=== PATIENT | female | born 1955 | race Caucasian/White ===

== ENCOUNTER → 2017-12-10 07:45 | Outpatient (CLI) | payer OTHER, SELFPAY ==
--- NOTE | 2017-12-10 07:49 | BI_ITS ---
MAMMOGRAPHY - BILATERAL SCREENING REASON FOR EXAM: Female, 62 years old. Routine annual screening examination. PERTINENT HISTORY: Non-contributory. TECHNIQUE: Digital bilateral breast walter (3D mammographic acquisition) in the CC and MLO projections. 2-D mediolateral oblique (MLO) and craniocaudad (CC) views of both breasts were obtained. CAD: Full Field Digital Mammography with Computer Added Detection was performed. COMPARISON: Comparison is made with prior abdomen examination dated December 09, 2016. FINDINGS: Breast Composition: There are scattered areas of fibroglandular density. There are no dominant masses or suspicious calcifications. No other significant abnormalities are identified. There has been no significant change since the prior study. BI/SCREENING MAMM (CAD), BILAT IMPRESSION: Stable bilateral screening mammogram. Yearly follow-up mammogram recommended. (A) ASSESSMENT CATEGORY: BIRADS Category 1: Negative. A letter regarding these results will be sent to the patient by the facility within 30 days. Approximately 10% of breast cancers are not detected by mammography. A normal mammogram should not delay biopsy of a clinically suspicious abnormality. [id number] Electronically Signed: Juan Eisenberg MD at 8:55 EDT Tel [phone], Service support ,
== END ==
PROVIDERS: Family Provider Student in an Organized Health Care Education/Training Program; PCP Student in an Organized Health Care Education/Training Program; Visit Provider Nurse Practitioner Women's Health
DX: Z12.31 Encounter for screening mammogram for malignant neoplasm of breast (principal)
CPT/HCPCS: 77063; 77067

== ENCOUNTER → 2018-12-14 | Outpatient (CLI) | payer OTHER, SELFPAY ==
[2018-11-10 12:07] VITALS: BMI 29.0
--- NOTE | 2018-12-14 07:51 | BI_ITS ---
MAMMOGRAPHY - BILATERAL SCREENING REASON FOR EXAM: Female, 63 years old. Routine annual screening examination. PERTINENT HISTORY: Non-contributory. TECHNIQUE: Digital bilateral breast ty (3D mammographic acquisition) in the CC and MLO projections. 2-D mediolateral oblique (MLO) and craniocaudad (CC) views of both breasts were obtained. CAD: Full Field Digital Mammography with Computer Added Detection was performed. COMPARISON: Comparison is made with prior examination dated December 10, 2017. FINDINGS: Breast Composition: There are scattered areas of fibroglandular density. There are no dominant masses or suspicious calcifications. No other significant abnormalities are identified. There has been no significant change since the prior study. BI/SCREEN MAMM (CAD) W/TY BILAT IMPRESSION: Stable bilateral screening mammogram. Yearly follow-up mammogram recommended. (A) ASSESSMENT CATEGORY: BIRADS Category 1: Negative. A letter regarding these results will be sent to the patient by the facility within 30 days. Approximately 10% of breast cancers are not detected by mammography. A normal mammogram should not delay biopsy of a clinically suspicious abnormality. [id number] Electronically Signed: Juan Eisenberg, at 9:36 EDT , Service support ,
== END | disposition home or self-care (01) ==
LOC: OPBI 07:49
PROVIDERS: Family Provider Student in an Organized Health Care Education/Training Program; PCP Student in an Organized Health Care Education/Training Program; Referring Provider Student in an Organized Health Care Education/Training Program; Visit Provider Student in an Organized Health Care Education/Training Program
DX: Z12.31 Encounter for screening mammogram for malignant neoplasm of breast (principal)
CPT/HCPCS: 77063; 77067

== ENCOUNTER → 2019-09-13 10:42 | Outpatient (CLI) | payer MEDICARE, BC, SELFPAY ==
[2019-09-13 10:33] VITALS: BMI 29.0
--- NOTE | 2019-09-13 10:50 | BI_ITS ---
MAMMOGRAPHY - UNILATERAL DIAGNOSTIC: LEFT BREAST REASON FOR EXAM: Female, 63 years old. Left breast pain. PERTINENT HISTORY: Non-contributory. TECHNIQUE: Digital unilateral breast walter (3D mammographic acquisition) in the CC and MLO projections. 2-D mediolateral oblique (MLO) and craniocaudad (CC) views of both breasts were obtained. CAD: Full Field Digital Mammography with Computer Added Detection was performed. COMPARISON: Comparison is made with prior examination dated December 14, 2018 and December 11, 2007. FINDINGS: Breast Composition: The breasts are heterogeneously dense, which may obscure small masses. There are no dominant masses or suspicious calcifications. No other significant abnormalities are identified. There has been no significant change since the prior study. BI/DIAG MAMM W/CAD, UNILAT IMPRESSION: Stable unilateral diagnostic mammogram. With the patient''s history of left breast pain, correlation with ultrasound is recommended. ASSESSMENT CATEGORY: BIRADS Category 0: Incomplete. Need additional imaging evaluation. A letter regarding these results will be sent to the patient by the facility within 30 days. Approximately 10% of breast cancers are not detected by mammography. A normal mammogram should not delay biopsy of a clinically suspicious abnormality. Electronically Signed: Juan Eisenberg, at 11:53 EDT , Service support ,
--- NOTE | 2019-09-13 10:50 | US_ITS ---
STUDY: ULTRASOUND BREAST - LEFT REASON FOR EXAM: Female, 63 years old. Pain in the left breast. TECHNIQUE: Axial and longitudinal images of the LEFT breast were performed with a high resolution ultrasound transducer. # OF IMAGES: 53 COMPARISON: Comparison is made with prior mammogram done earlier today. FINDINGS: LEFT Breast: The lateral half of the left breast was examined by ultrasound. No sonographic abnormality is seen. US/Breast Limited Unilateral IMPRESSION: No sonographic abnormality is seen. ASSESSMENT CATEGORY: BIRADS Category 1: Negative. A letter regarding these results will be sent to the patient by the facility within 30 days. Electronically Signed: Juan Eisenberg, at 11:55 EDT , Service support ,
== END ==
PROVIDERS: PCP Student in an Organized Health Care Education/Training Program; Referring Provider Obstetrics & Gynecology; Visit Provider Obstetrics & Gynecology
DX: N64.4 Mastodynia (principal)
CPT/HCPCS: 76642; 77061; 77065; G0279

== ENCOUNTER → 2019-12-16 07:18 | Outpatient (CLI) | payer MEDICARE, BC, SELFPAY ==
[2019-09-13 10:33] VITALS: BMI 29.0
--- NOTE | 2019-12-16 07:19 | BI_ITS ---
MAMMOGRAPHY - BILATERAL SCREENING REASON FOR EXAM: Female, 64 years old. Routine annual screening examination. PERTINENT HISTORY: Non-contributory. TECHNIQUE: Digital bilateral breast ty (3D mammographic acquisition) in the CC and MLO projections. 2-D mediolateral oblique (MLO) and craniocaudad (CC) views of both breasts were obtained. CAD: Full Field Digital Mammography with Computer Added Detection was performed. COMPARISON: Comparison is made with prior study dated December 14, 2018 and September 13, 2019. FINDINGS: Breast Composition: There are scattered areas of fibroglandular density. There are no dominant masses or suspicious calcifications. No other significant abnormalities are identified. There has been no significant change since the prior study. BI/SCREEN MAMM (CAD) W/TY BILAT IMPRESSION: Stable bilateral screening mammogram. Yearly follow-up mammogram recommended. (A) ASSESSMENT CATEGORY: BIRADS Category 1: Negative. A letter regarding these results will be sent to the patient by the facility within 30 days. Approximately 10% of breast cancers are not detected by mammography. A normal mammogram should not delay biopsy of a clinically suspicious abnormality. [id number] Electronically Signed: Juan Eisenberg, at 8:32 EDT , Service support ,
== END ==
PROVIDERS: PCP Student in an Organized Health Care Education/Training Program; Referring Provider Student in an Organized Health Care Education/Training Program; Visit Provider Student in an Organized Health Care Education/Training Program
DX: Z12.31 Encounter for screening mammogram for malignant neoplasm of breast (principal)
CPT/HCPCS: 77063; 77067

== ENCOUNTER 2020-02-23 08:31 | Outpatient (RCR) | payer MEDICARE, BC, SELFPAY ==
[2019-09-13 10:33] VITALS: BMI 29.0
== END 2020-02-29 23:59 ==
LOC: DC 08:31
PROVIDERS: PCP Student in an Organized Health Care Education/Training Program; Visit Provider Nurse Practitioner Family
DX: Z71.3 Dietary counseling and surveillance (principal); E11.9 Type 2 diabetes mellitus without complications
CPT/HCPCS: G0108

== ENCOUNTER 2020-03-13 14:25 | Outpatient (RCR) | payer MEDICARE, BC, SELFPAY ==
[2019-09-13 10:33] VITALS: BMI 29.0
== END 2020-03-31 23:59 ==
LOC: DC 14:25
PROVIDERS: PCP Student in an Organized Health Care Education/Training Program; Visit Provider Nurse Practitioner Family
DX: Z71.3 Dietary counseling and surveillance (principal); E11.9 Type 2 diabetes mellitus without complications
CPT/HCPCS: 97802

== ENCOUNTER 2020-04-03 09:57 | Outpatient (RCR) | payer MEDICARE, BC, SELFPAY ==
[2019-09-13 10:33] VITALS: BMI 29.0
== END 2020-04-30 23:59 ==
LOC: DC 09:57
PROVIDERS: PCP Student in an Organized Health Care Education/Training Program; Visit Provider Nurse Practitioner Family
DX: Z71.3 Dietary counseling and surveillance (principal); E11.9 Type 2 diabetes mellitus without complications
CPT/HCPCS: 97803

== ENCOUNTER 2020-05-02 09:57 | Outpatient (RCR) | payer MEDICARE, BC, SELFPAY ==
[2019-09-13 10:33] VITALS: BMI 29.0
== END 2020-05-02 15:37 | disposition home or self-care (01) ==
LOC: DC 09:57
PROVIDERS: PCP Student in an Organized Health Care Education/Training Program; Visit Provider Nurse Practitioner Family
DX: Z71.3 Dietary counseling and surveillance (principal); E11.9 Type 2 diabetes mellitus without complications
CPT/HCPCS: 97803

== ENCOUNTER → 2020-12-19 06:56 | Outpatient (CLI) | payer MEDICARE, SELFPAY ==
[2019-09-13 10:33] VITALS: BMI 29.0
--- NOTE | 2020-12-19 07:02 | BI_ITS ---
MAMMOGRAPHY - BILATERAL SCREENING REASON FOR EXAM: Female, 65 years old. Routine annual screening examination. PERTINENT HISTORY: Non-contributory. TECHNIQUE: Digital bilateral breast ty (3D mammographic acquisition) in the CC and MLO projections. 2-D mediolateral oblique (MLO) and craniocaudad (CC) views of both breasts were obtained. CAD: Full Field Digital Mammography with Computer Added Detection was performed. COMPARISON: Comparison is made with prior study dated 12/16/2019 and 12/14/2018. FINDINGS: Breast Composition: There are scattered areas of fibroglandular density. There are no dominant masses or suspicious calcifications. No other significant abnormalities are identified. There has been no significant change since the prior study. BI/SCRN MAMM (CAD)W/TY BILAT IMPRESSION: Stable bilateral screening mammogram. Yearly follow-up mammogram recommended. (A) ASSESSMENT CATEGORY: BIRADS Category 1: Negative. A letter regarding these results will be sent to the patient by the facility within 30 days. Approximately 10% of breast cancers are not detected by mammography. A normal mammogram should not delay biopsy of a clinically suspicious abnormality. [id number] Electronically Signed: Juan Eisenberg MD at 8:48 EDT , Service support ,
== END ==
PROVIDERS: PCP Student in an Organized Health Care Education/Training Program; Referring Provider Student in an Organized Health Care Education/Training Program; Visit Provider Student in an Organized Health Care Education/Training Program
DX: Z12.31 Encounter for screening mammogram for malignant neoplasm of breast (principal)
CPT/HCPCS: 77063; 77067

== ENCOUNTER → 2022-01-15 | Outpatient (CLI) | payer MEDICARE, SELFPAY ==
--- NOTE | 2022-01-15 07:16 | BI_ITS ---
MAMMOGRAPHY - BILATERAL SCREENING 3-D TOMOSYNTHESIS REASON FOR EXAM: Female, 66 years old. SCREENING PERTINENT HISTORY: No significant family history. TECHNIQUE: 2-D mammograms and 3-D Tomosynthesis of the breast (s) were performed. CAD was performed. COMPARISON: 12/19/2020 FINDINGS: The breast composition is heterogeneously dense that can obscure small breast masses. Scattered benign calcifications are seen. No dense spiculated masses or suspicious microcalcifications are identified. No architectural distortion is identified. There is no skin thickening or retraction. There has been no significant change since the prior study. BI/SCRN MAMM (CAD)W/TY BILAT IMPRESSION: No mammographic signs of malignancy. Routine yearly mammograms recommended. ASSESSMENT CATEGORY: BIRADS Category 1: Negative. A letter regarding these results will be sent to the patient by the facility within 30 days. FOLLOW UP RECOMMENDATION: Yearly follow up mammogram recommended. (A) Approximately 10% of breast cancers are not detected by mammography. A normal mammogram should not delay biopsy of a clinically suspicious abnormality. Electronically Signed: Pee Sutherland MD at 9:26 EDT ,
== END | disposition home or self-care (01) ==
LOC: OPBI 07:13
PROVIDERS: PCP Student in an Organized Health Care Education/Training Program; Visit Provider Nurse Practitioner Family
DX: Z12.31 Encounter for screening mammogram for malignant neoplasm of breast (principal)
CPT/HCPCS: 77063; 77067

== ENCOUNTER → 2023-01-16 | Outpatient (CLI) | payer MEDICARE, SELFPAY ==
--- NOTE | 2023-01-16 09:09 | BI_ITS ---
MAMMOGRAPHY - BILATERAL SCREENING REASON FOR EXAM: Female, 67 years old. Routine annual screening examination. PERTINENT HISTORY: Non-contributory. TECHNIQUE: Digital bilateral breast ty (3D mammographic acquisition) in the CC and MLO projections. 2-D mediolateral oblique (MLO) and craniocaudad (CC) views of both breasts were obtained. CAD: Full Field Digital Mammography with Computer Added Detection was performed. COMPARISON: Comparison is made with prior study January 15, 2022 and December 19, 2020. FINDINGS: Breast Composition: The breasts are heterogeneously dense, which may obscure small masses. There are no dominant masses or suspicious calcifications. No other significant abnormalities are identified. There has been no significant change since the prior study. BI/SCRN MAMM (CAD)W/TY BILAT IMPRESSION: Stable bilateral screening mammogram. Yearly follow-up mammogram recommended. (A) ASSESSMENT CATEGORY: BIRADS Category 1: Negative. A letter regarding these results will be sent to the patient by the facility within 30 days. Approximately 10% of breast cancers are not detected by mammography. A normal mammogram should not delay biopsy of a clinically suspicious abnormality. [id number] Electronically Signed: Juan Eisenberg MD at 10:42 EDT ,
== END | disposition home or self-care (01) ==
LOC: OPBI 09:07
PROVIDERS: PCP Student in an Organized Health Care Education/Training Program; Referring Provider Student in an Organized Health Care Education/Training Program; Visit Provider Student in an Organized Health Care Education/Training Program
DX: Z12.31 Encounter for screening mammogram for malignant neoplasm of breast (principal)
CPT/HCPCS: 77063; 77067

== ENCOUNTER → 2024-01-18 | Outpatient (CLI) | payer MEDICARE, SELFPAY ==
--- NOTE | 2024-01-18 07:22 | BI_ITS ---
MAMMOGRAPHY - BILATERAL SCREENING REASON FOR EXAM: Female, 68 years old. Routine annual screening examination. PERTINENT HISTORY: Non-contributory. TECHNIQUE: Digital bilateral breast ty (3D mammographic acquisition) in the CC and MLO projections. 2-D mediolateral oblique (MLO) and craniocaudad (CC) views of both breasts were obtained. CAD: Full Field Digital Mammography with Computer Added Detection was performed. COMPARISON: Comparison is made with prior study January 16, 2023 and January 15, 2022. FINDINGS: Breast Composition: The breasts are heterogeneously dense, which may obscure small masses. There are no dominant masses or suspicious calcifications. No other significant abnormalities are identified. There has been no significant change since the prior study. BI/SCRN MAMM (CAD)W/TY BILAT IMPRESSION: Stable bilateral screening mammogram. Yearly follow-up mammogram recommended. (A) ASSESSMENT CATEGORY: BIRADS Category 1: Negative. A letter regarding these results will be sent to the patient by the facility within 30 days. Approximately 10% of breast cancers are not detected by mammography. A normal mammogram should not delay biopsy of a clinically suspicious abnormality. [id number] Electronically Signed: Juan Eisenberg MD at 8:30 EDT ,
== END | disposition home or self-care (01) ==
LOC: OPBI 07:21
PROVIDERS: PCP Student in an Organized Health Care Education/Training Program; Referring Provider Student in an Organized Health Care Education/Training Program; Visit Provider Student in an Organized Health Care Education/Training Program
DX: Z12.31 Encounter for screening mammogram for malignant neoplasm of breast (principal)
CPT/HCPCS: 77063; 77067

== ENCOUNTER → 2025-01-18 | Outpatient (CLI) | payer MEDICARE, SELFPAY ==
--- NOTE | 2025-01-18 07:22 | BI_ITS ---
EXAM: SCRN MAMM (CAD)W/TY BILAT DATE: 01/18/2025 CLINICAL HISTORY: F, Age 69 y/o , SCREENING No family history. TECHNIQUE: SCRN MAMM (CAD)W/TY BILAT COMPARISON: Prior exam(s) dated January 18, 2024.. FINDINGS: TISSUE DENSITY: The breasts are heterogeneously dense, which may obscure small masses. Bilateral Breast Mammographic Findings: No significant masses, calcifications or other abnormalities are identified. Stable asymmetry of breast tissue were more breast tissue is seen in the retroareolar region of the right breast as compared to the left side. No suspicious masses, areas of developing architectural distortion, or suspicious calcifications. There has been no significant interval change. BI/SCRN MAMM (CAD)W/TY BILAT IMPRESSION: Stable examination. OVERALL FINAL ASSESSMENT BI-RADS 2: BENIGN RECOMMENDATION: Routine annual follow-up in 1 Year A letter with findings and recommendations will be mailed to the patient. Reading Location: [facility]
--- OUTSIDE RECORDS SUMMARY | 2025-01-18 07:25 | XMS RPT_ITS | CCD ---
Author Organization [facility] Care Team Providers Care Tierce Filler Name Role Phone Pray TRANSFER MACHINE OPERATOR, Estrella Reese Unavailable Ludin PHILIP, Alice Burroughs Unavailable Wojciech Alvarado DO Primary Care Provider Wojciech Alvarado DO L Primary Care Provider Christiano JOHNSON Wojciech L Primary Care Provider Sissen PSS, Tha Unavailable Unavailable Christiano JOHNSON Wojciech L Primary Care Provider WOJCIECH ALVARADO L Primary Care Unavailable MAGDALENO NORTON Referring Unavailable Alvarado DO Wojciech L Primary Care Provider Sissen PSS, Tha Unavailable Unavailable Aponte ARMOR RECONNAISSANCE VEHICLE DRIVER.Casi PETTY Unavailable Siddharth ARMOR RECONNAISSANCE VEHICLE DRIVER.Halle PETTY Unavailable Aponte ARMOR RECONNAISSANCE VEHICLE DRIVER.Casi PETTY Unavailable SIDDHARTHHALLE DO Referring Unavailable ALVARADO, WOJCIECH L Primary Care Unavailable HALLE MESSINA Referring Unavailable ALVARADO, WOJCIECH L Primary Care Unavailable Wellington ARMOR RECONNAISSANCE VEHICLE DRIVER.Kate PETTY Unavailable CASI APONTE Attending Unavailabl e ALVARADO, WOJCIECH Primary Care Unavailable ALVARADO, WOJCIECH Referring Unavailable ALVARADO, WOJCIECH Primary Care Unavailable ALVARADO, WOJCIECH Primary Care Unavailable SIDDHARTHHALLE Attending Unavailable ALVARADO, WOJCIECH Attending Unavailable ALVARADO, WOJCIECH Primary Care Unavailable ALVARADO, WOJCIECH Primary Care Unavailable SIDDHARTH, HALLE Attending Unavailable ALVARADO, WOJCIECH Primary Care Unavailable CASI APONTE Referring Unavailabl e ALVARADO, WOJCIECH Primary Care Unavailable [facility] Attending Unavailable [facility] Primary Care Unavailable CECELIA NAQVI Referring Unavailable [facility] Primary Care Unavailable CASI APONTE [facility] ALVARADO, WOJCIECH Primary Care Unavailable ALVARADO WOJCIECH Referring Unavailable ALVARADO WOJCIECH Primary Care Unavailable ALVARADO WOJCIECH Attending Unavailable [facility] Primary Care Unavailable [facility] Referring Unavailable [facility] Attending Unavailable [facility] Primary Care Unavailable Medications Current Medications Medication Drug Class(es) Dates Sig (Normalized) Sig (Original) amLODIPine 5 mg oral tablet (13 sources) Dihydropyridine Calcium Channel Kiarra Start: 09-08-2024 End: 01-29-2025 take 1 tablet by mouth once daily amLODIPine (NORVASC) 5 mg tablet Indications: Essential hypertension Take 1 tablet by mouth once daily. 30 tablet 2 10/31/2024 01/29/2025 Active Start: 08-18-2024 End: 09-08-2024 take 1 tablet by mouth once daily amLODIPine (NORVASC) 2.5 mg tablet Take 1 tablet by mouth once daily. 90 tablet 08/18/2024 09/08/2024 Discontinued biotin 1 mg oral capsule (20 sources) Start: 09-13-2019 take 1 mg by mouth once daily Biotin Active 1 MG PO DAILY September 13, 2019 12:00am Start: 05-17-2018 End: 12-24-2022 take 1 tablet by mouth once daily biotin 300 mcg tab Take 1 tablet by mouth once daily. 05/17/2018 12/24/2022 Discontinued Comment on above: Take 1 tablet by [facility] once daily. calcium carbonate 1500 mg / cholecalciferol 500 unt oral capsule (2 sources) Vitamin D Start: 020 Calcium Carbonate-Vitamin D3 (Calcium 600 With Vitamin D3) 600 mg(1,500mg) -500 unit capsule Active CAP PO September 13, 2019 12:00am CALTRATE-600 PLUS VITAMIN D3 600 MG-400 UNIT TAB (20 sources) Start: 007 CALTRATE-600 PLUS VITAMIN D3 600 MG-400 UNIT TAB Take one(1) tablet daily. 0 06/19/2006 Active Comment on above: Take one(1) tablet d aily. docusate sodium 100 mg oral capsule (4 sources) Start: End: take 1 capsule by mouth every twelve hours as needed docusate sodium (COLACE) 100 mg capsule Take 1 capsule by mouth twice daily as needed for constipation. 60 capsule 0 05/06/2022 06/05/2022 Active Comment on above: Take 1 capsule by [facility] twice daily as needed for constipation. doxycycline monohydrate 100 mg oral tablet (1 source) Tetracycline-class Drug Start: End: take 1 tablet by mouth twice daily doxycycline monohydrate 100 mg tablet Indications: Sinobronchitis Take 1 tablet by mouth two times a day for 7 days. 14 tablet 04/13/2024 04/20/2024 Active enteric contrast (will be provided with radiology test) (3 sources) Start: End: enteric contrast (will be provided with radiology test) Indications: Pain of upper abdomen , Decreased appetite , Early satiety , Bloating For CT ABD/PEL W IVCON Routine order Administer, As Directed One Time Only, via Oral, Rectal, both Oral and Rectal, Enteric Tube, Stoma or Indwelling Catheter, Enteric Contrast as designated per enteric contrast guidelines 1 each 10/06/2024 10/07/2024 Active hydrALAZINE hydrochloride 25 mg oral tablet (10 sources) Arteriolar Vasodilator Start: hydrALAZINE (APRESOLINE) 25 mg tablet Take 1 tablet by mouth once daily as needed. For BP greater than 150/100 30 tablet 2 10/06/2024 Active iv contrast (will be provided with radiology test) (3 sources) Start: End: iv contrast (will be provided with radiology test) Indications: Pain of upper abdomen , Decreased appetite , Early satiety , Bloating CT ABD/PEL -Inject, intravenously, once for 1 dose.No IV access, insert saline lock prior to the beginning of sedation, infusion, injection of imaging exam. Discontinue saline lock post exam. If Pt. has a central line or IVAD, may access for administration according to line specific nursing protocol. Once exam is complete flush line and de-access according to line specific nursing protocol in the CT contrast administration guidelines link. 1 each 10/06/2024 10/07/2024 Active lisinopril 40 mg oral tablet (20 sources) Angiotensin Converting Enzyme Inhibitor Start: 025 take 1 tablet by mouth once daily lisinopril (ZESTRIL) 40 mg tablet Indications: Lightheadedness , Essential hypertension Take 1 tablet by mouth once daily. 90 tablet 3 08/17/2024 Active Start: 08-11-2024 End: 08-12-2024 take 1 tablet by mouth once daily lisinopril (ZESTRIL) 40 mg tablet Indications: Lightheadedness , Essential hypertension Take 1 tablet by mouth once daily. 90 tablet 3 08/11/2024 08/12/2024 Discontinued Start: 07-21-2024 End: 08-11-2024 take 1 tablet by mouth once daily lisinopril (ZESTRIL) 20 mg tablet Take 1 tablet by mouth once daily. 90 tablet 07/21/2024 08/11/2024 Discontinued Start: 11-10-2018 End: 08-11-2024 take 1 tablet by mouth once daily lisinopril (ZESTRIL) 10 mg tablet Indications: Essential hypertension Take 1 tablet by mouth once daily. 90 tablet 3 10/06/2023 08/11/2024 Discontinued Start: 12-31-2016 take 1 tablet by [facility] once daily PRINIVIL 10 MG TABS One tablet by mouth daily LISINOPRIL [id number] Estrella Mares TRANSFER MACHINE OPERATOR Comment on above: TAKE 1 TABLET ONCE D AILY Take 1 tablet by [facility] th once daily. meloxicam 15 mg oral tablet (6 sources) Nonsteroidal Anti-inflammatory Drug Start: 07-02-2023 End: 08-01-2023 take 1 tablet by mouth once daily meloxicam (MOBIC) 15 mg tablet Take 1 tablet by mouth once daily. 30 tablet 0 07/02/2023 08/01/2023 Active Start: 05-07-2022 End: 05-21-2022 take 1 tablet by mouth once daily meloxicam (MOBIC) 7.5 mg tablet Take 1 tablet by mouth once daily for 14 days. 14 tablet 0 05/07/2022 05/21/2022 Active Comment on above: Take 1 tablet by [facility] th once daily for 14 days. Take 1 tablet by [facility] th once daily. metFORMIN hydrochloride 500 mg oral tablet (20 sources) Biguanide Start: 01-27-20 End: 12-06-19 take 1 tablet by mouth three times daily at mealtime for diabetes mellitus metFORMIN (GLUCOPHAGE) 500 mg tablet Indications: Uncontrolled type 2 diabetes mellitus with hyperglycemia (HCC) TAKE ONE TABLET BY MOUTH THREE TIMES A DAY WITH MEALS FOR DIABETES 270 tablet 1 12/05/2024 Active Start: 10-16-2023 End: 04-13-2024 take 1 tablet by mouth twice daily at mealtime for diabetes mellitus, then take 2 tablets by mouth twice daily for diabetes mellitus metFORMIN (GLUCOPHAGE) 500 mg tablet Indications: Uncontrolled type 2 diabetes mellitus with hyperglycemia (HCC) Take 1 tablet by mouth two times a day with meals. For diabetes If tolerating well in 2 weeks then increase to 2 tablets BID 120 tablet 2 10/16/2023 01/27/2024 Discontinued Start: 06-18-2023 End: 01-27-2024 take 1 tablet by mouth once daily at dinner for diabetes mellitus metFORMIN (GLUCOPHAGE) 500 mg tablet Indications: Uncontrolled type 2 diabetes mellitus with hyperglycemia (HCC) Take 1 tablet by mouth daily with dinner. For diabetes 90 tablet 1 06/18/2023 10/16/2023 Discontinued Start: 12-23-2022 take 1 tablet by [facility] th once daily at dinner for diabetes mellitus metFORMIN (GLUCOPHAGE) 500 mg tablet Indications: Uncontrolled type 2 diabetes mellitus with hyperglycemia (HCC) Take 1 tablet by mouth daily with dinner. For diabetes 90 tablet 1 12/23/2022 Active Comment on above: Take 1 tablet by [facility] th daily with dinner. For diabetes Take 1 tablet by [facility] th daily with dinner. Multivitamin preparation (2 sources) Start: 09-13-19 take 1 tablet by mouth once daily Multivitamin Active 1 TABLET PO DAILY September 13, 2019 12:00am multivitamins(DAILY MULTIVITAMIN TAB) (20 sources) Start: 10-27-19 multivitamins(DAILY MULTIVITAMIN TAB) Take one(1) tablet daily. 0 10/26/2009 Active Comment on above: Take one(1) tablet d aily. mupirocin 0.02 mg/mg topical ointment (2 sources) RNA Synthetase Inhibitor Antibacterial Start: 04-16-20 End: 05-05-20 mupirocin (BACTROBAN) 2 % ointment Apply 0.5 inch with cotton swab (Q-tip) to each nostril in the morning and evening for 5 days prior to and including day of surgery. 22 g 0 04/16/2022 05/05/2022 Active Comment on above: Apply 0.5 inch with cotton swab (Q-tip) to each nostril in the morning and evening for 5 days prior to and including day of surgery. perflutren lipid microspheres 1.3 mL in NaCl (PF) 0.9% 10 mL injection (DEFINITY) (20 sources) Start: 12-10-19 End: 03-10-20 perflutren lipid microspheres 1.3 mL in NaCl (PF) 0.9% 10 mL injection (DEFINITY) polyethylene glycol 3350 01180 mg powder for oral solution (3 sources) Osmotic Laxative Start: 05-06-20 End: 05-16-20 polyethylene glycol 3350 (MIRALAX, GLYCOLAX) 17 gram packet Take 1 Packet by mouth once daily as needed for constipation for up to 10 days. Dissolve dose in 4 - 8 ounces of liquid and take as directed. 10 Packet 0 05/06/2022 05/16/2022 Active Comment on above: Take 1 Packet by [facility] once daily as needed for constipation for up to 10 days. Dissolve dose in 4 - 8 ounces of liquid and take as directed. predniSONE 10 mg oral tablet (1 source) Start: 11-22-19 End: 12-07-19 predniSONE (DELTASONE) 10 mg tablet Indications: Irritant contact dermatitis due to plants, except food Take 4 tabs daily x5 days, then 2 tabs daily for 5 days, then 1 tab daily for 5 days. 35 tablet 0 11/21/2022 12/06/2022 Active Comment on above: Take 4 tabs daily x5 days, then 2 tabs daily for 5 days, then 1 tab daily for 5 days. 125 ml sodium chloride 9 mg/ml prefilled syringe (20 sources) Start: 12-10-19 End: 03-10-20 sodium chloride 0.9 % (flush) 10 mL (BD POSIFLUSH) ubidecarenone 75 mg oral capsule (2 sources) Start: 09-13-19 Coenzyme Q10 (Ultra Coq10) 75 mg capsule Active 75 MG PO DAILY September 13, 2019 12:00am 24 hr venlafaxine 75 mg extended release oral capsule (20 sources) Serotonin and Norepinephrine Reuptake Inhibitor Start: 01-27-20 End: 04-04-20 take 1 capsule by mouth once daily venlafaxine ER (EFFEXOR XR) 75 mg 24 hr capsule Take 1 capsule by mouth once daily. 90 capsule 04/05/2024 Active Start: 01-21-2018 End: 09-13-2019 Venlafaxine Discontinued PO 90 90 January 21, 2018 12:00am September 13, 2019 10:19am Start: 12-31-2016 take 1 tablet by [facility] once daily EFFEXOR XR 75 MG [id number] One tablet by mouth daily VENLAFAXINE HCL [id number] Estrella Mares NP Start: 12-31-2016 take 1 tablet by [facility] th once daily EFFEXOR XR 75 MG [id number] One tablet by mouth daily VENLAFAXINE HCL [id number] Estrella Mares TRANSFER MACHINE OPERATOR Completed/Discontinued Medications Medication Drug Class(es) Dates Sig (Normalized) Sig (Original) acetaminophen 500 mg oral tablet (13 sources) Start: 05-06-2022 take 2 tablets by mouth every eight hours as needed acetaminophen (TYLENOL) 500 mg tablet Take 2 tablets by mouth every 8 hours as needed for pain. 90 tablet 0 05/06/2022 Active Comment on above: Take 2 tablets by mo uth every 8 hours as needed for pain. amoxicillin 875 mg / clavulanate 125 mg oral tablet (4 sources) Penicillin-class Antibacterial Start: 11-10-2018 End: 09-13-2019 take 1 tablet by mouth twice daily Amoxicillin-Pot Clavulanate Discontinued 1 TABLET PO TWICE A DAY November 10, 2018 12:00am September 13, 2019 10:19am Start: 01-21-2018 End: 11-10-2018 take 1 tablet by mouth twice daily Amoxicillin-Pot Clavulanate (Augmentin) 875-125 mg tablet Discontinued 1 TABLET PO TWICE A DAY January 21, 2018 12:00am November 10, 2018 12:11pm ascorbic acid 500 mg oral tablet (12 sources) Vitamin C Start: 05-06-2022 End: 05-20-2022 take 1 tablet by mouth twice daily at mealtime ascorbic acid, vitamin C, (VITAMIN C) 500 mg tablet Take 1 tablet by mouth twice daily with meals for 27 doses. 27 tablet 0 05/06/2022 Active Comment on above: Take 1 tablet by mouth twice daily with meals for 27 doses. aspirin 81 mg delayed release oral tablet (20 sources) Nonsteroidal Anti-inflammatory Drug Start: 05-06-2022 End: 07-05-2024 take 1 tablet by mouth twice daily aspirin, enteric coated (ASPIRIN, ENTERIC COATED) 81 mg EC tablet Take 1 tablet by mouth twice daily for 28 days. 56 tablet 05/06/2022 07/05/2024 Discontinued Start: 12-31-2016 take 1 tablet by [facility] once daily ASPIR-81 81 MG TBEC One tablet by mouth daily ASPIRIN [id number] Estrella Mares TRANSFER MACHINE OPERATOR Start: 10-03-2016 End: 05-06-2022 take 1 tablet by mouth once daily aspirin, enteric coated (ASPIRIN, ENTERIC COATED) 81 mg EC tablet Take 1 tablet by mouth once daily. 0 10/03/2016 05/06/2022 Discontinued Comment on above: Take 1 tablet by [facility] th once daily. Take 1 tablet by [facility] th twice daily for 28 days. atorvastatin 20 mg oral tablet (4 sources) HMG-CoA Reductase Inhibitor Start: 01-01-20 17 take 1 tablet by mouth once daily LIPITOR 20 MG TABS One tablet by mouth daily ATORVASTATIN CALCIUM [id number] Estrella Mares TRANSFER MACHINE OPERATOR benzonatate 100 mg oral capsule (6 sources) Non-narcotic Antitussive Start: 04-13-20 End: 07-05-19 25 take 2 capsules by mouth three times daily as needed benzonatate (TESSALON PERLE) 100 mg capsule Indications: Acute cough Take 2 capsules by mouth three times a day as needed. 30 capsule 04/13/2024 07/05/2024 Discontinued Blood-Glucose Meter monitoring kit (2 sources) Start: 01-27-20 24 End: 01-28-20 Blood-Glucose Meter monitoring kit Glucose Meter of Choice - Kit - Dx: Type 2 DM - Uncontrolled E11.65 1 Each 01/27/2024 01/28/2024 Start: 01-27-2024 End: 01-28-2024 Blood-Glucose Meter monitori ng kit Glucose Meter of Choice - Kit - Dx: Type 2 DM - Uncontrolled E11.65 1 Each 01/27/2024 01/28/2024 Active CALCIUM CARB-CHOLECALCIFEROL (3 sources) Start: 12-31-2016 take 1 tablet by mouth once daily CALCIUM-VITAMIN D3 600-500 MG-UNIT CAPS One tablet by mouth daily CALCIUM CARB-CHOLECALCIFEROL [id number] Estrella Mares TRANSFER MACHINE OPERATOR CALCIUM CARB-CHOLECALCIFEROL (1 source) Start: 12-31-2016 take 1 tablet by mouth once daily CALCIUM-VITAMIN D3 600-500 MG-UNIT CAPS One tablet by mouth daily CALCIUM CARB-CHOLECALCIFEROL [id number] Estrella Mares TRANSFER MACHINE OPERATOR empagliflozin 10 mg oral tablet (3 sources) Sodium-Glucose Cotransporter 2 Inhibitor Start: 10-14-2023 End: 10-16-2023 take 1 tablet by mouth once daily at breakfast, then take 1 tablet by mouth once daily in the morning empagliflozin (JARDIANCE) 10 mg tablet Take 1 tablet by mouth daily with breakfast. Take 1 tablet once daily in the morning 90 tablet 1 10/15/2023 10/16/2023 Discontinued FLUoxetine 20 mg oral capsule (20 sources) Serotonin Reuptake Inhibitor Start: 02-13-2022 End: 07-08-2022 FLUoxetine (PROZAC) 20 mg capsule TAKE 1 CAPSULE ONCE DAILY 90 capsule 0 07/08/2022 Active Start: 03-29-2021 take 1 tablet by [facility] once daily FLUoxetine 10 mg tablet Indications: Anxiety and depression Take 1 tablet by mouth once daily. 90 tablet 3 03/29/2021 Active Start: 12-07-2020 End: 03-11-2021 take 1 tablet by mouth once daily FLUoxetine 10 mg tablet Indications: Anxiety and depression Take 1 tablet by mouth once daily. 30 tablet 3 12/07/2020 03/11/2021 Discontinued Comment on above: Take 1 tablet by [facility] once daily. Take 1 capsule by [facility] once daily. TAKE 1 CAPSULE ONCE DAILY folic acid 0.4 mg oral tablet (4 sources) Start: take 1 tablet by mouth once daily FOLIC ACID 400 MCG TABS One tablet by mouth daily FOLIC ACID [id number] Estrella Mares TRANSFER MACHINE OPERATOR glycopyrrolate 1 mg oral tablet (14 sources) Start: End: take 1 tablet by mouth three times daily glycopyrrolate (ROBINUL) 1 mg tablet Indications: Sweating disease Take 1 tablet by mouth three times daily. For sweating disorder 180 tablet 1 12/23/2022 10/16/2023 Discontinued Comment on above: Take 1 tablet by [facility] three times daily. For sweating disorder hydroCHLOROthiazide 12.5 mg oral tablet (20 sources) Thiazide Diuretic Start: End: take 1 tablet by mouth once daily hydroCHLOROthiazide 12.5 mg tablet Indications: Essential hypertension Take 1 tablet by mouth once daily. 90 tablet 3 01/27/2024 07/05/2024 Discontinued Start: 09-13-2019 End: 09-05-2022 take 1 tablet by mouth once daily hydroCHLOROthiazide (HYDRODIURIL, ESIDRIX) 12.5 mg tablet Indications: Essential hypertension Take 1 tablet by mouth once daily. 90 tablet 3 07/20/2020 09/23/2021 Discontinued Start: 01-21-2018 End: 11-10-2018 Hydrochlorothiazide Disconti nued PO 30 January 21, 2018 12:00am November 10, 2018 12:11pm Comment on above: TAKE 1 TABLET ONCE D AILY Take 1 tablet by [facility] th once daily. LORazepam 0.5 mg oral tablet (1 source) Benzodiazepine Start: End: take 1 tablet by mouth twice daily as needed for anxiety LORazepam (ATIVAN) 0.5 mg Indications: Anxiety and depression Take 1 tablet by mouth twice daily as needed (anxiety) for up to 30 days. 20 tablet 1 12/07/2020 01/06/2021 MULTIPLE VITAMINS-MINERALS (3 sources) Start: take 1 tablet by mouth once daily MULTIVITAMIN WOMEN TABS One tablet by mouth daily MULTIPLE VITAMINS-MINERALS [id number] Estrella Mares TRANSFER MACHINE OPERATOR MULTIPLE VITAMINS-MINERALS (1 source) Start: take 1 tablet by mouth once daily MULTIVITAMIN WOMEN TABS One tablet by mouth daily MULTIPLE VITAMINS-MINERALS [id number] Estrella Mares NP niacin 500 mg oral tablet (20 sources) Nicotinic Acid Start: 007 End: 024 NIACIN 500 MG TAB Take one(1) tablet daily at bedtime. 0 06/19/2006 10/16/2023 Discontinued Comment on above: Take one(1) tablet d aily at bedtime. oxyCODONE hydrochloride 5 mg oral tablet (13 sources) Opioid Agonist Start: take 1 tablet by mouth every six hours as needed oxyCODONE IR (ROXICODONE) 5 mg immediate release tablet Indications: S/P total right hip arthroplasty Take 1-2 tablets by mouth every 6 hours as needed for pain. 30 tablet 0 05/06/2022 Active Comment on above: Take 1-2 tablets by mouth every 6 hours as needed for pain. pantoprazole 20 mg delayed release oral tablet (12 sources) Proton Pump Inhibitor Start: End: 023 take 1 tablet by mouth once daily in the morning pantoprazole DR (PROTONIX) 20 mg tablet Take 1 tablet by mouth every morning. 30 tablet 0 05/06/2022 Active Comment on above: Take 1 tablet by [facility] every morning. rosuvastatin calcium 10 mg oral tablet (20 sources) HMG-CoA Reductase Inhibitor Start: 023 End: 025 take 1 tablet by mouth once daily at bedtime rosuvastatin (CRESTOR) 10 mg tablet Indications: RAMIREZ (dyspnea on exertion) , Lightheadedness , Dyslipidemia Take 1 tablet by mouth daily at bedtime. 90 tablet 3 12/28/2023 12/19/2024 Discontinued Start: 12-09-2021 take 1 tablet by [facility] once daily at bedtime rosuvastatin (CRESTOR) 10 mg tablet Indications: RAMIREZ (dyspnea on exertion) , Lightheadedness , Dyslipidemia Take 1 tablet by mouth daily at bedtime. 90 tablet 3 12/09/2021 Active Comment on above: Take 1 tablet by [facility] daily at bedtime. Problems Active Problems Problem Classification Problem Date Documented Da te Episodic/Chronic Anxiety disorders (20 sources) Anxiety state; Translations: [Generalized anxiety disorder] Onset: 09-17-2005 09-17-2005 Chronic Chronic obstructive pulmonary disease and bronchiectasis (2 sources) Bronchitis; Translations: [Bronchitis, not specified as acute or chronic] 11-10-2018 Episodic Diabetes mellitus with complications (20 sources) Type II diabetes mellitus uncontrolled; Translations: [Type 2 diabetes mellitus with hyperglycemia] Onset: 09-24-2022 Chronic Diabetes mellitus without complication (20 sources) Type 2 diabetes mellitus without complication; Translations: [Type 2 diabetes mellitus without complications] Onset: 02-13-2020 02-13-2020 Chronic Disorders of lipid metabolism (20 sources) Mixed hyperlipidemia; Translations: [Mixed hyperlipidemia] Onset: 04-22-2016 04-22-2016 Chronic Essential hypertension (20 sources) Essential hypertension; Translations: [Essential (primary) hypertension] Onset: 10-26-2008 Resolved: 11-03-2014 Chronic Hepatitis (2 sources) Hepatic granuloma; 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, 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 Immunizations and screening for infectious disease (1 source) Encounter for immunization; Translations: [Other specified vaccinations against streptococcus pneumoniae [pneumococcus]] Episodic Menopausal disorders (20 sources) Atrophic vaginitis; Translations: [Postmenopausal atrophic vaginitis] Onset: 09-23-2006 09-23-2006 Chronic Nausea and vomiting (1 source) Nausea; Translations: [Nausea] Episodic Osteoarthritis (20 sources) Osteoarthritis of right hip joint; Translations: [Unilateral primary osteoarthritis, right hip] Onset: 12-10-2021 12-10-2021 Chronic Other connective tissue disease (2 sources) Hip joint prosthesis present; Translations: [Presence of right artificial hip joint] Chronic Other connective tissue disease (3 sources) History of repair of hip joint; Translations: [Presence of right artificial hip joint] Chronic Other connective tissue disease (1 source) Trochanteric bursitis of right hip; Translations: [Trochanteric bursitis, right hip] 07-02-2023 Episodic Other gastrointestinal disorders (4 sources) Abdominal bloating; Translations: [Abdominal distension (gaseous)] 10-06-2024 Episodic Other hereditary and degenerative nervous system conditions (20 sources) Essential tremor; Translations: [Essential tremor] Onset: 12-10-2020 12-10-2020 Chronic Other lower respiratory disease (20 sources) Dyspnea on exertion; Translations: [Other forms of dyspnea] Onset: 12-10-2021 12-10-2021 Episodic Other lower respiratory disease (1 source) Cough; Translations: [Acute cough] 04-13-2024 Episodic Other nervous system disorders (20 sources) Bilateral carpal tunnel syndrome; Translations: [Carpal tunnel syndrome, bilateral upper limbs] Onset: 11-08-2013 11-08-2013 Chronic Other non-traumatic joint disorders (20 sources) Pain in right hip joint; Translations: [Pain in right hip] Onset: 12-01-2016 12-10-2020 Episodic Other non-traumatic joint disorders (1 source) Pain in right hip; Translations: [Pain in right hip] Onset: 07-02-2023 Episodic Other nutritional; endocrine; and metabolic disorders (20 sources) Metabolic syndrome X; Translations: [Metabolic syndrome] Onset: 12-11-2009 12-11-2009 Chronic Other nutritional; endocrine; and metabolic disorders (4 sources) Decrease in appetite; Translations: [Anorexia] 10-06-2024 Episodic Other screening for suspected conditions (not mental disorders or infectious disease) (20 sources) Patient encounter status; Translations: [Encounter for screening for malignant neoplasm of colon] Onset: 11-12-2016 Resolved: 12-05-2021 11-12-2016 Episodic Other skin disorders (1 source) Loss of hair; Translations: [Nonscarring hair loss, unspecified] Episodic Other skin disorders (1 source) Generalized hyperhidrosis; Translations: [Sweating increase] Onset: 01-04-2025 Episodic Other upper respiratory disease (20 sources) Allergic rhinitis; Translations: [Allergic rhinitis, unspecified] Onset: 11-08-2013 11-08-2013 Chronic Other upper respiratory infections (3 sources) Sinusitis; Translations: [Chronic sinusitis, unspecified] 11-10-2018 Chronic Residual codes; unclassified (20 sources) Obstructive sleep apnea of adult; Translations: [Obstructive sleep apnea (adult) (pediatric)] Onset: 09-08-2011 05-27-2021 Chronic Residual codes; unclassified (1 source) Obstructive sleep apnea syndrome; Translations: [Obstructive sleep apnea (adult) (pediatric)] 05-18-2024 Chronic Residual codes; unclassified (4 sources) Early satiety; Translations: [Early satiety] 10-06-2024 Episodic Unclassified (3 sources) Gynecologic examination ; Translations: [Encounter for gynecological examination (general) (routine) without abnormal findings] Onset: 12-31-2016 12-31-2016 Past or Other Problems Problem Classification Problem Date Documented Da te Episodic/Chronic Abdominal pain (6 sources) Upper abdominal pain; Translations: [Upper abdominal pain, unspecified] Onset: 10-06-2024 10-06-2024 Episodic Allergic reactions (20 sources) Contact dermatitis; Translations: [Unspecified contact dermatitis, unspecified cause] Onset: 12-01-2016 12-01-2016 Episodic Conditions associated with dizziness or vertigo (20 sources) Lightheadedness; Translations: [Dizziness and giddiness] Onset: 12-10-2021 12-10-2021 Episodic Diabetes mellitus without complication (20 sources) Impaired fasting glycemia; Translations: [Impaired fasting glucose] Onset: 12-01-2016 12-01-2016 Episodic Fluid and electrolyte disorders (20 sources) Hypokalemia; Translations: [Hypokalemia] Onset: 12-09-2012 Resolved: 11-03-2014 11-03-2014 Episodic Fracture of lower limb (20 sources) Fracture of ankle; Translations: [Other fracture of left lower leg, initial encounter for closed fracture] Onset: 04-25-2011 Resolved: 11-03-2014 11-03-2014 Episodic Other bone disease and musculoskeletal deformities (20 sources) Osteopenia; Translations: [Other specified disorders of bone density and structure, multiple sites] Onset: 11-29-2020 12-31-2020 Episodic Other bone disease and musculoskeletal deformities (1 source) Other specified disorders of bone density and structure, multiple sites; Translations: [Osteopenia of multiple sites] Onset: 12-31-2020 Episodic Other gastrointestinal disorders (2 sources) Abdominal distension (gaseous); Translations: [Bloating] Onset: 10-06-2024 Episodic Other lower respiratory disease (20 sources) Cough; Translations: [Cough] Onset: 12-11-2009 Resolved: 11-03-2014 12-01-2016 Episodic Other non-traumatic joint disorders (20 sources) Pain of left wrist; Translations: [Pain in left wrist] Onset: 12-10-2020 12-10-2020 Episodic Other non-traumatic joint disorders (20 sources) Hip pain; Translations: [Pain in right hip] Onset: 12-01-2016 05-20-2022 Episodic Other nutritional; endocrine; and metabolic disorders (2 sources) Anorexia; Translations: [Decreased appetite] Onset: 10-06-2024 Episodic Residual codes; unclassified (2 sources) Early satiety; Translations: [Early satiety] Onset: 10-06-2024 Episodic Unclassified (1 source) Patient encounter status 08-11-2024 Viral infection (20 sources) Sweating fever; Translations: [Other specified viral diseases] Onset: 12-24-2022 12-24-2022 Episodic Results Test Name Value Interpretation Reference Range Facility OVon 01-04-2025 CNOV Office Visit (FAMPWS ) RADHA BROWN ([id number]) 1955 F NFR Date Time Provider Department 01/04/25 7:40 AM WOJCIECH ALVARADO FAMPWS During your visit today, we recorded the following information about you: Temperature Pulse Blood pressure Weight 98 degrees 60/minute 138/88 68.5 kg Height 1.57 m Wojciech Alvarado, 01/04/2025 12:06 PM Signed Radha Brown is a 69 year old female here for a Medicare wellness visit. Medicare Health Risk Assessment General Health Good Exercise: Minutes/Day 30 min Exercise: Days/Week 2 days Alcohol: Daily Use Monthly or less Alcohol: Drinks/Day 1 or 2 Alcohol: 6 or more drinks Never Feel off balance Yes Concerns: Teeth/Dentures No Concerns: Sexual function No Troubled by feelings None of the above Frequency: Eating healthy diet Several days ADLs requiring help None of the above Safety precautions in home/vehicle No Smoke, vape, chews tobacco No Difficulty hearing No Difficulty seeing No Current Providers Specialists: I have reviewed specialist-related care of the patient in the medical record. Medical/Family history review Reviewed and updated problem list, medical/surgical/family /social history, medications, and allergies. Opioid use review Opioid Medications (last 90 days) No data to display Anxiety/Depression screening PHQ-2 Score: 0 (Lower risk for depression) VINAY-7 Score: 3 (Minimal Anxiety) Recommendation: no further intervention at this time Cognitive screening Mini Cog Score: 5 Cognitive screening reviewed and No further action needed (score 3-5). Functional Observation Was the patient's Timed Up AND Go test unsteady or >= 12 seconds? No Advance Care Planning Surrogate decision maker and/or advance care plan documented Measurements BP 160/90 Pulse 60 Temp 36.7 ?C (98 ?F) (Right Tympanic) Ht 157 cm (5' 1.81) Wt 68.5 kg (151 lb) BMI 27.79 kg/m? Vision Screening: Follows with optometry/ophthalmology Assessment/Plan Medicare annual wellness visit, subsequent (Z00.00) - Counseled on healthy diet and regular exercise - Fall avoidance information provided - Personalized prevention plan provided - Discussed need for and benefit of weight loss. BMI 27.79 kg/(m2) DO Christiano Salinas Jordan L, DO 01/04/2025 12:06 PM Signed Patient presents with: Medicare Wellness Exam HPI: Radha Brown is a 69 year old female who presents to the office today for review of health conditions. Concerns today: Overall she is doing well. Struggling with sweating a lot on her head and neck- not improved with glycopyrrolate medication. Ms. Brown has past history of diabetes. Since our last visit she denies excessive thirst or increased frequency of urination, chest pain or dyspnea , new or unusual visual symptoms, and low sugar/hypoglycemic reactions. Depression- no. Follows a diabetic diet some of the time. She is compliant with medication(s) and is tolerating med(s) without any side effects. She reports checking her glucose on a once a day schedule with sugars in the <150 range. Patient's last HgA1C was Hemoglobin A1C (%) Date Value 09/02/2024 6.3 06/24/2024 7.1 11/30/2020 6.2 03/19/2020 6.5 Hemoglobin A1C (POCT) (%) Date Value 03/27/2023 8.2 ) Last Ophthalmology exam was within the past 12 months Ms. Brown reports history of hyperlipidemia. Current therapy includes rosuvastatin (Crestor) 10 mg. Denies side effects of muscle weakness or achiness. Her most recent lipid panels are reviewed. Cholesterol, Total (mg/dL) Date Value 09/02/2024 128 11/30/2020 204 HDL Cholesterol (mg/dL) Date Value 09/02/2024 46 11/30/2020 43 LDL Cholesterol, Calculated (mg/dL) Date Value 09/02/2024 51 11/30/2020 133 Triglyceride (mg/dL) Date Value 09/02/2024 156 11/30/2020 140 Ms. Brown indicates a history of hypertension and states that she is feeling well and denies any symptoms referable to elevated blood pressure. Specifically denies headache, chest pain, palpitations, dyspnea, and peripheral edema. Patient denies any side effects of her medication(s) and is compliant with their regimen. Last 3 Encounter BP Readings: Date: BP: 01/04/2025 138/88 10/06/2024 132/86 09/08/2024 136/88 She watches her diet for sodium, low fat and low cholesterol some of the time. She does not check BP's generally. Radha gets minimal exercise. PAST MEDICAL HISTORY Diagnosis Date Allergic rhinitis Broken ankle 03/2011 Carpal tunnel syndrome on both sides Diverticulosis of colon (without mention of hemorrhage) Essential hypertension, benign Hair loss disorder familial/genetic per Body Stylist Impaired fasting blood sugar Mild pulmonary valve insufficiency 01/2016 Osteopenia of multiple sites 11/2020 repeat BMD 11/2022 Post menopausal syndrome Screening for colon cancer 11/12/2016 S (more content not included)... Normal [facility] 11-14-2024 [facility] Telephone (FAMWS) RADHA BROWN ([id number]) 1955 F NFR Date Time Provider Department 11/14/24 [facility] AL[facility] During your visit today, we recorded the following information about you: Sneha Sutton 11/14/2024 2:53 PM Signed Patient calling in asking if her mammogram order can be faxed over to [facility]. Please review and advise. Sneha Sutton November 14, 2024 2:53 PM Radha Zamora LPN 11/14/2024 4:15 PM Signed Order faxed to [facility]. Pt. informed. Allergies As of Date: 11/14/2024 (No Known Allergies) Date Reviewed: 10/07/2024 Reviewed by: Halle Messina APRN.CREATIVE COORDINATOR - Fully Assessed Reason for Visit: Orders [681] Prescriptions as of 11/14/2024 - amLODIPine (NORVASC) 5 mg tablet Take 1 tablet by mouth once daily. - hydrALAZINE (APRESOLINE) 25 mg tablet Take 1 tablet by mouth once daily as needed. For BP greater than 150/100 - lisinopril (ZESTRIL) 40 mg tablet Take 1 tablet by mouth once daily. - metFORMIN (GLUCOPHAGE) 500 mg tablet Take 1 tablet by mouth three times a day. With meals, For diabetes - venlafaxine ER (EFFEXOR XR) 75 mg 24 hr capsule Take 1 capsule by mouth once daily. - rosuvastatin (CRESTOR) 10 mg tablet Take 1 tablet by mouth daily at bedtime. - multivitamins(DAILY MULTIVITAMIN TAB) Take one(1) tablet daily. - CALTRATE-600 PLUS VITAMIN D3 600 MG-400 UNIT TAB Take one(1) tablet daily. Problem List As Of Date 11/14/2024 Noted Resolved ANXIETY STATE NOS [F41.1] 09/17/2005 ATROPHIC VAGINITIS [N95.2] 09/23/2006 Essential Hypertension, Benign [I10] 10/26/2008 12/11/2009 Post Menopausal Syndrome [N95.1] 12/11/2009 Cough [R05.9] 12/11/2009 11/03/2014 HBP (high blood pressure) [I10] 12/11/2009 11/03/2014 Metabolic Syndrome [E88.810] 12/11/2009 Ankle fracture, left [S82.892A] 04/25/2011 11/03/2014 Obstructive sleep apnea of adult [G47.33] 09/08/2011 Essential hypertension [I10] 09/02/2012 Hypokalemia [E87.6] 12/09/2012 11/03/2014 Allergic rhinitis [J30.9] 11/08/2013 Carpal tunnel syndrome on both sides [G56.03] 11/08/2013 Mixed hyperlipidemia [E78.2] 04/22/2016 Screening for colon cancer [Z12.11] 11/12/2016 12/05/2021 Impaired fasting glucose [R73.01] 12/01/2016 Contact dermatitis [L25.9] 12/01/2016 Right hip pain [M25.551] 12/01/2016 Cough [R05.9] 12/01/2016 Well adult exam [Z00.00] 12/01/2016 12/05/2021 Type 2 diabetes mellitus with hyperglycemia (HC*09/24/2022 Anxiety and depression [F41.9, F32.A] 12/10/2020 Left wrist pain [M25.532] 12/10/2020 Essential tremor [G25.0] 12/10/2020 Osteopenia of multiple sites [M85.89] 11/2020 Primary osteoarthritis of right hip [M16.11] 12/10/2021 Lightheadedness [R42] 12/10/2021 RAMIREZ (dyspnea on exertion) [R06.09] 12/10/2021 Dyslipidemia [E78.5] 12/10/2021 Sweating disease [B33.8] 12/24/2022 Uncontrolled type 2 diabetes mellitus with hype*12/24/2022 Elevated serum creatinine [R79.89] 07/08/2024 Encounter Status:Closed by RADHA ZAMORA LPN on 11/14/24 [facility] RADHA BROWN ([id number]) 1955 F NFR Date Time Provider Department 10/31/24 WOJCIECH ALVARADO FAMPWS During your visit today, we recorded the following information about you: Cici Fung 10/31/2024 10:52 AM Signed Radha is calling Wojciech Alvarado DO today regarding Patient Question (Appointment cancellation) Patient is scheduled for 11-17-24 with a 6 week BP check, but states she has been checking at home and does not have any concerns and would like to cancel the appointment in October and keep the physical in December. Please call patient to confirm or deny. Patient has been identified by name and birthdate. Duration of symptoms: N/A Person calling: self Call patient at: at home [phone] (home) [phone] (cell) Was an appointment scheduled: No Closing statement: Cici Fox Sim Laurence Wojciech Alvarado DO 10/31/2024 12:16 PM Signed That is okay DO Rebekah Salinas [place], MA 10/31/2024 2:51 PM Signed Can you please send script as pended per pt request Sheri Welch MA Allergies As of Date: 10/31/2024 (No Known Allergies) Date Reviewed: 10/07/2024 Reviewed by: Halle Messina APRN.CREATIVE COORDINATOR - Fully Assessed Reason for Visit: Patient Question [1477] Cmt: Appointment cancellation Visit Diagnosis:Essential hypertension [I10] Order(s):amLODIPine (NORVASC) 5 mg tabletTake 1 tablet by mouth once daily.Disp: 30 tabletRfl: 2 Prescriptions as of 10/31/2024 - amLODIPine (NORVASC) 5 mg tablet Take 1 tablet by mouth once daily. - hydrALAZINE (APRESOLINE) 25 mg tablet Take 1 tablet by mouth once daily as needed. For BP greater than 150/100 - lisinopril (ZESTRIL) 40 mg tablet Take 1 tablet by mouth once daily. - metFORMIN (GLUCOPHAGE) 500 mg tablet Take 1 tablet by mouth three times a day. With meals, For diabetes - venlafaxine ER (EFFEXOR XR) 75 mg 24 hr capsule Take 1 capsule by mouth once daily. - rosuvastatin (CRESTOR) 10 mg tablet Take 1 tablet by mouth daily at bedtime. - multivitamins(DAILY MULTIVITAMIN TAB) Take one(1) tablet daily. - CALTRATE-600 PLUS VITAMIN D3 600 MG-400 UNIT TAB Take one(1) tablet daily. Problem List As Of Date 10/31/2024 Noted Resolved ANXIETY STATE NOS [F41.1] 09/17/2005 ATROPHIC VAGINITIS [N95.2] 09/23/2006 Essential Hypertension, Benign [I10] 10/26/2008 12/11/2009 Post Menopausal Syndrome [N95.1] 12/11/2009 Cough [R05.9] 12/11/2009 11/03/2014 HBP (high blood pressure) [I10] 12/11/2009 11/03/2014 Metabolic Syndrome [E88.810] 12/11/2009 Ankle fracture, left [S82.892A] 04/25/2011 11/03/2014 Obstructive sleep apnea of adult [G47.33] 09/08/2011 Essential hypertension [I10] 09/02/2012 Hypokalemia [E87.6] 12/09/2012 11/03/2014 Allergic rhinitis [J30.9] 11/08/2013 Carpal tunnel syndrome on both sides [G56.03] 11/08/2013 Mixed hyperlipidemia [E78.2] 04/22/2016 Screening for colon cancer [Z12.11] 11/12/2016 12/05/2021 Impaired fasting glucose [R73.01] 12/01/2016 Contact dermatitis [L25.9] 12/01/2016 Right hip pain [M25.551] 12/01/2016 Cough [R05.9] 12/01/2016 Well adult exam [Z00.00] 12/01/2016 12/05/2021 Type 2 diabetes mellitus with hyperglycemia (HC*09/24/2022 Anxiety and depression [F41.9, F32.A] 12/10/2020 Left wrist pain [M25.532] 12/10/2020 Essential tremor [G25.0] 12/10/2020 Osteopenia of multiple sites [M85.89] 11/2020 Primary osteoarthritis of right hip [M16.11] 12/10/2021 Lightheadedness [R42] 12/10/2021 RAMIREZ (dyspnea on exertion) [R06.09] 12/10/2021 Dyslipidemia [E78.5] 12/10/2021 Sweating disease [B33.8] 12/24/2022 Uncontrolled type 2 diabetes mellitus with hype*12/24/2022 Elevated serum creatinine [R79.89] 07/08/2024 Prescriptions ordered this encounter Disp Refills Start End AMLODIPINE 5 MG TABLET 30 t* 2 10/31/2024 01/29/2025 Route: PO Sig: Take 1 tablet by mouth once daily. Medications Discontinued During This Encounter Prescriptions - amLODIPine (NORVASC) 5 mg tablet (Discontinued) Take 1 tablet by mouth once daily. Encounter Status:Closed by CASI APONTE on 10/31/24 [facility] CNOVon 10-06-2024 CNOV Office Visit (FAMPWS ) STEPHANIEZEUS KIMBALLMIKE Watkins ([id number]) 1955 F NFR Date Time Provider Department 10/06/24 7:40 AM [facility] During your visit today, we recorded the following information about you: Pulse Blood pressure Weight 75/minute 132/86 69.6 kg Halle Messina APRN.CREATIVE COORDINATOR 10/07/2024 2:53 PM Signed 10/07/2024 Recording using Dot [employer] software for draft documentation of the visit was discussed with the patient/authorized packaging sales representative; all questions welcomed and answered. Patient/authorized packaging sales representative agreed to proceed HPI: Radha is a 69-year-old female with a history of HTN, presenting for follow-up and evaluation of upper abdominal pain. Hypertension: - Home BP readings vary widely, ranging from 139-159 mmHg systolic and into the 90s diastolic. - Previously maintained consistent readings of 120-125/80 mmHg on two medications. - BP became uncontrolled while in [place], leading to multiple medication adjustments. - Experiences dizziness and a sensation of potential syncope during outdoor work when BP is elevated. - Denies significant differences in BP readings between arms; cuff was calibrated in [place]. - Brief history of smoking in college. Upper Abdominal Pain: - Persistent midsection pain since July, described as spasmodic and tender to palpation. - Pain is exacerbated by lying on back or stomach, causing sleep disturbances. - Spasms are intermittent, but tenderness is constant. - Decreased appetite and early satiety; feels bloated after consuming a full meal. - Denies SOB, pain between shoulder blades, bowel changes, or vaginal bleeding. - Cholecystectomy performed in July of the previous year. PAST MEDICAL HISTORY Diagnosis Date Allergic rhinitis Broken ankle 03/2011 Carpal tunnel syndrome on both sides Diverticulosis of colon (without mention of hemorrhage) Essential hypertension, benign Hair loss disorder familial/genetic per Body Stylist Impaired fasting blood sugar Mild pulmonary valve insufficiency 01/2016 Osteopenia of multiple sites 11/2020 repeat BMD 11/2022 Post menopausal syndrome Screening for colon cancer 11/12/2016 Screening for colon cancer 11/12/2016 Sleep apnea 05/2011 uses CPAP machine at night Variants of migraine, not elsewhere classified, without mention of intractable migraine without mention of status migrainosus in the past, believes were hormonal, haven't had for about 2 yrs. now. Current Outpatient Medications on File Prior to Visit Medication Sig amLODIPine (NORVASC) 5 mg tablet Take 1 tablet by mouth once daily. lisinopril (ZESTRIL) 40 mg tablet Take 1 tablet by mouth once daily. metFORMIN (GLUCOPHAGE) 500 mg tablet Take 1 tablet by mouth three times a day. With meals, For diabetes venlafaxine ER (EFFEXOR XR) 75 mg 24 hr capsule Take 1 capsule by mouth once daily. rosuvastatin (CRESTOR) 10 mg tablet Take 1 tablet by mouth daily at bedtime. multivitamins(DAILY MULTIVITAMIN TAB) Take one(1) tablet daily. CALTRATE-600 PLUS VITAMIN D3 600 MG-400 UNIT TAB Take one(1) tablet daily. No current facility-administered medications on file prior to visit. Review of Systems: Constitutional: (+) generalized discomfort, (+) sleep disturbance Head: (no current symptoms reported) Eyes: (no current symptoms reported) Ears/Nose/Mouth/Throat: (no current symptoms reported) Neck: (no current symptoms reported) Cardiovascular: (no current symptoms reported) Respiratory: (-) shortness of breath Gastrointestinal: (+) mid abdominal pain, (+) abdominal tenderness, (+) bloating, (+) decreased appetite, (-) bowel changes Genitourinary: (no current symptoms reported) Musculoskeletal: (no current symptoms reported) Skin: (no current symptoms reported) Neurological: (+) dizziness, (-) syncope Psychiatric: (no current symptoms reported) Endocrine: (no current symptoms reported) Hematologic/Lymphatic: (no current symptoms reported) Physical Exam: BP 132/86 (BP Site: Left Arm, BP Position: Sitting, BP Cuff Size: Regular Adult) Pulse 75 Wt 69.6 kg (153 lb 6.4 oz) SpO2 98% BMI 28.41 kg/m? GENERAL: NAD, alert and oriented. LUNGS: Clear to auscultation bilaterally, no wheezes/rhonchi/rales. HEART: Regular rate and rhythm, no murmurs. No ectopy. EXTREMITIES: Normal, no deformities, no skin discoloration, no edema. ABDOMEN: Tenderness noted in the upper abdomen, particularly above the umbilicus. No tenderness around or below the umbilicus. No hepatosplenomegaly noted. Bowel sounds present. NEURO: Awake, alert and oriented x3, cranial nerves II-XII grossly intact, normal gait, no involuntary motions. PSYCHIATRIC: pleasant, cooperative Diagnostics Reviewed: Assessment/Plan: 1. Essential (primary) hypertension (I10) - Continue current medication regimen - Prescribed an as-needed antihypertensive medicat (more content not included)... Normal [facility] CT ABD/PEL W IVCONon 025 CT ABD/PEL W IVCON * * *Final Report* * * DATE OF EXAM: Oct 06 2024 1:56PM [facility] 0530 - CT ABD/PEL W IVCON / PROCEDURE REASON: multiple diagnoses * * * * Physician Interpretation * * * * EXAMINATION: CT ABD/PEL W IVCON CLINICAL HISTORY: Upper abdominal pain. TECHNIQUE: CT scan of the abdomen and pelvis with IV contrast. Dose reduction technique was utilized. Contrast: IV: 100 ml of Omnipaque 300 Oral: 25 ml of Omni 350 10-25ml diluted with water CT Radiation dose: Integrated Dose-length product (DLP) for this visit = 583.36 mGy*cm. CT Dose Reduction Employed: Automated exposure control(AEC) and iterative recon COMPARISONS: None available. FINDINGS: Lower chest: No focal consolidation, pneumothorax, or pleural effusion. No cardiomegaly or pericardial effusion. Liver: Unremarkable size and diffusely hypoattenuating without mass. Biliary system: Operative changes cholecystectomy. No intrahepatic or extrahepatic biliary dilatation. Spleen: Unremarkable. Pancreas: Unremarkable. Adrenal glands: Unremarkable. Urinary system: Kidneys are unremarkable. There is no hydronephrosis, hydroureter, or nephrolithiasis. Urinary bladder is unremarkable. Bowel: Stomach is unremarkable. Small bowel and colon are without dilatation or wall thickening. Numerous diverticula of descending and sigmoid colon. Appendix is unremarkable. Reproductive system: Unremarkable. Abdominal aorta: No abnormal dilatation or evidence of dissection. Mild aortobiiliac atherosclerosis. Miscellaneous: No free air, free fluid, or abnormal collection. Right total hip arthroplasty. Right-sided loss of disc height L3-L4 with adjacent endplate remodeling. IMPRESSION: 1. Diverticulosis without findings to support acute diverticulitis. 2. Hepatic steatosis. Pomologist: NIKOLAY Transcribe Date/Time: Oct 06 2024 3:06P Dictated by : HERNAN RESENDEZ MD This examination was interpreted and the report reviewed and electronically signed by: HERNAN RESENDEZ MD on Oct 06 2024 3:30PM EST [id number] Normal [facility] CT Abdomen and Pelvis W cont rast Binta 10-06-2024 IMPRESSION: 1. Diverticulosis without findings to support acute diverticulitis. 2. Hepatic steatosis. Pomologist: ROBERTS CHAPEL Transcribe Date/Time: Oct 06 2024 3:06P Dictated by : HERNAN RESENDEZ MD This examination was interpreted and the report reviewed and electronically signed by: HERNAN RESENDEZ MD on Oct 06 2024 3:30PM EST [facility] * * *Final Report* * * DATE OF EXAM: Oct 06 2024 1:56PM [facility] 0530 - CT ABD/PEL W IVCON / PROCEDURE REASON: multiple diagnoses * * * * Physician Interpretation * * * * EXAMINATION: CT ABD/PEL W IVCON CLINICAL HISTORY: Upper abdominal pain. TECHNIQUE: CT scan of the abdomen and pelvis with IV contrast. Dose reduction technique was utilized. Contrast: IV: 100 ml of Omnipaque 300 Oral: 25 ml of Omni 350 10-25ml diluted with water CT Radiation dose: Integrated Dose-length product (DLP) for this visit = 583.36 mGy*cm. CT Dose Reduction Employed: Automated exposure control(AEC) and iterative recon COMPARISONS: None available. FINDINGS: Lower chest: No focal consolidation, pneumothorax, or pleural effusion. No cardiomegaly or pericardial effusion. Liver: Unremarkable size and diffusely hypoattenuating without mass. Biliary system: Operative changes cholecystectomy. No intrahepatic or extrahepatic biliary dilatation. Spleen: Unremarkable. Pancreas: Unremarkable. Adrenal glands: Unremarkable. Urinary system: Kidneys are unremarkable. There is no hydronephrosis, hydroureter, or nephrolithiasis. Urinary bladder is unremarkable. Bowel: Stomach is unremarkable. Small bowel and colon are without dilatation or wall thickening. Numerous diverticula of descending and sigmoid colon. Appendix is unremarkable. Reproductive system: Unremarkable. Abdominal aorta: No abnormal dilatation or evidence of dissection. Mild aortobiiliac atherosclerosis. Miscellaneous: No free air, free fluid, or abnormal collection. Right total hip arthroplasty. Right-sided loss of disc height L3-L4 with adjacent endplate remodeling. [facility] Provider, [facility] - 10/06/2024 * * *Final Report* * * DATE OF EXAM: Oct 06 2024 1:56PM [facility] 0530 - CT ABD/PEL W IVCON / PROCEDURE REASON: multiple diagnoses * * * * Physician Interpretation * * * * EXAMINATION: CT ABD/PEL W IVCON CLINICAL HISTORY: Upper abdominal pain. TECHNIQUE: CT scan of the abdomen and pelvis with IV contrast. Dose reduction technique was utilized. Contrast: IV: 100 ml of Omnipaque 300 Oral: 25 ml of Omni 350 10-25ml diluted with water CT Radiation dose: Integrated Dose-length product (DLP) for this visit = 583.36 mGy*cm. CT Dose Reduction Employed: Automated exposure control(AEC) and iterative recon COMPARISONS: None available. FINDINGS: Lower chest: No focal consolidation, pneumothorax, or pleural effusion. No cardiomegaly or pericardial effusion. Liver: Unremarkable size and diffusely hypoattenuating without mass. Biliary system: Operative changes cholecystectomy. No intrahepatic or extrahepatic biliary dilatation. Spleen: Unremarkable. Pancreas: Unremarkable. Adrenal glands: Unremarkable. Urinary system: Kidneys are unremarkable. There is no hydronephrosis, hydroureter, or nephrolithiasis. Urinary bladder is unremarkable. Bowel: Stomach is unremarkable. Small bowel and colon are without dilatation or wall thickening. Numerous diverticula of descending and sigmoid colon. Appendix is unremarkable. Reproductive system: Unremarkable. Abdominal aorta: No abnormal dilatation or evidence of dissection. Mild aortobiiliac atherosclerosis. Miscellaneous: No free air, free fluid, or abnormal collection. Right total hip arthroplasty. Right-sided loss of disc height L3-L4 with adjacent endplate remodeling. IMPRESSION IMPRESSION: 1. Diverticulosis without findings to support acute diverticulitis. 2. Hepatic steatosis. Pomologist: NIKOLAY Transcribe Date/Time: Oct 06 2024 3:06P Dictated by : HERNAN RESENDEZ MD This examination was interpreted and the report reviewed and electronically signed by: HERNAN RESENDEZ MD on Oct 06 2024 3:30PM EST [facility] Radiology Study observation (narrative) [facility] CT Abdomen and Pelvis W cont rast IVOrdered By: [facility] Provider on 10-06-2024 [facility] CNOVon 09-08-2024 CNOV [facility] STEPHANIERADHA ([id number]) 1955 F NFR Date Time Provider Department 09/08/24 7:20 AM [facility] During your visit today, we recorded the following information about you: Pulse Blood pressure Weight 61/minute 136/88 70.5 kg Halle Messina APRN.CREATIVE COORDINATOR 09/08/2024 8:11 AM Signed Chief Complaint Patient presents with: Hypertension HPI Radha Brown is a 68 year old female who presents here today for Above Complaints.. HTN- Amlodipine 2.5mg once daily - started a couple weeks ago Lisinopril 40mg once daily(recently increased from 20mg on 08/11) Monitors BP at home, average readings: 150-180 / 80-90 taken at various times of the day Denies chest pain, headaches, swelling, vision changes. Past medical history, appointments, medications, allergies reviewed. 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 now. Previous Surgical History PAST SURGICAL HISTORY Procedure Laterality Date COLONOSCOPY FLX DX W/COLLJ SPEC WHEN PFRMD 09/15/2006 Colonoscopy NEUROPLASTY AND/TRANSPOS MEDIAN NRV CARPAL TUNNE Bilateral 11/10/2014 Bilateral CTR PAST SURGICAL HISTORY OF 09/29/2010 Right wrist dequervaine release PAST SURGICAL HISTORY OF 11/29/2008 Left foot calcium buildup metatarsal removal REMOVAL GALLBLADDER N/A 08/24/2022 REMV CATARACT EXTRACAP,INSERT LENS Bilateral TONSILLECTOMY AND ADENOIDECTOMY AGE 11/> TOTAL HIP REPLACEMENT Right 05/05/2022 UNSPECIFIED ORAL SURGERY PROCEDURE, BY REPORT 2 wisdom teeth removed. Family History FAMILY HISTORY Adopted: Yes Problem Relation Age of Onset other (ADOPTED, NO KNOWN HISTORY) Other Patient Allergies ALLERGIES No Known Allergies Current Medications Current Outpatient Medications on File Prior to Visit Medication Sig amLODIPine (NORVASC) 2.5 mg tablet Take 1 tablet by mouth once daily. lisinopril (ZESTRIL) 40 mg tablet Take 1 tablet by mouth once daily. metFORMIN (GLUCOPHAGE) 500 mg tablet Take 1 tablet by mouth three times a day. With meals, For diabetes metFORMIN (GLUCOPHAGE) 500 mg tablet Take 1 tablet by mouth three times a day. With meals, For diabetes venlafaxine ER (EFFEXOR XR) 75 mg 24 hr capsule Take 1 capsule by mouth once daily. rosuvastatin (CRESTOR) 10 mg tablet Take 1 tablet by mouth daily at bedtime. multivitamins(DAILY MULTIVITAMIN TAB) Take one(1) tablet daily. CALTRATE-600 PLUS VITAMIN D3 600 MG-400 UNIT TAB Take one(1) tablet daily. No current facility-administered medications on file prior to visit. Social History Social History Tobacco Use Smoking status: Never Smokeless tobacco: Never Vaping Use Vaping status: Never Used Substance Use Topics Alcohol use: Yes Alcohol/week: 3.3 standard drinks of alcohol Types: 1 Glasses of Wine (5oz), 1 Cans of Beer (12oz), 1 Mixed Drinks per week Comment: seldom to occasionally Drug use: No Review of Symptoms REVIEW OF SYSTEMS See HPI, otherwise negative EXAM: There were no vitals taken for this visit. General Appearance: Well appearing, alert, in no acute distress, well-hydrated, well nourished.. Lungs: Lungs clear to auscultation. No wheezing, rhonchi, rales.. Heart: RRR without murmur, gallop, or rubs. No ectopy. Psychiatric: pleasant, cooperative Health Maintenance List Mammogram Screening due on 01/15/2023 Diabetic Foot Exam due on 12/24/2023 BP Controlled (<130/80) due on 03/27/2024 Dilated Retinal Exam due on 05/13/2024 DTaP,Tdap,Td Vaccine(2 - Td or Tdap) due on 10/15/2024 Covid-19 Vaccine() due on 05/18/2025 HbA1C due on 03/04/2025 Annual PCP Team Chronic Disease Visit due on 08/11/2025 Urine Albumin:Creatinine Ratio due on 09/02/2025 LDL Cholesterol due on 09/02/2025 Colorectal Cancer Screening due on 11/28/2026 Bone Density Screening Completed Influenza Vaccine Completed RSV Vaccine Completed Hepatitis C Screening Completed Shingrix Vaccine Completed Pneumococcal Vaccine: 50+ Completed Advance Directive Discussion Discontinued Data reviewed ASSESSMENT/PLAN: 1. Essential hypertension - ICD9: 401.9, ICD10: I10 (primary diagnosis) - Improving control (more content not included)... Normal [facility] 25(OH)D3 [facility] 2024 25-hydroxyvitamin D3 [Mass/Vol] 55.4 ng/mL Normal 31.0-80.0 [facility] Comment on above: Order Comment: Speci men Type: BLOOD SPECIMEN Ordering Facility: [facility] Address: [address] [place] [address] Result Comment: Clas sification of 25 [place] Vitamin D status: Deficiency/Insufficiency: < or = 30 ng/ml. Sufficiency/Optimal Levels: 31-80 ng/mL Toxicity: > 100 ng/mL. Test performed by chemiluminescent immunoassay. Performed By: #### 5 5454-3 #### [facility] CLIA [id number] [address] [place] [address] [place] ALBUMIN/CREATININE RATIO, UR INEon 09-02-2024 Albumin DL <= 20 mg/L (U) [Mass/Vol] mg/dL Normal [facility] Comment on above: Order Comment: Speci men Type: BLOOD SPECIMEN Ordering Facility: [facility] Address: [address] [place] [address] Performed By: #### 5 5454-3 #### [facility] CLIA [id number] [address] [place] [address] [place] Albumin/Creatinine (U) [Mass ratio] <28 Normal <30 [facility] Comment on above: Order Comment: Speci men Type: BLOOD SPECIMEN Ordering Facility: [facility] Address: [address] [place] [address] Result Comment: Adul t Male and Female Nephrotic Criteria: <30 mg/g is considered normal to mildly increased 30-300 mg/g is considered moderately increased >300 mg/g is considered severely increased KDIGO. (2013). KDIGO 2012 Clinical Practice Guideline for the Evaluation and Management of Chronic Kidney Disease. Official Journal of the International Society of Nephrology, 3(1), 1-150. Performed By: #### 5 5454-3 #### [facility] CLIA [id number] [address] [place] [address] [place] Creatinine (U) [Mass/Vol] 42.3 mg/dL Normal 20.0-300.0 [facility] Comment on above: Order Comment: Speci men Type: BLOOD SPECIMEN Ordering Facility: [facility] Address: [address] [place] [address] Performed By: #### 5 5454-3 #### [facility] CLIA [id number] [address] [place], [place] [address] [place] Comprehensive metabolic 2000 panelon 09-02-2024 Albumin [Mass/Vol] 4.1 g/dL Normal 3.9-4.9 [facility] Comment on above: Order Comment: Speci men Type: BLOOD SPECIMEN Ordering Facility: [facility] Address: [address] [place] [address] Performed By: #### 5 5454-3 #### [facility] CLIA [id number] [address] [place] [address] [place] ALP [Catalytic activity/Vol] 51 U/L Normal 34-123 [facility] Comment on above: Order Comment: Speci men Type: BLOOD SPECIMEN Ordering Facility: [facility] Address: [address] [place] [address] Performed By: #### 5 5454-3 #### [facility] CLIA [id number] [address] [place] [address] [place] ALT [Catalytic activity/Vol] 11 U/L Normal 7-38 [facility] Comment on above: Order Comment: Speci men Type: BLOOD SPECIMEN Ordering Facility: [facility] Address: [address] [place] [address] Performed By: #### 5 5454-3 #### [facility] CLIA [id number] [address] [place] [address] [place] Anion gap [Moles/Vol] 11 mmol/L Normal 8-15 [facility] Comment on above: Order Comment: Speci men Type: BLOOD SPECIMEN Ordering Facility: [facility] Address: [address] [place] [address] Performed By: #### 5 5454-3 #### [facility] CLIA [id number] [address] [place] [address] [place] AST [Catalytic activity/Vol] 15 U/L Normal 13-35 [facility] Comment on above: Order Comment: Speci men Type: BLOOD SPECIMEN Ordering Facility: [facility] Address: [address] [place] [address] Performed By: #### 5 5454-3 #### [facility] CLIA [id number] [address] [place], [place] [address] [place] Bilirubin [Mass/Vol] 0.2 mg/dL Normal 0.2-1.3 [facility] Comment on above: Order Comment: Speci men Type: BLOOD SPECIMEN Ordering Facility: [facility] Address: [address] [place] [address] Performed By: #### 5 5454-3 #### [facility] CLIA [id number] [address] [place], [place] [address] [place] Calcium [Mass/Vol] 10.0 mg/dL Normal 8.5-10.2 [facility] Comment on above: Order Comment: Speci men Type: BLOOD SPECIMEN Ordering Facility: [facility] Address: [address] [place] [address] Performed By: #### 5 5454-3 #### [facility] CLIA [id number] [address] [place], [place] [address] [place] Chloride [Moles/Vol] 106 mmol/L Normal 98-107 [facility] Comment on above: Order Comment: Speci men Type: BLOOD SPECIMEN Ordering Facility: [facility] Address: [address] [place] [address] Performed By: #### 5 5454-3 #### [facility] CLIA [id number] [address] [place], [place] [address] [place] CO2 [Moles/Vol] 25 mmol/L Normal 22-30 [facility] Comment on above: Order Comment: Speci men Type: BLOOD SPECIMEN Ordering Facility: [facility] Address: [address] [place], [place] [id number] Performed By: #### 5 5454-3 #### [facility] CLIA [id number] [address] [place], [place] [address] [place] Creatinine [Mass/Vol] 0.94 mg/dL Normal 0.58-0.96 [facility] Comment on above: Order Comment: Madan quinn Type: BLOOD SPECIMEN Ordering Facility: [facility] Address: [address] [place] [address] Performed By: #### 5 5454-3 #### [facility] CLIA [id number] [address] [place] [address] [place] Creatinine and Glomerular filtration rate.predicted panel (S/P/Bld) 66 mL/min/1.73m??? Normal >=60 [facility] Comment on above: Order Comment: Madan quinn Type: BLOOD SPECIMEN Ordering Facility: [facility] Address: [address] [place] [address] Result Comment: Tori mated Glomerular Filtration Rate (eGFR) is calculated using the 2020 CKD-EPI creatinine equation. This equation utilizes serum creatinine, sex, and age as parameters. The creatinine assay has traceable calibration to isotope dilution-mass spectrometry. Refer to KDIGO guidelines for clinical interpretation. In patients with unstable renal function, e.g. those with acute kidney injury, the eGFR may not accurately reflect actual GFR. Performed By: #### 5 5454-3 #### [facility] CLIA [id number] [address] [place] [address] [place] Glucose [Mass/Vol] 153 mg/dL High 74-99 [facility] Comment on above: Order Comment: Madan quinn Type: BLOOD SPECIMEN Ordering Facility: [facility] Address: [address] [place] [address] Result Comment: The [place] Diabetes Association (ADA) provides guidance for cutoff values for fasting glucose and random glucose. The ADA defines fasting as no caloric intake for at least 8 hours. Fasting plasma glucose results between 100 to 125 mg/dL indicate increased risk for diabetes (prediabetes). Fasting plasma glucose results greater than or equal to 126 mg/dL meet the criteria for diagnosis of diabetes. In the absence of unequivocal hyperglycemia, results should be confirmed by repeat testing. In a patient with classic symptoms of hyperglycemia or hyperglycemic crisis, random plasma glucose results greater than or equal to 200 mg/dL meet the criteria for diagnosis of diabetes. Reference: Standards of Medical Care in Diabetes 2016, [place] Diabetes Association. Diabetes Care. 2016.39(Suppl 1). Performed By: #### 5 5454-3 #### [facility] CLIA [id number] [address] [place] [address] [place] Potassium [Moles/Vol] 3.5 mmol/L Low 3.7-5.1 [facility] Comment on above: Order Comment: Speci men Type: BLOOD SPECIMEN Ordering Facility: [facility] Address: [address] [place] [address] Performed By: #### 5 5454-3 #### [facility] CLIA [id number] [address] [place] [address] [place] Protein [Mass/Vol] 6.6 g/dL Normal 6.3-8.0 [facility] Comment on above: Order Comment: Speci men Type: BLOOD SPECIMEN Ordering Facility: [facility] Address: [address] [place] [address] Performed By: #### 5 5454-3 #### [facility] CLIA [id number] [address] [place] [address] [place] Sodium [Moles/Vol] 142 mmol/L Normal 136-144 [facility] Comment on above: Order Comment: Speci men Type: BLOOD SPECIMEN Ordering Facility: [facility] Address: [address] [place] [address] Performed By: #### 5 5454-3 #### [facility] CLIA [id number] [address] [place], [place] [address] [place] Urea nitrogen [Mass/Vol] 13 mg/dL Normal 7-21 [facility] Comment on above: Order Comment: Speci men Type: BLOOD SPECIMEN Ordering Facility: [facility] Address: [address] [place] [address] Performed By: #### 5 5454-3 #### [facility] CLIA [id number] [address] [place], [place] [address] [place] HbA1c (Bld)on 09-02-2024 Average glucose Estimated from glycated hemoglobin (Bld) [Mass/Vol] 134 mg/dL Normal [facility] Comment on above: Order Comment: Madan quinn Type: BLOOD SPECIMEN Ordering Facility: [facility] Address: [address] [place] [address] Result Comment: eAG: (Estimated average glucose) is a calculated value from HgbA1c and is packaging sales representative of the average blood glucose level in the last 2-3 month period. Performed By: #### 5 5454-3 #### [facility] CLIA [id number] [address] [place] [address] [place] HbA1c (Bld) [Mass fraction] 6.3 % High 4.3-5.6 [facility] Comment on above: Order Comment: Madan quinn Type: BLOOD SPECIMEN Ordering Facility: [facility] Address: [address] [place] [address] Result Comment: Amer [place] Diabetes Association guidelines indicate that patients with HgbA1c in the range 5.7-6.4% are at increased risk for development of diabetes, and intervention by lifestyle modification may be beneficial. HgbA1c greater or equal to 6.5% is considered diagnostic of diabetes. Performed By: #### 5 5454-3 #### [facility] CLIA [id number] [address] [place] [address] [place] Lipid 1996 panelon Cholesterol [Mass/Vol] 128 mg/dL Normal <200 [facility] Comment on above: Order Comment: Madan quinn Type: BLOOD SPECIMEN Ordering Facility: [facility] Address: [address] [place] [address] Result Comment: <200 mg/dL, Desirable 200-239 mg/dL, Borderline high >239 mg/dL, High Performed By: #### 5 5454-3 #### [facility] CLIA [id number] [address] [place] [address] [place] Cholesterol in HDL [Mass/Vol] 46 mg/dL Normal >39 [facility] Comment on above: Order Comment: Speci men Type: BLOOD SPECIMEN Ordering Facility: [facility] Address: [address] [place] [address] Result Comment: 40-5 9 mg/dL, Acceptable >59 mg/dL, High: Negative risk factor for coronary heart disease <40 mg/dL, Low: Positive risk factor for coronary heart disease Performed By: #### 5 5454-3 #### [facility] CLIA [id number] [address] [place] [address] [place] Cholesterol in LDL [Mass/Vol] 51 mg/dL Normal <100 [facility] Comment on above: Order Comment: Andrei cheyenne Type: BLOOD SPECIMEN Ordering Facility: [facility] Address: [address] [place] [address] Result Comment: <100 mg/dL, Optimal 100-129 mg/dL, Near optimal/above optimal 130-159 mg/dL, Borderline high 160-189 mg/dL, High >189 mg/dL, Very high Secondary prevention optimal LDL Cholesterol levels are recommended to be < 70 mg/dL Performed By: #### 5 5454-3 #### [facility] CLIA [id number] [address] [place] [address] [place] Cholesterol in LDL/Cholesterol in HDL [Mass ratio] 1.11 {ratio} Normal <2.54 [facility] Comment on above: Order Comment: Madan quinn Type: BLOOD SPECIMEN Ordering Facility: [facility] Address: [address] [place] [address] Result Comment: Refe rence: 1. National Cholesterol Education Program ATP III Guideline At-A-Glance Quick Desk Reference: National Heart, Lung, and Blood [place]. National Institutes of Health. 2001: NIH Publication No. 01-3305. 2. An International Atherosclerosis Society position paper: global recommendations for the management of dyslipidemia: executive summary, Atherosclerosis. 2014: 232(2):410-413. Performed By: #### 5 5454-3 #### [facility] CLIA [id number] [address] [place] [address] [place] Cholesterol in VLDL [Mass/Vol] 31 mg/dL High <30 [facility] Comment on above: Order Comment: Speci men Type: BLOOD SPECIMEN Ordering Facility: [facility] Address: [address] [place] [address] Performed By: #### 5 5454-3 #### [facility] CLIA [id number] [address] [place] [address] [place] Cholesterol non HDL [Mass/Vol] 82 mg/dL Normal <130 [facility] Comment on above: Order Comment: Speci men Type: BLOOD SPECIMEN Ordering Facility: [facility] Address: [address] [place] [address] Result Comment: <130 mg/dL, Optimal 130-159 mg/dL, Near optimal/above optimal 160-189 mg/dL, Borderline high 190-219 mg/dL, High >219 mg/dL, Very high Secondary prevention optimal non HDL Cholesterol levels are recommended to be <100 mg/dL Performed By: #### 5 5454-3 #### [facility] CLIA [id number] [address] [place] [address] [place] Cholesterol.total/ Cholesterol in HDL [Mass ratio] 2.78 {ratio} Normal <5.10 [facility] Comment on above: Order Comment: Speci men Type: BLOOD SPECIMEN Ordering Facility: [facility] Address: [address] [place] [address] Performed By: #### 5 5454-3 #### [facility] CLIA [id number] [address] [place], [place] [address] [place] FASTING TIME 12 hrs Normal [facility] Comment on above: Order Comment: Speci men Type: BLOOD SPECIMEN Ordering Facility: [facility] Address: [address] [place] [address] Performed By: #### 5 5454-3 #### [facility] CLIA [id number] [address] [place], [place] [address] [place] Triglyceride [Mass/Vol] 156 mg/dL High <150 [facility] Comment on above: Order Comment: Speci men Type: BLOOD SPECIMEN Ordering Facility: [facility] Address: [address] [place] [address] Result Comment: <150 mg/dL, Normal 150-199 mg/dL, Borderline high 200-499 mg/dL, High >499 mg/dL, Very high Performed By: #### 5 5454-3 #### [facility] CLIA [id number] [address] [place] [address] [place] TSH SerPl-aCncon 09-02-2024 TSH Qn 1.700 m[IU]/L Normal 0.270-4.200 [facility] Comment on above: Order Comment: Speci men Type: BLOOD SPECIMEN Ordering Facility: [facility] Address: [address] [place] [address] Performed By: #### 5 5454-3 #### [facility] CLIA [id number] [address] [place] [address] [place] Urinalysis complete panel (U )on 09-02-2024 Bacteria LM.HPF (Urine sed) [#/Area] Negative Normal Negative [facility] Comment on above: Order Comment: Speci men Type: URINE SPECIMEN Ordering Facility: [facility] Address: [address] [place] [address] Performed By: #### 2 4356-8 #### [facility] CLIA [id number] [address] [place] [address] [place] Bilirubin Ql (U) Negative Normal Negative [facility] Comment on above: Order Comment: Speci men Type: URINE SPECIMEN Ordering Facility: [facility] Address: [address] [place] [address] Performed By: #### 2 4356-8 #### [facility] CLIA [id number] [address] [place] [address] [place] Clarity (Unsp spec) Clear Normal Clear [facility] Comment on above: Order Comment: Speci men Type: URINE SPECIMEN Ordering Facility: [facility] Address: [address] [place] [address] Performed By: #### 2 4356-8 #### [facility] CLIA [id number] [address] [place] [address] [place] Color (U) Yellow Normal Yellow [facility] Comment on above: Order Comment: Speci men Type: URINE SPECIMEN Ordering Facility: [facility] Address: [address] [place] [address] Performed By: #### 2 4356-8 #### [facility] CLIA [id number] [address] [place] [address] [place] Epithelial cells LM.HPF (Urine sed) [#/Area] None Seen Normal [facility] Comment on above: Order Comment: Speci men Type: URINE SPECIMEN Ordering Facility: [facility] Address: [address] [place] [address] Performed By: #### 2 4356-8 #### [facility] CLIA [id number] [address] [place] [address] [place] Glucose Test strip (U) [Mass/Vol] Negative Normal Negative [facility] Comment on above: Order Comment: Speci men Type: URINE SPECIMEN Ordering Facility: [facility] Address: [address] [place] [address] Performed By: #### 2 4356-8 #### [facility] CLIA [id number] [address] [place] [address] [place] Hemoglobin Ql (U) Negative Normal Negative [facility] Comment on above: Order Comment: Speci men Type: URINE SPECIMEN Ordering Facility: [facility] Address: [address] [place] [address] Performed By: #### 2 4356-8 #### [facility] CLIA [id number] [address] [place], [place] [address] [place] Hyaline casts (Urine sed) [#/Area] 0 /[LPF] Normal 0 /LPF [facility] Comment on above: Order Comment: Speci men Type: URINE SPECIMEN Ordering Facility: [facility] Address: [address] [place] [address] Performed By: #### 2 4356-8 #### [facility] CLIA [id number] [address] [place], [place] [address] [place] Ketones Ql (U) Negative Normal Negative [facility] Comment on above: Order Comment: Speci men Type: URINE SPECIMEN Ordering Facility: [facility] Address: [address] [place] [address] Performed By: #### 2 4356-8 #### [facility] CLIA [id number] [address] [place] [address] [place] Leukocyte esterase Test strip Ql (U) Trace Abnormal Negative [facility] Comment on above: Order Comment: Speci men Type: URINE SPECIMEN Ordering Facility: [facility] Address: [address] [place] [address] Performed By: #### 2 4356-8 #### [facility] CLIA [id number] [address] [place] [address] [place] Nitrite Ql (U) Negative Normal Negative [facility] Comment on above: Order Comment: Speci men Type: URINE SPECIMEN Ordering Facility: [facility] Address: [address] [place] [address] Performed By: #### 2 4356-8 #### [facility] CLIA [id number] [address] [place] [address] [place] pH (U) 6.0 [pH] Normal <8.5 [facility] Comment on above: Order Comment: Speci men Type: URINE SPECIMEN Ordering Facility: [facility] Address: [address] [place] [address] Performed By: #### 2 4356-8 #### [facility] CLIA [id number] [address] [place] [address] [place] Protein (U) [Mass/Vol] Negative Normal Negative [facility] Comment on above: Order Comment: Speci men Type: URINE SPECIMEN Ordering Facility: [facility] Address: [address] [place] [address] Performed By: #### 2 4356-8 #### [facility] CLIA [id number] [address] [place] [address] [place] RBC LM.HPF (Urine sed) [#/Area] 0-2 /HPF Normal 0-2 /HPF [facility] Comment on above: Order Comment: Speci men Type: URINE SPECIMEN Ordering Facility: [facility] Address: [address] [place] [address] Performed By: #### 2 4356-8 #### [facility] CLIA [id number] [address] [place] [address] [place] Specific gravity (U) [Rel density] 1.008 Normal 1.005-1.030 [facility] Comment on above: Order Comment: Speci men Type: URINE SPECIMEN Ordering Facility: [facility] Address: [address] [place] [address] Performed By: #### 2 4356-8 #### [facility] CLIA [id number] [address] [place] [address] [place] Urobilinogen Ql (U) 0.2 EU/dL Normal 0.2-1.0 EU/dL [facility] Comment on above: Order Comment: Speci men Type: URINE SPECIMEN Ordering Facility: [facility] Address: [address] [place] [address] Performed By: #### 2 4356-8 #### [facility] CLIA [id number] [address] [place] [address] [place] WBC LM.HPF (Urine sed) [#/Area] 0-5 /HPF Normal 0-5 /HPF [facility] Comment on above: Order Comment: Speci men Type: URINE SPECIMEN Ordering Facility: [facility] Address: [address] [place] [address] Performed By: #### 2 4356-8 #### [facility] CLIA [id number] [address] [place] [address] [place] Vit B12 SerPl-mCncon 025 Cobalamin (Vitamin B12) [Mass/Vol] 343 pg/mL Normal 232-1245 [facility] Comment on above: Order Comment: Speci men Type: BLOOD SPECIMEN Ordering Facility: [facility] Address: [address] [place] [address] Performed By: #### 5 5454-3 #### [facility] CLIA [id number] [address] [place] [address] [place] [facility] 08-12-2024 C[facility] RADHA BROWN ([id number]) 1955 F NFR Date Time Provider Department 08/12/24 WOJCIECH ALVARADO [facility] During your visit today, we recorded the following information about you: Nehemiah Rene RN 08/12/2024 11:11 AM Signed Patient calls to request lisinopril be [facility] from visit yesterday with Casi. Pended. Patient also asking about upcoming appointment for first week in August that she was told at visit with Casi yesterday that staff would be reaching out to her to fit her in schedule to see Dr. Alvarado the first week of August. Provider is not available first week in August and has no availability the second week that this nurse can schedule. Please review and advise, SALAS Carlos Alyson Taylor, APRN.CREATIVE COORDINATOR 08/17/2024 4:48 PM Signed Anay was looking into this to see if there was any opening in Dr. Alvarado's schedule but I did tell her this was very unlikely. Please scheduled with TRANSFER MACHINE OPERATOR if nothing available. Rx sent to correct place as pended. Thank you, Casi Aponte APRN.CREATIVE COORDINATOR Anay Pluido Dominique, ROMULO 08/17/2024 6:50 PM Signed There is no openings in either or second week of August in Dr. Posadas schedule. Called pt to let know of this . Asked to return call to schedule with one of director foundation. Sheri Welch MA 08/31/2024 11:33 AM Signed Pt active on [facility]. Sent pt [employer] message. NICK Fatima Barbara, RN 09/01/2024 9:56 AM Signed Pt read Jajah with no response. Attempted to call pt and left msg to return the call. Mecca Nelson LPN 09/01/2024 2:43 PM Signed Patient returned call and scheduled appt with Bebe Messina NP for 09/07/2024 since blood pressure is elevated lately. Allergies As of Date: 08/12/2024 (No Known Allergies) Date Reviewed: 05/18/2024 Reviewed by: Casi Aponte APRN.CREATIVE COORDINATOR - Fully Assessed Reason for Visit: Medication Problem [65] Appointment [186] Visit Diagnoses:Lightheadedne ss [R42] Essential hypertension [I10] Order(s):lisinopril (ZESTRIL) 40 mg tabletTake 1 tablet by mouth once daily.Disp: 90 tabletRfl: 3 Prescriptions as of 09/01/2024 - amLODIPine (NORVASC) 2.5 mg tablet Take 1 tablet by mouth once daily. - lisinopril (ZESTRIL) 40 mg tablet Take 1 tablet by mouth once daily. - metFORMIN (GLUCOPHAGE) 500 mg tablet Take 1 tablet by mouth three times a day. With meals, For diabetes - metFORMIN (GLUCOPHAGE) 500 mg tablet Take 1 tablet by mouth three times a day. With meals, For diabetes - venlafaxine ER (EFFEXOR XR) 75 mg 24 hr capsule Take 1 capsule by mouth once daily. - rosuvastatin (CRESTOR) 10 mg tablet Take 1 tablet by mouth daily at bedtime. - multivitamins(DAILY MULTIVITAMIN TAB) Take one(1) tablet daily. - CALTRATE-600 PLUS VITAMIN D3 600 MG-400 UNIT TAB Take one(1) tablet daily. Problem List As Of Date 08/12/2024 Noted Resolved ANXIETY STATE NOS [F41.1] 09/17/2005 ATROPHIC VAGINITIS [N95.2] 09/23/2006 Essential Hypertension, Benign [I10] 10/26/2008 12/11/2009 Post Menopausal Syndrome [N95.1] 12/11/2009 Cough [R05.9] 12/11/2009 11/03/2014 HBP (high blood pressure) [I10] 12/11/2009 11/03/2014 Metabolic Syndrome [E88.810] 12/11/2009 Ankle fracture, left [S82.892A] 04/25/2011 11/03/2014 Obstructive sleep apnea of adult [G47.33] 09/08/2011 Essential hypertension [I10] 09/02/2012 Hypokalemia [E87.6] 12/09/2012 11/03/2014 Allergic rhinitis [J30.9] 11/08/2013 Carpal tunnel syndrome on both sides [G56.03] 11/08/2013 Mixed hyperlipidemia [E78.2] 04/22/2016 Screening for colon cancer [Z12.11] 11/12/2016 12/05/2021 Impaired fasting glucose [R73.01] 12/01/2016 Contact dermatitis [L25.9] 12/01/2016 Right hip pain [M25.551] 12/01/2016 Cough [R05.9] 12/01/2016 Well adult exam [Z00.00] 12/01/2016 12/05/2021 Type 2 diabetes mellitus with hyperglycemia (HC*09/24/2022 Anxiety and depression [F41.9, F32.A] 12/10/2020 Left wrist pain [M25.532] 12/10/2020 Essential tremor [G25.0] 12/10/2020 Osteopenia of multiple sites [M85.89] 11/2020 Primary osteoarthritis of right hip [M16.11] 12/10/2021 Lightheadedness [R42] 12/10/2021 RAMIREZ (dyspnea on exertion) [R06.09] 12/10/2021 Dyslipidemia [E78.5] 12/10/2021 Sweating disease [B33.8] 12/24/2022 Uncontrolled type 2 diabetes mellitus with hype*12/24/2022 Elevated serum creatinine [R79.89] 07/08/2024 Prescriptions ordered this encounter Disp Refills Start End LISINOPRIL 40 MG TABLET 90 t* 3 08/17/2024 Route: ORAL Sig: Take 1 tablet by mouth once daily. Medications Discontinued During This Encounter Prescriptions - lisinopril (ZESTRIL) 40 mg tablet (Discontinued) Take 1 tablet by mouth once daily. Encounter Status:Closed by NEHEMIAH RENE on 09/01/24 [facility] RADHA BROWN ([id number]) 1955 F NFR Date Time Provider Department 08/11/24 WOJCIECH ALVARADO [facility] During your visit today, we recorded the following information about you: Sheri Welch MA 08/11/2024 9:51 AM Signed Please see pt message below. I contacted pt to schedule appt but she [place] until [place]. Pt reports bp this morning 159/87. Reports since stopping the hydrochlorothiazide she's had headaches in the AM which isn't normal for her. Hoping her medication can be adjusted. Please advise. Good morning Dr. Alvarado and staff. I have been monitoring my blood pressure after dropping the hydrochlorothiazide and increasing by lisinopril to 20 mg. My highest BP was 176/98, my lowest was 159/87...averaging 154/90. I have been experiencing mild headaches, lack of appetite and an overall blah feeling. I am hoping there can be an adjustment to my medication to correct my numbers and overall health. Thank you. Casi Aponte APRN.CREATIVE COORDINATOR 08/11/2024 11:28 AM Signed Pt placed on my scheduled with VV. Will discuss then. Thank you, Casi Aponte APRN.CREATIVE COORDINATOR Allergies As of Date: 08/11/2024 (No Known Allergies) Date Reviewed: 05/18/2024 Reviewed by: Casi Aponte APRN.CREATIVE COORDINATOR - Fully Assessed Reason for Visit: Blood Pressure [15] Prescriptions as of 08/11/2024 - lisinopril (ZESTRIL) 20 mg tablet Take 1 tablet by mouth once daily. - metFORMIN (GLUCOPHAGE) 500 mg tablet Take 1 tablet by mouth three times a day. With meals, For diabetes - metFORMIN (GLUCOPHAGE) 500 mg tablet Take 1 tablet by mouth three times a day. With meals, For diabetes - venlafaxine ER (EFFEXOR XR) 75 mg 24 hr capsule Take 1 capsule by mouth once daily. - blood sugar diagnostic (BLOOD GLUCOSE TEST) test strip Test blood sugar(s) 2 times daily. Dx: Type 2 DM - Uncontrolled E11.65 Insulin: Yes - Lancets Test blood sugar(s) 2 times daily. Dx: Type 2 DM - Uncontrolled E11.65 Insulin: No - rosuvastatin (CRESTOR) 10 mg tablet Take 1 tablet by mouth daily at bedtime. - lisinopril (ZESTRIL) 10 mg tablet Take 1 tablet by mouth once daily. - multivitamins(DAILY MULTIVITAMIN TAB) Take one(1) tablet daily. - CALTRATE-600 PLUS VITAMIN D3 600 MG-400 UNIT TAB Take one(1) tablet daily. Problem List As Of Date 08/11/2024 Noted Resolved ANXIETY STATE NOS [F41.1] 09/17/2005 ATROPHIC VAGINITIS [N95.2] 09/23/2006 Essential Hypertension, Benign [I10] 10/26/2008 12/11/2009 Post Menopausal Syndrome [N95.1] 12/11/2009 Cough [R05.9] 12/11/2009 11/03/2014 HBP (high blood pressure) [I10] 12/11/2009 11/03/2014 Metabolic Syndrome [E88.810] 12/11/2009 Ankle fracture, left [S82.892A] 04/25/2011 11/03/2014 Obstructive sleep apnea of adult [G47.33] 09/08/2011 Essential hypertension [I10] 09/02/2012 Hypokalemia [E87.6] 12/09/2012 11/03/2014 Allergic rhinitis [J30.9] 11/08/2013 Carpal tunnel syndrome on both sides [G56.03] 11/08/2013 Mixed hyperlipidemia [E78.2] 04/22/2016 Screening for colon cancer [Z12.11] 11/12/2016 12/05/2021 Impaired fasting glucose [R73.01] 12/01/2016 Contact dermatitis [L25.9] 12/01/2016 Right hip pain [M25.551] 12/01/2016 Cough [R05.9] 12/01/2016 Well adult exam [Z00.00] 12/01/2016 12/05/2021 Type 2 diabetes mellitus with hyperglycemia (HC*09/24/2022 Anxiety and depression [F41.9, F32.A] 12/10/2020 Left wrist pain [M25.532] 12/10/2020 Essential tremor [G25.0] 12/10/2020 Osteopenia of multiple sites [M85.89] 11/2020 Primary osteoarthritis of right hip [M16.11] 12/10/2021 Lightheadedness [R42] 12/10/2021 RAMIREZ (dyspnea on exertion) [R06.09] 12/10/2021 Dyslipidemia [E78.5] 12/10/2021 Sweating disease [B33.8] 12/24/2022 Uncontrolled type 2 diabetes mellitus with hype*12/24/2022 Elevated serum creatinine [R79.89] 07/08/2024 Encounter Status:Closed by CASI APONTE on 08/11/24 Normal [facility] Comprehensive metabolic 2000 panelon 06-24-2024 Albumin [Mass/Vol] 4.4 g/dL Normal 3.9-4.9 [facility] Comment on above: Order Comment: Speci men Type: BLOOD SPECIMEN Ordering Facility: [facility] Address: [address] [place] [address] Performed By: #### 5 5454-3 #### [facility] CLIA [id number] [address] [place] [id number] [place] ALP [Catalytic activity/Vol] 53 U/L Normal 34-123 [facility] Comment on above: Order Comment: Speci men Type: BLOOD SPECIMEN Ordering Facility: [facility] Address: [address] [place] [address] Performed By: #### 5 5454-3 #### [facility] CLIA [id number] [address] [place] [address] [place] ALT [Catalytic activity/Vol] 21 U/L Normal 7-38 [facility] Comment on above: Order Comment: Speci men Type: BLOOD SPECIMEN Ordering Facility: [facility] Address: [address] [place] [address] Performed By: #### 5 5454-3 #### [facility] CLIA [id number] [address] [place] [address] [place] Anion gap [Moles/Vol] 10 mmol/L Normal 8-15 [facility] Comment on above: Order Comment: Speci men Type: BLOOD SPECIMEN Ordering Facility: [facility] Address: [address] [place] [address] Performed By: #### 5 5454-3 #### [facility] CLIA [id number] [address] [place] [address] [place] AST [Catalytic activity/Vol] 18 U/L Normal 13-35 [facility] Comment on above: Order Comment: Speci men Type: BLOOD SPECIMEN Ordering Facility: [facility] Address: [address] [place], [place] [id number] Performed By: #### 5 5454-3 #### [facility] CLIA [id number] [address] [place], [place] [address] [place] Bilirubin [Mass/Vol] 0.3 mg/dL Normal 0.2-1.3 [facility] Comment on above: Order Comment: Speci men Type: BLOOD SPECIMEN Ordering Facility: [facility] Address: [address] [place] [address] Performed By: #### 5 5454-3 #### [facility] CLIA [id number] [address] [place] [address] [place] Calcium [Mass/Vol] 9.7 mg/dL Normal 8.5-10.2 [facility] Comment on above: Order Comment: Speci men Type: BLOOD SPECIMEN Ordering Facility: [facility] Address: [address] [place] [address] Performed By: #### 5 5454-3 #### [facility] CLIA [id number] [address] [place] [address] [place] Chloride [Moles/Vol] 102 mmol/L Normal 98-107 [facility] Comment on above: Order Comment: Speci men Type: BLOOD SPECIMEN Ordering Facility: [facility] Address: [address] [place] [address] Performed By: #### 5 5454-3 #### [facility] CLIA [id number] [address] [place] [address] [place] CO2 [Moles/Vol] 26 mmol/L Normal 22-30 [facility] Comment on above: Order Comment: Speci men Type: BLOOD SPECIMEN Ordering Facility: [facility] Address: [address] [place] [address] Performed By: #### 5 5454-3 #### [facility] CLIA [id number] [address] [place], [place] [address] [place] Creatinine [Mass/Vol] 1.09 mg/dL High 0.58-0.96 [facility] Comment on above: Order Comment: Speci men Type: BLOOD SPECIMEN Ordering Facility: [facility] Address: [address] [place] [address] Performed By: #### 5 5454-3 #### [facility] CLIA [id number] [address] [place] [address] [place] Creatinine and Glomerular filtration rate.predicted panel (S/P/Bld) 55 mL/min/1.73m??? Low >=60 [facility] Comment on above: Order Comment: Madan quinn Type: BLOOD SPECIMEN Ordering Facility: [facility] Address: [address] [place] [address] Result Comment: Tori mated Glomerular Filtration Rate (eGFR) is calculated using the 2020 CKD-EPI creatinine equation. This equation utilizes serum creatinine, sex, and age as parameters. The creatinine assay has traceable calibration to isotope dilution-mass spectrometry. Refer to KDIGO guidelines for clinical interpretation. In patients with unstable renal function, e.g. those with acute kidney injury, the eGFR may not accurately reflect actual GFR. Performed By: #### 5 5454-3 #### [facility] CLIA [id number] [address] [place] [address] [place] Glucose [Mass/Vol] 163 mg/dL High 74-99 [facility] Comment on above: Order Comment: Madan quinn Type: BLOOD SPECIMEN Ordering Facility: [facility] Address: [address] [place] [address] Result Comment: The [place] Diabetes Association (ADA) provides guidance for cutoff values for fasting glucose and random glucose. The ADA defines fasting as no caloric intake for at least 8 hours. Fasting plasma glucose results between 100 to 125 mg/dL indicate increased risk for diabetes (prediabetes). Fasting plasma glucose results greater than or equal to 126 mg/dL meet the criteria for diagnosis of diabetes. In the absence of unequivocal hyperglycemia, results should be confirmed by repeat testing. In a patient with classic symptoms of hyperglycemia or hyperglycemic crisis, random plasma glucose results greater than or equal to 200 mg/dL meet the criteria for diagnosis of diabetes. Reference: Standards of Medical Care in Diabetes 2016, [place] Diabetes Association. Diabetes Care. 2016.39(Suppl 1). Performed By: #### 5 5454-3 #### [facility] CLIA [id number] [address] [place], [place] [address] [place] Potassium [Moles/Vol] 4.3 mmol/L Normal 3.7-5.1 [facility] Comment on above: Order Comment: Speci men Type: BLOOD SPECIMEN Ordering Facility: [facility] Address: [address] [place] [address] Performed By: #### 5 5454-3 #### [facility] CLIA [id number] [address] [place] [address] [place] Protein [Mass/Vol] 7.0 g/dL Normal 6.3-8.0 [facility] Comment on above: Order Comment: Speci men Type: BLOOD SPECIMEN Ordering Facility: [facility] Address: [address] [place] [address] Performed By: #### 5 5454-3 #### [facility] CLIA [id number] [address] [place] [address] [place] Sodium [Moles/Vol] 138 mmol/L Normal 136-144 [facility] Comment on above: Order Comment: Speci men Type: BLOOD SPECIMEN Ordering Facility: [facility] Address: [address] [place] [address] Performed By: #### 5 5454-3 #### [facility] CLIA [id number] [address] [place] [address] [place] Urea nitrogen [Mass/Vol] 15 mg/dL Normal 7-21 [facility] Comment on above: Order Comment: Speci men Type: BLOOD SPECIMEN Ordering Facility: [facility] Address: [address] [place] [address] Performed By: #### 5 5454-3 #### [facility] CLIA [id number] [address] [place] [address] [place] HbA1c (Bld)on 06-24-2024 Average glucose Estimated from glycated hemoglobin (Bld) [Mass/Vol] 157 mg/dL Normal [facility] Comment on above: Order Comment: Speci men Type: BLOOD SPECIMEN Ordering Facility: [facility] Address: [address] [place] [address] Result Comment: eAG: (Estimated average glucose) is a calculated value from HgbA1c and is packaging sales representative of the average blood glucose level in the last 2-3 month period. Performed By: #### 5 5454-3 #### [facility] CLIA [id number] [address] [place] [address] [place] HbA1c (Bld) [Mass fraction] 7.1 % High 4.3-5.6 [facility] Comment on above: Order Comment: Speci men Type: BLOOD SPECIMEN Ordering Facility: [facility] Address: [address] [place] [address] Result Comment: [place] Diabetes Association guidelines indicate that patients with HgbA1c in the range 5.7-6.4% are at increased risk for development of diabetes, and intervention by lifestyle modification may be beneficial. HgbA1c greater or equal to 6.5% is considered diagnostic of diabetes. Performed By: #### 5 5454-3 #### [facility] CLIA [id number] [address] [place] [address] [facility] CNPNon 05-23-2024 CNPN Telephone (FAMPWS) RADHA BROWN ([id number]) 1955 F NFR Date Time Provider Department 05/23/24 WOJCIECH ALVARADO [facility] During your visit today, we recorded the following information about you: Karla Oconnor LPN 05/23/2024 4:20 PM Signed Cresencio with [employer] calls to report they received order for Cpap supplies. Cresencio is requesting OV notes, sleep study report, and updated insurance. Faxed information to: [phone] as requested. Karla Oconnor LPN Allergies As of Date: 05/23/2024 (No Known Allergies) Date Reviewed: 05/18/2024 Reviewed by: Casi Aponte APRN.CREATIVE COORDINATOR - Fully Assessed Reason for Visit: patient information [Other] Prescriptions as of 05/23/2024 - benzonatate (TESSALON PERLE) 100 mg capsule Take 2 capsules by mouth three times a day as needed. - venlafaxine ER (EFFEXOR XR) 75 mg 24 hr capsule Take 1 capsule by mouth once daily. - hydroCHLOROthiazide 12.5 mg tablet Take 1 tablet by mouth once daily. - blood sugar diagnostic (BLOOD GLUCOSE TEST) test strip Test blood sugar(s) 2 times daily. Dx: Type 2 DM - Uncontrolled E11.65 Insulin: Yes - Lancets Test blood sugar(s) 2 times daily. Dx: Type 2 DM - Uncontrolled E11.65 Insulin: No - metFORMIN (GLUCOPHAGE) 500 mg tablet Take 1 tablet by mouth three times a day. With meals, For diabetes - rosuvastatin (CRESTOR) 10 mg tablet Take 1 tablet by mouth daily at bedtime. - lisinopril (ZESTRIL) 10 mg tablet Take 1 tablet by mouth once daily. - aspirin, enteric coated (ASPIRIN, ENTERIC COATED) 81 mg EC tablet Take 1 tablet by mouth twice daily for 28 days. - multivitamins(DAILY MULTIVITAMIN TAB) Take one(1) tablet daily. - CALTRATE-600 PLUS VITAMIN D3 600 MG-400 UNIT TAB Take one(1) tablet daily. Problem List As Of Date 05/23/2024 Noted Resolved ANXIETY STATE NOS [F41.1] 09/17/2005 ATROPHIC VAGINITIS [N95.2] 09/23/2006 Essential Hypertension, Benign [I10] 10/26/2008 12/11/2009 Post Menopausal Syndrome [N95.1] 12/11/2009 Cough [R05.9] 12/11/2009 11/03/2014 HBP (high blood pressure) [I10] 12/11/2009 11/03/2014 Metabolic Syndrome [E88.810] 12/11/2009 Ankle fracture, left [S82.892A] 04/25/2011 11/03/2014 Obstructive sleep apnea of adult [G47.33] 09/08/2011 Essential hypertension [I10] 09/02/2012 Hypokalemia [E87.6] 12/09/2012 11/03/2014 Allergic rhinitis [J30.9] 11/08/2013 Carpal tunnel syndrome on both sides [G56.03] 11/08/2013 Mixed hyperlipidemia [E78.2] 04/22/2016 Screening for colon cancer [Z12.11] 11/12/2016 12/05/2021 Impaired fasting glucose [R73.01] 12/01/2016 Contact dermatitis [L25.9] 12/01/2016 Right hip pain [M25.551] 12/01/2016 Cough [R05.9] 12/01/2016 Well adult exam [Z00.00] 12/01/2016 12/05/2021 Type 2 diabetes mellitus with hyperglycemia (HC*09/24/2022 Anxiety and depression [F41.9, F32.A] 12/10/2020 Left wrist pain [M25.532] 12/10/2020 Essential tremor [G25.0] 12/10/2020 Osteopenia of multiple sites [M85.89] 11/2020 Primary osteoarthritis of right hip [M16.11] 12/10/2021 Lightheadedness [R42] 12/10/2021 RAMIREZ (dyspnea on exertion) [R06.09] 12/10/2021 Dyslipidemia [E78.5] 12/10/2021 Sweating disease [B33.8] 12/24/2022 Uncontrolled type 2 diabetes mellitus with hype*12/24/2022 Encounter Status:Closed by KARLA OCONNOR on 05/23/24 [facility] 05-18-2024 CNOV Office Visit (FAMPWS ) RADHA BROWN ([id number]) 1955 F NFR Date Time Provider Department 05/18/24 10:00 AM CASI APONTE FAMPWS During your visit today, we recorded the following information about you: Pulse Respiration Blood pressure Weight 60/minute 12/minute 140/68 70.8 kg Casi Aponte APRN.MALINDA 05/18/2024 10:31 AM Signed Chief Complaint Patient presents with: cpap replacement HPI Radha Brown is a 68 year old female who presents here today for Above Complaints. Radha is an established patient of Dr. Christiano DO. Concerns today... Needing new CPAP machine. Has had the same machine since 2011. Had sleep study and titration study done at [facility] by Dr. Pierre in 2010 and 2011. Records are in the computer of this. Wearing CPAP every night without difficulties. No changes in settings are needed -- current setting works well. No other concerns or complaints. Past medical history, appointments, medications, allergies reviewed. 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 now. Previous Surgical History PAST SURGICAL HISTORY Procedure Laterality Date COLONOSCOPY FLX DX W/COLLJ SPEC WHEN PFRMD 09/15/2006 Colonoscopy NEUROPLASTY AND/TRANSPOS MEDIAN NRV CARPAL TUNNE Bilateral 11/10/2014 Bilateral CTR PAST SURGICAL HISTORY OF 09/29/2010 Right wrist dequervaine release PAST SURGICAL HISTORY OF 11/29/2008 Left foot calcium buildup metatarsal removal REMOVAL GALLBLADDER N/A 08/24/2022 REMV CATARACT EXTRACAP,INSERT LENS Bilateral TONSILLECTOMY AND ADENOIDECTOMY AGE 11/> TOTAL HIP REPLACEMENT Right 05/05/2022 UNSPECIFIED ORAL SURGERY PROCEDURE, BY REPORT 2 wisdom teeth removed. Family History FAMILY HISTORY Adopted: Yes Problem Relation Age of Onset other (ADOPTED, NO KNOWN HISTORY) Other Patient Allergies ALLERGIES No Known Allergies Current Medications Current Outpatient Medications on File Prior to Visit Medication Sig benzonatate (TESSALON PERLE) 100 mg capsule Take 2 capsules by mouth three times a day as needed. venlafaxine ER (EFFEXOR XR) 75 mg 24 hr capsule Take 1 capsule by mouth once daily. hydroCHLOROthiazide 12.5 mg tablet Take 1 tablet by mouth once daily. blood sugar diagnostic (BLOOD GLUCOSE TEST) test strip Test blood sugar(s) 2 times daily. Dx: Type 2 DM - Uncontrolled E11.65 Insulin: Yes Lancets Test blood sugar(s) 2 times daily. Dx: Type 2 DM - Uncontrolled E11.65 Insulin: No metFORMIN (GLUCOPHAGE) 500 mg tablet Take 1 tablet by mouth three times a day. With meals, For diabetes rosuvastatin (CRESTOR) 10 mg tablet Take 1 tablet by mouth daily at bedtime. lisinopril (ZESTRIL) 10 mg tablet Take 1 tablet by mouth once daily. aspirin, enteric coated (ASPIRIN, ENTERIC COATED) 81 mg EC tablet Take 1 tablet by mouth twice daily for 28 days. (Patient taking differently: Take 81 mg by mouth once daily.) multivitamins(DAILY MULTIVITAMIN TAB) Take one(1) tablet daily. CALTRATE-600 PLUS VITAMIN D3 600 MG-400 UNIT TAB Take one(1) tablet daily. No current facility-administered medications on file prior to visit. Social History Social History Tobacco Use Smoking status: Never Smokeless tobacco: Never Vaping Use Vaping status: Never Used Substance Use Topics Alcohol use: Yes Alcohol/week: 3.3 standard drinks of alcohol Types: 1 Glasses of Wine (5oz), 1 Cans of Beer (12oz), 1 Mixed Drinks per week Comment: seldom to occasionally Drug use: No REVIEW OF SYSTEMS: as above Reviewed relevant PMHx, PSHx, Social Hx, current medications and allergies. Review of Symptoms REVIEW OF SYSTEMS See HPI. EXAM: BP 140/68 (BP Site: Left Arm, BP Position: Sitting, BP Cuff Size: Regular Adult) Pulse 60 Resp 12 Wt 70.8 kg (156 lb) BMI 28.89 kg/m? General Appearance: Well appearing, alert, in no acute distress, well-hydrated, well nourished.. Lungs: Lungs clear to auscultation. No wheezing, rhonchi, rales.. Heart: RRR without murmur, gallop, or rubs. No ectopy. Health Maintenance List Mammogram Screening due on 01/15/2023 Urine Albumin:Creatinine Ratio due on 09/23/2023 Diabetic Foot Exam due on 12/24/2023 (more content not included)... Normal [facility] CNOVon 04-13-2024 CNOV Office Visit (UCWSTR ) RADHA BROWN ([id number]) 1955 F NFR Date Time Provider Department 04/13/24 7:15 AM CECELIA NAQVI [facility] During your visit today, we recorded the following information about you: Temperature Pulse Respiration Blood pressure 98.4 degrees 78/minute 16/minute 138/72 Weight 71.5 kg Cecelia Naqvi APRN.CREATIVE COORDINATOR 04/13/2024 8:50 AM Signed Subjective HPI HPI Radha Brown is a 68 year old female who presents today for CC of cough, sputum production. This started 5 days ago. Has tried otc medication for relief. Symptoms are worsened by nothing. nonsmoker. .Patient presents with: Chest Congestion: cough x 5 days, increased last 2 days PAST MEDICAL HISTORY Diagnosis Date Allergic rhinitis Broken ankle 03/2011 Carpal tunnel syndrome on both sides Diverticulosis of colon (without mention of hemorrhage) Essential hypertension, benign Hair loss disorder familial/genetic per Body Stylist Impaired fasting blood sugar Mild pulmonary valve insufficiency 01/2016 Osteopenia of multiple sites 11/2020 repeat BMD 11/2022 Post menopausal syndrome Screening for colon cancer 11/12/2016 Screening for colon cancer 11/12/2016 Sleep apnea 05/2011 uses CPAP machine at night Variants of migraine, not elsewhere classified, without mention of intractable migraine without mention of status migrainosus in the past, believes were hormonal, haven't had for about 2 yrs. now. PAST SURGICAL HISTORY Procedure Laterality Date COLONOSCOPY FLX DX W/COLLJ SPEC WHEN PFRMD 09/15/2006 Colonoscopy NEUROPLASTY AND/TRANSPOS MEDIAN NRV CARPAL TUNNE Bilateral 11/10/2014 Bilateral CTR PAST SURGICAL HISTORY OF 09/29/2010 Right wrist dequervaine release PAST SURGICAL HISTORY OF 11/29/2008 Left foot calcium buildup metatarsal removal REMOVAL GALLBLADDER N/A 08/24/2022 REMV CATARACT EXTRACAP,INSERT LENS Bilateral TONSILLECTOMY AND ADENOIDECTOMY AGE 11/> TOTAL HIP REPLACEMENT Right 05/05/2022 UNSPECIFIED ORAL SURGERY PROCEDURE, BY REPORT 2 wisdom teeth removed. ALLERGIES Patient has no known allergies. MEDICATIONS venlafaxine ER (EFFEXOR XR) 75 mg 24 hr capsule Take 1 capsule by mouth once daily. hydroCHLOROthiazide 12.5 mg tablet Take 1 tablet by mouth once daily. blood sugar diagnostic (BLOOD GLUCOSE TEST) test strip Test blood sugar(s) 2 times daily. Dx: Type 2 DM - Uncontrolled E11.65 Insulin: Yes Lancets Test blood sugar(s) 2 times daily. Dx: Type 2 DM - Uncontrolled E11.65 Insulin: No metFORMIN (GLUCOPHAGE) 500 mg tablet Take 1 tablet by mouth three times a day. With meals, For diabetes rosuvastatin (CRESTOR) 10 mg tablet Take 1 tablet by mouth daily at bedtime. lisinopril (ZESTRIL) 10 mg tablet Take 1 tablet by mouth once daily. aspirin, enteric coated (ASPIRIN, ENTERIC COATED) 81 mg EC tablet Take 1 tablet by mouth twice daily for 28 days. (Patient taking differently: Take 81 mg by mouth once daily.) multivitamins(DAILY MULTIVITAMIN TAB) Take one(1) tablet daily. CALTRATE-600 PLUS VITAMIN D3 600 MG-400 UNIT TAB Take one(1) tablet daily. FAMILY HISTORY Adopted: Yes Problem Relation Age of Onset other (ADOPTED, NO KNOWN HISTORY) Other Social History Tobacco Use Smoking status: Never Smokeless tobacco: Never Vaping Use Vaping status: Never Used Substance Use Topics Alcohol use: Yes Alcohol/week: 3.3 standard drinks of alcohol Types: 1 Glasses of Wine (5oz), 1 Cans of Beer (12oz), 1 Mixed Drinks per week Comment: seldom to occasionally Drug use: No Review of Systems Constitutional: Negative for fever. HENT: Negative for congestion, ear pain, nosebleeds and sore throat. Respiratory: Positive for cough and sputum production. Negative for shortness of breath and wheezing. Cardiovascular: Negative for chest pain. Musculoskeletal: Negative for neck pain. Skin: Negative for itching and rash. Objective Blood pressure 162/98, pulse 78, temperature 36.9 ?C (98.4 ?F), resp. rate 16, weight 71.5 kg (157 lb 10.1 oz), SpO2 96%. Physical Exam Constitutional: General: She is not in acute distress. Appearance: She is not toxic-appearing or diaphoretic. HENT: Head: Normocephalic and atraumatic. Cardiovascular: Rate and Rhythm: Normal rate and regular rhythm. Heart sounds: Normal heart sounds, S1 normal and S2 normal. Pulmonary: Effort: Pulmonary effort is normal. Breath sounds: Normal breath sounds. Lymphadenopathy: Cervical: No cervical adenopathy. Right cervical: No superficial cervical adenopathy. Left cervical: No superficial cervical adenopathy. Neurological: Mental Status: She is alert and oriented to person, place, and time. Gait: Gait is intact. ASSESSMENT/PLAN: 1. Sinobronchitis - ICD9: 473.9, 490, ICD10: J32.9, J40 (primary diagnosis) Hold atb for 3 days, if worsening s/s fill and take - Supportive care with plenty of fluids, (more content not included)... Normal [facility] XR CHEST 2V FRONTAL/LATon XR CHEST 2V FRONTAL/LAT * * *Final Report* * * DATE OF EXAM: Apr 13 2024 8:12AM [id number] - XR CHEST 2V FRONTAL/LAT / PROCEDURE REASON: Acute cough * * * * Physician Interpretation * * * * EXAMINATION: CHEST RADIOGRAPH (2 VIEW FRONTAL and LATERAL) CLINICAL HISTORY: Acute cough MQ: XC2_6 EXAM DATE/TIME: 04/13/2024 8:12 AM COMPARISON: Chest x-ray dated 12/11/2009 RESULT: Lines, tubes, and devices: None. Lungs and pleura: No consolidation. No lung mass. No pleural effusion. No pneumothorax. Cardiomediastinal silhouette: Stable cardiomediastinal silhouette. Bones and soft tissues: Surgical clips are present in the upper abdomen. Degenerative changes in the spine. IMPRESSION: No acute radiographic abnormality. Pomologist: NIKOLAY Transcribe Date/Time: Apr 13 2024 8:22A Dictated by : KAMERON DOCKERY MD This examination was interpreted and the report reviewed and electronically signed by: KAMERON DOCKERY MD on Apr 13 2024 8:23AM EST [id number] Normal [facility] XR Chest PA and Lateralon IMPRESSION: No acute radiographic abnormality. Pomologist: NIKOLAY Transcribe Date/Time: Apr 13 2024 8:22A Dictated by : KAMERON DOCKERY MD This examination was interpreted and the report reviewed and electronically signed by: KAMERON DOCKERY MD on Apr 13 2024 8:23AM EST DIVISION OF RADIOLOGY * * *Final Report* * * DATE OF EXAM: Apr 13 2024 8:12AM [id number] - XR CHEST 2V FRONTAL/LAT / PROCEDURE REASON: Acute cough * * * * Physician Interpretation * * * * EXAMINATION: CHEST RADIOGRAPH (2 VIEW FRONTAL & LATERAL) CLINICAL HISTORY: Acute cough MQ: XC2_6 EXAM DATE/TIME: 04/13/2024 8:12 AM COMPARISON: Chest x-ray dated 12/11/2009 RESULT: Lines, tubes, and devices: None. Lungs and pleura: No consolidation. No lung mass. No pleural effusion. No pneumothorax. Cardiomediastinal silhouette: Stable cardiomediastinal silhouette. Bones and soft tissues: Surgical clips are present in the upper abdomen. Degenerative changes in the spine. DIVISION OF RADIOLOGY [facility] * * *Final Report* * * DATE OF EXAM: Apr 13 2024 8:12AM WOX [id number] - XR CHEST 2V FRONTAL/LAT / PROCEDURE REASON: Acute cough * * * * Physician Interpretation * * * * EXAMINATION: CHEST RADIOGRAPH (2 VIEW FRONTAL & LATERAL) CLINICAL HISTORY: Acute cough MQ: XC2_6 EXAM DATE/TIME: 04/13/2024 8:12 AM COMPARISON: Chest x-ray dated 12/11/2009 RESULT: Lines, tubes, and devices: None. Lungs and pleura: No consolidation. No lung mass. No pleural effusion. No pneumothorax. Cardiomediastinal silhouette: Stable cardiomediastinal silhouette. Bones and soft tissues: Surgical clips are present in the upper abdomen. Degenerative changes in the spine. IMPRESSION IMPRESSION: No acute radiographic abnormality. Pomologist: NIKOLAY Transcribe Date/Time: Apr 13 2024 8:22A Dictated by : KAMERON DOCKERY MD This examination was interpreted and the report reviewed and electronically signed by: KAMERON DOCKERY MD on Apr 13 2024 8:23AM EST [facility] Radiology Study observation (narrative) [facility] XR Chest PA and LateralOrder ed By: [facility] Provider on 04-13-2024 [facility] CNOVon 01-27-2024 CNOV Office Visit (FAMPWS ) RADHA BROWN ([id number]) 1955 F NFR Date Time Provider Department 01/27/24 9:00 AM [facility] During your visit today, we recorded the following information about you: Temperature Pulse Respiration Blood pressure 98.2 degrees 80/minute 16/minute 110/70 Weight Height 68.5 kg 1.565 m Wojciech Alvarado, DO 01/27/2024 9:07 PM Signed Patient presents with: Medicare Wellness Exam HPI: Radha Brown is a 68 year old female who presents to the office today for review of health conditions. Concerns today: Jittery feeling in the morning comes and goes, not daily. Unsure if this is related to glucose. Is willing now to start monitoring her blood glucose to determine where her levels are. Is taking metformin 500 mg in AM and 1000 mg with supper. Not wanting to start injectable medication if able to avoid this Sweating increase, is post menopausal age, has been present x years. No benefit from OTC medication in the past. Not wanting to start hormone therapy if able to avoid this Mood, was doing well on Effexor in the past, thinks she wants to restart this. Ms. Borwn has past history of diabetes. Since our last visit she denies excessive thirst or increased frequency of urination, chest pain or dyspnea , new or unusual visual symptoms, and low sugar/hypoglycemic reactions. Depression- yes, see above, stable. Follows a diabetic diet some of the time. She is compliant with medication(s) and is tolerating med(s) without any side effects. Patient's last HgA1C was Hemoglobin A1C (%) Date Value 01/25/2024 7.0 10/14/2023 9.2 11/30/2020 6.2 03/19/2020 6.5 Hemoglobin A1C (POCT) (%) Date Value 03/27/2023 8.2 ) Last Ophthalmology exam was within the past 12 months Ms. Brown reports history of hyperlipidemia. Current therapy includes rosuvastatin (Crestor) 10 mg. Denies side effects of muscle weakness or achiness. Her most recent lipid panels are reviewed. Cholesterol, Total (mg/dL) Date Value 01/25/2024 112 11/30/2020 204 HDL Cholesterol (mg/dL) Date Value 01/25/2024 37 11/30/2020 43 LDL Cholesterol (mg/dL) Date Value 01/25/2024 29 11/30/2020 133 Triglyceride (mg/dL) Date Value 01/25/2024 230 11/30/2020 140 Ms. Brown indicates a history of hypertension and states that she is feeling well and denies any symptoms referable to elevated blood pressure. Specifically denies headache, chest pain, palpitations, dyspnea, and peripheral edema. Patient denies any side effects of her medication(s) and is compliant with their regimen. Last 3 Encounter BP Readings: Date: BP: 01/27/2024 110/70 10/16/2023 130/82 03/27/2023 134/84 She watches her diet for sodium, low fat and low cholesterol some of the time. She does not check BP's generally. Radha gets minimal exercise. PAST MEDICAL HISTORY No date: Allergic rhinitis 03/2011: Broken ankle No date: Carpal tunnel syndrome on both sides No date: Diverticulosis of colon (without mention of hemorrhage) No date: Essential hypertension, benign No date: Hair loss disorder Comment: familial/genetic per Body Stylist No date: Impaired fasting blood sugar 01/2016: Mild pulmonary valve insufficiency 11/2020: Osteopenia of multiple sites Comment: repeat BMD 11/2022 No date: Post menopausal syndrome 11/12/2016: Screening for colon cancer 11/12/2016: Screening for colon cancer 05/2011: Sleep apnea Comment: uses CPAP machine at night No date: Variants of migraine, not elsewhere classified, without mention of intractable migraine without mention of status migrainosus Comment: in the past, believes were hormonal, haven't had for about 2 yrs. now. PAST SURGICAL HISTORY 09/15/2006: COLONOSCOPY FLX DX W/COLLJ SPEC WHEN PFRMD Comment: Colonoscopy 11/10/2014: NEUROPLASTY AND/TRANSPOS MEDIAN NRV CARPAL TUNNE; Bilateral Comment: Bilateral CTR 09/29/2010: PAST SURGICAL HISTORY OF Comment: Right wrist dequervaine release 11/29/2008: PAST SURGICAL HISTORY OF Comment: Left foot calcium buildup metatarsal removal 08/24/2022: REMOVAL GALLBLADDER; N/A No date: REMV CATARACT EXTRACAP,INSERT LENS; Bilateral No date: TONSILLECTOMY AND ADENOIDECTOMY AGE 11/> 05/05/2022: TOTAL HIP REPLACEMENT; Right No date: UNSPECIFIED ORAL SURGERY PROCEDURE, BY REPORT Comment: 2 wisdom teeth removed. Social History Tobacco Use Smoking status: Never Smokeless tobacco: Never Vaping Use Vaping status: Never Used Substance Use Topics Alcohol use: Yes Alcohol/week: 3.3 standard drinks of alcohol Types: 1 Glasses of Wine (5oz), 1 Cans of Beer (12oz), 1 Mixed Drinks per week Comment: seldom to occasionally Drug use: No FAMILY HISTORY Adopted: Yes Problem Relation Age of Onset other (ADOPTED, NO KNOWN HISTORY) Other Allergies: ALLERGIES No Known Allergies Current Meds: hydroCHLOROt (more content not included)... [facility][id number]) 1955 F NFR Date Time Provider Department 01/27/24 HALLE MESSINA During your visit today, we recorded the following information about you: Halle Messina APRN.CREATIVE COORDINATOR 01/27/2024 5:52 PM Signed Please let her know we received her lab results. Her A1C has improved significantly to 7.0, no need for any changes at this time. Kidney function is stable. Triglycerides have increased a bit. Please confirm she is taking her Crestor as ordered. Halle Messina APRN.MALINDA YanezVazquez olivasNICK zhu 01/27/2024 5:58 PM Signed Left message to return call NICK Fatima Jazzmin, MA 02/04/2024 12:48 PM Signed Left message to return call x 2 NICK Fatima Donna M, RN 02/04/2024 1:00 PM Signed Spoke with patient. Given message from provider's office. Patient verbalizes understanding. She states she is taking Crestor as ordered. Had discussed cholesterol results @ OV with PCP on 01/27/24. Christel Morley RN Allergies As of Date: 01/27/2024 (No Known Allergies) Date Reviewed: 10/16/2023 Reviewed by: Casi Aponte APRN.MALINDA - Fully Assessed Reason for Visit: Results [95] Prescriptions as of 02/04/2024 - hydroCHLOROthiazide 12.5 mg tablet Take 1 tablet by mouth once daily. - blood sugar diagnostic (BLOOD GLUCOSE TEST) test strip Test blood sugar(s) 2 times daily. Dx: Type 2 DM - Uncontrolled E11.65 Insulin: Yes - Lancets Test blood sugar(s) 2 times daily. Dx: Type 2 DM - Uncontrolled E11.65 Insulin: No - metFORMIN (GLUCOPHAGE) 500 mg tablet Take 1 tablet by mouth three times a day. With meals, For diabetes - venlafaxine ER (EFFEXOR XR) 75 mg 24 hr capsule Take 1 capsule by mouth once daily. - rosuvastatin (CRESTOR) 10 mg tablet Take 1 tablet by mouth daily at bedtime. - lisinopril (ZESTRIL) 10 mg tablet Take 1 tablet by mouth once daily. - aspirin, enteric coated (ASPIRIN, ENTERIC COATED) 81 mg EC tablet Take 1 tablet by mouth twice daily for 28 days. - multivitamins(DAILY MULTIVITAMIN TAB) Take one(1) tablet daily. - CALTRATE-600 PLUS VITAMIN D3 600 MG-400 UNIT TAB Take one(1) tablet daily. Problem List As Of Date 01/27/2024 Noted Resolved ANXIETY STATE NOS [F41.1] 09/17/2005 ATROPHIC VAGINITIS [N95.2] 09/23/2006 Essential Hypertension, Benign [I10] 10/26/2008 12/11/2009 Post Menopausal Syndrome [N95.1] 12/11/2009 Cough [R05.9] 12/11/2009 11/03/2014 HBP (high blood pressure) [I10] 12/11/2009 11/03/2014 Metabolic Syndrome [E88.810] 12/11/2009 Ankle fracture, left [S82.892A] 04/25/2011 11/03/2014 Obstructive sleep apnea of adult [G47.33] 09/08/2011 Essential hypertension [I10] 09/02/2012 Hypokalemia [E87.6] 12/09/2012 11/03/2014 Allergic rhinitis [J30.9] 11/08/2013 Carpal tunnel syndrome on both sides [G56.03] 11/08/2013 Mixed hyperlipidemia [E78.2] 04/22/2016 Screening for colon cancer [Z12.11] 11/12/2016 12/05/2021 Impaired fasting glucose [R73.01] 12/01/2016 Contact dermatitis [L25.9] 12/01/2016 Right hip pain [M25.551] 12/01/2016 Cough [R05.9] 12/01/2016 Well adult exam [Z00.00] 12/01/2016 12/05/2021 Type 2 diabetes mellitus with hyperglycemia (HC*09/24/2022 Anxiety and depression [F41.9, F32.A] 12/10/2020 Left wrist pain [M25.532] 12/10/2020 Essential tremor [G25.0] 12/10/2020 Osteopenia of multiple sites [M85.89] 11/2020 Primary osteoarthritis of right hip [M16.11] 12/10/2021 Lightheadedness [R42] 12/10/2021 RAMIREZ (dyspnea on exertion) [R06.09] 12/10/2021 Dyslipidemia [E78.5] 12/10/2021 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 Encounter Status:Closed by CHRISTEL MORLEY on 02/04/24 Normal [facility] CBC W Auto Differential pane l (Bld)on 01-25-2024 Basophils (Bld) [#/Vol] 0.04 10*3/uL Normal <0.11 [facility] Comment on above: Order Comment: Speci men Type: BLOOD SPECIMENOrdering Facility: [facility] Address: [address] [place] [address] Performed By: #### 5 7021-8 ####[facility] LABCLIA [id number] [place] [address] [place] Basophils/100 WBC (Bld) 0.6 % Normal [facility] Comment on above: Order Comment: Speci men Type: BLOOD SPECIMENOrdering Facility: [facility] Address: [address] [place] [address] Performed By: #### 5 7021-8 ####[facility] LABCLIA [id number] [place] [address] [place] Differential cell count method Nom (Bld) Auto Normal [facility] Comment on above: Order Comment: Speci men Type: BLOOD SPECIMENOrdering Facility: [facility] Address: [address] [place] [address] Performed By: #### 5 7021-8 ####[facility] LABCLIA [id number] [place] [address] [place] Eosinophils (Bld) [#/Vol] 0.27 10*3/uL Normal <0.46 [facility] Comment on above: Order Comment: Speci men Type: BLOOD SPECIMENOrdering Facility: [facility] Address: [address] [place] [address] Performed By: #### 5 7021-8 ####[facility] LABCLIA [id number] [place] [address] [place] Eosinophils/100 WBC (Bld) 4.2 % Normal [facility] Comment on above: Order Comment: Speci men Type: BLOOD SPECIMENOrdering Facility: [facility] Address: [address] [place] [address] Performed By: #### 5 7021-8 ####[facility] LABCLIA [id number] [place] [address] [place] Erythrocyte distribution width (RBC) [Ratio] 13.1 % Normal 11.5-15.0 [facility] Comment on above: Order Comment: Speci men Type: BLOOD SPECIMENOrdering Facility: [facility] Address: [address] [place] [address] Performed By: #### 5 7021-8 ####[facility] LABCLIA [id number] [place] [address] [place] Hematocrit (Bld) [Volume fraction] 38.9 % Normal 36.0-46.0 [facility] Comment on above: Order Comment: Speci men Type: BLOOD SPECIMENOrdering Facility: [facility] Address: [address] [place] [address] Performed By: #### 5 7021-8 ####[facility] LABCLIA [id number] [place] [address] [place] Hemoglobin (Bld) [Mass/Vol] 13.1 g/dL Normal 11.5-15.5 [facility] Comment on above: Order Comment: Speci men Type: BLOOD SPECIMENOrdering Facility: [facility] Address: [address] [place] [address] Performed By: #### 5 7021-8 ####[facility] LABCLIA [id number] [place] [address] [place] Immature granulocytes (Bld) [#/Vol] 10*3/uL Normal <0.10 [facility] Comment on above: Order Comment: Speci men Type: BLOOD SPECIMENOrdering Facility: [facility] Address: [address] [place] [address] Performed By: #### 5 7021-8 ####[facility] LABCLIA [id number] [place] [address] [place] Immature granulocytes/100 WBC (Bld) 0.3 % Normal [facility] Comment on above: Order Comment: Speci men Type: BLOOD SPECIMENOrdering Facility: [facility] Address: [address] [place] [address] Performed By: #### 5 7021-8 ####[facility] LABCLIA [id number] [place] [address] [place] Lymphocytes (Bld) [#/Vol] 2.12 10*3/uL Normal 1.00-4.00 [facility] Comment on above: Order Comment: Speci men Type: BLOOD SPECIMENOrdering Facility: [facility] Address: [address] [place] [address] Performed By: #### 5 7021-8 ####[facility] LABCLIA [id number] [place] [address] [place] Lymphocytes/100 WBC (Bld) 32.8 % Normal [facility] Comment on above: Order Comment: Speci men Type: BLOOD SPECIMENOrdering Facility: [facility] Address: [address] [place] [address] Performed By: #### 5 7021-8 ####[facility] LABCLIA [id number] [place] [address] [place] MCH (RBC) [Entitic mass] 29.8 pg Normal 26.0-34.0 [facility] Comment on above: Order Comment: Speci men Type: BLOOD SPECIMENOrdering Facility: [facility] Address: [address] [place] [address] Performed By: #### 5 7021-8 ####[facility] LABCLIA [id number] [place] [address] [place] MCHC (RBC) [Mass/Vol] 33.7 g/dL Normal 30.5-36.0 [facility] Comment on above: Order Comment: Speci men Type: BLOOD SPECIMENOrdering Facility: [facility] Address: [address] [place] [address] Performed By: #### 5 7021-8 ####[facility] LABCLIA [id number] [place] [address] [place] MCV (RBC) [Entitic vol] 88.4 fL Normal 80.0-100.0 [facility] Comment on above: Order Comment: Speci men Type: BLOOD SPECIMENOrdering Facility: [facility] Address: [address] [place] [address] Performed By: #### 5 7021-8 ####[facility] LABIA [id number] [place] [address] [place] Monocytes (Bld) [#/Vol] 0.60 10*3/uL Normal <0.87 [facility] Comment on above: Order Comment: Speci men Type: BLOOD SPECIMENOrdering Facility: [facility] Address: [address] [place] [address] Performed By: #### 5 7021-8 ####[facility] LABCLIA [id number] [place] [address] [place] Monocytes/100 WBC (Bld) 9.3 % Normal [facility] Comment on above: Order Comment: Speci men Type: BLOOD SPECIMENOrdering Facility: [facility] Address: [address] [place] [address] Performed By: #### 5 7021-8 ####[facility] LABCLIA [id number] [place] [address] [place] Neutrophils (Bld) [#/Vol] 3.41 10*3/uL Normal 1.45-7.50 [facility] Comment on above: Order Comment: Speci men Type: BLOOD SPECIMENOrdering Facility: [facility] Address: [address] [place] [address] Performed By: #### 5 7021-8 ####[facility] LABCLIA [id number] [place] [address] [place] Neutrophils/100 WBC (Bld) 52.8 % Normal [facility] Comment on above: Order Comment: Speci men Type: BLOOD SPECIMENOrdering Facility: [facility] Address: [address] [place] [address] Performed By: #### 5 7021-8 ####[facility] LABCLIA [id number] [place] [address] [place] Nucleated RBC (Bld) [#/Vol] 10*3/uL Normal <0.01 [facility] Comment on above: Order Comment: Speci men Type: BLOOD SPECIMENOrdering Facility: [facility] Address: [address] [place] [address] Performed By: #### 5 7021-8 ####[facility] LABCLIA [id number] [place] [address] [place] Nucleated RBC/100 WBC (Bld) [Ratio] 0.0 /100 WBC Normal [facility] Comment on above: Order Comment: Speci men Type: BLOOD SPECIMENOrdering Facility: [facility] Address: [address] [place] [address] Performed By: #### 5 7021-8 ####[facility] LABCLIA [id number] [place] [address] [place] Platelet mean volume (Bld) [Entitic vol] 10.3 fL Normal 9.0-12.7 [facility] Comment on above: Order Comment: Speci men Type: BLOOD SPECIMENOrdering Facility: [facility] Address: [address] [place] [address] Performed By: #### 5 7021-8 ####[facility] LABCLIA [id number] [address] [address] [place] Platelets (Bld) [#/Vol] 203 10*3/uL Normal 150-400 [facility] Comment on above: Order Comment: Speci men Type: BLOOD SPECIMENOrdering Facility: [facility] Address: [address] [place] [address] Performed By: #### 5 7021-8 ####[facility] LABIA [id number] [place] [address] [place] RBC (Bld) [#/Vol] 4.40 10*6/uL Normal 3.90-5.20 [facility] Comment on above: Order Comment: Speci men Type: BLOOD SPECIMENOrdering Facility: [facility] Address: [address] [place] [address] Performed By: #### 5 7021-8 ####[facility] LABIA [id number] [place] [address] [place] WBC (Bld) [#/Vol] 6.46 10*3/uL Normal 3.70-11.00 [facility] Comment on above: Order Comment: Speci men Type: BLOOD SPECIMENOrdering Facility: [facility] Address: [address] [place] [address] Performed By: #### 5 7021-8 ####[facility] LABIA [id number] [place] [address] [place] Comprehensive metabolic 2000 panelon 01-25-2024 Albumin [Mass/Vol] 4.3 g/dL Normal 3.9-4.9 [facility] Comment on above: Order Comment: Speci men Type: BLOOD SPECIMENOrdering Facility: [facility] Address: [address] [place] [address] Performed By: #### 2 4323-8, 61105-8 ####[facility] LABIA [id number] [place] [address] [place] ALP [Catalytic activity/Vol] 49 U/L Normal 34-123 [facility] Comment on above: Order Comment: Speci men Type: BLOOD SPECIMENOrdering Facility: [facility] Address: [address] [place] [address] Performed By: #### 2 4323-8, 93380-1 ####[facility] LABCLIA [id number] [place] [address] [place] ALT [Catalytic activity/Vol] 22 U/L Normal 7-38 [facility] Comment on above: Order Comment: Speci men Type: BLOOD SPECIMENOrdering Facility: [facility] Address: [address] [place] [address] Performed By: #### 2 4323-8, 25050-4 ####[facility] LABCLIA [id number] [place] [address] [place] Anion gap [Moles/Vol] 10 mmol/L Normal 8-15 [facility] Comment on above: Order Comment: Speci men Type: BLOOD SPECIMENOrdering Facility: [facility] Address: [address] [place] [address] Performed By: #### 2 4323-8, 03871-8 ####[facility] LABCLIA [id number] [place] [address] [place] AST [Catalytic activity/Vol] 19 U/L Normal 13-35 [facility] Comment on above: Order Comment: Speci men Type: BLOOD SPECIMENOrdering Facility: [facility] Address: [address] [place] [address] Performed By: #### 2 4323-8, 79688-0 ####[facility] LABCLIA [id number] [place] [address] [place] Bilirubin [Mass/Vol] 0.5 mg/dL Normal 0.2-1.3 [facility] Comment on above: Order Comment: Speci men Type: BLOOD SPECIMENOrdering Facility: [facility] Address: [address] [id number] Performed By: #### 2 4323-8, 18533-9 ####[facility] LABCLIA [id number] [address] [address] [place] Calcium [Mass/Vol] 10.3 mg/dL High 8.5-10.2 [facility] Comment on above: Order Comment: Speci men Type: BLOOD SPECIMENOrdering Facility: [facility] Address: [address] [place], [place] [address] Performed By: #### 2 4323-8, 61567-5 ####[facility] LABCLIA [id number] [place] [address] [place] Chloride [Moles/Vol] 101 mmol/L Normal 98-107 [facility] Comment on above: Order Comment: Speci men Type: BLOOD SPECIMENOrdering Facility: [facility] Address: [address] [id number] Performed By: #### 2 4323-8, 83266-8 ####[facility] LABCLIA [id number] [place] [address] [place] CO2 [Moles/Vol] 25 mmol/L Normal 22-30 [facility] Comment on above: Order Comment: Speci men Type: BLOOD SPECIMENOrdering Facility: [facility] Address: [address] [id number] Performed By: #### 2 4323-8, 51898-4 ####[facility] LABCLIA [id number] [place] [id number] [place] Creatinine [Mass/Vol] 1.06 mg/dL High 0.58-0.96 [facility] Comment on above: Order Comment: Speci men Type: BLOOD SPECIMENOrdering Facility: [facility] Address: [address] [id number] Performed By: #### 2 4323-8, 81547-6 ####[facility] LABCLIA [id number] [place] [address] [place] Creatinine and Glomerular filtration rate.predicted panel (S/P/Bld) 57 mL/min/1.73m??? Low >=60 [facility] Comment on above: Order Comment: Madan quinn Type: BLOOD SPECIMENOrdering Facility: [facility] Address: [address] [place] [address] Result Comment: Tori mated Glomerular Filtration Rate (eGFR) is calculated using the 2020 CKD-EPI creatinine equation. This equation utilizes serum creatinine, sex, and age as parameters. The creatinine assay has traceable calibration to isotope dilution-mass spectrometry. Refer to KDIGO guidelines for clinical interpretation. In patients with unstable renal function, e.g. those with acute kidney injury, the eGFR may not accurately reflect actual GFR. Performed By: #### 2 4323-8, 33380-2 ####[facility] [id number] [place] [address] [place] Glucose [Mass/Vol] 149 mg/dL High 74-99 [facility] Comment on above: Order Comment: Madan quinn Type: BLOOD SPECIMENOrdering Facility: [facility] Address: [address] [place] [address] Result Comment: The [place] Diabetes Association (ADA) provides guidance for cutoff values for fasting glucose and random glucose. The ADA defines fasting as no caloric intake for at least 8 hours. Fasting plasma glucose results between 100 to 125 mg/dL indicate increased risk for diabetes (prediabetes). Fasting plasma glucose results greater than or equal to 126 mg/dL meet the criteria for diagnosis of diabetes. In the absence of unequivocal hyperglycemia, results should be confirmed by repeat testing. In a patient with classic symptoms of hyperglycemia or hyperglycemic crisis, random plasma glucose results greater than or equal to 200 mg/dL meet the criteria for diagnosis of diabetes. Reference: Standards of Medical Care in Diabetes 2016, [place] Diabetes Association. Diabetes Care. 2016.39(Suppl 1). Performed By: #### 2 4323-8, 77407-3 ####[facility] LABCLIA [id number] [place] [address] [place] Potassium [Moles/Vol] 4.1 mmol/L Normal 3.7-5.1 [facility] Comment on above: Order Comment: Speci men Type: BLOOD SPECIMENOrdering Facility: [facility] Address: [address] [place] [address] Performed By: #### 2 4323-8, 36293-1 ####[facility] LABCLIA [id number] [place] [address] [place] Protein [Mass/Vol] 7.0 g/dL Normal 6.3-8.0 [facility] Comment on above: Order Comment: Speci men Type: BLOOD SPECIMENOrdering Facility: [facility] Address: [address] [place] [address] Performed By: #### 2 4323-8, 96956-1 ####[facility] LABCLIA [id number] [place] [address] [place] Sodium [Moles/Vol] 136 mmol/L Normal 136-144 [facility] Comment on above: Order Comment: Speci men Type: BLOOD SPECIMENOrdering Facility: [facility] Address: [address] [place] [address] Performed By: #### 2 4323-8, 88311-7 ####[facility] LABCLIA [id number] [place] [address] [place] Urea nitrogen [Mass/Vol] 28 mg/dL High 7-21 [facility] Comment on above: Order Comment: Speci men Type: BLOOD SPECIMENOrdering Facility: [facility] Address: [address] [place] [address] Performed By: #### 2 4323-8, 33840-1 ####[facility] LABCLIA [id number] [place] [address] [place] HbA1c (Bld)on 01-25-2024 Average glucose Estimated from glycated hemoglobin (Bld) [Mass/Vol] 154 mg/dL Normal [facility] Comment on above: Order Comment: Madan men Type: BLOOD SPECIMENOrdering Facility: [facility] Address: [address] [place] [address] Result Comment: eAG: (Estimated average glucose) is a calculated value from HgbA1c and is packaging sales representative of the average blood glucose level in the last 2-3 month period. Performed By: #### 5 5454-3 ####[facility] LABCLIA [id number] [place] [address] [place] HbA1c (Bld) [Mass fraction] 7.0 % High 4.3-5.6 [facility] Comment on above: Order Comment: Madan quinn Type: BLOOD SPECIMENOrdering Facility: [facility] Address: [address] [place] [address] Result Comment: Amer [place] Diabetes Association guidelines indicate that patients with HgbA1c in the range 5.7-6.4% are at increased risk for development of diabetes, and intervention by lifestyle modification may be beneficial. HgbA1c greater or equal to 6.5% is considered diagnostic of diabetes. Performed By: #### 5 5454-3 ####[facility] LABCLIA [id number] [place] [address] [place] Lipid 1996 panelon 4 Cholesterol [Mass/Vol] 112 mg/dL Normal <200 [facility] Comment on above: Order Comment: Madan men Type: BLOOD SPECIMENOrdering Facility: [facility] Address: [address] [place] [address] Result Comment: <200 mg/dL, Desirable 200-239 mg/dL, Borderline high >239 mg/dL, High Performed By: #### 2 4323-8, 77151-0 ####[facility] LABCLIA [id number] [place] [address] [place] Cholesterol in HDL [Mass/Vol] 37 mg/dL Low >39 [facility] Comment on above: Order Comment: Madan men Type: BLOOD SPECIMENOrdering Facility: [facility] Address: [address] [place] [address] Result Comment: 40-5 9 mg/dL, Acceptable >59 mg/dL, High: Negative risk factor for coronary heart disease <40 mg/dL, Low: Positive risk factor for coronary heart disease Performed By: #### 2 4323-8, 39568-7 ####[facility] LABCLIA [id number] [facility] [place] [address] [place] Cholesterol in LDL [Mass/Vol] 29 mg/dL Normal <100 [facility] Comment on above: Order Comment: Speci men Type: BLOOD SPECIMENOrdering Facility: [facility] Address: [address] [place] [address] Result Comment: <100 mg/dL, Optimal 100-129 mg/dL, Near optimal/above optimal 130-159 mg/dL, Borderline high 160-189 mg/dL, High >189 mg/dL, Very high Secondary prevention optimal LDL Cholesterol levels are recommended to be < 70 mg/dL Performed By: #### 2 4323-8, ####[facility] LABCLIA [id number] [place] [address] [place] Cholesterol in LDL/Cholesterol in HDL [Mass ratio] 0.78 {ratio} Normal <2.54 [facility] Comment on above: Order Comment: Speci men Type: BLOOD SPECIMENOrdering Facility: [facility] Address: [address] [place] [address] Result Comment: Reffaina hinesce: 1. National Cholesterol Education Program ATP III Guideline At-A-Glance Quick Desk Reference: National Heart, Lung, and Blood [place]. National Institutes of Health. 2001: NIH Publication No. 01-3305. 2. An International Atherosclerosis Society position paper: global recommendations for the management of dyslipidemia: executive summary, Atherosclerosis. 2014: 232(2):410-413. Performed By: #### 2 4323-8, 69493-8 ####[facility] LABCLIA [id number] [place] [id number] [place] Cholesterol in VLDL [Mass/Vol] 46 mg/dL High <30 [facility] Comment on above: Order Comment: Speci men Type: BLOOD SPECIMENOrdering Facility: [facility] Address: [address] [place] [address] Performed By: #### 2 4323-8, 20033-2 ####[facility] LABCLIA [id number] [place] [address] [place] Cholesterol non HDL [Mass/Vol] 75 mg/dL Normal <130 [facility] Comment on above: Order Comment: Speci men Type: BLOOD SPECIMENOrdering Facility: [facility] Address: [address] [place] [address] Result Comment: <130 mg/dL, Optimal 130-159 mg/dL, Near optimal/above optimal 160-189 mg/dL, Borderline high 190-219 mg/dL, High >219 mg/dL, Very high Secondary prevention optimal non HDL Cholesterol levels are recommended to be <100 mg/dL Performed By: #### 2 432-8, 87112-6 ####[facility] LABCLIA [id number] [place] [address] [place] Cholesterol.total/ Cholesterol in HDL [Mass ratio] 3.03 {ratio} Normal <5.10 [facility] Comment on above: Order Comment: Speci men Type: BLOOD SPECIMENOrdering Facility: [facility] Address: [address] [place] [address] Performed By: #### 2 4323-8, ####[facility] LABCLIA [id number] [place] [address] [place] FASTING TIME 12 hrs Normal [facility] Comment on above: Order Comment: Speci men Type: BLOOD SPECIMENOrdering Facility: [facility] Address: [address] [place] [address] Performed By: #### 2 4323-8, 89360-9 ####[facility] LABCLIA [id number] [place] [address] [place] Triglyceride [Mass/Vol] 230 mg/dL High <150 [facility] Comment on above: Order Comment: Speci men Type: BLOOD SPECIMENOrdering Facility: [facility] Address: [address] [id number] Result Comment: <150 mg/dL, Normal 150-199 mg/dL, Borderline high 200-499 mg/dL, High >499 mg/dL, Very high Performed By: #### 2 4323-8, 60216-4 ####[facility] LABCLIA [id number] [facility] [place] [address] [facility] XR HIP 2V AP/LAT RTon 2023 XR HIP 2V AP/LAT RT * * *Final Report* * * DATE OF EXAM: Jul 02 2023 1:03PM [facility] 5280 - XR HIP 2V AP/LAT RT / PROCEDURE REASON: M25.551-Pain in right hip * * * * Physician Interpretation * * * * EXAMINATION: XR HIP 2V AP/LAT RT CLINICAL HISTORY: right hip pain Pain in right hip Technique: XR HIP 2V AP/LAT RT -- RIGHT with 2 views on 2 images Comparison: 05/20/2022 RESULT: The right total hip arthroplasty is unchanged in position and alignment. No evidence of hardware failure or loosening. No fracture or dislocation. SI joints and pubic symphysis are intact. Degenerative changes in the lumbar spine. IMPRESSION: Right total hip arthroplasty without apparent complication or acute osseous findings. Pomologist: [facility]ITALJuanis Transcribe Date/Time: Jul 02 2023 2:03P Dictated by : HERLINDA LUNA MD This examination was interpreted and the report reviewed and electronically signed by: HERLINDA LUNA MD on Jul 02 2023 2:03PM EST [id number] [facility] XR Hip - right AP and Latera kasia 07-02-2023 IMPRESSION: Right total hip arthroplasty without apparent complication or acute osseous findings. Pomologist: NIKOLAY Transcribe Date/Time: Jul 02 2023 2:03P Dictated by : HERLINDA LUNA MD This examination was interpreted and the report reviewed and electronically signed by: HERLINDA LUNA MD on Jul 02 2023 2:03PM EST [facility] * * *Final Report* * * DATE OF EXAM: Jul 02 2023 1:03PM [facility] 5280 - XR HIP 2V AP/LAT RT / PROCEDURE REASON: M25.551-Pain in right hip * * * * Physician Interpretation * * * * EXAMINATION: XR HIP 2V AP/LAT RT CLINICAL HISTORY: right hip pain Pain in right hip Technique: XR HIP 2V AP/LAT RT -- RIGHT with 2 views on 2 images Comparison: 05/20/2022 RESULT: The right total hip arthroplasty is unchanged in position and alignment. No evidence of hardware failure or loosening. No fracture or dislocation. SI joints and pubic symphysis are intact. Degenerative changes in the lumbar spine. [facility] Provider, Kesha Lang [facility] - 07/02/2023 * * *Final Report* * * DATE OF EXAM: Jul 02 2023 1:03PM [facility] 5280 - XR HIP 2V AP/LAT RT / PROCEDURE REASON: M25.551-Pain in right hip * * * * Physician Interpretation * * * * EXAMINATION: XR HIP 2V AP/LAT RT CLINICAL HISTORY: right hip pain Pain in right hip Technique: XR HIP 2V AP/LAT RT -- RIGHT with 2 views on 2 images Comparison: 05/20/2022 RESULT: The right total hip arthroplasty is unchanged in position and alignment. No evidence of hardware failure or loosening. No fracture or dislocation. SI joints and pubic symphysis are intact. Degenerative changes in the lumbar spine. IMPRESSION IMPRESSION: Right total hip arthroplasty without apparent complication or acute osseous findings. Pomologist: [facility] Transcribe Date/Time: Jul 02 2023 2:03P Dictated by : HERILNDA LUNA MD This examination was interpreted and the report reviewed and electronically signed by: HERLINDA LUNA MD on Jul 02 2023 2:03PM [facility] Radiology Study observation (narrative) [facility] XR Hip - right AP and Latera lOrdered By: [facility] Provider on 07-02-2023 [facility] HEMOGLOBIN A1C (POC)on 03-27 HbA1c (Bld) [Mass fraction] 8.2 % Abnormal 4.2 - 5.6 % [facility] XR Hip - right AP and Latera kasia 05-23-2022 IMPRESSION: Stable right KELBY Pomologist: [facility] Transcribe Date/Time: May 23 2022 8:41A Dictated by : YOLIE ROCHE MD This examination was interpreted and the report reviewed and electronically signed by: YOLIE ROCHE MD on May 23 2022 8:42AM EST [facility] * * *Final Report* * * DATE OF EXAM: May 20 2022 2:40PM MDO 5280 - XR HIP 2V AP/LAT RT / PROCEDURE REASON: M25.551-Pain in right hip * * * * Physician Interpretation * * * * PROCEDURE: Right hip INDICATION: Pain in right hip .post op eval TECHNIQUE: AP pelvis, crosstable lateral right hip COMPARISON: 05/05/2022 FINDINGS: The right total hip arthroplasty remains in satisfactory position without evidence for loosening. Postoperative soft tissue changes have improved. No fracture. [facility] Provider, [facility] - 05/23/2022 * * *Final Report* * * DATE OF EXAM: May 20 2022 2:40PM MDO [id number] - XR HIP 2V AP/LAT RT / PROCEDURE REASON: M25.551-Pain in right hip * * * * Physician Interpretation * * * * PROCEDURE: Right hip INDICATION: Pain in right hip .post op eval TECHNIQUE: AP pelvis, crosstable lateral right hip COMPARISON: 05/05/2022 FINDINGS: The right total hip arthroplasty remains in satisfactory position without evidence for loosening. Postoperative soft tissue changes have improved. No fracture. IMPRESSION IMPRESSION: Stable right KELBY Pomologist: PSCB Transcribe Date/Time: May 23 2022 8:41A Dictated by : YOLIE ROCHE MD This examination was interpreted and the report reviewed and electronically signed by: YOLIE ROCHE MD on May 23 2022 8:42AM EST [facility] XR Hip - right AP and Latera lOrdered By: Ccf Provider on 05-23-2022 [facility] XR Hip - right AP and Latera kasia 05-20-2022 Radiology Study observation (narrative) [facility] CT HIP WO IVCON RTon 022 [facility] NM CARDIAC PERF STRESS/PHARM on 12-13-2021 [facility] No Panel Informationon 12-20 Radiology Study observation (narrative) [facility] XR Pelvis and Hip - right AP and Lateral frogon 12-20-2020 * * *Final Report* * * DATE OF EXAM: Dec 20 2020 8:15AM WOX [id number] - XR HIP 3V PELV+ AP/LAT RT / PROCEDURE REASON: Right hip pain * * * * Physician Interpretation * * * * HISTORY: 65-YEAR-OLD FEMALE WITH Right hip pain . pt states pain in right hip for years getting worse, pain is in the groin area no inj TECHNIQUE: XR HIP 3V PELV+ AP/LAT RT Laterality: RIGHT Number of different views (projections): 3 COMPARISON: 12/31/2016 RESULT: Moderate narrowing the superior right hip joint space with collar marginal osteophytes. No fracture. Enthesophytes at the greater trochanter. Left hip joint space is maintained. There are degenerative changes in the visualized lumbar spine. [facility]OLOGY Provider, [facility] - 12/20/2020 * * *Final Report* * * DATE OF EXAM: Dec 20 2020 8:15AM WOX [id number] - XR HIP 3V PELV+ AP/LAT RT / PROCEDURE REASON: Right hip pain * * * * Physician Interpretation * * * * HISTORY: 65-YEAR-OLD FEMALE WITH Right hip pain . pt states pain in right hip for years getting worse, pain is in the groin area no inj TECHNIQUE: XR HIP 3V PELV+ AP/LAT RT Laterality: RIGHT Number of different views (projections): 3 COMPARISON: 12/31/2016 RESULT: Moderate narrowing the superior right hip joint space with collar marginal osteophytes. No fracture. Enthesophytes at the greater trochanter. Left hip joint space is maintained. There are degenerative changes in the visualized lumbar spine. IMPRESSION IMPRESSION: MODERATE DEGENERATIVE CHANGES OF THE RIGHT HIP PROGRESSED SINCE THE PREVIOUS EXAM. Pomologist: NIKOLAY Transcribe Date/Time: Dec 20 2020 2:35P Dictated by : DOT WHELAN MD This examination was interpreted and the report reviewed and electronically signed by: DOT WHELAN MD on Dec 20 2020 2:36PM EST [facility] XR Pelvis and Hip - right AP and Lateral frogOrdered By: Ccf Provider on 12-20-2020 [facility] XR Wrist - left PA and Later al and Obliqueon 12-20-2020 IMPRESSION: MILD DEGENERATIVE CHANGES OF FIRST CMC JOINT. NO ACUTE BONY ABNORMALITY. Pomologist: NIKOLAY Transcribe Date/Time: Dec 20 2020 2:36P Dictated by : DOT WHELAN MD This examination was interpreted and the report reviewed and electronically signed by: DOT WHELAN MD on Dec 20 2020 2:39PM [facility] DIVISION OF RADIOLOGY * * *Final Report* * * DATE OF EXAM: Dec 20 2020 8:15AM WOX [id number] - XR WRIST 3V PA/LAT/OBL LT / PROCEDURE REASON: Left wrist pain * * * * Physician Interpretation * * * * HISTORY: 65-YEAR-OLD FEMALE WITH Left wrist pain . pt states pain on ulnar side of left wrist for 6-9 months no inj TECHNIQUE: XR WRIST 3V PA/LAT/OBL LT Laterality: LEFT Number of different views (projections): 3 COMPARISON: None RESULT: Small amount of cortical thickening of the base of the radial styloid is present and can be seen with tenosynovitis. Osteophytes at the first CMC joint. Carpal bones, metacarpal joint spaces and carpal alignment otherwise normal. No fracture. No erosions. There is a cyst in the capitate. DIVISION OF RADIOLOGY Provider, [facility] - 12/20/2020 * * *Final Report* * * DATE OF EXAM: Dec 20 2020 8:15AM WOX [id number] - XR WRIST 3V PA/LAT/OBL LT / PROCEDURE REASON: Left wrist pain * * * * Physician Interpretation * * * * HISTORY: 65-YEAR-OLD FEMALE WITH Left wrist pain . pt states pain on ulnar side of left wrist for 6-9 months no inj TECHNIQUE: XR WRIST 3V PA/LAT/OBL LT Laterality: LEFT Number of different views (projections): 3 COMPARISON: None RESULT: Small amount of cortical thickening of the base of the radial styloid is present and can be seen with tenosynovitis. Osteophytes at the first CMC joint. Carpal bones, metacarpal joint spaces and carpal alignment otherwise normal. No fracture. No erosions. There is a cyst in the capitate. IMPRESSION IMPRESSION: MILD DEGENERATIVE CHANGES OF FIRST CMC JOINT. NO ACUTE BONY ABNORMALITY. Pomologist: PSCB Transcribe Date/Time: Dec 20 2020 2:36P Dictated by : DOT WHELAN MD This examination was interpreted and the report reviewed and electronically signed by: DOT WHELAN MD on Dec 20 2020 2:39PM [facility] Lab Report: PAP I-G HPV Hi R iskon 01-06-2017 GE use only - for Link[employer] import when terms are not otherwise specified Negative Invalid Interpretation Code Negative [facility] HPV HC,HGH RISK Negative Negative [facility] Office Visit: est annualon 0 12-31-2016 Documentation of current medications (procedure) Done Invalid Interpretation Code [facility] Fall risk assessment No [facility] Protein mass conc Done [facility] Tobacco smoking status NHIS Never [facility] Tobacco smoking status NHIS Never smoker [facility] Tobacco use CPHS Never smoker Invalid Interpretation Code [facility] Office Visit: est annualon 0 06-01-2011 General categories [Interpretation] of Cervical or vaginal smear or scraping by Cyto stain Normal [facility] Vital Signs Date Time Vital Sign Value Performing Clinician Facility 10-06-2024 07:34-0400 Body mass index (BMI) [Ratio] 28.41 kg/m2 Halle Messina APRN.CNP Work Phone: [facility] 10-06-2024 07:34-0400 Body weight 69.58 kg Halle Messina APRN.CNP Work Phone: [facility] 10-06-2024 07:34-0400 Diastolic blood pressure 86 mm[Hg] Halle Messina APRN.CNP Work Phone: [facility] 10-06-2024 07:34-0400 Heart rate 75 /min Halle Messina APRN.CNP Work Phone: [facility] 10-06-2024 07:34-0400 SaO2% (BldA) [Mass fraction] 98 % Halle Messina APRN.CNP Work Phone: [facility] 10-06-2024 07:34-0400 Systolic blood pressure 132 mm[Hg] Halle Siddharth [employer]ICLE DRIVER.CREATIVE COORDINATOR Work Phone: [facility] 09-08-2024 07:21-0400 Body mass index (BMI) [Ratio] 28.78 kg/m2 Halle Siddharth [employer] DRIVER.CREATIVE COORDINATOR Work Phone: [facility] 09-08-2024 07:21-0400 Body weight 70.49 kg Halle Siddharth [employer]HICLE DRIVER.CREATIVE COORDINATOR Work Phone: [facility] 09-08-2024 07:21-0400 Diastolic blood pressure 88 mm[Hg] Halle Siddharth [employer]ICLE DRIVER.CREATIVE COORDINATOR Work Phone: [facility] 09-08-2024 07:21-0400 Heart rate 61 /min Halle Siddharth [employer] DRIVER.CREATIVE COORDINATOR Work Phone: [facility] 09-08-2024 07:21-0400 SaO2% (BldA) [Mass fraction] 98 % Halle Siddharth [employer]LE DRIVER.CREATIVE COORDINATOR Work Phone: [facility] 09-08-2024 07:21-0400 Systolic blood pressure 136 mm[Hg] Halle Siddharth [employer]ICLE DRIVER.CREATIVE COORDINATOR Work Phone: [facility] 05-18-2024 09:58-0500 Body mass index (BMI) [Ratio] 28.89 kg/m2 Casi Apotne [employer]IVER.CREATIVE COORDINATOR Work Phone: [facility] 05-18-2024 09:58-0500 Body weight 70.76 kg Casi Aponte [employer] DRIVER.CREATIVE COORDINATOR Work Phone: [facility] 05-18-2024 09:58-0500 Diastolic blood pressure 68 mm[Hg] Casi Aponte [employer]ICLE DRIVER.CREATIVE COORDINATOR Work Phone: [facility] 05-18-2024 09:58-0500 Heart rate 60 /min Casi Aponte [employer] DRIVER.CREATIVE COORDINATOR Work Phone: [facility] 05-18-2024 09:58-0500 Respiratory rate 12 /min Casi Aponte [employer] DRIVER.CREATIVE COORDINATOR Work Phone: [facility] 05-18-2024 09:58-0500 Systolic blood pressure 140 mm[Hg] Casi Aponte [employer]LE DRIVER.CREATIVE COORDINATOR Work Phone: [facility] 04-13-2024 12:12-0500 Diastolic blood pressure 72 mm[Hg] Cecelia Naqvi [employer] DRIVER.CREATIVE COORDINATOR Work Phone: [facility] Comment on above: recheck manual by provider. 04-13-2024 12:12-0500 Systolic blood pressure 138 mm[Hg] Cecelia Naqvi [employer] DRIVER.CREATIVE COORDINATOR Work Phone: [facility] Comment on above: recheck manual by provider. 04-13-2024 07:17-0500 Body mass index (BMI) [Ratio] 29.19 kg/m2 Cecelia Naqvi APRN.CREATIVE COORDINATOR Work Phone: [facility] 04-13-2024 07:17-0500 Body temperature 98.4 [degF] Cecelia Naqvi APRN.CREATIVE COORDINATOR Work Phone: [facility] 04-13-2024 07:17-0500 Body weight 71.5 kg Cecelia Naqvi APRN.CREATIVE COORDINATOR Work Phone: [facility] 04-13-2024 07:17-0500 Heart rate 78 /min Cecelia Naqvi APRN.CREATIVE COORDINATOR Work Phone: [facility] 04-13-2024 07:17-0500 Respiratory rate 16 /min Cecelia Naqvi APRN.CREATIVE COORDINATOR Work Phone: [facility] 04-13-2024 07:17-0500 SaO2% (BldA) [Mass fraction] 96 % Cecelia Naqvi APRN.CREATIVE COORDINATOR Work Phone: [facility] 01-27-2024 09:07-0400 Body height 156.5 cm Wojciech Alvarado DO Work Phone: [facility] 01-27-2024 09:07-0400 Body mass index (BMI) [Ratio] 27.97 kg/m2 Wojciech Alvarado DO Work Phone: [facility] 01-27-2024 09:07-0400 Body temperature 98.2 [degF] Wojciech Alvarado DO Work Phone: [facility] 01-27-2024 09:07-0400 Body weight 68.49 kg Wojciech Alvarado DO Work Phone: [facility] 01-27-2024 09:07-0400 Diastolic blood pressure 70 mm[Hg] Wojciech Alvarado DO Work Phone: [facility] 01-27-2024 09:07-0400 Heart rate 80 /min Wojciech Alvarado DO Work Phone: [facility] 01-27-2024 09:07-0400 Respiratory rate 16 /min Wojciech Alvarado DO Work Phone: [facility] 01-27-2024 09:07-0400 Systolic blood pressure 110 mm[Hg] Wojciech Alvarado DO Work Phone: [facility] 10-16-2023 13:24-0400 Body mass index (BMI) [Ratio] 29.23 kg/m2 Casi Aponte [employer] DRIVER.CREATIVE COORDINATOR Work Phone: [facility] 10-16-2023 13:24-0400 Body weight 72.48 kg Casi Aponte [employer] DRIVER.CREATIVE COORDINATOR Work Phone: [facility] 10-16-2023 13:24-0400 Diastolic blood pressure 82 mm[Hg] Casi Aponte [employer] DRIVER.CREATIVE COORDINATOR Work Phone: [facility] 10-16-2023 13:24-0400 Heart rate 60 /min Casi Aponte [employer]IC[employer] DRIVER.CREATIVE COORDINATOR Work Phone: [facility] 10-16-2023 13:24-0400 Respiratory rate 16 /min Casi Aponte [employer]HIC[employer] DRIVER.CREATIVE COORDINATOR Work Phone: [facility] 10-16-2023 13:24-0400 Systolic blood pressure 130 mm[Hg] Casi Aponte [employer]IC[employer] DRIVER.CREATIVE COORDINATOR Work Phone: [facility] 03-27-2023 13:54-0400 Diastolic blood pressure 84 mm[Hg] Wojciech Alvarado DO Work Phone: [facility] 03-27-2023 13:54-0400 Systolic blood pressure 134 mm[Hg] Wojciech Alvarado DO Work Phone: [facility] 03-27-2023 13:31-0400 Body temperature 98.2 [degF] Wojciech Alvarado DO Work Phone: [facility] 03-27-2023 13:31-0400 Body weight 71.67 kg Wojciech Alvarado DO Work Phone: [facility] 03-27-2023 13:31-0400 Heart rate 68 /min Wojciech Alvarado DO Work Phone: [facility] 03-27-2023 13:31-0400 Respiratory rate 16 /min Wojciech Alvarado DO Work Phone: [facility] 11-21-2022 09:30-0400 Body weight 73.03 kg Mar Celeste [employer] DRIVER.CREATIVE COORDINATOR Work Phone: [facility] 11-21-2022 09:30-0400 Diastolic blood pressure 78 mm[Hg] Mar Celeste [employer]ICLE DRIVER.CREATIVE COORDINATOR Work Phone: [facility] 11-21-2022 09:30-0400 Heart rate 74 /min Mar Celeste [employer]HICLE DRIVER.CREATIVE COORDINATOR Work Phone: [facility] 11-21-2022 09:30-0400 Respiratory rate 12 /min Mar Celeste [employer]LE DRIVER.CREATIVE COORDINATOR Work Phone: [facility] 11-21-2022 09:30-0400 Systolic blood pressure 126 mm[Hg] Mar Celeste [employer]LE DRIVER.CREATIVE COORDINATOR Work Phone: [facility] 09-24-2022 07:38-0400 Body temperature 97 [degF] Wojciech Alvarado DO Work Phone: [facility] 09-24-2022 07:38-0400 Body weight 72.12 kg Wojciech Alvarado DO Work Phone: [facility] 09-24-2022 07:38-0400 Diastolic blood pressure 80 mm[Hg] Wojciech Alvarado DO Work Phone: [facility] 09-24-2022 07:38-0400 Heart rate 76 /min Wojciech Alvarado DO Work Phone: [facility] 09-24-2022 07:38-0400 Respiratory rate 16 /min Wojciech Alvarado DO Work Phone: [facility] 09-24-2022 07:38-0400 Systolic blood pressure 120 mm[Hg] Wojciech Alvarado DO Work Phone: [facility] 04-16-2022 08:06-0500 Body height 157.5 cm Pacc 1 Work Phone: [facility] 04-16-2022 08:06-0500 Body temperature 96.6 [degF] Pacc 1 Work Phone: [facility] 04-16-2022 08:06-0500 Body weight 71.22 kg Pacc 1 Work Phone: [facility] 04-16-2022 08:06-0500 Diastolic blood pressure 68 mm[Hg] Pacc 1 Work Phone: [facility] 04-16-2022 08:06-0500 Heart rate 69 /min Pacc 1 Work Phone: [facility] 04-16-2022 08:06-0500 Respiratory rate 16 /min Pacc 1 Work Phone: [facility] 04-16-2022 08:06-0500 SaO2% (BldA) [Mass fraction] 95 % Pacc 1 Work Phone: [facility] 04-16-2022 08:06-0500 Systolic blood pressure 122 mm[Hg] Pacc 1 Work Phone: [facility] 04-01-2022 09:42-0400 Body temperature 98.01 [degF] Wojciech Alvarado DO Work Phone: [facility] 04-01-2022 09:42-0400 Body weight 72.12 kg Wojciech Alvarado DO Work Phone: [facility] 04-01-2022 09:42-0400 Diastolic blood pressure 80 mm[Hg] Wojciech Alvarado DO Work Phone: [facility] 04-01-2022 09:42-0400 Heart rate 68 /min Wojciech Alvarado DO Work Phone: [facility] 04-01-2022 09:42-0400 Respiratory rate 16 /min Wojciech Alvarado DO Work Phone: [facility] 04-01-2022 09:42-0400 Systolic blood pressure 136 mm[Hg] Wojciech Alvarado DO Work Phone: [facility] 03-04-2022 08:37-0400 Body weight 72.58 kg Ayo Roberts MD Work Phone: [facility] 12-31-2016 14:31-0400 BMI (Body Mass Index) 30.43 kg/m2 Estrella Mares NP [facility] 12-31-2016 14:31-0400 Body Temperature 98.6 [degF] Estrella Mares NP [facility] 12-31-2016 14:31-0400 BP Diastolic 98 mm[Hg] Estrella Mares NP [facility] 12-31-2016 14:31-0400 BP Systolic 153 mm[Hg] Estrella Mares NP [facility] 12-31-2016 14:31-0400 Height 157.48 cm Estrella Mares NP [facility] 12-31-2016 14:31-0400 Pulse (Heart Rate) 72 /min Estrella Mares NP [place] [facility] 12-31-2016 14:31-0400 Respiratory Rate 16 /min Estrella Mares NP [facility] 12-31-2016 14:31-0400 Weight 75.48 kg Estrella Mares NP [facility] Encounters Encounter Date Encounter Type Care Provider Facility Start: 01-18-2025 ambulatory Wojciech Alvarado Facilit y:[facility] Start: 01-04-2025 End: 01-04-2025 ambulatory WOJCIECH ALVARADO Facility:[facility] Start: 12-19-2024 End: 12-19-2024 Refill Wojciech Malin Alvarado DO Work Phone: [facility] Comment on above: Refill Request Start: 12-17-2024 End: 12-19-2024 [facility] Get Medical Advice Wojciech Seguraon DO Work Phone: [facility] Comment on above: Refill for Rosuvasta tin Start: 12-03-2024 End: 12-05-2024 Refill Casi Aponte APRN.CREATIVE COORDINATOR Work Phone: [facility] Comment on above: Refill Request Start: 11-14-2024 End: 11-14-2024 Telephone encounter Wojciech Alvarado DO Work Phone: [facility] Comment on above: Orders Start: 10-31-2024 End: 10-31-2024 Refill Wojciech Kimo Alvarado DO Work Phone: [facility] Comment on above: Refill Request Patient Question (Ap pointment cancellation) Start: 10-12-2024 End: 12-12-2024 Follow-up encounter Halle Messina APRN.CNP Work Phone: [facility] Start: 10-06-2024 [facility] Start: 10-06-2024 End: 10-06-2024 Subsequent hospital visit by physician [facility] Comment on above: Pain of upper abdome n [R10.10] Start: 10-06-2024 End: 10-06-2024 Office outpatient visit 25 minutes Halle Messina APRN.CNP Work Phone: [facility] Comment on above: Essential (primary) hypertension (Primary Dx); Pain of upper abdomen; Decreased appetite; Early satiety; Bloating Start: 10-06-2024 End: 10-06-2024 ambulatory WOJCIECH ALVARADO Facility:[facility] Start: 09-08-2024 End: 09-08-2024 ambulatory WOJCIECH ALVARADO Facility:[facility] Start: 09-08-2024 End: 09-08-2024 Office outpatient visit 25 minutes Halle Siddharth NAVAS.CREATIVE COORDINATOR Work Phone: [facility] Comment on above: Essential hypertensi on (Primary Dx); Uncontrolled type 2 diabetes mellitus with hyperglycemia (HCC); Dyslipidemia Start: 09-02-2024 End: 09-02-2024 ambulatory WOJCIECH ALVARADO Facility:[facility] Start: 08-12-2024 End: 09-01-2024 Telephone encounter Wojciech L Alvarado DO Work Phone: [facility] Comment on above: Medication Problem; Appointment Start: 08-11-2024 End: 08-11-2024 Telemedicine consultation with patient Casi Aponte YOSEF.CREATIVE COORDINATOR Work Phone: [facility] Start: 08-11-2024 End: 08-11-2024 ambulatory Wojciech L Alvarado DO Work Phone: [facility] Comment on above: Blood pressure medic ation Essential hypertensi on (Primary Dx); Lightheadedness Start: 08-11-2024 End: 08-11-2024 Telephone encounter Wojciech L Alvarado DO Work Phone: [facility] Comment on above: Blood Pressure Start: 08-09-2024 End: 09-09-2024 ambulatory Wojciech L Alvarado DO Work Phone: [facility] Start: 07-20-2024 End: 07-20-2024 ambulatory Wojciech L Alvarado DO Work Phone: [facility] Comment on above: Blood pressure Start: 07-11-2024 End: 07-11-2024 Refill Wojciech L Alvarado DO Work Phone: [facility] Comment on above: Refill Request Medications Start: 07-05-2024 End: 07-05-2024 ambulatory Wojciech L Alvarado DO Work Phone: [facility] Comment on above: Lightheadedness (Lisa nikole Dx); Elevated serum creatinine; Essential hypertension; Dyslipidemia; Type 2 diabetes mellitus with hyperglycemia, without long-term current use of insulin (HCC) Start: 07-05-2024 End: 07-05-2024 Telemedicine consultation with patient Wojciech Alvarado DO Work Phone: [facility] Start: 06-30-2024 End: 06-30-2024 Refill Wojciech Alvarado DO Work Phone: [facility] [place] Comment on above: Refill Request Start: 06-30-2024 End: 06-30-2024 Refill Casi Aponte APRN.CREATIVE COORDINATOR Work Phone: [facility] Comment on above: Refill Request Start: 06-24-2024 End: 06-24-2024 ambulatory WOJCIECH ALVARADO Facility:[facility] Start: 05-23-2024 End: 05-23-2024 Telephone encounter Wojciech Alvarado DO Work Phone: [facility] Comment on above: patient information Start: 05-18-2024 End: 05-18-2024 ambulatory CASI APONTE Facility:[facility] Start: 05-18-2024 End: 05-18-2024 Office outpatient visit 15 minutes Casi Aponte APRN.CREATIVE COORDINATOR Work Phone: [facility] Comment on above: ANURADHA (obstructive sle ep apnea) (Primary Dx) Start: 04-13-2024 End: 04-13-2024 Subsequent hospital visit by physician [facility] Work Phone: Radiology Comment on above: Acute cough [R05.1] Start: 04-13-2024 End: 04-13-2024 ambulatory WOJCIECH ALVARADO Facility:[facility] Start: 04-13-2024 End: 04-13-2024 Patient encounter procedure Cecelia Naqvi APRN.CREATIVE COORDINATOR Work Phone: [facility] Comment on above: Sinobronchitis (Prim carine Dx); Acute cough Start: 04-04-2024 End: 04-05-2024 Refill Wojciech Alvarado DO Work Phone: [facility] Comment on above: Refill Request Start: 01-27-2024 End: 02-04-2024 Telephone encounter Halle [place] APRN.CREATIVE COORDINATOR Work Phone: [facility] [place] Comment on above: Results Start: 01-27-2024 End: 01-27-2024 ambulatory WOJCIECH ALVARADO Facility:[facility] Start: 01-27-2024 End: 01-27-2024 Patient encounter procedure Wojciech Alvarado DO Work Phone: [facility] [place] Comment on above: Uncontrolled type 2 diabetes mellitus with hyperglycemia (HCC) (Primary Dx); Essential hypertension; Dyslipidemia; Sweating disease; Osteopenia of multiple sites; Medicare annual wellness visit, subsequent Start: 01-25-2024 End: 01-25-2024 ambulatory WOJCIECH ALVARADO Facility:[facility] Start: 01-19-2024 End: 01-19-2024 ambulatory Wojciech Alvarado DO Work Phone: [email or web address] Comment on above: Allied Health Visit (Medication Adherence Outreach ) Start: 12-28-2023 Refill Wojciech duarte DO Work Phone: [facility] [place] Comment on above: Refill Request Start: 10-16-2023 End: 10-16-2023 Patient encounter procedure Casidelmar Espinozagerald NAVAS.CREATIVE COORDINATOR Work Phone: [facility] [place] Comment on above: Uncontrolled type 2 diabetes mellitus with hyperglycemia (HCC) (Primary Dx); Dyslipidemia; Essential hypertension Start: 10-14-2023 Refill Wojciech duarte DO Work Phone: Family Medicine [place] Start: 10-07-2023 Telephone encounter Ayo durbin MD Work Phone: Orthopaedics Comment on above: Patient Question Start: 10-05-2023 Refill Wojciech duarte DO Work Phone: [email or web address] Comment on above: Refill Request Start: 09-09-2023 ambulatory Wojciech duarte DO Work Phone: Internal Medicine [facility] [place] Start: 09-03-2023 ambulatory Jaclyn mckeon [facility] [place] Comment on above: Population Health Na vigation Outreach ([employer] Medication Adherence ) Start: 08-30-2023 Refill Halle kelsey CREATIVE COORDINATOR Work Phone: [facility] Comment on above: Refill Request Start: 08-11-2023 [facility] Start: 08-11-2023 Patient encounter procedure Carolynn Nieto [facility] [place] Comment on above: Population Health Na vigation Outreach ([employer] Annual Wellness Visit ) Start: 07-15-2023 Telephone encounter Wojciech mcrae DO Work Phone: [facility] Start: 07-02-2023 ambulatory WOJCIECH ALVARADO [facility] Start: 07-02-2023 End: 07-02-2023 Patient encounter procedure Ayo Roberts MD Work Phone: Orthopaedics Comment on above: Status post right hi p replacement (Primary Dx); Trochanteric bursitis of right hip Start: 07-02-2023 End: 07-02-2023 Subsequent hospital visit by physician [facility] Work Phone: Radiology Comment on above: Pain in right hip [M 25.551] Start: 04-14-2023 Orders Only Ayo Winkler Work Phone: Orthopaedics Comment on above: Pain in right hip (P rimary Dx) Start: 03-27-2023 End: 03-27-2023 Patient encounter procedure Wojciech Alvarado DO Work Phone: [facility] Comment on above: Uncontrolled type 2 diabetes mellitus with hyperglycemia (HCC) (Primary Dx); Essential hypertension; Dyslipidemia; Sweating disease; Osteopenia of multiple sites; Anxiety and depression Start: 03-20-2023 ambulatory Wojciech duarte DO Work Phone: [facility] Comment on above: Lab tests? Start: 01-16-2023 End: 01-16-2023 ambulatory [facility] Work Phone: Start: 01-16-2023 End: 01-16-2023 Patient encounter procedure [facility] Work Phone: Start: 11-21-2022 End: 11-21-2022 Patient encounter procedure Mar Celeste APRN.CREATIVE COORDINATOR Work Phone: [facility] [place] Comment on above: Irritant contact mae matitis due to plants, except food (Primary Dx) Start: 10-09-2022 End: 10-09-2022 ambulatory Christel Mauro YOSEF.CREATIVE COORDINATOR Work Phone: Gastroenterolgy Comment on above: 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 Start: 10-09-2022 End: 10-09-2022 Telemedicine consultation with patient Christel Mauro [employer] VEHICLE DRIVER.CREATIVE COORDINATOR Work Phone: [facility] [place] [id number] Start: 09-24-2022 ambulatory Wojciech duarte DO Work Phone: [facility] [place] Start: 09-24-2022 End: 09-24-2022 Patient encounter procedure Wojciech Malin Alvarado DO Work Phone: [facility] [place] Comment on above: Uncontrolled type 2 diabetes mellitus with hyperglycemia (HCC) (Primary Dx); 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; Essential hypertension; Dyslipidemia; Hair loss; Type 2 diabetes mellitus without complication, without long-term current use of insulin (HCC) [facility] Start: 09-10-2022 Telephone encounter Wojciech coboskelin DO Work Phone: [facility] [place] Comment on above: Cholecystectomy Repo rt Start: 09-09-2022 ambulatory Wojciech duarte DO Work Phone: Internal Medicine [facility] [place] Start: 09-05-2022 Refill Halle kelsey [employer] VEHICLE DRIVER.CREATIVE COORDINATOR Work Phone: [facility] [place] Comment on above: Refill Request Start: 07-08-2022 Refill Casi Aponte APRN.CREATIVE COORDINATOR Work Phone: [facility] [place] Comment on above: Refill Request Start: 07-01-2022 End: 07-01-2022 Patient encounter procedure Ayo Roberts MD Work Phone: Orthopaedics Comment on above: Status post right hi p replacement (Primary Dx) Start: 05-20-2022 End: 05-20-2022 Patient encounter procedure Magdaleno Norton [employer] VEHICLE DRIVER.CREATIVE COORDINATOR Work Phone: Orthopaedics Comment on above: Status post right hi p replacement (Primary Dx) Start: 05-20-2022 End: 05-20-2022 Subsequent hospital visit by physician [facility] Azalea Gonzalez Work Phone: Radiology Comment on above: Pain in right hip [M 25.551] Start: 05-14-2022 Orders Only Magdaleno Norton [employer] VEHICLE DRIVER.CREATIVE COORDINATOR Work Phone: Orthopaedics Comment on above: Pain in right hip (P rimary Dx) Start: 05-12-2022 Telephone encounter Ayo durbin MD Work Phone: [address] Comment on above: Vaccine Key Customer Leader - H ospital Follow Up Start: 05-06-2022 Telephone encounter Ayo durbin MD Work Phone: Orthopaedics Comment on above: Medication Problem Start: 04-22-2022 Telephone encounter Ayo durbin MD Work Phone: [address] Comment on above: Pre-Op Teaching Start: 04-16-2022 End: 04-16-2022 [facility] Work Phone: [facility] [place] Start: 04-16-2022 End: 04-16-2022 [facility]ulatory [facility] Work Phone: Pre Anesthesia Comment on above: Pre-operative examin ation (Primary Dx); Type 2 diabetes mellitus without complication, without long-term current use of insulin (HCC); Osteopenia of multiple sites; Obstructive sleep apnea of adult; Mixed hyperlipidemia; Essential tremor; Essential hypertension; Dyslipidemia; Anxiety and depression Start: 04-16-2022 End: 04-16-2022 [facility]proced[facility] examination done [facility] Work Phone: Pre Anesthesia Start: 04-14-2022 Telephone encounter Wojciech mcrae DO Work Phone: Family Medicine [place] Comment on above: Results Start: 04-14-2022 End: 04-14-2022 Subsequent hospital visit by physician [facility] Radiology Comment on above: Presence of right ar tificial hip joint [Z96.641] Start: 04-01-2022 End: 04-01-2022 Patient encounter procedure Wojciech Alvarado DO Work Phone: [facility] Comment on above: Type 2 diabetes kendal itus without complication, without long- term current use of insulin (HCC) (Primary Dx); Primary osteoarthritis of right hip; Need for pneumococcal vaccination; Dyslipidemia; Essential hypertension; Right hip pain Start: 03-17-2022 Orders Only Ayo Winkler Work Phone: Orthopaedics Comment on above: Primary osteoarthrit is of right hip (Primary Dx); Encounter for preoperative screening laboratory testing for COVID-19 virus Start: 03-17-2022 Patient encounter status Ayo Roberts MD Work Phone: Orthopaedics Start: 03-04-2022 End: 03-04-2022 Patient encounter procedure Ayo Roberts MD Work Phone: Orthopaedics Comment on above: Presence of right ar tificial hip joint (Primary Dx); Primary osteoarthritis of right hip Start: 01-16-2022 ambulatory Cecilia Cardoso MA [facility] [place] Comment on above: Population Health Na vigation Outreach ([employer] Attribution /) Start: 01-16-2022 Telephone encounter Casidelmar Guillory wellington KINGCREATIVE COORDINATOR Work Phone: [facility] Comment on above: Results Start: 01-15-2022 End: 01-15-2022 ambulatory [facility] Work Phone: Start: 01-15-2022 End: 01-15-2022 Patient encounter procedure [facility] Start: 01-10-2022 ambulatory Wojciech duarte DO Work Phone: [facility] Start: 01-10-2022 Follow-up encounter Wojciech mcrae DO Work Phone: [facility] Comment on above: Follow up from December 09 physical Start: 12-13-2021 End: 12-13-2021 Subsequent hospital visit by physician [facility] Work Phone: Molecular Imaging Comment on above: Encounter for screen ing for cardiovascular disorders [Z13.6] Start: 12-12-2021 Telephone encounter Adeline Celestni RN Cardiology Lab Comment on above: Reminder Call Start: 11-21-2021 Telephone encounter Wojciech mcrae DO Work Phone: [facility] [place] Comment on above: Lab Order Request Start: 11-16-2021 Get Medical Advice Wojciech Alvarado DO Work Phone: Family [facility] [place] Comment on above: Lab Work Order Start: 10-23-2021 ambulatory Wojciech duarte DO Work Phone: [facility] [place] Start: 10-23-2021 Emergency department patient visit Wojciech Alvarado DO Work Phone: [facility] [place] Comment on above: Non Emergency [facility] Start: 09-23-2021 Refill Halle kelsey [employer] VEHICLE DRIVER.CREATIVE COORDINATOR Work Phone: [facility] [place] Comment on above: Refill Request Start: 12-20-2020 End: 12-20-2020 Subsequent hospital visit by physician [facility] [place] Work Phone: Radiology Comment on above: Right hip pain [M25. 551] Start: 12-01-2016 End: 12-05-2021 Patient encounter status Halle Messina APRN.CREATIVE COORDINATOR Work Phone: [facility] Work Phone: Procedures Date Procedure Procedure Detail Performing Clinician Start: 10-06-2024 Ct abdomen & pelvis w/contrast material Halle Messina [employer] VEHICLE DRIVER.CREATIVE COORDINATOR Work Phone: Start: 04-13-2024 Radiologic exam chest 2 views Cecelia Naqvi [employer] VEHICLE DRIVER.CREATIVE COORDINATOR Work Phone: Start: 07-02-2023 Radex hip unilateral with pelvis 2-3 views Magdaleno Norton [employer] VEHICLE DRIVER.CREATIVE COORDINATOR Work Phone: Start: 03-27-2023 Hemoglobin A1c/Hemoglobin.total in Blood Wojciech Alvarado DO Work Phone: Start: 01-16-2023 Screening mammography Start: 05-20-2022 Radex hip unilateral with pelvis 2-3 views Magdaleno Norton [employer] VEHICLE DRIVER.CREATIVE COORDINATOR Work Phone: Start: 04-14-2022 Ct lower extremity w/o contrast material Ayo Roberts MD Work Phone: Start: 01-15-2022 End: 01-15-2022 Screening mammography Start: 12-13-2021 Myocardial spect multiple studies Wojciech Alvarado DO Work Phone: Start: 12-20-2020 Radex hip unilateral with pelvis 2-3 views Wojciech Kimo CalderaAlvarado DO Work Phone: Start: 12-19-2020 Mammography Halle Messina [employer] VEHICLE DRIVER.CREATIVE COORDINATOR Work Phone: Start: 12-31-2016 Gynecologic examination Routine gynecological exam Alice Noland MD Start: 11-28-2016 Colonoscopy Halle Messina [employer] VEHICLE DRIVER.CREATIVE COORDINATOR Work Phone: Plan of Treatment Date Care Activity Detail Author Start: 11-28-2026 Colonoscopy COLONOSCOPY [facility] Start: 11-28-2026 COLORECTAL CANCER SCREENING COLORECTAL CANCER SCREENING [facility] Start: 11-28-2026 Screening for malign ant neoplasm of colon [facility] Start: 10-06-2025 Annual PCP Team Shoe Associate tal Disease Visit Annual PCP Team Chronic Disease Visit [facility] Start: 09-08-2025 Annual PCP Team Shoe Associate tal Disease Visit Annual PCP Team Chronic Disease Visit [facility] Start: 09-02-2025 Hepatitis B screening Urine Al bumin:Creatinine Ratio [facility] Start: 09-02-2025 Hepatitis B surface antibody level LDL Cholesterol [facility] Start: 08-11-2025 Annual PCP Team Shoe Associate tal Disease Visit Annual PCP Team Chronic Disease Visit [facility] Start: 07-05-2025 Annual PCP Team Shoe Associate tal Disease Visit Annual PCP Team Chronic Disease Visit [facility] Start: 05-18-2025 Annual PCP Team Shoe Associate tal Disease Visit Annual PCP Team Chronic Disease Visit [facility] Start: 05-18-2025 Covid-19 Vaccine ( season) Covid-19 Vaccine () [facility] Comment on above: Postponed from 01/30 (Declined at this time) Start: 03-04-2025 Hemoglobin A1c measurement HbA1C [facility] Start: 01-30-2025 Influenza vaccination Influenza Vacc ine (#1) [facility] Start: 01-26-2025 Annual PCP Team Shoe Associate tal Disease Visit Annual PCP Team Chronic Disease Visit [facility] Start: 01-26-2025 BP Controlled (<130/80) BP Controlle d (<130/80) [facility] Start: 01-24-2025 Hepatitis B surface antibody level LDL Cholesterol [facility] Start: 01-04-2025 End: 01-04-2025 Patient encounter procedure 01/04/2025 7:40 AM EDT Office Visit [facility] [place] [address] [place], [place] [id number] Wojciech Alvarado DO [address] [place], [place] [id number] Physical Family Medicine [place] Comment on above: Physical Start: 12-22-2024 Hemoglobin A1c measurement HbA1C [facility] Start: 11-17-2024 End: 11-17-2024 Patient encounter procedure 11/17/2024 7:20 AM EDT Office Visit [facility] [place] [address] [place] [address] Kate Paris APRN.CREATIVE COORDINATOR [address] [place], [place] [id number] 6 week bp check [facility] [place] Comment on above: 6 week bp check Start: 10-15-2024 Annual PCP Team Shoe Associate tal Disease Visit Annual PCP Team Chronic Disease Visit [facility] Start: 10-15-2024 Urine microalbumin profile DTaP,Tdap,Td Vaccine (2 - Td or Tdap) [facility] Comment on above: Postponed from 06/19 (Declined at this time) Start: 10-06-2024 End: 10-06-2024 Patient encounter procedure 10/06/2024 7:40 AM EDT Office Visit [facility] [place] [address] [facility], [place] [id number] Halle Messina APRN.CREATIVE COORDINATOR [address] [place] [address] 1 mo bp follow up Family [facility] [place] Comment on above: 1 mo bp follow up Start: 09-07-2024 End: 09-07-2024 Patient encounter procedure 09/07/2024 7:20 AM EDT Office Visit [facility] [address] [place] [address] Halle Messina APRN.CREATIVE COORDINATOR [address] [place] [address] blood pressure elevated lately Family [facility] [place] Comment on above: blood pressure eleva selena lately Start: 09-02-2024 End: 09-02-2024 ambulatory 09/02/2024 7:00 AM EDT Results Only [place] [facility] Draw Station [address] [place] [address] [place] [facility] Start: 07-29-2024 End: 10-28-2024 25-hydroxyvitamin D3 [Mass/volume] in Serum or Plasma VITAMIN D 25 HYDROXY Lab Routine Osteopenia of multiple sites Expected: 07/29/2024, Expires: 10/28/2024 [facility] Comment on above: Expected: 07/29/2024 , Expires: 10/28/2024 Start: 07-29-2024 End: 10-28-2024 Cobalamin (Vitamin B12) [Mass/volume] in Serum or Plasma VITAMIN B12 Lab Routine Uncontrolled type 2 diabetes mellitus with hyperglycemia (HCC) Expected: 07/29/2024, Expires: 10/28/2024 [facility] Comment on above: Expected: 07/29/2024 , Expires: 10/28/2024 Start: 07-29-2024 End: 10-28-2024 Comprehensive metabolic 2000 panel - Serum or Plasma COMPREHENSIVE METABOLIC PANEL Lab Routine Uncontrolled type 2 diabetes mellitus with hyperglycemia (HCC) Expected: 07/29/2024, Expires: 10/28/2024 [facility] Comment on above: Expected: 07/29/2024 , Expires: 10/28/2024 Start: 07-29-2024 End: 10-28-2024 Hemoglobin A1c in Blood HEMOGLOBIN A1C Lab Routine Uncontrolled type 2 diabetes mellitus with hyperglycemia (HCC) Expected: 07/29/2024, Expires: 10/28/2024 [facility] Comment on above: Expected: 07/29/2024 , Expires: 10/28/2024 Start: 07-29-2024 End: 10-28-2024 Lipid 1996 panel - Serum or Plasma LIPID PANEL BASIC Lab Routine Dyslipidemia Expected: 07/29/2024, Expires: 10/28/2024 [facility] Comment on above: Expected: 07/29/2024 , Expires: 10/28/2024 Start: 07-29-2024 End: 10-28-2024 Microalbumin/Creatinine [Mass Ratio] in Urine ALBUMIN/CREATININE RATIO, URINE Lab Routine Uncontrolled type 2 diabetes mellitus with hyperglycemia (HCC) Expected: 07/29/2024, Expires: 10/28/2024 [facility] Comment on above: Expected: 07/29/2024 , Expires: 10/28/2024 Start: 07-29-2024 End: 10-28-2024 Thyrotropin [Units/volume] in Serum or Plasma THYROID STIMULATING HORMONE Lab Routine Dyslipidemia Expected: 07/29/2024, Expires: 10/28/2024 [facility] Comment on above: Expected: 07/29/2024 , Expires: 10/28/2024 Start: 07-27-2024 Hemoglobin A1c measurement HbA1C [facility] Start: 07-05-2024 End: 10-04-2024 Basic metabolic 2000 panel - Serum or Plasma BASIC METABOLIC PANEL Lab Routine Lightheadedness Elevated serum creatinine Expected: 07/05/2024, Expires: 10/04/2024 [facility] Work Phone: Comment on above: Expected: 07/05/2024 , Expires: 10/04/2024 Start: 07-05-2024 End: 10-04-2024 Urinalysis complete panel - Urine URINALYSIS, WITH MICROSCOPIC Lab Routine Lightheadedness Elevated serum creatinine Expected: 07/05/2024, Expires: 10/04/2024 [facility] Comment on above: Expected: 07/05/2024 , Expires: 10/04/2024 Start: 07-05-2024 End: 07-05-2024 Follow-up encounter 07/05/2024 8:20 AM EST [facility] [place] [address] [place] [address] Wojciech Alvarado DO [address] [place] [address] 6 month follow up [facility] [place] Comment on above: 6 month follow up Start: 07-05-2024 End: 07-05-2024 Patient encounter procedure 07/05/2024 8:20 AM EST Office Visit [facility] [place] [address] [place] [address] Wojciech Alvarado DO [address] [place], [place] [address] 6 month follow up [facility] [place] Comment on above: 6 month follow up Start: 07-02-2024 Hepatitis B surface antibody level LDL Cholesterol [facility] Start: 06-01-2024 Medicare Advantage Annual Wellness Visit Medicare Advantage Annual Wellness Visit [facility] Start: 05-13-2024 Glaucoma screening Dilated Retinal E xam [facility] Start: 04-28-2024 End: 07-28-2024 Comprehensive metabolic 2000 panel - Serum or Plasma COMPREHENSIVE METABOLIC PANEL Lab Routine Uncontrolled type 2 diabetes mellitus with hyperglycemia (HCC) Expected: 04/28/2024, Expires: 07/28/2024 [facility] Comment on above: Expected: 04/28/2024 , Expires: 07/28/2024 Start: 04-28-2024 End: 07-28-2024 Hemoglobin A1c in Blood HEMOGLOBIN A1C Lab Routine Uncontrolled type 2 diabetes mellitus with hyperglycemia (HCC) Expected: 04/28/2024, Expires: 07/28/2024 [facility] Work Phone: Comment on above: Expected: 04/28/2024 , Expires: 07/28/2024 Start: 03-27-2024 Annual PCP Team Shoe Associate tal Disease Visit Annual PCP Team Chronic Disease Visit [facility] Start: 03-27-2024 BP Controlled (<130/80) BP Controlle d (<130/80) [facility] Start: 03-27-2024 Covid-19 Vaccine () Covid-19 Vaccine () [facility] Comment on above: Postponed from 01/30 (Declined at this time) Start: 01-31-2024 Covid-19 Vaccine () Covid-19 Vaccine () [facility] Start: 01-31-2024 Covid-19 Vaccine () Covid-19 Vaccine () [facility] Start: 01-31-2024 Influenza vaccination Influenza Vacc ine (#1) [facility] Start: 01-27-2024 End: 01-27-2024 Patient encounter procedure 01/27/2024 9:00 AM EDT Office Visit Family Medicine [place] [address] [facility] [place] [address] Wojciech Alvarado DO [address] [place] [address] medicare wellness [facility] [place] Comment on above: medicare wellness Start: 01-25-2024 End: 01-25-2024 ambulatory 01/25/2024 7:30 AM EDT [facility] [address] [facility] [place] [address] [facility] Start: 01-16-2024 End: 04-16-2024 CBC W Auto Differential panel - Blood COMPLETE BLOOD COUNT AND DIFFERENTIAL Lab Routine Uncontrolled type 2 diabetes mellitus with hyperglycemia (HCC) Expected: 01/16/2024, Expires: 04/16/2024 [facility] Comment on above: Expected: 01/16/2024 , Expires: 04/16/2024 Start: 01-16-2024 End: 04-16-2024 Comprehensive metabolic 2000 panel - Serum or Plasma COMPREHENSIVE METABOLIC PANEL Lab Routine Uncontrolled type 2 diabetes mellitus with hyperglycemia (HCC) Expected: 01/16/2024, Expires: 04/16/2024 [facility] Work Phone: Comment on above: Expected: 01/16/2024 , Expires: 04/16/2024 Start: 01-16-2024 End: 04-16-2024 Hemoglobin A1c in Blood HEMOGLOBIN A1C Lab Routine Uncontrolled type 2 diabetes mellitus with hyperglycemia (HCC) Expected: 01/16/2024, Expires: 04/16/2024 [facility] Comment on above: Expected: 01/16/2024 , Expires: 04/16/2024 Start: 01-16-2024 End: 04-16-2024 Lipid 1996 panel - Serum or Plasma LIPID PANEL BASIC Lab Routine Uncontrolled type 2 diabetes mellitus with hyperglycemia (HCC) Expected: 01/16/2024, Expires: 04/16/2024 [facility] Comment on above: Expected: 01/16/2024 , Expires: 04/16/2024 Start: 01-14-2024 Hemoglobin A1c measurement HbA1C [facility] Start: 12-31-2023 Hemoglobin A1c measurement HbA1C [facility] Start: 12-24-2023 3 comp foot exam completed Diabetic Foot Exam [facility] Start: 12-24-2023 Annual PCP Team Shoe Associate tal Disease Visit Annual PCP Team Chronic Disease Visit [facility] Start: 12-24-2023 Diabetic foot examination Diabetic Foot Exam [facility] Start: 12-17-2023 Hepatitis B surface antibody level LDL Cholesterol [facility] Start: 11-22-2023 ANNUAL PCP TEAM FAST FOOD CREW MEMBER TAL DISEASE VISIT ANNUAL PCP TEAM CHRONIC DISEASE VISIT [facility] Start: 11-22-2023 BP CONTROLLED (<130/80) BP CONTROLLE D (<130/80) [facility] Start: 10-16-2023 End: 10-16-2023 Patient encounter procedure 10/16/2023 1:00 PM EDT Office Visit Family [facility] [address] [place] [address] Casi Aponte APRN.CREATIVE COORDINATOR [address] [place] [address] Medication Follow up; Wants to Discuss Diabetic Medications [facility] [place] Comment on above: Medication Follow up ; Wants to Discuss Diabetic Medications Start: 10-14-2023 End: 01-13-2024 Hemoglobin A1c in Blood HGB A1C Lab Routine Type 2 diabetes mellitus with hyperglycemia, without long-term current use of insulin (HCC) Expected: 10/14/2023, Expires: 01/13/2024 [facility] Work Phone: Comment on above: Expected: 10/14/2023 , Expires: 01/13/2024 Start: 10-14-2023 End: 10-14-2023 ambulatory 10/14/2023 7:00 AM EDT Results Only [facility] Draw Station [address] [id number] [facility] Draw Station Start: 09-25-2023 ANNUAL PCP TEAM FAST FOOD CREW MEMBER TAL DISEASE VISIT ANNUAL PCP TEAM CHRONIC DISEASE VISIT [facility] Start: 09-23-2023 Hepatitis B screening URINE AL BUMIN:CREATININE RATIO [facility] Start: 06-27-2023 End: 09-26-2023 CBC panel - Blood by Automated count CBC Lab Routine Uncontrolled type 2 diabetes mellitus with hyperglycemia (HCC) Expected: 06/27/2023, Expires: 09/26/2023 [facility] Work Phone: Comment on above: Expected: 06/27/2023 , Expires: 09/26/2023 Start: 06-27-2023 End: 09-26-2023 Comprehensive metabolic 2000 panel - Serum or Plasma COMP METABOLIC PANEL Lab Routine Uncontrolled type 2 diabetes mellitus with hyperglycemia (HCC) Expected: 06/27/2023, Expires: 09/26/2023 [facility] Work Phone: Comment on above: Expected: 06/27/2023 , Expires: 09/26/2023 Start: 06-27-2023 End: 09-26-2023 Hemoglobin A1c in Blood HGB A1C Lab Routine Uncontrolled type 2 diabetes mellitus with hyperglycemia (HCC) Expected: 06/27/2023, Expires: 09/26/2023 [facility] Work Phone: Comment on above: Expected: 06/27/2023 , Expires: 09/26/2023 Start: 06-27-2023 Hemoglobin A1c/Hemoglobin.total in Blood HbA1C [facility] Start: 06-27-2023 End: 09-26-2023 Lipid 1996 panel - Serum or Plasma LIPID PANEL BASIC Lab Routine Dyslipidemia Expected: 06/27/2023, Expires: 09/26/2023 [facility] Work Phone: Comment on above: Expected: 06/27/2023 , Expires: 09/26/2023 Start: 06-27-2023 End: 09-26-2023 Thyrotropin [Units/volume] in Serum or Plasma TSH BLD Lab Routine Uncontrolled type 2 diabetes mellitus with hyperglycemia (HCC) Expected: 06/27/2023, Expires: 09/26/2023 [facility] Work Phone: Comment on above: Expected: 06/27/2023 , Expires: 09/26/2023 Start: 05-13-2023 Hepatitis C antibody , confirmatory test DILATED RETINAL EXAM [facility] Start: 05-11-2023 Shingrix Vaccine (2 of 2) Shingrix Vaccine (2 of 2) [facility] Start: 04-16-2023 BP CONTROLLED (<130/80) BP CONTROLLE D (<130/80) [facility] Start: 04-01-2023 ANNUAL PCP TEAM FAST FOOD CREW MEMBER TAL DISEASE VISIT ANNUAL PCP TEAM CHRONIC DISEASE VISIT [facility] Start: 03-18-2023 Hemoglobin A1c/Hemoglobin.total in Blood HbA1C [facility] Start: 01-30-2023 Covid-19 Vaccine ( season) Covid-19 Vaccine ( season) [facility] Start: 01-30-2023 Influenza vaccination Influenza Vacc ine (#1) [facility] Start: 01-15-2023 Mammography [facility] Start: 01-15-2023 Screening for malign ant neoplasm of breast Mammogram Screening [facility] Start: 12-24-2022 End: 02-23-2023 25-hydroxyvitamin D3 [Mass/volume] in Serum or Plasma VITAMIN D 25 HYDROXY Lab Routine Dyslipidemia Uncontrolled type 2 diabetes mellitus with hyperglycemia (HCC) Hair loss Expected: 12/24/2022, Expires: 02/23/2023 [facility] Work Phone: Comment on above: Expected: 12/24/2022 , Expires: 02/23/2023 Start: 12-24-2022 End: 02-23-2023 Cobalamin (Vitamin B12) [Mass/volume] in Serum or Plasma VITAMIN B12 BLOOD Lab Routine Dyslipidemia Uncontrolled type 2 diabetes mellitus with hyperglycemia (HCC) Hair loss Expected: 12/24/2022, Expires: 02/23/2023 [facility] Work Phone: Comment on above: Expected: 12/24/2022 , Expires: 02/23/2023 Start: 12-24-2022 End: 02-23-2023 Comprehensive metabolic 2000 panel - Serum or Plasma COMP METABOLIC PANEL Lab Routine Uncontrolled type 2 diabetes mellitus with hyperglycemia (HCC) Expected: 12/24/2022, Expires: 02/23/2023 [facility] Work Phone: Comment on above: Expected: 12/24/2022 , Expires: 02/23/2023 Start: 12-24-2022 End: 02-23-2023 Hemoglobin A1c in Blood HGB A1C Lab Routine Uncontrolled type 2 diabetes mellitus with hyperglycemia (HCC) Expected: 12/24/2022, Expires: 02/23/2023 [facility] Work Phone: Comment on above: Expected: 12/24/2022 , Expires: 02/23/2023 Start: 12-24-2022 End: 02-23-2023 Lipid 1996 panel - Serum or Plasma LIPID PANEL BASIC Lab Routine Dyslipidemia Expected: 12/24/2022, Expires: 02/23/2023 [facility] Work Phone: Comment on above: Expected: 12/24/2022 , Expires: 02/23/2023 Start: 12-24-2022 End: 02-23-2023 Thyrotropin [Units/volume] in Serum or Plasma TSH BLD Lab Routine Dyslipidemia Uncontrolled type 2 diabetes mellitus with hyperglycemia (HCC) Hair loss Expected: 12/24/2022, Expires: 02/23/2023 [facility] Work Phone: Comment on above: Expected: 12/24/2022 , Expires: 02/23/2023 Start: 12-22-2022 Hemoglobin A1c/Hemoglobin.total in Blood HBA1C [facility] Start: 12-09-2022 3 comp foot exam completed DIABETIC FOOT EXAM [facility] Start: 12-09-2022 ANNUAL PCP TEAM FAST FOOD CREW MEMBER TAL DISEASE VISIT ANNUAL PCP TEAM CHRONIC DISEASE VISIT [facility] Start: 12-09-2022 BP CONTROLLED (<130/80) BP CONTROLLE D (<130/80) [facility] Start: 07-05-2023 Hepatitis B surface antibody level LDL CHOLESTEROL [facility] Start: 10-09-2022 Hemoglobin A1c/Hemoglobin.total in Blood HBA1C [facility] Start: 09-09-2022 End: 11-09-2022 ALBUMIN/CREAT RATIO RND UR ALBUMIN/CREAT RATIO RND UR Lab Routine Type 2 diabetes mellitus without complication, without long-term current use of insulin (HCC) Expected: 09/09/2022, Expires: 11/09/2022 [facility] Work Phone: Comment on above: Expected: 09/09/2022 , Expires: 11/09/2022 Start: 09-09-2022 End: 11-09-2022 Hemoglobin A1c in Blood HGB A1C Lab Routine Type 2 diabetes mellitus without complication, without long-term current use of insulin (HCC) Expected: 09/09/2022, Expires: 11/09/2022 [facility] Work Phone: Comment on above: Expected: 09/09/2022 , Expires: 11/09/2022 Start: 06-05-2022 Hemoglobin A1c/Hemoglobin.total in Blood HBA1C [facility] Start: 04-16-2022 End: 06-16-2022 CONFIRM BLOOD TYPE [facility] Work Phone: Comment on above: Expected: 04/16/2022 , Expires: 06/16/2022 Start: 04-16-2022 End: 06-16-2022 TYPE AND SCREEN,30 DAY [facility] Work Phone: Comment on above: Expected: 04/16/2022 , Expires: 06/16/2022 Start: 04-08-2022 Hepatitis C antibody , confirmatory test DILATED RETINAL EXAM [facility] Start: 04-01-2022 End: 06-01-2022 CBC W Auto Differential panel - Blood CBC + DIFF Lab Routine Primary osteoarthritis of right hip Expected: 04/01/2022, Expires: 06/01/2022 [facility] Work Phone: Comment on above: Expected: 04/01/2022 , Expires: 06/01/2022 Start: 04-01-2022 End: 06-01-2022 Comprehensive metabolic 2000 panel - Serum or Plasma COMP METABOLIC PANEL Lab Routine Primary osteoarthritis of right hip Expected: 04/01/2022, Expires: 06/01/2022 [facility] Work Phone: Comment on above: Expected: 04/01/2022 , Expires: 06/01/2022 Start: 04-01-2022 End: 06-01-2022 Hemoglobin A1c in Blood HGB A1C Lab Routine Type 2 diabetes mellitus without complication, without long-term current use of insulin (HCC) Expected: 04/01/2022 (Approximate), Expires: 06/01/2022 [facility] Work Phone: Comment on above: Expected: 04/01/2022 (Approximate), Expires: 06/01/2022 Start: 03-17-2022 End: 03-17-2023 SARS-CoV-2 (COVID-19) RNA [Presence] in Respiratory specimen by JOSEF with probe detection PRE-PROCEDURE & PRE-OPERATIVE COVID Microbiology Routine Encounter for preoperative screening laboratory testing for COVID-19 virus Expected: 03/17/2022, Expires: 03/17/2023 [facility] Work Phone: Comment on above: Expected: 03/17/2022 , Expires: 03/17/2023 Start: 01-30-2022 Influenza vaccination INFLUENZA (#1) [facility] Start: 12-19-2021 Mammography MAMMOGRAM [facility] Start: 12-07-2021 ANNUAL PCP TEAM FAST FOOD CREW MEMBER TAL DISEASE VISIT ANNUAL PCP TEAM CHRONIC DISEASE VISIT [facility] Start: 12-07-2021 BP CONTROLLED (<130/80) BP CONTROLLE D (<130/80) [facility] Start: 11-30-2021 Hepatitis B screening URINE AL BUMIN:CREATININE RATIO [facility] Start: 11-30-2021 Hepatitis B surface antibody level LDL CHOLESTEROL [facility] Start: 11-22-2021 End: 01-22-2022 CBC panel - Blood by Automated count CBC Lab Routine Essential hypertension Type 2 diabetes mellitus without complication, without long-term current use of insulin (HCC) Mixed hyperlipidemia Expected: 11/22/2021, Expires: 01/22/2022 [facility] Work Phone: Comment on above: Expected: 11/22/2021 , Expires: 01/22/2022 Start: 11-22-2021 End: 01-22-2022 Comprehensive metabolic 2000 panel - Serum or Plasma COMP METABOLIC PANEL Lab Routine Essential hypertension Type 2 diabetes mellitus without complication, without long-term current use of insulin (HCC) Mixed hyperlipidemia Expected: 11/22/2021, Expires: 01/22/2022 [facility] Work Phone: Comment on above: Expected: 11/22/2021 , Expires: 01/22/2022 Start: 11-22-2021 End: 01-22-2022 Hemoglobin A1c in Blood HGB A1C Lab Routine Type 2 diabetes mellitus without complication, without long-term current use of insulin (HCC) Expected: 11/22/2021, Expires: 01/22/2022 [facility] Work Phone: Comment on above: Expected: 11/22/2021 , Expires: 01/22/2022 Start: 11-22-2021 End: 01-22-2022 Lipid 1996 panel - Serum or Plasma LIPID PANEL BASIC Lab Routine Mixed hyperlipidemia Expected: 11/22/2021, Expires: 01/22/2022 [facility] Work Phone: Comment on above: Expected: 11/22/2021 , Expires: 01/22/2022 Start: 11-22-2021 End: 01-22-2022 Thyrotropin [Units/volume] in Serum or Plasma TSH BLD Lab Routine Screening for thyroid disorder Expected: 11/22/2021, Expires: 01/22/2022 [facility] Work Phone: Comment on above: Expected: 11/22/2021 , Expires: 01/22/2022 Start: 11-14-2021 Hepatitis C antibody , confirmatory test DILATED RETINAL EXAM [facility] Start: 07-29-2021 COVID-19 VACCINE (4 - Booster for Moderna series) COVID-19 VACCINE (4 - Booster for Moderna series) [facility] Start: 06-02-2021 Hemoglobin A1c/Hemoglobin.total in Blood HBA1C [facility] Start: 06-01-2021 ADVANCE DIRECTIVE DISCUSSION ADVANCE DIRECTIVE DISCUSSION [facility] Start: 05-24-2021 COVID-19 VACCINE (4 - Booster for Moderna series) COVID-19 VACCINE (4 - Booster for Moderna series) [facility] Start: 02-21-2021 3 comp foot exam completed DIABETIC FOOT EXAM [facility] Start: 09-28-2019 PNEUMOVAX AGE 65 AND OVER WITH 5YR LOOKBACK (#1) PNEUMOVAX AGE 65 AND OVER WITH 5YR LOOKBACK (#1) [facility] Start: 12-31-2016 End: 12-31-2016 Appointment Appointment [facility] Start: 06-19-2016 Urine microalbumin profile [facility] Start: 2014 Hepatitis B Vaccine (1 of 3 - Risk 3-dose series) Hepatitis B Vaccine (1 of 3 - Risk 3-dose series) [facility] Start: 2014 RSV Vaccine (1 - 1-d ose 60+ series) RSV Vaccine (1 - 1-dose 60+ series) [facility] Start: 2004 SHINGRIX VACCINE (1 of 2) SHINGRIX VACCINE (1 of 2) [facility] Start: 09-28-1999 COLOGUARD (FIT-DNA) COLOGUARD (FIT-D NA) [facility] Start: 09-28-[address] COLONOGRAPHY [facility] Start: 09-28-1999 FECAL OCCULT BLOOD FECAL OCCULT BLOO D [facility] Start: 09-28-1999 Screening for malign ant neoplasm of colon [facility] Start: 09-28-1999 SIGMOIDOSCOPY SIGMOIDOSCOPY [facility] Start: 1960 PNEUMOCOCCAL: 65+ (1 - PCV) PNEUMOCOCCAL: 65+ (1 - PCV) [facility] End: 04-03-2023 Ct lower extremity w/o contrast material CT HIP WO IVCON RT Radiology Routine Presence of right artificial hip joint 1 Occurrences starting 03/04/2022 until 04/03/2023 [facility] Work Phone: Comment on above: 1 Occurrences starti ng 03/04/2022 until 04/03/2023 End: 09-08-2025 DBT Breast - bilateral screening NIVIA SCREENING W TY Radiology Routine Encounter for screening mammogram for breast cancer 1 Occurrences starting 08/09/2024 until 09/08/2025 [facility] Work Phone: Comment on above: 1 Occurrences starti ng 08/09/2024 until 09/08/2025 End: 11-22-2022 NIVIA SCREENING W TY NIVIA SCREENING W TY Radiology Routine Encounter for screening mammogram for malignant neoplasm of breast 1 Occurrences starting 10/23/2021 until 11/22/2022 [facility] Work Phone: Comment on above: 1 Occurrences starti ng 10/23/2021 until 11/22/2022 End: 10-24-2023 NIVIA SCREENING W TY NIVIA SCREENING W TY Radiology Routine Encounter for screening mammogram for malignant neoplasm of breast 1 Occurrences starting 10/01/2022 until 10/24/2023 [facility] Work Phone: Comment on above: 1 Occurrences starti ng 10/01/2022 until 10/24/2023 End: 10-08-2024 MG Breast Screening NIVIA SCREENING Radiology Routine Encounter for screening mammogram for breast cancer 1 Occurrences starting 09/09/2023 until 10/08/2024 [facility] Work Phone: Comment on above: 1 Occurrences starti ng 09/09/2023 until 10/08/2024 End: 06-14-2023 XR HIP 2V AP/LAT RIGHT (AK,FL,ME) XR HIP 2V AP/LAT RIGHT (AK,FL,ME) Radiology Routine Pain in right hip 1 Occurrences starting 05/15/2022 until 06/14/2023 [facility] Work Phone: Comment on above: 1 Occurrences starti ng 05/15/2022 until 06/14/2023 End: 05-14-2024 XR HIP 2V AP/LAT RIGHT (AK,FL,ME,UN) XR HIP 2V AP/LAT RIGHT (AK,FL,ME,UN) Radiology Routine Pain in right hip 1 Occurrences starting 04/16/2023 until 05/14/2024 [facility] Work Phone: Comment on above: 1 Occurrences starti ng 04/16/2023 until 05/14/2024 [facility] Immunizations Immunization Date Immunization Notes Care Provider Caro abel 03-28-2024 influenza, high dose seasonal, preservative-free Wojciech Calderarison DO Work Phone: [facility] 03-28-2024 influenza virus vaccine, unspecified formulation Casi Aponte APRN.CREATIVE COORDINATOR Work Phone: [facility] 05-29-2023 zoster vaccine recombinant Ayo Roberts MD Work Phone: [facility] 03-16-2023 influenza (aIIV4) vaccine, age 65+ yr, quadrivalent, PF (FLUAD QUAD) Wojciech Calderarison DO Work Phone: [facility] Work Phone: 03-16-2023 respiratory syncytia l virus (RSV) vaccine, bivalent (ABRYSVO) Wojciech Alvarado DO Work Phone: [facility] Work Phone: 03-16-2023 zoster vaccine recombinant Wojciech Calderarison DO Work Phone: [facility] Work Phone: 03-16-2023 influenza virus vaccine, unspecified formulation Wojciech Calderarison DO Work Phone: [facility] 04-01-2022 pneumococcal (PCV20) vaccine, 20 valent (PREVNAR 20) Wojciech Alvarado DO Work Phone: [facility] Work Phone: 04-01-2022 pneumococcal Conjuga te, unspecified formulation Wojciech Alvarado DO Work Phone: [facility] Work Phone: 03-28-2022 COVID-19 booster vaccine, age 12+ yr, bivalent (PFIZER-BIONTCoderwall) Wojciech Alvarado DO Work Phone: [facility] Work Phone: 03-28-2022 influenza (aIIV4) vaccine, age 65+ yr, quadrivalent, PF (FLUAD QUAD) Wojciech Calderarison DO Work Phone: [facility] Work Phone: 03-28-2022 influenza, high dose seasonal, preservative-free Wojciech Alvarado DO Work Phone: [facility] Work Phone: 03-28-2022 influenza virus vaccine, unspecified formulation Wojciech Alvarado DO Work Phone: [facility] 03-29-2021 COVID-19 vaccine, fu ll dose (MODERNA) Halle Siddharth ARMOR [employer] VEHICLE DRIVER.CREATIVE COORDINATOR Work Phone: [facility] 03-29-2021 influenza, high dose seasonal, preservative-free Halle Siddharth ARMOR [employer] VEHICLE DRIVER.CREATIVE COORDINATOR Work Phone: [facility] 08-06-2020 COVID-19 vaccine, fu ll dose (MODERNA) Halle Siddharth ARMOR [employer] VEHICLE DRIVER.CREATIVE COORDINATOR Work Phone: [facility] 07-04-2020 COVID-19 vaccine, fu ll dose (MODERNA) Halle Siddharth ARMOR [employer] VEHICLE DRIVER.CREATIVE COORDINATOR Work Phone: [facility] 02-23-2020 influenza, high dose seasonal, preservative-free Halle Siddharth ARMOR [employer] VEHICLE DRIVER.CREATIVE COORDINATOR Work Phone: [facility] 04-26-2019 influenza, injectabl e, quadrivalent, preservative free Halle Siddharth ARMOR [employer] VEHICLE DRIVER.CREATIVE COORDINATOR Work Phone: [facility] 04-21-2018 influenza, injectabl e, quadrivalent, contains preservative Halle Siddharth ARM[employer] VEHICLE DRIVER.CREATIVE COORDINATOR Work Phone: [facility] Work Phone: 02-19-2016 influenza, injectabl e, quadrivalent, contains preservative Halle Siddharth ARM[employer] VEHICLE DRIVER.CREATIVE COORDINATOR Work Phone: [facility] Work Phone: 03-25-2011 influenza virus vaccine, unspecified formulation Halle Siddharth ARM[employer] VEHICLE DRIVER.CREATIVE COORDINATOR Work Phone: [facility] 06-19-2006 tetanus toxoid, redu shoshana diphtheria toxoid, and acellular pertussis vaccine, adsorbed Hallecullen Messina ARM[employer] VEHICLE DRIVER.CREATIVE COORDINATOR Work Phone: [facility] Work Phone: Payers Date Payer Category Payer Self-pay [id number] 2020 Medicare (Managed Care) [facility] Subscriber Plan / Payer (Effective 2020-Present) Name: Radha Brown Relation to Subscriber: Self Name: Radha Brown Payer ID: [id number] (NAIC) Group ID: [id number] Type: HMO Address: [address] [place] [id number] 2020 Unknown [facility] [id number] 2020-Present [phone] [address] [place] [address] [facility] [id number] 2020 Unknown [id number] 2020 Medicare [id number] Medicare ANTHEM MEDICARE PPO [id number] Medicare MEDICARE PART A B [id number] Unknown ANTHEM [id number] Unknown [facility] [id number] Unknown [id number] Social History Date Type Detail Facility Start: 12-03-2010 Tobacco smoking stat us NHIS Never smoked tobacco [facility] Start: 12-31-2020 End: 10-07-2024 Alcohol intake Current drinker of alcohol (finding) [facility] Start: 12-31-2020 End: 10-09-2022 Alcohol intake [facility] Start: 11-03-2014 History SDOH Alcohol Comment seldom to occasionally [facility] Start: 1955 Sex Assigned At Not on file [facility] Start: 1955 Sex Assigned At Female C [facility] Start: 11-07-2020 End: 04-25-2022 Exposure to SARS-CoV-2 (event) Not sure [facility] Start: 12-03-2010 Tobacco use and exposure Smokeless tobacco non-user [facility] Work Phone: Start: 11-10-2018 End: 09-13-2019 Tobacco smoking status NHIS Unknown if ever smoked [facility] Start: 03-27-2022 End: 09-17-2022 History SDOH Alcohol Frequency 3 [facility] Start: 03-27-2022 End: 09-17-2022 History SDOH Alcohol Std Drinks 1 [facility] Start: 03-27-2022 End: 09-17-2022 History SDOH Social Connections Phone 5 [facility] Start: 03-27-2022 End: 09-17-2022 History SDOH Physical Activity DPW 2 [facility] Start: 04-25-2022 End: 05-05-2022 Exposure to SARS-CoV-2 (event) Yes [facility] Start: 09-17-2022 End: 10-09-2022 Social connection and isolation panel [facility] Are you now , , , , never or living with a partner? [facility] How often to you hav e a drink containing alcohol? Monthly or less [facility] How many standard drinks containing alcohol do you have on a typical day? 1 or 2 [facility] How often do you hav e 6 or more drinks on 1 occasion? Never [facility] How hard is it for y ou to pay for the very basics like food, housing, medical care, and heating Not hard at all [facility] Do you feel stress - tense, restless, nervous, or anxious, or unable to sleep at night because your mind is troubled all the time - these days [OSQ] Only a little [facility] (I/We) worried radha er (my/our) food would run out before (I/we) got money to buy more. Never true [facility] In the past 12 month s, was there a time when you were not able to pay the mortgage or rent on time? No [facility] Start: 12-08-2021 Gender identity Identifies as female gender (finding) [facility] [facility] Start: 12-08-2021 Sexual orientation Heterosexual (kavya nash) [facility] Do you feel stress - tense, restless, nervous, or anxious, or unable to sleep at night because your mind is troubled all the time - these days [OSQ] To some extent [facility] How often to you hav e a drink containing alcohol? 2-4 times a month [facility] Medical Equipment Procedure Code Equipment Code Equipment Origin al Text Equipment Identifier Dates Insert Acetabula r 36mm 0d D Hip X3 Trident Sterile Latex Free - [id number] Start: 05-05-2022 Head V40 36mm -5 mm Offset Taper Biolox Delta Femoral Hip - [id number] Start: 05-05-2022 Screw Trident Ii 6.5mm 20mm Bone Low Profile Hexagonal Sterile - [id number] Start: 05-05-2022 Shell Trident Ii 50mm D Tritanium Acetabular 3 Screw Hole Cluster Sterile - [id number] Start: 05-05-2022 Stem Accolade Ii 4 127d Femoral - [id number] Start: 05-05-2022 Test blood sugar (s) 2 times daily. Dx: Type 2 DM - Uncontrolled E11.65 Insulin: Yes [id number] Start: 01-27-2024 End: 08-11-2024 Test blood sugar (s) 2 times daily. Dx: Type 2 DM - Uncontrolled E11.65 Insulin: No [id number] Start: 01-27-2024 End: 08-11-2024 Functional Status Date Assessment Result Facility 05-06-2022 Are you deaf, or do you have serious difficulty hearing No 05/06/2022 11:17 AM Javier Parr RN No [facility] 05-06-2022 Are you blind, or do you have serious difficulty seeing, even when wearing glasses No 05/06/2022 11:17 AM Javier Parr RN No [facility] 05-06-2022 Do you have serious difficulty walking or climbing stairs No 05/06/2022 11:17 AM Javier Parr RN No [facility] 05-06-2022 Do you have difficul ty dressing or bathing No 05/06/2022 11:17 AM Javier Parr RN [facility] 05-06-2022 Because of a physica l, mental, or emotional condition, do you have difficulty doing errands alone such as visiting a physician's office or shopping No 05/06/2022 11:17 AM Javier Parr RN [facility] Mental Status Date Assessment Result Facility 05-06-2022 Because of a physica l, mental, or emotional condition, do you have serious difficulty concentrating, remembering, or making decisions No 05/06/2022 11:17 AM Javier Parr RN No [facility] Clinical Notes 12-09-2012 to 01-04-2025 Telephone Encounter - Anay Pulido LPN - 12/19/2024 12:56 PM EDTTelephone Encounter - Anay Pulido LPN - 12/19/2024 12:56 PM EDTTelephone Encounter - Fara Bermeo LPN - 12/03/2024 11:45 AM EDT Note Date & Type Note Facility 01-04-2025 Note HNO ID: [id number] Author: WOJCIECH ALVARADO, DO Service: ? Author Type: Physician Type: Progress Notes Filed: 01/04/2025 12:06 Note Text: Patient presents with: Medicare Wellness Exam HPI: Radha Brown is a 69 year old female who presents to the office today for review of health conditions. Concerns today: Overall she is doing well. Struggling with sweating a lot on her head and neck- not improved with glycopyrrolate medication. Ms. Brown has past history of diabetes. Since our last visit she denies excessive thirst or increased frequency of urination, chest pain or dyspnea , new or unusual visual symptoms, and low sugar/hypoglycemic reactions. Depression- no. Follows a diabetic diet some of the time. She is compliant with medication(s) and is tolerating med(s) without any side effects. She reports checking her glucose on a once a day schedule with sugars in the <150 range. Patient's last HgA1C was Hemoglobin A1C (%) Date Value 09/02/2024 6.3 06/24/2024 7.1 11/30/2020 6.2 03/19/2020 6.5 Hemoglobin A1C (POCT) (%) Date Value 03/27/2023 8.2 ) Last Ophthalmology exam was within the past 12 months Ms. Brown reports history of hyperlipidemia. Current therapy includes rosuvastatin (Crestor) 10 mg. Denies side effects of muscle weakness or achiness. Her most recent lipid panels are reviewed. Cholesterol, Total (mg/dL) Date Value 09/02/2024 128 11/30/2020 204 HDL Cholesterol (mg/dL) Date Value 09/02/2024 46 11/30/2020 43 LDL Cholesterol, Calculated (mg/dL) Date Value 09/02/2024 51 11/30/2020 133 Triglyceride (mg/dL) Date Value 09/02/2024 156 11/30/2020 140 Ms. Brown indicates a history of hypertension and states that she is feeling well and denies any symptoms referable to elevated blood pressure. Specifically denies headache, chest pain, palpitations, dyspnea, and peripheral edema. Patient denies any side effects of her medication(s) and is compliant with their regimen. Last 3 Encounter BP Readings: Date: BP: 01/04/2025 138/88 10/06/2024 132/86 09/08/2024 136/88 She watches her diet for sodium, low fat and low cholesterol some of the time. She does not check BP's generally. Radha gets minimal exercise. PAST MEDICAL HISTORY Diagnosis Date Allergic rhinitis Broken ankle 03/2011 Carpal tunnel syndrome on both sides Diverticulosis of colon (without mention of hemorrhage) Essential hypertension, benign Hair loss disorder familial/genetic per Body Stylist Impaired fasting blood sugar Mild pulmonary valve insufficiency 01/2016 Osteopenia of multiple sites 11/2020 repeat BMD 11/2022 Post menopausal syndrome Screening for colon cancer 11/12/2016 Screening for colon cancer 11/12/2016 Sleep apnea 05/2011 uses CPAP machine at night Variants of migraine, not elsewhere classified, without mention of intractable migraine without mention of status migrainosus in the past, believes were hormonal, haven't had for about 2 yrs. now. PAST SURGICAL HISTORY Procedure Laterality Date COLONOSCOPY FLX DX W/COLLJ SPEC WHEN PFRMD 09/15/2006 Colonoscopy NEUROPLASTY AND/TRANSPOS MEDIAN NRV CARPAL TUNNE Bilateral 11/10/2014 Bilateral CTR PAST SURGICAL HISTORY OF 09/29/2010 Right wrist dequervaine release PAST SURGICAL HISTORY OF 11/29/2008 Left foot calcium buildup metatarsal removal REMOVAL GALLBLADDER N/A 08/24/2022 REMV CATARACT EXTRACAP,INSERT LENS Bilateral TONSILLECTOMY AND ADENOIDECTOMY AGE 11/ TOTAL HIP REPLACEMENT Right 05/05/2022 UNSPECIFIED ORAL SURGERY PROCEDURE, BY REPORT 2 wisdom teeth removed. Social History Tobacco Use Smoking status: Never Smokeless tobacco: Never Vaping Use Vaping status: Never Used Substance Use Topics Alcohol use: Yes Alcohol/week: 3.3 standard drinks of alcohol Types: 1 Glasses of Wine (5oz), 1 Cans of Beer (12oz), 1 Mixed Drinks per week Comment: seldom to occasionally Drug use: No FAMILY HISTORY Adopted: Yes Problem Relation Age of Onset other (ADOPTED, NO KNOWN HISTORY) Other Allergies: ALLERGIES No Known Allergies Current Meds: amitriptyline (ELAVIL) 10 mg tablet Take 1 tablet by mouth daily at bedtime. rosuvastatin (CRESTOR) 10 mg tablet Take 1 tablet by mouth daily at bedtime. metFORMIN (GLUCOPHAGE) 500 mg tablet TAKE ONE TABLET BY MOUTH THREE TIMES A DAY WITH MEALS FOR DIABETES amLODIPine (NORVASC) 5 mg tablet Take 1 tablet by mouth once daily. hydrALAZINE (APRESOLINE) 25 mg tablet Take 1 tablet by mouth once daily as needed. For BP greater than 150/100 lisinopril (ZESTRIL) 40 mg tablet Take 1 tablet by mouth once daily. venlafaxine ER (EFFEXOR XR) 75 mg 24 hr capsule Take 1 capsule by mouth once daily. multivitamins(DAILY MULTIVITAMIN TAB) Take one(1) tablet daily. CALTRATE-600 PLUS VITAMIN D3 600 MG-400 UNIT TAB Take one(1) tablet daily. Review of Systems: The remainder of the review of systems is negative. PE: 01/04/25 [id number] (more content not included)... [facility] 01-04-2025 Note HNO ID: [id number] Author: WOJCIECH ALVARADO, DO Service: ? Author Type: Physician Type: Progress Notes Filed: 01/04/2025 12:06 Note Text: Radha Brown is a 69 year old female here for a Medicare wellness visit. Medicare Health Risk Assessment General Health Good Exercise: Minutes/Day 30 min Exercise: Days/Week 2 days Alcohol: Daily Use Monthly or less Alcohol: Drinks/Day 1 or 2 Alcohol: 6 or more drinks Never Feel off balance Yes Concerns: Teeth/Dentures No Concerns: Sexual function No Troubled by feelings None of the above Frequency: Eating healthy diet Several days ADLs requiring help None of the above Safety precautions in home/vehicle No Smoke, vape, chews tobacco No Difficulty hearing No Difficulty seeing No Current Providers Specialists: I have reviewed specialist-related care of the patient in the medical record. Medical/Family history review Reviewed and updated problem list, medical/surgical/family/social history, medications, and allergies. Opioid use review Opioid Medications (last 90 days) No data to display Anxiety/Depression screening PHQ-2 Score: 0 (Lower risk for depression) VINAY-7 Score: 3 (Minimal Anxiety) Recommendation: no further intervention at this time Cognitive screening Mini Cog Score: 5 Cognitive screening reviewed and No further action needed (score 3-5). Functional Observation Was the patient's Timed Up AND Go test unsteady or >= 12 seconds? No Advance Care Planning Surrogate decision maker and/or advance care plan documented Measurements BP 160/90 Pulse 60 Temp 36.7 ?C (98 ?F) (Right Tympanic) Ht 157 cm (5' 1.81) Wt 68.5 kg (151 lb) BMI 27.79 kg/m? Vision Screening: Follows with optometry/ophthalmology Assessment/Plan Medicare annual wellness visit, subsequent (Z00.00) - Counseled on healthy diet and regular exercise - Fall avoidance information provided - Personalized prevention plan provided - Discussed need for and benefit of weight loss. BMI 27.79 kg/(m2) Wojciech Alvarado DO [facility] 12-19-2024 Telephone encounter Note Turned into refill encounter and sent to provider. [facility] 12-19-2024 Miscellaneous Notes Turned into refill encounter and sent to provider. documented in this encounter [facility] 12-19-2024 Telephone encounter Note Prescription Refill Information The patient has been identified by name and date of : Yes Caregiver verified no other encounters exist for this prescription request: Yes Caregiver confirmed with patient/requestor that no other refills are due, in the near future, with this provider at this time: Yes 10/06/24 The last office visit in the department: Does the patient have a future office visit with this provider/department: Yes Requested Prescriptions Pending Prescriptions Disp Refills rosuvastatin (CRESTOR) 10 mg tablet 90 tablet 3 Sig: Take 1 tablet by mouth daily at bedtime. Anay Pulido LPN December 19, 2024 12:54 PM [facility] 12-19-2024 Miscellaneous Notes Prescription Refill Information The patient has been identified by name and date of : Yes Caregiver verified no other encounters exist for this prescription request: Yes Caregiver confirmed with patient/requestor that no other refills are due, in the near future, with this provider at this time: Yes 10/06/24 The last office visit in the department: Does the patient have a future office visit with this provider/department: Yes Requested Prescriptions Pending Prescriptions Disp Refills rosuvastatin (CRESTOR) 10 mg tablet 90 tablet 3 Sig: Take 1 tablet by mouth daily at bedtime. Anay Pulido LPN December 19, 2024 12:54 PM documented in this encounter [facility] 12-03-2024 Telephone encounter Note Prescription Refill Information The patient has been identified by name and date of : Yes Caregiver verified no other encounters exist for this prescription request: Yes Caregiver confirmed with patient/requestor that no other refills are due, in the near future, with this provider at this time: Yes The last office visit in the department: 10/06/24 Does the patient have a future office visit with this provider/department: Yes Requested Prescriptions Pending Prescriptions Disp Refills metFORMIN (GLUCOPHAGE) 500 mg tablet [Pharmacy Med Name: METFORMIN HCL 500MG TABS] 270 tablet 1 Sig: TAKE ONE TABLET BY MOUTH THREE TIMES A DAY WITH MEALS FOR DIABETES Fara Bermeo LPN December 03, 2024 11:45 AM [facility] 12-03-2024 Miscellaneous Notes Prescription Refill Information The patient has been identified by name and date of : Yes Caregiver verified no other encounters exist for this prescription request: Yes Caregiver confirmed with patient/requestor that no other refills are due, in the near future, with this provider at this time: Yes The last office visit in the department: 10/06/24 Does the patient have a future office visit with this provider/department: Yes Requested Prescriptions Pending Prescriptions Disp Refills metFORMIN (GLUCOPHAGE) 500 mg tablet [Pharmacy Med Name: METFORMIN HCL 500MG TABS] 270 tablet 1 Sig: TAKE ONE TABLET BY MOUTH THREE TIMES A DAY WITH MEALS FOR DIABETES Fara Bermeo LPN December 03, 2024 11:45 AM documented in this encounter [facility] 11-14-2024 Telephone encounter Note Order faxed to [facility]. Pt. informed. [facility] 11-14-2024 Miscellaneous Notes Order faxed to [facility]. Pt. informed. Patient calling in asking if her mammogram order can be faxed over to [facility]. Please review and advise. Sneha Sutton November 14, 2024 2:53 PM documented in this encounter [facility] 11-14-2024 Telephone encounter Note Patient calling in asking if her mammogram order can be faxed over to [facility]. Please review and advise. Sneha Sutton November 14, 2024 2:53 PM [facility] 10-31-2024 Telephone encounter Note Can you please send script as pended per pt request Sheri Welch MA [facility] 10-31-2024 Miscellaneous Notes Can you please send script as pended per pt request Sheri Welch MA That is okay Wojciech Alvarado DO Radha is calling Wojciech Alvarado DO today regarding Patient Question (Appointment cancellation) Patient is scheduled for 11-17-24 with a 6 week BP check, but states she has been checking at home and does not have any concerns and would like to cancel the appointment in October and keep the physical in December. Please call patient to confirm or deny. Patient has been identified by name and birthdate. Duration of symptoms: N/A Person calling: self Call patient at: at home [phone] (home) [phone] (cell) Was an appointment scheduled: No Closing statement: Cici Gonzales documented in this encounter [facility] 10-31-2024 Telephone encounter Note That is maia Alvarado DO [facility] 10-31-2024 Miscellaneous Notes Prescription Refill Information The patient has been identified by name and date of : Yes Caregiver verified no other encounters exist for this prescription request: Yes Caregiver confirmed with patient/requestor that no other refills are due, in the near future, with this provider at this time: Yes The last office visit in the department: 10/06/2024 Does the patient have a future office visit with this provider/department: Yes Requested Prescriptions Pending Prescriptions Disp Refills amLODIPine (NORVASC) 5 mg tablet 30 tablet 2 Sig: Take 1 tablet by mouth once daily. Sheri Welch MA October 31, 2024 11:40 AM Prescription Refill Information The patient has been identified by name and date of : Yes Caregiver verified no other encounters exist for this prescription request: Yes Caregiver confirmed with patient/requestor that no other refills are due, in the near future, with this provider at this time: Yes The last office visit in the department: 10-06-24 Does the patient have a future office visit with this provider/department: Yes Requested Prescriptions Pending Prescriptions Disp Refills amLODIPine (NORVASC) 5 mg tablet 30 tablet 2 Sig: Take 1 tablet by mouth once daily. Cici Gonzales October 31, 2024 10:50 AM documented in this encounter [facility] 10-31-2024 Telephone encounter Note Prescription Refill Information The patient has been identified by name and date of : Yes Caregiver verified no other encounters exist for this prescription request: Yes Caregiver confirmed with patient/requestor that no other refills are due, in the near future, with this provider at this time: Yes The last office visit in the department: 10/06/2024 Does the patient have a future office visit with this provider/department: Yes Requested Prescriptions Pending Prescriptions Disp Refills amLODIPine (NORVASC) 5 mg tablet 30 tablet 2 Sig: Take 1 tablet by mouth once daily. Sheri Welch MA October 31, 2024 11:40 AM [facility] 10-31-2024 Telephone encounter Note Radha is calling Wojciech Alvarado DO today regarding Patient Question (Appointment cancellation) Patient is scheduled for 11-17-24 with a 6 week BP check, but states she has been checking at home and does not have any concerns and would like to cancel the appointment in October and keep the physical in December. Please call patient to confirm or deny. Patient has been identified by name and birthdate. Duration of symptoms: N/A Person calling: self Call patient at: at home [phone] (home) [phone] (cell) Was an appointment scheduled: No Closing statement: Cici Gonzales [facility] Work Phone: 10-31-2024 Telephone encounter Note Prescription Refill Information The patient has been identified by name and date of : Yes Caregiver verified no other encounters exist for this prescription request: Yes Caregiver confirmed with patient/requestor that no other refills are due, in the near future, with this provider at this time: Yes The last office visit in the department: 10-06-24 Does the patient have a future office visit with this provider/department: Yes Requested Prescriptions Pending Prescriptions Disp Refills amLODIPine (NORVASC) 5 mg tablet 30 tablet 2 Sig: Take 1 tablet by mouth once daily. Cici Gonzales October 31, 2024 10:50 AM [facility] 10-07-2024 Note HNO ID: [id number] Author: HALLE MESSINA APRN.CREATIVE COORDINATOR Service: ? Author Type: Nurse Practitioner Type: Progress Notes Filed: 10/07/2024 14:53 Note Text: 10/07/2024 Recording using Dot VN software for draft documentation of the visit was discussed with the patient/authorized packaging sales representative; all questions welcomed and answered. Patient/authorized packaging sales representative agreed to proceed HPI: Radha is a 69-year-old female with a history of HTN, presenting for follow-up and evaluation of upper abdominal pain. Hypertension: - Home BP readings vary widely, ranging from 139-159 mmHg systolic and into the 90s diastolic. - Previously maintained consistent readings of 120-125/80 mmHg on two medications. - BP became uncontrolled while in [place], leading to multiple medication adjustments. - Experiences dizziness and a sensation of potential syncope during outdoor work when BP is elevated. - Denies significant differences in BP readings between arms; cuff was calibrated in [place]. - Brief history of smoking in college. Upper Abdominal Pain: - Persistent midsection pain since July, described as spasmodic and tender to palpation. - Pain is exacerbated by lying on back or stomach, causing sleep disturbances. - Spasms are intermittent, but tenderness is constant. - Decreased appetite and early satiety; feels bloated after consuming a full meal. - Denies SOB, pain between shoulder blades, bowel changes, or vaginal bleeding. - Cholecystectomy performed in July of the previous year. PAST MEDICAL HISTORY Diagnosis Date Allergic rhinitis Broken ankle 03/2011 Carpal tunnel syndrome on both sides Diverticulosis of colon (without mention of hemorrhage) Essential hypertension, benign Hair loss disorder familial/genetic per Body Stylist Impaired fasting blood sugar Mild pulmonary valve insufficiency 01/2016 Osteopenia of multiple sites 11/2020 repeat BMD 11/2022 Post menopausal syndrome Screening for colon cancer 11/12/2016 Screening for colon cancer 11/12/2016 Sleep apnea 05/2011 uses CPAP machine at night Variants of migraine, not elsewhere classified, without mention of intractable migraine without mention of status migrainosus in the past, believes were hormonal, haven't had for about 2 yrs. now. Current Outpatient Medications on File Prior to Visit Medication Sig amLODIPine (NORVASC) 5 mg tablet Take 1 tablet by mouth once daily. lisinopril (ZESTRIL) 40 mg tablet Take 1 tablet by mouth once daily. metFORMIN (GLUCOPHAGE) 500 mg tablet Take 1 tablet by mouth three times a day. With meals, For diabetes venlafaxine ER (EFFEXOR XR) 75 mg 24 hr capsule Take 1 capsule by mouth once daily. rosuvastatin (CRESTOR) 10 mg tablet Take 1 tablet by mouth daily at bedtime. multivitamins(DAILY MULTIVITAMIN TAB) Take one(1) tablet daily. CALTRATE-600 PLUS VITAMIN D3 600 MG-400 UNIT TAB Take one(1) tablet daily. No current facility-administered medications on file prior to visit. Review of Systems: Constitutional: (+) generalized discomfort, (+) sleep disturbance Head: (no current symptoms reported) Eyes: (no current symptoms reported) Ears/Nose/Mouth/Throat: (no current symptoms reported) Neck: (no current symptoms reported) Cardiovascular: (no current symptoms reported) Respiratory: (-) shortness of breath Gastrointestinal: (+) mid abdominal pain, (+) abdominal tenderness, (+) bloating, (+) decreased appetite, (-) bowel changes Genitourinary: (no current symptoms reported) Musculoskeletal: (no current symptoms reported) Skin: (no current symptoms reported) Neurological: (+) dizziness, (-) syncope Psychiatric: (no current symptoms reported) Endocrine: (no current symptoms reported) Hematologic/Lymphatic: (no current symptoms reported) Physical Exam: BP 132/86 (BP Site: Left Arm, BP Position: Sitting, BP Cuff Size: Regular Adult) Pulse 75 Wt 69.6 kg (153 lb 6.4 oz) SpO2 98% BMI 28.41 kg/m? GENERAL: NAD, alert and oriented. LUNGS: Clear to auscultation bilaterally, no wheezes/rhonchi/rales. HEART: Regular rate and rhythm, no murmurs. No ectopy. EXTREMITIES: Normal, no deformities, no skin discoloration, no edema. ABDOMEN: Tenderness noted in the upper abdomen, particularly above the umbilicus. No tenderness around or below the umbilicus. No hepatosplenomegaly noted. Bowel sounds present. NEURO: Awake, alert and oriented x3, cranial nerves II-XII grossly intact, normal gait, no involuntary motions. PSYCHIATRIC: pleasant, cooperative Diagnostics Reviewed: Assessment/Plan: 1. Essential (primary) hypertension (I10) - Continue current medication regimen - Prescribed an as-needed antihypertensive medication for systolic readings >150 mmHg. - Advised patient to monitor blood pressure regularly and log instances when as-needed medication is used. To bring her home cuff to correlate at next visit. - Follow-up in 6 weeks to reassess blo (more content not included)... [facility] 10-07-2024 History of Present illness Narrative 10/07/2024 Recording using Dot VN software for draft documentation of the visit was discussed with the patient/authorized packaging sales representative; all questions welcomed and answered. Patient/authorized packaging sales representative agreed to proceed HPI: Radha is a 69-year-old female with a history of HTN, presenting for follow-up and evaluation of upper abdominal pain. Hypertension: - Home BP readings vary widely, ranging from 139-159 mmHg systolic and into the 90s diastolic. - Previously maintained consistent readings of 120-125/80 mmHg on two medications. - BP became uncontrolled while in [place], leading to multiple medication adjustments. - Experiences dizziness and a sensation of potential syncope during outdoor work when BP is elevated. - Denies significant differences in BP readings between arms; cuff was calibrated in [place]. - Brief history of smoking in college. Upper Abdominal Pain: - Persistent midsection pain since July, described as spasmodic and tender to palpation. - Pain is exacerbated by lying on back or stomach, causing sleep disturbances. - Spasms are intermittent, but tenderness is constant. - Decreased appetite and early satiety; feels bloated after consuming a full meal. - Denies SOB, pain between shoulder blades, bowel changes, or vaginal bleeding. - Cholecystectomy performed in July of the previous year. PAST MEDICAL HISTORY Diagnosis Date Allergic rhinitis Broken ankle 03/2011 Carpal tunnel syndrome on both sides Diverticulosis of colon (without mention of hemorrhage) Essential hypertension, benign Hair loss disorder familial/genetic per Body Stylist Impaired fasting blood sugar Mild pulmonary valve insufficiency 01/2016 Osteopenia of multiple sites 11/2020 repeat BMD 11/2022 Post menopausal syndrome Screening for colon cancer 11/12/2016 Screening for colon cancer 11/12/2016 Sleep apnea 05/2011 uses CPAP machine at night Variants of migraine, not elsewhere classified, without mention of intractable migraine without mention of status migrainosus in the past, believes were hormonal, haven't had for about 2 yrs. now. Current Outpatient Medications on File Prior to Visit Medication Sig amLODIPine (NORVASC) 5 mg tablet Take 1 tablet by mouth once daily. lisinopril (ZESTRIL) 40 mg tablet Take 1 tablet by mouth once daily. metFORMIN (GLUCOPHAGE) 500 mg tablet Take 1 tablet by mouth three times a day. With meals, For diabetes venlafaxine ER (EFFEXOR XR) 75 mg 24 hr capsule Take 1 capsule by mouth once daily. rosuvastatin (CRESTOR) 10 mg tablet Take 1 tablet by mouth daily at bedtime. multivitamins(DAILY MULTIVITAMIN TAB) Take one(1) tablet daily. CALTRATE-600 PLUS VITAMIN D3 600 MG-400 UNIT TAB Take one(1) tablet daily. No current facility-administered medications on file prior to visit. Review of Systems: Constitutional: (+) generalized discomfort, (+) sleep disturbance Head: (no current symptoms reported) Eyes: (no current symptoms reported) Ears/Nose/Mouth/Throat: (no current symptoms reported) Neck: (no current symptoms reported) Cardiovascular: (no current symptoms reported) Respiratory: (-) shortness of breath Gastrointestinal: (+) mid abdominal pain, (+) abdominal tenderness, (+) bloating, (+) decreased appetite, (-) bowel changes Genitourinary: (no current symptoms reported) Musculoskeletal: (no current symptoms reported) Skin: (no current symptoms reported) Neurological: (+) dizziness, (-) syncope Psychiatric: (no current symptoms reported) Endocrine: (no current symptoms reported) Hematologic/Lymphatic: (no current symptoms reported) Physical Exam: BP 132/86 (BP Site: Left Arm, BP Position: Sitting, BP Cuff Size: Regular Adult) Pulse 75 Wt 69.6 kg (153 lb 6.4 oz) SpO2 98% BMI 28.41 kg/m GENERAL: NAD, alert and oriented. LUNGS: Clear to auscultation bilaterally, no wheezes/rhonchi/rales. HEART: Regular rate and rhythm, no murmurs. No ectopy. EXTREMITIES: Normal, no deformities, no skin discoloration, no edema. ABDOMEN: Tenderness noted in the upper abdomen, particularly above the umbilicus. No tenderness around or below the umbilicus. No hepatosplenomegaly noted. Bowel sounds present. NEURO: Awake, alert and oriented x3, cranial nerves II-XII grossly intact, normal gait, no involuntary motions. PSYCHIATRIC: pleasant, cooperative Diagnostics Reviewed: Assessment/Plan: 1. Essential (primary) hypertension (I10) - Continue current medication regimen - Prescribed an as-needed antihypertensive medication for systolic readings >150 mmHg. - Advised patient to monitor blood pressure regularly and log instances when as-needed medication is used. To bring her home cuff to correlate at next visit. - Follow-up in 6 weeks to reassess blood pressure control and medication efficacy. 2. Pain of upper abdomen (R10.10) 3. Decreased appetite (R63.0) 4. Early satiety (R68.81) 5. Bloating (R14.0) - Persistent upper abdominal pain with tenderness on palpation, described as spasmodic and constant since July. - Pain exacerbated by certain positions and associated with decreased appetite and early satiety. - Ordered CT scan of the abdomen and pelvis with contrast to evaluate for potential causes such as retained gallstones or other abdominal pathology. - Scheduled CT scan for today if possible. - Patient to report any significant changes or worsening of symptoms. The patient indicates understanding of these issues and agrees with the plan. Red flag symptoms reviewed as needed. Follow up: Halle Messina APRN.CREATIVE COORDINATOR documented in this encounter [facility] 10-06-2024 History of Present illness Narrative Radiology Service Progress Note DATE OF SERVICE: October 06, 2024 TIME: 1:49 PM PATIENT IDENTITY VERIFICATION COMPLETED USING TWO (2) STANDARD IDENTIFIERS: Name and Date of confirmed by patient verbally. FALL SCREENING: Has the patient had 2 falls in the last year or 1 fall with injury or currently using an Ambulatory Assistive Device (Walker, Cane, Wheelchair, Crutches, etc.)? No PATIENT GENDER DATA: Assigned female at . status: : No status: NO. PATIENT RELEVANT IMPLANT DATA REVIEWED: Not Applicable PATIENT PRESENTS WITH AN IMPLANTABLE OR ATTACHED GRADER MEAT: No ALLERGIES: Reviewed and unchanged CONTRAST ALLERGY: NO. EXAM: CT -CONTRAST INDUCED NEPHROPATHY RISK FACTORS: Patient age > 60 years CREATININE: Creatinine Date Value Ref Range Status 09/02/2024 0.94 0.58 - 0.96 mg/dL Final 06/24/2024 1.09 (H) 0.58 - 0.96 mg/dL Final 01/25/2024 1.06 (H) 0.58 - 0.96 mg/dL Final Estimated Glomerular Filtration Rate Date Value Ref Range Status 09/02/2024 66 >=60 mL/min/1.73m Final Comment: Estimated Glomerular Filtration Rate (eGFR) is calculated using the 2020 CKD-EPI creatinine equation. This equation utilizes serum creatinine, sex, and age as parameters. The creatinine assay has traceable calibration to isotope dilution-mass spectrometry. Refer to KDIGO guidelines for clinical interpretation. In patients with unstable renal function, e.g. those with acute kidney injury, the eGFR may not accurately reflect actual GFR. eGFR- Date Value Ref Range Status 11/30/2020 >60 Final P.O.C.T. RESULTS: POC done: Yes, See Lab Tab October 06, 2024 TREATMENT: N/A PERIPHERAL IV DATA: Ambulatory: A peripheral IV was started in the Right antecubital site with a Angio cath: 22 gauge. RADIOLOGY DEPARTMENT: CT; Exam(s) Completed: Abdomen/Pelvis SIGNATURE: JAZMIN Acosta PATIENT NAME: Radha Brown DATE: October 06, 2024 TIME: 1:49 PM documented in this encounter [facility] 10-06-2024 Note HNO ID: [id number] Author: VLADIMIR MUSA CT Service: Radiology Author Type: International Guest Coordinator Type: Progress Notes Filed: 10/06/2024 13:50 Note Text: Radiology Service Progress Note DATE OF SERVICE: October 06, 2024 TIME: 1:49 PM PATIENT IDENTITY VERIFICATION COMPLETED USING TWO (2) STANDARD IDENTIFIERS: Name and Date of confirmed by patient verbally. FALL SCREENING: Has the patient had 2 falls in the last year or 1 fall with injury or currently using an Ambulatory Assistive Device (Walker, Cane, Wheelchair, Crutches, etc.)? No PATIENT GENDER DATA: Assigned female at . status: : No status: NO. PATIENT RELEVANT IMPLANT DATA REVIEWED: Not Applicable PATIENT PRESENTS WITH AN IMPLANTABLE OR ATTACHED GRADER MEAT: No ALLERGIES: Reviewed and unchanged CONTRAST ALLERGY: NO. EXAM: CT -CONTRAST INDUCED NEPHROPATHY RISK FACTORS: Patient age > 60 years CREATININE: Creatinine Date Value Ref Range Status 09/02/2024 0.94 0.58 - 0.96 mg/dL Final 06/24/2024 1.09 (H) 0.58 - 0.96 mg/dL Final 01/25/2024 1.06 (H) 0.58 - 0.96 mg/dL Final Estimated Glomerular Filtration Rate Date Value Ref Range Status 09/02/2024 66 >=60 mL/min/1.73m? Final Comment: Estimated Glomerular Filtration Rate (eGFR) is calculated using the 2020 CKD-EPI creatinine equation. This equation utilizes serum creatinine, sex, and age as parameters. The creatinine assay has traceable calibration to isotope dilution-mass spectrometry. Refer to KDIGO guidelines for clinical interpretation. In patients with unstable renal function, e.g. those with acute kidney injury, the eGFR may not accurately reflect actual GFR. eGFR- Date Value Ref Range Status 11/30/2020 >60 Final P.O.C.T. RESULTS: POC done: Yes, See Lab Tab October 06, 2024 TREATMENT: N/A PERIPHERAL IV DATA: Ambulatory: A peripheral IV was started in the Right antecubital site with a Angio cath: 22 gauge. RADIOLOGY DEPARTMENT: CT; Exam(s) Completed: Abdomen/Pelvis SIGNATURE: JAZMIN Acosta PATIENT NAME: Radha Brown DATE: October 06, 2024 TIME: 1:49 PM [facility] 09-08-2024 Note HNO ID: [id number] Author: HALLE MESSINA APRN.MALINDA Service: ? Author Type: Nurse Practitioner Type: Progress Notes Filed: 09/08/2024 08:11 Note Text: Chief Complaint Patient presents with: Hypertension HPI Radha Brown is a 68 year old female who presents here today for Above Complaints.. HTN- Amlodipine 2.5mg once daily - started a couple weeks ago Lisinopril 40mg once daily(recently increased from 20mg on 08/11) Monitors BP at home, average readings: 150-180 / 80-90 taken at various times of the day Denies chest pain, headaches, swelling, vision changes. Past medical history, appointments, medications, allergies reviewed. 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 now. Previous Surgical History PAST SURGICAL HISTORY Procedure Laterality Date COLONOSCOPY FLX DX W/COLLJ SPEC WHEN PFRMD 09/15/2006 Colonoscopy NEUROPLASTY AND/TRANSPOS MEDIAN NRV CARPAL TUNNE Bilateral 11/10/2014 Bilateral CTR PAST SURGICAL HISTORY OF 09/29/2010 Right wrist dequervaine release PAST SURGICAL HISTORY OF 11/29/2008 Left foot calcium buildup metatarsal removal REMOVAL GALLBLADDER N/A 08/24/2022 REMV CATARACT EXTRACAP,INSERT LENS Bilateral TONSILLECTOMY AND ADENOIDECTOMY AGE 11/> TOTAL HIP REPLACEMENT Right 05/05/2022 UNSPECIFIED ORAL SURGERY PROCEDURE, BY REPORT 2 wisdom teeth removed. Family History FAMILY HISTORY Adopted: Yes Problem Relation Age of Onset other (ADOPTED, NO KNOWN HISTORY) Other Patient Allergies ALLERGIES No Known Allergies Current Medications Current Outpatient Medications on File Prior to Visit Medication Sig amLODIPine (NORVASC) 2.5 mg tablet Take 1 tablet by mouth once daily. lisinopril (ZESTRIL) 40 mg tablet Take 1 tablet by mouth once daily. metFORMIN (GLUCOPHAGE) 500 mg tablet Take 1 tablet by mouth three times a day. With meals, For diabetes metFORMIN (GLUCOPHAGE) 500 mg tablet Take 1 tablet by mouth three times a day. With meals, For diabetes venlafaxine ER (EFFEXOR XR) 75 mg 24 hr capsule Take 1 capsule by mouth once daily. rosuvastatin (CRESTOR) 10 mg tablet Take 1 tablet by mouth daily at bedtime. multivitamins(DAILY MULTIVITAMIN TAB) Take one(1) tablet daily. CALTRATE-600 PLUS VITAMIN D3 600 MG-400 UNIT TAB Take one(1) tablet daily. No current facility-administered medications on file prior to visit. Social History Social History Tobacco Use Smoking status: Never Smokeless tobacco: Never Vaping Use Vaping status: Never Used Substance Use Topics Alcohol use: Yes Alcohol/week: 3.3 standard drinks of alcohol Types: 1 Glasses of Wine (5oz), 1 Cans of Beer (12oz), 1 Mixed Drinks per week Comment: seldom to occasionally Drug use: No Review of Symptoms REVIEW OF SYSTEMS See HPI, otherwise negative EXAM: There were no vitals taken for this visit. General Appearance: Well appearing, alert, in no acute distress, well-hydrated, well nourished.. Lungs: Lungs clear to auscultation. No wheezing, rhonchi, rales.. Heart: RRR without murmur, gallop, or rubs. No ectopy. Psychiatric: [facility] Maintenance [facility] Mammogram Screening due on 01/15/2023 Diabetic Foot Exam due on 12/24/2023 BP Controlled (<130/80) due on 03/27/2024 Dilated Retinal Exam due on 05/13/2024 DTaP,Tdap,Td Vaccine(2 - Td or Tdap) due on 10/15/2024 Covid-19 Vaccine() due on 05/18/2025 HbA1C due on 03/04/2025 Annual PCP Team Chronic Disease Visit due on 08/11/2025 Urine Albumin:Creatinine Ratio due on 09/02/2025 LDL Cholesterol due on 09/02/2025 Colorectal Cancer Screening due on 11/28/2026 Bone Density Screening Completed Influenza Vaccine Completed RSV Vaccine Completed Hepatitis C Screening Completed Shingrix Vaccine Completed Pneumococcal Vaccine: 50+ Completed Advance Directive Discussion Discontinued Data reviewed ASSESSMENT/PLAN: 1. Essential hypertension - ICD9: 401.9, ICD10: I10 (primary diagnosis) - Improving control - Increase Amlodipine 2.5 mg to 5mg once daily - Continue Lisinopril 40mg once daily - Recommend home blood pressure monitoring, to bring results to next visit - Encouraged sodium restriction, DASH or Mediterranean diet - Recommend regular (more content not included)... [facility] 09-08-2024 History of Present illness Narrative Chief Complaint Patient presents with: Hypertension HPI Radha Brown is a 68 year old female who presents here today for Above Complaints.. HTN- Amlodipine 2.5mg once daily - started a couple weeks ago Lisinopril 40mg once daily(recently increased from 20mg on 08/11) Monitors BP at home, average readings: 150-180 / 80-90 taken at various times of the day Denies chest pain, headaches, swelling, vision changes. Past medical history, appointments, medications, allergies reviewed. 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 now. Previous Surgical History PAST SURGICAL HISTORY Procedure Laterality Date COLONOSCOPY FLX DX W/COLLJ SPEC WHEN PFRMD 09/15/2006 Colonoscopy NEUROPLASTY &/TRANSPOS MEDIAN NRV CARPAL TUNNE Bilateral 11/10/2014 Bilateral CTR PAST SURGICAL HISTORY OF 09/29/2010 Right wrist dequervaine release PAST SURGICAL HISTORY OF 11/29/2008 Left foot calcium buildup metatarsal removal REMOVAL GALLBLADDER N/A 08/24/2022 REMV CATARACT EXTRACAP,INSERT LENS Bilateral TONSILLECTOMY & ADENOIDECTOMY AGE 11/> TOTAL HIP REPLACEMENT Right 05/05/2022 UNSPECIFIED ORAL SURGERY PROCEDURE, BY REPORT 2 wisdom teeth removed. Family History FAMILY HISTORY Adopted: Yes Problem Relation Age of Onset other (ADOPTED, NO KNOWN HISTORY) Other Patient Allergies ALLERGIES No Known Allergies Current Medications Current Outpatient Medications on File Prior to Visit Medication Sig amLODIPine (NORVASC) 2.5 mg tablet Take 1 tablet by mouth once daily. lisinopril (ZESTRIL) 40 mg tablet Take 1 tablet by mouth once daily. metFORMIN (GLUCOPHAGE) 500 mg tablet Take 1 tablet by mouth three times a day. With meals, For diabetes metFORMIN (GLUCOPHAGE) 500 mg tablet Take 1 tablet by mouth three times a day. With meals, For diabetes venlafaxine ER (EFFEXOR XR) 75 mg 24 hr capsule Take 1 capsule by mouth once daily. rosuvastatin (CRESTOR) 10 mg tablet Take 1 tablet by mouth daily at bedtime. multivitamins(DAILY MULTIVITAMIN TAB) Take one(1) tablet daily. CALTRATE-600 PLUS VITAMIN D3 600 MG-400 UNIT TAB Take one(1) tablet daily. No current facility-administered medications on file prior to visit. Social History Social History Tobacco Use Smoking status: Never Smokeless tobacco: Never Vaping Use Vaping status: Never Used Substance Use Topics Alcohol use: Yes Alcohol/week: 3.3 standard drinks of alcohol Types: 1 Glasses of Wine (5oz), 1 Cans of Beer (12oz), 1 Mixed Drinks per week Comment: seldom to occasionally Drug use: No Review of Symptoms REVIEW OF SYSTEMS See HPI, otherwise negative EXAM: There were no vitals taken for this visit. General Appearance: Well appearing, alert, in no acute distress, well-hydrated, well nourished.. Lungs: Lungs clear to auscultation. No wheezing, rhonchi, rales.. Heart: RRR without murmur, gallop, or rubs. No ectopy. Psychiatric: pleasant, cooperative Health Maintenance List Mammogram Screening due on 01/15/2023 Diabetic Foot Exam due on 12/24/2023 BP Controlled (<130/80) due on 03/27/2024 Dilated Retinal Exam due on 05/13/2024 DTaP,Tdap,Td Vaccine(2 - Td or Tdap) due on 10/15/2024 Covid-19 Vaccine() due on 05/18/2025 HbA1C due on 03/04/2025 Annual PCP Team Chronic Disease Visit due on 08/11/2025 Urine Albumin:Creatinine Ratio due on 09/02/2025 LDL Cholesterol due on 09/02/2025 Colorectal Cancer Screening due on 11/28/2026 Bone Density Screening Completed Influenza Vaccine Completed RSV Vaccine Completed Hepatitis C Screening Completed Shingrix Vaccine Completed Pneumococcal Vaccine: 50+ Completed Advance Directive Discussion Discontinued Data reviewed ASSESSMENT/PLAN: 1. Essential hypertension - ICD9: 401.9, ICD10: I10 (primary diagnosis) - Improving control - Increase Amlodipine 2.5 mg to 5mg once daily - Continue Lisinopril 40mg once daily - Recommend home blood pressure monitoring, to bring results to next visit - Encouraged sodium restriction, DASH or Mediterranean diet - Recommend regular aerobic exercise - AMLODIPINE 5 MG TABLET 2. Uncontrolled type 2 diabetes mellitus with hyperglycemia (HCC) - ICD9: 250.02, ICD10: E11.65 - Improving control - Continue current medications 3. Dyslipidemia - ICD9: 272.4, ICD10: E78.5 - Improving control - Continue current medications - Counseled on healthy diet and regular exercise Follow-up in one month for BP check Maria Dolores Dobbins Attending Note I have personally performed a face to face assessment of the patient and have reviewed the ERICKA note and I agree. Other additions or changes: As edited Signature: Halle Messina Date: 09/08/2024 Time: 8:10 AM documented in this encounter [facility] 09-01-2024 Telephone encounter Note Patient returned call and scheduled appt with Bebe Messina NP for 09/07/2024 since blood pressure is elevated lately. [facility] 09-01-2024 Miscellaneous Notes Patient returned call and scheduled appt with Bebe Messina NP for 09/07/2024 since blood pressure is elevated lately. Pt read Eayun msg with no response. Attempted to call pt and left msg to return the call. Pt active on . Sent pt mc message. Sheri Welch MA There is no openings in either 1st or second week of August in Dr. Posadas schedule. Called pt to let know of this . Asked to return call to schedule with one of director foundation. Anay was looking into this to see if there was any opening in Dr. Alvarado's schedule but I did tell her this was very unlikely. Please scheduled with TRANSFER MACHINE OPERATOR if nothing available. Rx sent to correct place as pended. Thank you, Casi Aponte APRN.CREATIVE COORDINATOR Patient calls to request lisinopril be sent to correct pharmacy [facility] from visit yesterday with Casi. Pended. Patient also asking about upcoming appointment for first week in August that she was told at visit with Casi yesterday that staff would be reaching out to her to fit her in schedule to see Dr. Alvarado the first week of August. Provider is not available first week in August and has no availability the second week that this nurse can schedule. Please review and advise, Nehemiah Rene RN documented in this encounter [facility] 09-01-2024 Telephone encounter Note Pt read MyChart msg with no response. Attempted to call pt and left msg to return the call. [facility] 08-31-2024 Telephone encounter Note Pt active on MC. Sent pt mc message. Sheri Welch MA [facility] 08-17-2024 Telephone encounter Note There is no openings in either or second week of August in Dr. Posadas schedule. Called pt to let know of this . Asked to return call to schedule with one of director foundation. [facility] 08-17-2024 Telephone encounter Note Anay was looking into this to see if there was any opening in Dr. Alvarado's schedule but I did tell her this was very unlikely. Please scheduled with TRANSFER MACHINE OPERATOR if nothing available. Rx sent to correct place as pended. Thank you, Casi Aponte APRN.CREATIVE COORDINATOR [facility] 08-12-2024 Telephone encounter Note Patient calls to request lisinopril be sent to correct pharmacy [facility] from visit yesterday with Casi. Pended. Patient also asking about upcoming appointment for first week in August that she was told at visit with Casi yesterday that staff would be reaching out to her to fit her in schedule to see Dr. Alvarado the first week of August. Provider is not available first week in August and has no availability the second week that this nurse can schedule. Please review and advise, Nehemiah Rene, SALAS [facility] 08-11-2024 History of Present illness Narrative This Team Access Model visit is a virtual encounter. It required patient-provider interaction for the medical decision making as documented below. Patient agrees to the visit: Yes Patient Location: [place] CC: Patient presents with: Hypertension HPI Radha Brown is a 68 year old female who is contacted today for a virtual visit. This is an established patient of Dr. Wojciech Alvarado DO. Per MCM: Good morning Dr. Alvarado and staff. I have been monitoring my blood pressure after dropping the hydrochlorothiazide and increasing by lisinopril to 20 mg. My highest BP was 176/98, my lowest was 159/87...averaging 154/90. I have been experiencing mild headaches, lack of appetite and an overall blah feeling. I am hoping there can be an adjustment to my medication to correct my numbers and overall health. Thank you. Pt was seen by Dr. Alvarado on 07/05 virtually d/t lightheadedness/dizziness. [place] the cause was d/t HCTZ so this was on hold. 2 weeks later BP was elevated so she was told to increase lisinopril to 20 mg. Concerns today.. HTN -- Current regimen of: lisinopril 20 mg daily. She does check BP at home. Average home readings: 155-175/90s. She does report dizziness has resolved since stopping HCTZ so she does not want to restart this. She denies chest pain, shortness of breath, palpitations, dizziness, leg edema, headaches, or vision changes currently. No other concerns. 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 now. PAST SURGICAL HISTORY Procedure Laterality Date COLONOSCOPY FLX DX W/COLLJ SPEC WHEN PFRMD 09/15/2006 Colonoscopy NEUROPLASTY &/TRANSPOS MEDIAN NRV CARPAL TUNNE Bilateral 11/10/2014 Bilateral CTR PAST SURGICAL HISTORY OF 09/29/2010 Right wrist dequervaine release PAST SURGICAL HISTORY OF 11/29/2008 Left foot calcium buildup metatarsal removal REMOVAL GALLBLADDER N/A 08/24/2022 REMV CATARACT EXTRACAP,INSERT LENS Bilateral TONSILLECTOMY & ADENOIDECTOMY AGE 11/> TOTAL HIP REPLACEMENT Right 05/05/2022 UNSPECIFIED ORAL SURGERY PROCEDURE, BY REPORT 2 wisdom teeth removed. ALLERGIES Patient has no known allergies. MEDICATIONS lisinopril (ZESTRIL) 40 mg tablet Take 1 tablet by mouth once daily. metFORMIN (GLUCOPHAGE) 500 mg tablet Take 1 tablet by mouth three times a day. With meals, For diabetes metFORMIN (GLUCOPHAGE) 500 mg tablet Take 1 tablet by mouth three times a day. With meals, For diabetes venlafaxine ER (EFFEXOR XR) 75 mg 24 hr capsule Take 1 capsule by mouth once daily. blood sugar diagnostic (BLOOD GLUCOSE TEST) test strip Test blood sugar(s) 2 times daily. Dx: Type 2 DM - Uncontrolled E11.65 Insulin: Yes Lancets Test blood sugar(s) 2 times daily. Dx: Type 2 DM - Uncontrolled E11.65 Insulin: No rosuvastatin (CRESTOR) 10 mg tablet Take 1 tablet by mouth daily at bedtime. multivitamins(DAILY MULTIVITAMIN TAB) Take one(1) tablet daily. CALTRATE-600 PLUS VITAMIN D3 600 MG-400 UNIT TAB Take one(1) tablet daily. FAMILY HISTORY Adopted: Yes Problem Relation Age of Onset other (ADOPTED, NO KNOWN HISTORY) Other Social History Tobacco Use Smoking status: Never Smokeless tobacco: Never Vaping Use Vaping status: Never Used Substance Use Topics Alcohol use: Yes Alcohol/week: 3.3 standard drinks of alcohol Types: 1 Glasses of Wine (5oz), 1 Cans of Beer (12oz), 1 Mixed Drinks per week Comment: seldom to occasionally Drug use: No EXAM: Deferred physical exam as visit was completed over the phone Patient is speaking in complete sentences without obvious respiratory distress or audible wheezing. Virtual visit completed using video, limited exam completed. GENERAL: alert and appropriate, in no distress, well-hydrated, well nourished, and happy, smiling, interactive SKIN: no rash noted HEAD: normocephalic, no abnormality or lesion noted DATA REVIEWED: Most recent labs and imaging results. Mammogram Screening due on 01/15/2023 Urine Albumin:Creatinine Ratio due on 09/23/2023 Diabetic Foot Exam due on 12/24/2023 BP Controlled (<130/80) due on 03/27/2024 Dilated Retinal Exam due on 05/13/2024 DTaP,Tdap,Td Vaccine(2 - Td or Tdap) due on 10/15/2024 Covid-19 Vaccine( season) due on 05/18/2025 HbA1C due on 12/22/2024 LDL Cholesterol due on 01/24/2025 Annual PCP Team Chronic Disease Visit due on 07/05/2025 Colorectal Cancer Screening due on 11/28/2026 Bone Density Screening Completed Influenza Vaccine Completed RSV Vaccine Completed Hepatitis C Screening Completed Shingrix Vaccine Completed Pneumococcal Vaccine: 50+ Completed Advance Directive Discussion Discontinued ASSESSMENT/PLAN: 1. Essential hypertension - ICD9: 401.9, ICD10: I10 (primary diagnosis) - Worsening control - Increase lisinopril to 40 mg daily. - Recommend home blood pressure monitoring, to bring results to next visit - Encouraged sodium restriction, DASH or Mediterranean diet - Recommend regular aerobic exercise - Follow up in 4 weeks for hypertension visit - LISINOPRIL 40 MG TABLET Pt would like to see Dr. Alvarado for follow-up to discuss all of this -- ROMULO Cueva will look into this and call patient back. 2. Lightheadedness - ICD9: 780.4, ICD10: R42 Resolved with d/c of HCTZ. - LISINOPRIL 40 MG TABLET Prescription instructions reviewed with patient as applicable. Potential red flag symptoms discussed with the patient. Reviewed appropriate action plan to take if red flag symptoms occur. Patient agreeable to treatment plan. During this patient visit I have spent approximately 15 minutes in counseling regarding treatment options and medications. Casi Aponte APRN.CREATIVE COORDINATOR documented in this encounter [facility] 08-11-2024 Note HNO ID: [id number] Author: CASI APONTE APRN.CNP Service: ? Author Type: Nurse Practitioner Type: Progress Notes Filed: 08/11/2024 15:03 Note Text: This Team Access Model visit is a virtual encounter. It required patient-provider interaction for the medical decision making as documented below. Patient agrees to the visit: Yes Patient Location: [place] CC: Patient presents with: Hypertension HPI Radha Brown is a 68 year old female who is contacted today for a virtual visit. This is an established patient of Dr. Wojciech Alvarado DO. Per MCM: Good morning Dr. Alvarado and staff. I have been monitoring my blood pressure after dropping the hydrochlorothiazide and increasing by lisinopril to 20 mg. My highest BP was 176/98, my lowest was 159/87...averaging 154/90. I have been experiencing mild headaches, lack of appetite and an overall blah feeling. I am hoping there can be an adjustment to my medication to correct my numbers and overall health. Thank you. Pt was seen by Dr. Alvarado on 07/05 virtually d/t lightheadedness/dizziness. [place] the cause was d/t HCTZ so this was on hold. 2 weeks later BP was elevated so she was told to increase lisinopril to 20 mg. Concerns today.. HTN -- Current regimen of: lisinopril 20 mg daily. She does check BP at home. Average home readings: 155-175/90s. She does report dizziness has resolved since stopping HCTZ so she does not want to restart this. She denies chest pain, shortness of breath, palpitations, dizziness, leg edema, headaches, or vision changes currently. No other concerns. 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 now. PAST SURGICAL HISTORY Procedure Laterality Date COLONOSCOPY FLX DX W/COLLJ SPEC WHEN PFRMD 09/15/2006 Colonoscopy NEUROPLASTY AND/TRANSPOS MEDIAN NRV CARPAL TUNNE Bilateral 11/10/2014 Bilateral CTR PAST SURGICAL HISTORY OF 09/29/2010 Right wrist dequervaine release PAST SURGICAL HISTORY OF 11/29/2008 Left foot calcium buildup metatarsal removal REMOVAL GALLBLADDER N/A 08/24/2022 REMV CATARACT EXTRACAP,INSERT LENS Bilateral TONSILLECTOMY AND ADENOIDECTOMY AGE 11/> TOTAL HIP REPLACEMENT Right 05/05/2022 UNSPECIFIED ORAL SURGERY PROCEDURE, BY REPORT 2 wisdom teeth removed. ALLERGIES Patient has no known allergies. MEDICATIONS lisinopril (ZESTRIL) 40 mg tablet Take 1 tablet by mouth once daily. metFORMIN (GLUCOPHAGE) 500 mg tablet Take 1 tablet by mouth three times a day. With meals, For diabetes metFORMIN (GLUCOPHAGE) 500 mg tablet Take 1 tablet by mouth three times a day. With meals, For diabetes venlafaxine ER (EFFEXOR XR) 75 mg 24 hr capsule Take 1 capsule by mouth once daily. blood sugar diagnostic (BLOOD GLUCOSE TEST) test strip Test blood sugar(s) 2 times daily. Dx: Type 2 DM - Uncontrolled E11.65 Insulin: Yes Lancets Test blood sugar(s) 2 times daily. Dx: Type 2 DM - Uncontrolled E11.65 Insulin: No rosuvastatin (CRESTOR) 10 mg tablet Take 1 tablet by mouth daily at bedtime. multivitamins(DAILY MULTIVITAMIN TAB) Take one(1) tablet daily. CALTRATE-600 PLUS VITAMIN D3 600 MG-400 UNIT TAB Take one(1) tablet daily. FAMILY HISTORY Adopted: Yes Problem Relation Age of Onset other (ADOPTED, NO KNOWN HISTORY) Other Social History Tobacco Use Smoking status: Never Smokeless tobacco: Never Vaping Use Vaping status: Never Used Substance Use Topics Alcohol use: Yes Alcohol/week: 3.3 standard drinks of alcohol Types: 1 Glasses of Wine (5oz), 1 Cans of Beer (12oz), 1 Mixed Drinks per week Comment: seldom to occasionally Drug use: No EXAM: Deferred physical exam as visit was completed over the phone Patient is speaking in complete sentences without obvious respiratory distress or audible wheezing. Virtual visit completed using video, limited exam completed. GENERAL: alert and appropriate, in no distress, well-hydrated, well nourished, and happy, smiling, interactive SKIN: no rash noted HEAD: normocephalic, no abnormality or lesion noted DATA REVIEWED: Most recent labs and imaging results. Mammogram Screening due on 01/15/2023 Urine Albumin:Creatinine Ratio due on 09/23/2023 Diabetic Foot Exam due on 12/24/2023 BP Controlled (<130/8 (more content not included)... [facility] 08-11-2024 Telephone encounter Note Pt placed on my scheduled with VV. Will discuss then. Thank you, Casi Aponte APRN.CREATIVE COORDINATOR [facility] 08-11-2024 Miscellaneous Notes Pt placed on my scheduled with VV. Will discuss then. Thank you, Casi Aponte APRN.CREATIVE COORDINATOR Please see pt message below. I contacted pt to schedule appt but she is [place] of state until [place]. Pt reports bp this morning 159/87. Reports since stopping the hydrochlorothiazide she's had headaches in the AM which isn't normal for her. Hoping her medication can be adjusted. Please advise. Good morning Dr. Alvarado and staff. I have been monitoring my blood pressure after dropping the hydrochlorothiazide and increasing by lisinopril to 20 mg. My highest BP was 176/98, my lowest was 159/87...averaging 154/90. I have been experiencing mild headaches, lack of appetite and an overall blah feeling. I am hoping there can be an adjustment to my medication to correct my numbers and overall health. Thank you. documented in this encounter [facility] 08-11-2024 Telephone encounter Note Virtual visit scheduled 08/11 with AD Sheri Welch MA [facility] 08-11-2024 Miscellaneous Notes Virtual visit scheduled 08/11 with AD Sheri Welch MA Can she do a VV to discuss all this at least? Casi Aponte APRN.CREATIVE COORDINATOR Please see pt message. Advised to schedule appt. I contacted pt to schedule appt but she is out of state until August. Pt reports bp this morning 159/87. Reports since stopping the hydrochlorothiazide she's had headaches in the AM which isn't normal for her. Turning into TE. Sheri Welch MA documented in this encounter [facility] 08-11-2024 Telephone encounter Note Can she do a VV to discuss all this at least? Casi Aponte APRN.CREATIVE COORDINATOR [facility] 08-11-2024 Telephone encounter Note Please see pt message below. I contacted pt to schedule appt but she is out of state until August. Pt reports bp this morning 159/87. Reports since stopping the hydrochlorothiazide she's had headaches in the AM which isn't normal for her. Hoping her medication can be adjusted. Please advise. Good morning Dr. Alvarado and staff. I have been monitoring my blood pressure after dropping the hydrochlorothiazide and increasing by lisinopril to 20 mg. My highest BP was 176/98, my lowest was 159/87...averaging 154/90. I have been experiencing mild headaches, lack of appetite and an overall blah feeling. I am hoping there can be an adjustment to my medication to correct my numbers and overall health. Thank you. [facility] 08-11-2024 Telephone encounter Note Please see pt message. Advised to schedule appt. I contacted pt to schedule appt but she is out of state until August. Pt reports bp this morning 159/87. Reports since stopping the hydrochlorothiazide she's had headaches in the AM which isn't normal for her. Turning into TE. Sheri Welch MA [facility] 08-09-2024 Note Patient Outreach (FA MPWS) RADHA BROWN ([id number]) 1955 F NFR Date Time Provider Department 08/09/24 WOJCIECH ALVARADO During your visit today, we recorded the following information about you: Allergies As of Date: 08/09/2024 (No Known Allergies) Date Reviewed: 05/18/2024 Reviewed by: Casi Aponte APRN.CREATIVE COORDINATOR - Fully Assessed Visit Diagnosis:Encounter for screening mammogram for breast cancer [Z12.31] Order(s):NIVIA CRAWFORD [[id number]] Order #: [id number] FUTURE Prescriptions as of 09/09/2024 - amLODIPine (NORVASC) 5 mg tablet Take 1 tablet by mouth once daily. - lisinopril (ZESTRIL) 40 mg tablet Take 1 tablet by mouth once daily. - metFORMIN (GLUCOPHAGE) 500 mg tablet Take 1 tablet by mouth three times a day. With meals, For diabetes - venlafaxine ER (EFFEXOR XR) 75 mg 24 hr capsule Take 1 capsule by mouth once daily. - rosuvastatin (CRESTOR) 10 mg tablet Take 1 tablet by mouth daily at bedtime. - multivitamins(DAILY MULTIVITAMIN TAB) Take one(1) tablet daily. - CALTRATE-600 PLUS VITAMIN D3 600 MG-400 UNIT TAB Take one(1) tablet daily. Problem List As Of Date 08/09/2024 Noted Resolved ANXIETY STATE NOS [F41.1] 09/17/2005 ATROPHIC VAGINITIS [N95.2] 09/23/2006 Essential Hypertension, Benign [I10] 10/26/2008 12/11/2009 Post Menopausal Syndrome [N95.1] 12/11/2009 Cough [R05.9] 12/11/2009 11/03/2014 HBP (high blood pressure) [I10] 12/11/2009 11/03/2014 Metabolic Syndrome [E88.810] 12/11/2009 Ankle fracture, left [S82.892A] 04/25/2011 11/03/2014 Obstructive sleep apnea of adult [G47.33] 09/08/2011 Essential hypertension [I10] 09/02/2012 Hypokalemia [E87.6] 12/09/2012 11/03/2014 Allergic rhinitis [J30.9] 11/08/2013 Carpal tunnel syndrome on both sides [G56.03] 11/08/2013 Mixed hyperlipidemia [E78.2] 04/22/2016 Screening for colon cancer [Z12.11] 11/12/2016 12/05/2021 Impaired fasting glucose [R73.01] 12/01/2016 Contact dermatitis [L25.9] 12/01/2016 Right hip pain [M25.551] 12/01/2016 Cough [R05.9] 12/01/2016 Well adult exam [Z00.00] 12/01/2016 12/05/2021 Type 2 diabetes mellitus with hyperglycemia (HC*09/24/2022 Anxiety and depression [F41.9, F32.A] 12/10/2020 Left wrist pain [M25.532] 12/10/2020 Essential tremor [G25.0] 12/10/2020 Osteopenia of multiple sites [M85.89] 11/2020 Primary osteoarthritis of right hip [M16.11] 12/10/2021 Lightheadedness [R42] 12/10/2021 RAMIREZ (dyspnea on exertion) [R06.09] 12/10/2021 Dyslipidemia [E78.5] 12/10/2021 Sweating disease [B33.8] 12/24/2022 Uncontrolled type 2 diabetes mellitus with hype*12/24/2022 Elevated serum creatinine [R79.89] 07/08/2024 Encounter Status:Closed by [employer] on 09/09/24 [facility] 07-20-2024 Telephone encounter Note Turned into TE Sheri Welch MA [facility] 07-20-2024 Miscellaneous Notes Turned into TE Sheri Welch MA documented in this encounter [facility] 07-11-2024 Telephone encounter Note Prescription Refill Information The patient has been identified by name and date of : Yes Caregiver verified no other encounters exist for this prescription request: Yes Caregiver confirmed with patient/requestor that no other refills are due, in the near future, with this provider at this time: Yes The last office visit in the department: 07/05/24 Does the patient have a future office visit with this provider/department: Yes Requested Prescriptions Pending Prescriptions Disp Refills metFORMIN (GLUCOPHAGE) 500 mg tablet 270 tablet 1 Sig: Take 1 tablet by mouth three times a day. With meals, For diabetes metFORMIN (GLUCOPHAGE) 500 mg tablet 42 tablet 0 Sig: Take 1 tablet by mouth three times a day. With meals, For diabetes Shalini Hendrickson MA July 11, 2024 3:17 PM [facility] 07-11-2024 Miscellaneous Notes Prescription Refill Information The patient has been identified by name and date of : Yes Caregiver verified no other encounters exist for this prescription request: Yes Caregiver confirmed with patient/requestor that no other refills are due, in the near future, with this provider at this time: Yes The last office visit in the department: 07/05/24 Does the patient have a future office visit with this provider/department: Yes Requested Prescriptions Pending Prescriptions Disp Refills metFORMIN (GLUCOPHAGE) 500 mg tablet 270 tablet 1 Sig: Take 1 tablet by mouth three times a day. With meals, For diabetes metFORMIN (GLUCOPHAGE) 500 mg tablet 42 tablet 0 Sig: Take 1 tablet by mouth three times a day. With meals, For diabetes Shalini Hendrickson MA July 11, 2024 3:17 PM documented in this encounter [facility] 07-11-2024 Telephone encounter Note Turned into refill request [facility] 07-11-2024 Miscellaneous Notes Turned into refill request documented in this encounter [facility] 07-05-2024 Note HNO ID: [id number] Author: WOJCIECH ALVARADO, DO Service: ? Author Type: Physician Type: Progress Notes Filed: 07/08/2024 17:36 Note Text: VIRTUAL VISIT PROGRESS NOTE This is a virtual visit using [employer] Video Visit. It required patient-provider interaction for the medical decision making as documented below. I have communicated my name and active licensure. The patient's identity and physical location were verified at the time of this visit. Either the patient or their legal packaging sales representative has been informed of the risks and benefits of -- and alternatives to -- treatment through a remote evaluation and consents to proceed with the evaluation remotely. Radha Brown is a 68 year old female seen for follow up Diabetes, overall blood glucose readings seem to be well controlled. Is taking metformin as prescribed and trying to limit starches and sugars in her diet. Also getting increased amounts of exercise Occasional LH/dizziness, comes and goes. Thinks it may be related to her diuretic medication. No CP or dyspnea or SUAREZ or vision changes. Doesn't usually coexist with abnormal heart rate or BLOOD PRESSURE or blood glucose when symptoms present. Off and on x months. HISTORY REVIEWED (electronic chart updated): PAST MEDICAL HISTORY Diagnosis Date Allergic rhinitis Broken ankle 03/2011 Carpal tunnel syndrome on both sides Diverticulosis of colon (without mention of hemorrhage) Essential hypertension, benign Hair loss disorder familial/genetic per Body Stylist Impaired fasting blood sugar Mild pulmonary valve insufficiency 01/2016 Osteopenia of multiple sites 11/2020 repeat BMD 11/2022 Post menopausal syndrome Screening for colon cancer 11/12/2016 Screening for colon cancer 11/12/2016 Sleep apnea 05/2011 uses CPAP machine at night Variants of migraine, not elsewhere classified, without mention of intractable migraine without mention of status migrainosus in the past, believes were hormonal, haven't had for about 2 yrs. now. PAST SURGICAL HISTORY Procedure Laterality Date COLONOSCOPY FLX DX W/COLLJ SPEC WHEN PFRMD 09/15/2006 Colonoscopy NEUROPLASTY AND/TRANSPOS MEDIAN NRV CARPAL TUNNE Bilateral 11/10/2014 Bilateral CTR PAST SURGICAL HISTORY OF 09/29/2010 Right wrist dequervaine release PAST SURGICAL HISTORY OF 11/29/2008 Left foot calcium buildup metatarsal removal REMOVAL GALLBLADDER N/A 08/24/2022 REMV CATARACT EXTRACAP,INSERT LENS Bilateral TONSILLECTOMY AND ADENOIDECTOMY AGE 11/ TOTAL HIP REPLACEMENT Right 05/05/2022 UNSPECIFIED ORAL SURGERY PROCEDURE, BY REPORT 2 wisdom teeth removed. FAMILY HISTORY Adopted: Yes Problem Relation Age of Onset other (ADOPTED, NO KNOWN HISTORY) Other Social History Tobacco Use Smoking status: Never Smokeless tobacco: Never Vaping Use Vaping status: Never Used Substance Use Topics Alcohol use: Yes Alcohol/week: 3.3 standard drinks of alcohol Types: 1 Glasses of Wine (5oz), 1 Cans of Beer (12oz), 1 Mixed Drinks per week Comment: seldom to occasionally Drug use: No Current Outpatient Medications Medication Sig venlafaxine ER (EFFEXOR XR) 75 mg 24 hr capsule Take 1 capsule by mouth once daily. blood sugar diagnostic (BLOOD GLUCOSE TEST) test strip Test blood sugar(s) 2 times daily. Dx: Type 2 DM - Uncontrolled E11.65 Insulin: Yes Lancets Test blood sugar(s) 2 times daily. Dx: Type 2 DM - Uncontrolled E11.65 Insulin: No metFORMIN (GLUCOPHAGE) 500 mg tablet Take 1 tablet by mouth three times a day. With meals, For diabetes rosuvastatin (CRESTOR) 10 mg tablet Take 1 tablet by mouth daily at bedtime. lisinopril (ZESTRIL) 10 mg tablet Take 1 tablet by mouth once daily. multivitamins(DAILY MULTIVITAMIN TAB) Take one(1) tablet daily. CALTRATE-600 PLUS VITAMIN D3 600 MG-400 UNIT TAB Take one(1) tablet daily. No current facility-administered medications for this visit. ALLERGIES No Known Allergies REVIEW OF SYSTEMS: As noted in HPI PHYSICAL EXAMINATION: VIDEO EXAM: (if completed, performed via video enabled technology) GENERAL: alert and appropriate, in no distress, well-hydrated, well nourished, and happy, smiling, interactive ASSESSMENT: (R42) Lightheadedness (primary encounter diagnosis) (R79.89) Elevated serum creatinine (I10) Essential hypertension (E78.5) Dyslipidemia (E11.65) Type 2 diabetes mellitus with hyperglycemia, without long-term current use of insulin (HCC) @ALLSL@ PLAN: Reviewed recent labs with her Concerns that the Lh/dizziness is secondary to her HCTZ medication- will hold this medication and check labs in 1 month to see if symptoms and creatinine are improved Blood glucose is well controlled Continue healthy diet and exercise changes/improvements. There are no Patient Instructions on file for this visit. I spent a total of 35 minutes on the date of the service which included preparing to see the patient, [id number] patient care, co (more content not included)... [facility] 07-05-2024 History of Present illness Narrative VIRTUAL VISIT PROGRESS NOTE This is a virtual visit using [employer] Video Visit. It required patient-provider interaction for the medical decision making as documented below. I have communicated my name and active licensure. The patient's identity and physical location were verified at the time of this visit. Either the patient or their legal packaging sales representative has been informed of the risks and benefits of -- and alternatives to -- treatment through a remote evaluation and consents to proceed with the evaluation remotely. Radha Brown is a 68 year old female seen for follow up Diabetes, overall blood glucose readings seem to be well controlled. Is taking metformin as prescribed and trying to limit starches and sugars in her diet. Also getting increased amounts of exercise Occasional LH/dizziness, comes and goes. Thinks it may be related to her diuretic medication. No CP or dyspnea or SUAREZ or vision changes. Doesn't usually coexist with abnormal heart rate or BLOOD PRESSURE or blood glucose when symptoms present. Off and on x months. HISTORY REVIEWED (electronic chart updated): PAST MEDICAL HISTORY Diagnosis Date Allergic rhinitis Broken ankle 03/2011 Carpal tunnel syndrome on both sides Diverticulosis of colon (without mention of hemorrhage) Essential hypertension, benign Hair loss disorder familial/genetic per Body Stylist Impaired fasting blood sugar Mild pulmonary valve insufficiency 01/2016 Osteopenia of multiple sites 11/2020 repeat BMD 11/2022 Post menopausal syndrome Screening for colon cancer 11/12/2016 Screening for colon cancer 11/12/2016 Sleep apnea 05/2011 uses CPAP machine at night Variants of migraine, not elsewhere classified, without mention of intractable migraine without mention of status migrainosus in the past, believes were hormonal, haven't had for about 2 yrs. now. PAST SURGICAL HISTORY Procedure Laterality Date COLONOSCOPY FLX DX W/COLLJ SPEC WHEN PFRMD 09/15/2006 Colonoscopy NEUROPLASTY &/TRANSPOS MEDIAN NRV CARPAL TUNNE Bilateral 11/10/2014 Bilateral CTR PAST SURGICAL HISTORY OF 09/29/2010 Right wrist dequervaine release PAST SURGICAL HISTORY OF 11/29/2008 Left foot calcium buildup metatarsal removal REMOVAL GALLBLADDER N/A 08/24/2022 REMV CATARACT EXTRACAP,INSERT LENS Bilateral TONSILLECTOMY & ADENOIDECTOMY AGE 11/> TOTAL HIP REPLACEMENT Right 05/05/2022 UNSPECIFIED ORAL SURGERY PROCEDURE, BY REPORT 2 wisdom teeth removed. FAMILY HISTORY Adopted: Yes Problem Relation Age of Onset other (ADOPTED, NO KNOWN HISTORY) Other Social History Tobacco Use Smoking status: Never Smokeless tobacco: Never Vaping Use Vaping status: Never Used Substance Use Topics Alcohol use: Yes Alcohol/week: 3.3 standard drinks of alcohol Types: 1 Glasses of Wine (5oz), 1 Cans of Beer (12oz), 1 Mixed Drinks per week Comment: seldom to occasionally Drug use: No Current Outpatient Medications Medication Sig venlafaxine ER (EFFEXOR XR) 75 mg 24 hr capsule Take 1 capsule by mouth once daily. blood sugar diagnostic (BLOOD GLUCOSE TEST) test strip Test blood sugar(s) 2 times daily. Dx: Type 2 DM - Uncontrolled E11.65 Insulin: Yes Lancets Test blood sugar(s) 2 times daily. Dx: Type 2 DM - Uncontrolled E11.65 Insulin: No metFORMIN (GLUCOPHAGE) 500 mg tablet Take 1 tablet by mouth three times a day. With meals, For diabetes rosuvastatin (CRESTOR) 10 mg tablet Take 1 tablet by mouth daily at bedtime. lisinopril (ZESTRIL) 10 mg tablet Take 1 tablet by mouth once daily. multivitamins(DAILY MULTIVITAMIN TAB) Take one(1) tablet daily. CALTRATE-600 PLUS VITAMIN D3 600 MG-400 UNIT TAB Take one(1) tablet daily. No current facility-administered medications for this visit. ALLERGIES No Known Allergies REVIEW OF SYSTEMS: As noted in HPI PHYSICAL EXAMINATION: VIDEO EXAM: (if completed, performed via video enabled technology) GENERAL: alert and appropriate, in no distress, well-hydrated, well nourished, and happy, smiling, interactive ASSESSMENT: (R42) Lightheadedness (primary encounter diagnosis) (R79.89) Elevated serum creatinine (I10) Essential hypertension (E78.5) Dyslipidemia (E11.65) Type 2 diabetes mellitus with hyperglycemia, without long-term current use of insulin (HCC) @ALLSL@ PLAN: Reviewed recent labs with her Concerns that the Lh/dizziness is secondary to her HCTZ medication- will hold this medication and check labs in 1 month to see if symptoms and creatinine are improved Blood glucose is well controlled Continue healthy diet and exercise changes/improvements. There are no Patient Instructions on file for this visit. I spent a total of 35 minutes on the date of the service which included preparing to see the patient, [id number] patient care, completing clinical documentation, obtaining and/or reviewing separately obtained history, performing a medically appropriate examination, and ordering medications, tests, or procedures Wojciech Alvarado DO documented in this encounter [facility] 06-30-2024 Telephone encounter Note Prescription Refill Information The patient has been identified by name and date of : Yes Caregiver verified no other encounters exist for this prescription request: Yes Caregiver confirmed with patient/requestor that no other refills are due, in the near future, with this provider at this time: Yes NOTE: patient asking for 14 day urgent supply of metformin to be sent to [facility] , patient has forgotten this medication in [place] The last office visit in the department: 05/18/2024 Does the patient have a future office visit with this provider/department: Yes Requested Prescriptions Pending Prescriptions Disp Refills metFORMIN (GLUCOPHAGE) 500 mg tablet 42 tablet 0 Sig: Take 1 tablet by mouth three times a day. With meals, For diabetes Bella Leander Hernandez June 30, 2024 12:20 PM [facility] 06-30-2024 Miscellaneous Notes Prescription Refill Information The patient has been identified by name and date of : Yes Caregiver verified no other encounters exist for this prescription request: Yes Caregiver confirmed with patient/requestor that no other refills are due, in the near future, with this provider at this time: Yes NOTE: patient asking for 14 day urgent supply of metformin to be sent to [facility] , patient has forgotten this medication in [place] The last office visit in the department: 05/18/2024 Does the patient have a future office visit with this provider/department: Yes Requested Prescriptions Pending Prescriptions Disp Refills metFORMIN (GLUCOPHAGE) 500 mg tablet 42 tablet 0 Sig: Take 1 tablet by mouth three times a day. With meals, For diabetes Bella Hernandez June 30, 2024 12:20 PM documented in this encounter [facility] 05-23-2024 Telephone encounter Note Cresencio with [employer] calls to report they received order for Cpap supplies. Cresencio is requesting OV notes, sleep study report, and updated insurance. Faxed information to: [phone] as requested. Karla Oconnor LPN [facility] 05-23-2024 Miscellaneous Notes Cresencio with [employer] calls to report they received order for Cpap supplies. Cresencio is requesting OV notes, sleep study report, and updated insurance. Faxed information to: [phone] as requested. Karla Oconnor LPN documented in this encounter [facility] 05-18-2024 History of Present illness Narrative Chief Complaint Patient presents with: cpap replacement HPI Radha Brown is a 68 year old female who presents here today for Above Complaints. Radha is an established patient of Dr. Christiano DO. Concerns today... Needing new CPAP machine. Has had the same machine since 2011. Had sleep study and titration study done at [facility] by Dr. Pierre in 2010 and 2011. Records are in the computer of this. Wearing CPAP every night without difficulties. No changes in settings are needed -- current setting works well. No other concerns or complaints. Past medical history, appointments, medications, allergies reviewed. 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 now. Previous Surgical History PAST SURGICAL HISTORY Procedure Laterality Date COLONOSCOPY FLX DX W/COLLJ SPEC WHEN PFRMD 09/15/2006 Colonoscopy NEUROPLASTY &/TRANSPOS MEDIAN NRV CARPAL TUNNE Bilateral 11/10/2014 Bilateral CTR PAST SURGICAL HISTORY OF 09/29/2010 Right wrist dequervaine release PAST SURGICAL HISTORY OF 11/29/2008 Left foot calcium buildup metatarsal removal REMOVAL GALLBLADDER N/A 08/24/2022 REMV CATARACT EXTRACAP,INSERT LENS Bilateral TONSILLECTOMY & ADENOIDECTOMY AGE 11/> TOTAL HIP REPLACEMENT Right 05/05/2022 UNSPECIFIED ORAL SURGERY PROCEDURE, BY REPORT 2 wisdom teeth removed. Family History FAMILY HISTORY Adopted: Yes Problem Relation Age of Onset other (ADOPTED, NO KNOWN HISTORY) Other Patient Allergies ALLERGIES No Known Allergies Current Medications Current Outpatient Medications on File Prior to Visit Medication Sig benzonatate (TESSALON PERLE) 100 mg capsule Take 2 capsules by mouth three times a day as needed. venlafaxine ER (EFFEXOR XR) 75 mg 24 hr capsule Take 1 capsule by mouth once daily. hydroCHLOROthiazide 12.5 mg tablet Take 1 tablet by mouth once daily. blood sugar diagnostic (BLOOD GLUCOSE TEST) test strip Test blood sugar(s) 2 times daily. Dx: Type 2 DM - Uncontrolled E11.65 Insulin: Yes Lancets Test blood sugar(s) 2 times daily. Dx: Type 2 DM - Uncontrolled E11.65 Insulin: No metFORMIN (GLUCOPHAGE) 500 mg tablet Take 1 tablet by mouth three times a day. With meals, For diabetes rosuvastatin (CRESTOR) 10 mg tablet Take 1 tablet by mouth daily at bedtime. lisinopril (ZESTRIL) 10 mg tablet Take 1 tablet by mouth once daily. aspirin, enteric coated (ASPIRIN, ENTERIC COATED) 81 mg EC tablet Take 1 tablet by mouth twice daily for 28 days. (Patient taking differently: Take 81 mg by mouth once daily.) multivitamins(DAILY MULTIVITAMIN TAB) Take one(1) tablet daily. CALTRATE-600 PLUS VITAMIN D3 600 MG-400 UNIT TAB Take one(1) tablet daily. No current facility-administered medications on file prior to visit. Social History Social History Tobacco Use Smoking status: Never Smokeless tobacco: Never Vaping Use Vaping status: Never Used Substance Use Topics Alcohol use: Yes Alcohol/week: 3.3 standard drinks of alcohol Types: 1 Glasses of Wine (5oz), 1 Cans of Beer (12oz), 1 Mixed Drinks per week Comment: seldom to occasionally Drug use: No REVIEW OF SYSTEMS: as above Reviewed relevant PMHx, PSHx, Social Hx, current medications and allergies. Review of Symptoms REVIEW OF SYSTEMS See HPI. EXAM: BP 140/68 (BP Site: Left Arm, BP Position: Sitting, BP Cuff Size: Regular Adult) Pulse 60 Resp 12 Wt 70.8 kg (156 lb) BMI 28.89 kg/m General Appearance: Well appearing, alert, in no acute distress, well-hydrated, well nourished.. Lungs: Lungs clear to auscultation. No wheezing, rhonchi, rales.. Heart: RRR without murmur, gallop, or rubs. No ectopy. Health Maintenance List Mammogram Screening due on 01/15/2023 Urine Albumin:Creatinine Ratio due on 09/23/2023 Diabetic Foot Exam due on 12/24/2023 BP Controlled (<130/80) due on 03/27/2024 Dilated Retinal Exam due on 05/13/2024 DTaP,Tdap,Td Vaccine(2 - Td or Tdap) due on 10/15/2024 Covid-19 Vaccine( season) due on 05/18/2025 HbA1C due on 07/27/2024 LDL Cholesterol due on 01/24/2025 Annual PCP Team Chronic Disease Visit due on 01/26/2025 Colorectal Cancer Screening due on 11/28/2026 Bone Density Screening Completed Influenza Vaccine Completed RSV Vaccine Completed Hepatitis C Screening Completed Shingrix Vaccine Completed Pneumococcal Vaccine: 50+ Completed Advance Directive Discussion Discontinued ASSESSMENT/PLAN: 1. ANURADHA (obstructive sleep apnea) - ICD9: 327.23, ICD10: G47.33 Needing new CPAP machine with supplies. Unknown which supplier to send this to at the time. Pt will contact insurance company. Sleep study and titration study reviewed from 2010 & 2011. - CPAP DEVICE - CPAP DEVICE, WITH HUMIDIFIER RTO as needed. Prescription instructions reviewed with patient as applicable. Potential red flag symptoms discussed with the patient. Reviewed appropriate action plan to take if red flag symptoms occur. Patient agreeable to treatment plan. Casi Patel APRN.MALIN[address] [place] [address] documented in this encounter [facility] 05-18-2024 Note HNO ID: [id number] Author: CASI APONTE APRN.CNP Service: ? Author Type: Nurse Practitioner Type: Progress Notes Filed: 05/18/2024 10:31 Note Text: Chief Complaint Patient presents with: cpap replacement HPI Radha Brown is a 68 year old female who presents here today for Above Complaints. Radha is an established patient of Dr. Christiano DO. Concerns today... Needing new CPAP machine. Has had the same machine since 2011. Had sleep study and titration study done at [facility] by Dr. Pierre in 2010 and 2011. Records are in the computer of this. Wearing CPAP every night without difficulties. No changes in settings are needed -- current setting works well. No other concerns or complaints. Past medical history, appointments, medications, allergies reviewed. 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 now. Previous Surgical History PAST SURGICAL HISTORY Procedure Laterality Date COLONOSCOPY FLX DX W/COLLJ SPEC WHEN PFRMD 09/15/2006 Colonoscopy NEUROPLASTY AND/TRANSPOS MEDIAN NRV CARPAL TUNNE Bilateral 11/10/2014 Bilateral CTR PAST SURGICAL HISTORY OF 09/29/2010 Right wrist dequervaine release PAST SURGICAL HISTORY OF 11/29/2008 Left foot calcium buildup metatarsal removal REMOVAL GALLBLADDER N/A 08/24/2022 REMV CATARACT EXTRACAP,INSERT LENS Bilateral TONSILLECTOMY AND ADENOIDECTOMY AGE 11/ TOTAL HIP REPLACEMENT Right 05/05/2022 UNSPECIFIED ORAL SURGERY PROCEDURE, BY REPORT 2 wisdom teeth removed. Family History FAMILY HISTORY Adopted: Yes Problem Relation Age of Onset other (ADOPTED, NO KNOWN HISTORY) Other Patient Allergies ALLERGIES No Known Allergies Current Medications Current Outpatient Medications on File Prior to Visit Medication Sig benzonatate (TESSALON PERLE) 100 mg capsule Take 2 capsules by mouth three times a day as needed. venlafaxine ER (EFFEXOR XR) 75 mg 24 hr capsule Take 1 capsule by mouth once daily. hydroCHLOROthiazide 12.5 mg tablet Take 1 tablet by mouth once daily. blood sugar diagnostic (BLOOD GLUCOSE TEST) test strip Test blood sugar(s) 2 times daily. Dx: Type 2 DM - Uncontrolled E11.65 Insulin: Yes Lancets Test blood sugar(s) 2 times daily. Dx: Type 2 DM - Uncontrolled E11.65 Insulin: No metFORMIN (GLUCOPHAGE) 500 mg tablet Take 1 tablet by mouth three times a day. With meals, For diabetes rosuvastatin (CRESTOR) 10 mg tablet Take 1 tablet by mouth daily at bedtime. lisinopril (ZESTRIL) 10 mg tablet Take 1 tablet by mouth once daily. aspirin, enteric coated (ASPIRIN, ENTERIC COATED) 81 mg EC tablet Take 1 tablet by mouth twice daily for 28 days. (Patient taking differently: Take 81 mg by mouth once daily.) multivitamins(DAILY MULTIVITAMIN TAB) Take one(1) tablet daily. CALTRATE-600 PLUS VITAMIN D3 600 MG-400 UNIT TAB Take one(1) tablet daily. No current facility-administered medications on file prior to visit. Social History Social History Tobacco Use Smoking status: Never Smokeless tobacco: Never Vaping Use Vaping status: Never Used Substance Use Topics Alcohol use: Yes Alcohol/week: 3.3 standard drinks of alcohol Types: 1 Glasses of Wine (5oz), 1 Cans of Beer (12oz), 1 Mixed Drinks per week Comment: seldom to occasionally Drug use: No REVIEW OF SYSTEMS: as above Reviewed relevant PMHx, PSHx, Social Hx, current medications and allergies. Review of Symptoms REVIEW OF SYSTEMS See HPI. EXAM: BP 140/68 (BP Site: Left Arm, BP Position: Sitting, BP Cuff Size: Regular Adult) Pulse 60 Resp 12 Wt 70.8 kg (156 lb) BMI 28.89 kg/m? General Appearance: Well appearing, alert, in no acute distress, well-hydrated, well nourished.. Lungs: Lungs clear to auscultation. No wheezing, rhonchi, rales.. Heart: RRR without murmur, gallop, or rubs. No ectopy. Health Maintenance List Mammogram Screening due on 01/15/2023 Urine Albumin:Creatinine Ratio due on 09/23/2023 Diabetic Foot Exam due on 12/24/2023 BP Controlled (<130/80) due on 03/27/2024 Dilated Retinal Exam due on 05/13/2024 DTaP,Tdap,Td Vaccine(2 - Td or Tdap) due on 10/15/2024 Covid-19 Vaccine() due on 05/18/2025 HbA1C due on 07/27/2024 LDL Cholesterol due on 01/24/2025 Annual PCP Team Chroni (more content not included)... [facility] 04-13-2024 History of Present illness Narrative Radiology Service Progress Note PATIENT NAME: Radha Brown DATE OF SERVICE: April 13, 2024 TIME: 8:05 AM PATIENT IDENTITY VERIFICATION COMPLETED USING TWO (2) IDENTIFIERS: Name and Date of confirmed by patient verbally. FALL SCREENING: Has the patient had 2 falls in the last year or 1 fall with injury or currently using an Ambulatory Assistive Device (Walker, Cane, Wheelchair, Crutches, etc.)? No PATIENT GENDER DATA: Female. status: : No status: NO. PATIENT RELEVANT IMPLANT DATA REVIEWED: Not Applicable PATIENT PRESENTS WITH AN IMPLANTABLE OR ATTACHED GRADER MEAT: No RADIOLOGY DEPARTMENT: General X-ray: Exam(s) Completed: Chest X-Ray PERIPHERAL IV DATA: Not applicable SIGNED BY: BHARAT Yates) April 13, 2024 8:05 AM documented in this encounter [facility] 04-13-2024 Note HNO ID: [id number] Author: NAGI MORTON RT(R) Service: Radiology Author Type: Technologist Type: Progress Notes Filed: 04/13/2024 08:12 Note Text: Radiology Service Progress Note PATIENT NAME: Radha Brown DATE OF SERVICE: April 13, 2024 TIME: 8:05 AM PATIENT IDENTITY VERIFICATION COMPLETED USING TWO (2) IDENTIFIERS: Name and Date of confirmed by patient verbally. FALL SCREENING: Has the patient had 2 falls in the last year or 1 fall with injury or currently using an Ambulatory Assistive Device (Walker, Cane, Wheelchair, Crutches, etc.)? No PATIENT GENDER DATA: Female. status: : No status: NO. PATIENT RELEVANT IMPLANT DATA REVIEWED: Not Applicable PATIENT PRESENTS WITH AN IMPLANTABLE OR ATTACHED GRADER MEAT: No RADIOLOGY DEPARTMENT: General X-ray: Exam(s) Completed: Chest X-Ray PERIPHERAL IV DATA: Not applicable SIGNED BY: RT Milan(R) April 13, 2024 8:05 AM [facility] 04-13-2024 Note HNO ID: [id number] Author: CECELIA NAQVI APRN.CREATIVE COORDINATOR Service: ? Author Type: Nurse Practitioner Type: Progress Notes Filed: 04/13/2024 08:50 Note Text: Subjective HPI HPI Radha Bronw is a 68 year old female who presents today for CC of cough, sputum production. This started 5 days ago. Has tried otc medication for relief. Symptoms are worsened by nothing. nonsmoker. .Patient presents with: Chest Congestion: cough x 5 days, increased last 2 days PAST MEDICAL HISTORY Diagnosis Date Allergic rhinitis Broken ankle 03/2011 Carpal tunnel syndrome on both sides Diverticulosis of colon (without mention of hemorrhage) Essential hypertension, benign Hair loss disorder familial/genetic per Body Stylist Impaired fasting blood sugar Mild pulmonary valve insufficiency 01/2016 Osteopenia of multiple sites 11/2020 repeat BMD 11/2022 Post menopausal syndrome Screening for colon cancer 11/12/2016 Screening for colon cancer 11/12/2016 Sleep apnea 05/2011 uses CPAP machine at night Variants of migraine, not elsewhere classified, without mention of intractable migraine without mention of status migrainosus in the past, believes were hormonal, haven't had for about 2 yrs. now. PAST SURGICAL HISTORY Procedure Laterality Date COLONOSCOPY FLX DX W/COLLJ SPEC WHEN PFRMD 09/15/2006 Colonoscopy NEUROPLASTY AND/TRANSPOS MEDIAN NRV CARPAL TUNNE Bilateral 11/10/2014 Bilateral CTR PAST SURGICAL HISTORY OF 09/29/2010 Right wrist dequervaine release PAST SURGICAL HISTORY OF 11/29/2008 Left foot calcium buildup metatarsal removal REMOVAL GALLBLADDER N/A 08/24/2022 REMV CATARACT EXTRACAP,INSERT LENS Bilateral TONSILLECTOMY AND ADENOIDECTOMY AGE 11/> TOTAL HIP REPLACEMENT Right 05/05/2022 UNSPECIFIED ORAL SURGERY PROCEDURE, BY REPORT 2 wisdom teeth removed. ALLERGIES Patient has no known allergies. MEDICATIONS venlafaxine ER (EFFEXOR XR) 75 mg 24 hr capsule Take 1 capsule by mouth once daily. hydroCHLOROthiazide 12.5 mg tablet Take 1 tablet by mouth once daily. blood sugar diagnostic (BLOOD GLUCOSE TEST) test strip Test blood sugar(s) 2 times daily. Dx: Type 2 DM - Uncontrolled E11.65 Insulin: Yes Lancets Test blood sugar(s) 2 times daily. Dx: Type 2 DM - Uncontrolled E11.65 Insulin: No metFORMIN (GLUCOPHAGE) 500 mg tablet Take 1 tablet by mouth three times a day. With meals, For diabetes rosuvastatin (CRESTOR) 10 mg tablet Take 1 tablet by mouth daily at bedtime. lisinopril (ZESTRIL) 10 mg tablet Take 1 tablet by mouth once daily. aspirin, enteric coated (ASPIRIN, ENTERIC COATED) 81 mg EC tablet Take 1 tablet by mouth twice daily for 28 days. (Patient taking differently: Take 81 mg by mouth once daily.) multivitamins(DAILY MULTIVITAMIN TAB) Take one(1) tablet daily. CALTRATE-600 PLUS VITAMIN D3 600 MG-400 UNIT TAB Take one(1) tablet daily. FAMILY HISTORY Adopted: Yes Problem Relation Age of Onset other (ADOPTED, NO KNOWN HISTORY) Other Social History Tobacco Use Smoking status: Never Smokeless tobacco: Never Vaping Use Vaping status: Never Used Substance Use Topics Alcohol use: Yes Alcohol/week: 3.3 standard drinks of alcohol Types: 1 Glasses of Wine (5oz), 1 Cans of Beer (12oz), 1 Mixed Drinks per week Comment: seldom to occasionally Drug use: No Review of Systems Constitutional: Negative for fever. HENT: Negative for congestion, ear pain, nosebleeds and sore throat. Respiratory: Positive for cough and sputum production. Negative for shortness of breath and wheezing. Cardiovascular: Negative for chest pain. Musculoskeletal: Negative for neck pain. Skin: Negative for itching and rash. Objective Blood pressure 162/98, pulse 78, temperature 36.9 ?C (98.4 ?F), resp. rate 16, weight 71.5 kg (157 lb 10.1 oz), SpO2 96%. Physical Exam Constitutional: General: She is not in acute distress. Appearance: She is not toxic-appearing or diaphoretic. HENT: Head: Normocephalic and atraumatic. Cardiovascular: Rate and Rhythm: Normal rate and regular rhythm. Heart sounds: Normal heart sounds, S1 normal and S2 normal. Pulmonary: Effort: Pulmonary effort is normal. Breath sounds: Normal breath sounds. Lymphadenopathy: Cervical: No cervical adenopathy. Right cervical: No superficial cervical adenopathy. Left cervical: No superficial cervical adenopathy. Neurological: Mental Status: She is alert and oriented to person, place, and time. Gait: Gait is intact. ASSESSMENT/PLAN: 1. Sinobronchitis - ICD9: 473.9, 490, ICD10: J32.9, J40 (primary diagnosis) Hold atb for 3 days, if worsening s/s fill and take - Supportive care with plenty of fluids, rest, and analgesia prn. - Follow up in 3-5 days if symptoms persist or worsen. -If you experience chest pain/shortness of breath go to ER - DOXYCYCLINE MONOHYDRATE 100 MG TABLET 2. Acute cough - ICD9: 786.2, ICD10: R05.1 - XR CHEST 2V FRONTAL/LAT IMPRESSION: No acute radiographic (more content not included)... [facility] 04-13-2024 History of Present illness Narrative Subjective HPI HPI Radha Brown is a 68 year old female who presents today for CC of cough, sputum production. This started 5 days ago. Has tried otc medication for relief. Symptoms are worsened by nothing. nonsmoker. .Patient presents with: Chest Congestion: cough x 5 days, increased last 2 days PAST MEDICAL HISTORY Diagnosis Date Allergic rhinitis Broken ankle 03/2011 Carpal tunnel syndrome on both sides Diverticulosis of colon (without mention of hemorrhage) Essential hypertension, benign Hair loss disorder familial/genetic per Body Stylist Impaired fasting blood sugar Mild pulmonary valve insufficiency 01/2016 Osteopenia of multiple sites 11/2020 repeat BMD 11/2022 Post menopausal syndrome Screening for colon cancer 11/12/2016 Screening for colon cancer 11/12/2016 Sleep apnea 05/2011 uses CPAP machine at night Variants of migraine, not elsewhere classified, without mention of intractable migraine without mention of status migrainosus in the past, believes were hormonal, haven't had for about 2 yrs. now. PAST SURGICAL HISTORY Procedure Laterality Date COLONOSCOPY FLX DX W/COLLJ SPEC WHEN PFRMD 09/15/2006 Colonoscopy NEUROPLASTY &/TRANSPOS MEDIAN NRV CARPAL TUNNE Bilateral 11/10/2014 Bilateral CTR PAST SURGICAL HISTORY OF 09/29/2010 Right wrist dequervaine release PAST SURGICAL HISTORY OF 11/29/2008 Left foot calcium buildup metatarsal removal REMOVAL GALLBLADDER N/A 08/24/2022 REMV CATARACT EXTRACAP,INSERT LENS Bilateral TONSILLECTOMY & ADENOIDECTOMY AGE 11/> TOTAL HIP REPLACEMENT Right 05/05/2022 UNSPECIFIED ORAL SURGERY PROCEDURE, BY REPORT 2 wisdom teeth removed. ALLERGIES Patient has no known allergies. MEDICATIONS venlafaxine ER (EFFEXOR XR) 75 mg 24 hr capsule Take 1 capsule by mouth once daily. hydroCHLOROthiazide 12.5 mg tablet Take 1 tablet by mouth once daily. blood sugar diagnostic (BLOOD GLUCOSE TEST) test strip Test blood sugar(s) 2 times daily. Dx: Type 2 DM - Uncontrolled E11.65 Insulin: Yes Lancets Test blood sugar(s) 2 times daily. Dx: Type 2 DM - Uncontrolled E11.65 Insulin: No metFORMIN (GLUCOPHAGE) 500 mg tablet Take 1 tablet by mouth three times a day. With meals, For diabetes rosuvastatin (CRESTOR) 10 mg tablet Take 1 tablet by mouth daily at bedtime. lisinopril (ZESTRIL) 10 mg tablet Take 1 tablet by mouth once daily. aspirin, enteric coated (ASPIRIN, ENTERIC COATED) 81 mg EC tablet Take 1 tablet by mouth twice daily for 28 days. (Patient taking differently: Take 81 mg by mouth once daily.) multivitamins(DAILY MULTIVITAMIN TAB) Take one(1) tablet daily. CALTRATE-600 PLUS VITAMIN D3 600 MG-400 UNIT TAB Take one(1) tablet daily. FAMILY HISTORY Adopted: Yes Problem Relation Age of Onset other (ADOPTED, NO KNOWN HISTORY) Other Social History Tobacco Use Smoking status: Never Smokeless tobacco: Never Vaping Use Vaping status: Never Used Substance Use Topics Alcohol use: Yes Alcohol/week: 3.3 standard drinks of alcohol Types: 1 Glasses of Wine (5oz), 1 Cans of Beer (12oz), 1 Mixed Drinks per week Comment: seldom to occasionally Drug use: No Review of Systems Constitutional: Negative for fever. HENT: Negative for congestion, ear pain, nosebleeds and sore throat. Respiratory: Positive for cough and sputum production. Negative for shortness of breath and wheezing. Cardiovascular: Negative for chest pain. Musculoskeletal: Negative for neck pain. Skin: Negative for itching and rash. Objective Blood pressure 162/98, pulse 78, temperature 36.9 C (98.4 F), resp. rate 16, weight 71.5 kg (157 lb 10.1 oz), SpO2 96%. Physical Exam Constitutional: General: She is not in acute distress. Appearance: She is not toxic-appearing or diaphoretic. HENT: Head: Normocephalic and atraumatic. Cardiovascular: Rate and Rhythm: Normal rate and regular rhythm. Heart sounds: Normal heart sounds, S1 normal and S2 normal. Pulmonary: Effort: Pulmonary effort is normal. Breath sounds: Normal breath sounds. Lymphadenopathy: Cervical: No cervical adenopathy. Right cervical: No superficial cervical adenopathy. Left cervical: No superficial cervical adenopathy. Neurological: Mental Status: She is alert and oriented to person, place, and time. Gait: Gait is intact. ASSESSMENT/PLAN: 1. Sinobronchitis - ICD9: 473.9, 490, ICD10: J32.9, J40 (primary diagnosis) Hold atb for 3 days, if worsening s/s fill and take - Supportive care with plenty of fluids, rest, and analgesia prn. - Follow up in 3-5 days if symptoms persist or worsen. -If you experience chest pain/shortness of breath go to ER - DOXYCYCLINE MONOHYDRATE 100 MG TABLET 2. Acute cough - ICD9: 786.2, ICD10: R05.1 - XR CHEST 2V FRONTAL/LAT IMPRESSION: No acute radiographic abnormality. Dictated by : KAMERON DOCKERY MD - BENZONATATE 100 MG CAPSULE Cecelia Naqvi APRN.CREATIVE COORDINATOR documented in this encounter [facility] 04-04-2024 Telephone encounter Note Prescription Refill Information The patient has been identified by name and date of : Yes Caregiver verified no other encounters exist for this prescription request: Yes Caregiver confirmed with patient/requestor that no other refills are due, in the near future, with this provider at this time: Yes The last office visit in the department: 01/27/2024 Does the patient have a future office visit with this provider/department: Yes Requested Prescriptions Pending Prescriptions Disp Refills venlafaxine ER (EFFEXOR XR) 75 mg 24 hr capsule 90 capsule 0 Sig: Take 1 capsule by mouth once daily. Refused Prescriptions Disp Refills hydroCHLOROthiazide 12.5 mg tablet 90 tablet 3 Sig: Take 1 tablet by mouth once daily. Ceci Brooke LPN April 04, 2024 12:43 PM [facility] 04-04-2024 Miscellaneous Notes Prescription Refill Information The patient has been identified by name and date of : Yes Caregiver verified no other encounters exist for this prescription request: Yes Caregiver confirmed with patient/requestor that no other refills are due, in the near future, with this provider at this time: Yes The last office visit in the department: 01/27/2024 Does the patient have a future office visit with this provider/department: Yes Requested Prescriptions Pending Prescriptions Disp Refills venlafaxine ER (EFFEXOR XR) 75 mg 24 hr capsule 90 capsule 0 Sig: Take 1 capsule by mouth once daily. Refused Prescriptions Disp Refills hydroCHLOROthiazide 12.5 mg tablet 90 tablet 3 Sig: Take 1 tablet by mouth once daily. Ceci Brooke LPN April 04, 2024 12:43 PM documented in this encounter [facility] 02-04-2024 Telephone encounter Note Spoke with patient. Given message from provider's office. Patient verbalizes understanding. She states she is taking Crestor as ordered. Had discussed cholesterol results @ OV with PCP on 01/27/24. Christel Morley RN [facility] 02-04-2024 Miscellaneous Notes Spoke with patient. Given message from provider's office. Patient verbalizes understanding. She states she is taking Crestor as ordered. Had discussed cholesterol results @ OV with PCP on 01/27/24. Christel Morley RN Left message to return call x 2 Sheri Welch MA Left message to return call Sheri Welch MA Please let her know we received her lab results. Her A1C has improved significantly to 7.0, no need for any changes at this time. Kidney function is stable. Triglycerides have increased a bit. Please confirm she is taking her Crestor as ordered. Halle Messina APRN.MALINDA documented in this encounter [facility] 02-04-2024 Telephone encounter Note Left message to return call x 2 Sheri Welch MA [facility] 01-27-2024 Note HNO ID: [id number] Author: WOJCIECH ALVARADO, DO Service: ? Author Type: Physician Type: Progress Notes Filed: 01/27/2024 21:07 Note Text: Radha Brown is a 68 year old female here for a Medicare wellness visit. Medicare Health Risk Assessment General Health Good Exercise: Minutes/Day 30 min Exercise: Days/Week 2 days Alcohol: Daily Use Monthly or less Alcohol: Drinks/Day 1 or 2 Alcohol: 6 or more drinks Never Feel off balance Yes Concerns: Teeth/Dentures No Concerns: Sexual function No Troubled by feelings None of the above Frequency: Eating healthy diet More than half the days ADLs requiring help None of the above Safety precautions in home/vehicle Yes Smoke, vape, chews tobacco No Difficulty hearing No Difficulty seeing No Current Providers Specialists: I have reviewed specialist-related care of the patient in the medical record. Medical/Family history review Reviewed and updated problem list, medical/surgical/family/social history, medications, and allergies. Opioid use review Opioid Medications (last 90 days) No data to display Anxiety/Depression screening Recommendation: no further intervention at this time Cognitive screening Mini Cog Score: 5 Cognitive screening reviewed and No further action needed (score 3-5). Functional Observation Was the patient's Timed Up AND Go test unsteady or ? 12 seconds? No Advance Care Planning Surrogate decision maker and/or advance care plan documented Measurements BP 110/70 Pulse 80 Temp 36.8 ?C (98.2 ?F) (Left Tympanic) Resp 16 Ht 156.5 cm (5' 1.61) Wt 68.5 kg (151 lb) BMI 27.97 kg/m? Vision Screening: Follows with optometry/ophthalmology Assessment/Plan Medicare annual wellness visit, subsequent (Z00.00) - Counseled on healthy diet and regular exercise - Fall avoidance information provided - Personalized prevention plan provided Wojciech Alvarado DO [facility] 01-27-2024 History of Present illness Narrative Images from the original note were not included. Radha Brown is a 68 year old female here for a Medicare wellness visit. Medicare Health Risk Assessment General Health Good Exercise: Minutes/Day 30 min Exercise: Days/Week 2 days Alcohol: Daily Use Monthly or less Alcohol: Drinks/Day 1 or 2 Alcohol: 6 or more drinks Never Feel off balance Yes Concerns: Teeth/Dentures No Concerns: Sexual function No Troubled by feelings None of the above Frequency: Eating healthy diet More than half the days ADLs requiring help None of the above Safety precautions in home/vehicle Yes Smoke, vape, chews tobacco No Difficulty hearing No Difficulty seeing No Current Providers Specialists: I have reviewed specialist-related care of the patient in the medical record. Medical/Family history review Reviewed and updated problem list, medical/surgical/family/social history, medications, and allergies. Opioid use review Opioid Medications (last 90 days) No data to display Anxiety/Depression screening Recommendation: no further intervention at this time Cognitive screening Mini Cog Score: 5 Cognitive screening reviewed and No further action needed (score 3-5). Functional Observation Was the patient's Timed Up & Go test unsteady or ? 12 seconds? No Advance Care Planning Surrogate decision maker and/or advance care plan documented Measurements BP 110/70 Pulse 80 Temp 36.8 C (98.2 F) (Left Tympanic) Resp 16 Ht 156.5 cm (5' 1.61) Wt 68.5 kg (151 lb) BMI 27.97 kg/m Vision Screening: Follows with optometry/ophthalmology Assessment/Plan Medicare annual wellness visit, subsequent (Z00.00) - Counseled on healthy diet and regular exercise - Fall avoidance information provided - Personalized prevention plan provided Wojciech Alvarado DO Patient presents with: Medicare Wellness Exam HPI: Radha Brown is a 68 year old female who presents to the office today for review of health conditions. Concerns today: Jittery feeling in the morning comes and goes, not daily. Unsure if this is related to glucose. Is willing now to start monitoring her blood glucose to determine where her levels are. Is taking metformin 500 mg in AM and 1000 mg with supper. Not wanting to start injectable medication if able to avoid this Sweating increase, is post menopausal age, has been present x years. No benefit from OTC medication in the past. Not wanting to start hormone therapy if able to avoid this Mood, was doing well on Effexor in the past, thinks she wants to restart this. Ms. Brown has past history of diabetes. Since our last visit she denies excessive thirst or increased frequency of urination, chest pain or dyspnea , new or unusual visual symptoms, and low sugar/hypoglycemic reactions. Depression- yes, see above, stable. Follows a diabetic diet some of the time. She is compliant with medication(s) and is tolerating med(s) without any side effects. Patient's last HgA1C was Hemoglobin A1C (%) Date Value 01/25/2024 7.0 10/14/2023 9.2 11/30/2020 6.2 03/19/2020 6.5 Hemoglobin A1C (POCT) (%) Date Value 03/27/2023 8.2 ) Last Ophthalmology exam was within the past 12 months Ms. Brown reports history of hyperlipidemia. Current therapy includes rosuvastatin (Crestor) 10 mg. Denies side effects of muscle weakness or achiness. Her most recent lipid panels are reviewed. Cholesterol, Total (mg/dL) Date Value 01/25/2024 112 11/30/2020 204 HDL Cholesterol (mg/dL) Date Value 01/25/2024 37 11/30/2020 43 LDL Cholesterol (mg/dL) Date Value 01/25/2024 29 11/30/2020 133 Triglyceride (mg/dL) Date Value 01/25/2024 230 11/30/2020 140 Ms. Brown indicates a history of hypertension and states that she is feeling well and denies any symptoms referable to elevated blood pressure. Specifically denies headache, chest pain, palpitations, dyspnea, and peripheral edema. Patient denies any side effects of her medication(s) and is compliant with their regimen. Last 3 Encounter BP Readings: Date: BP: 01/27/2024 110/70 10/16/2023 130/82 03/27/2023 134/84 She watches her diet for sodium, low fat and low cholesterol some of the time. She does not check BP's generally. Radha gets minimal exercise. PAST MEDICAL HISTORY No date: Allergic rhinitis 03/2011: Broken ankle No date: Carpal tunnel syndrome on both sides No date: Diverticulosis of colon (without mention of hemorrhage) No date: Essential hypertension, benign No date: Hair loss disorder Comment: familial/genetic per Body Stylist No date: Impaired fasting blood sugar 01/2016: Mild pulmonary valve insufficiency 11/2020: Osteopenia of multiple sites Comment: repeat BMD 11/2022 No date: Post menopausal syndrome 11/12/2016: Screening for colon cancer 11/12/2016: Screening for colon cancer 05/2011: Sleep apnea Comment: uses CPAP machine at night No date: Variants of migraine, not elsewhere classified, without mention of intractable migraine without mention of status migrainosus Comment: in the past, believes were hormonal, haven't had for about 2 yrs. now. PAST SURGICAL HISTORY 09/15/2006: COLONOSCOPY FLX DX W/COLLJ SPEC WHEN PFRMD Comment: Colonoscopy 11/10/2014: NEUROPLASTY &/TRANSPOS MEDIAN NRV CARPAL TUNNE; Bilateral Comment: Bilateral CTR 09/29/2010: PAST SURGICAL HISTORY OF Comment: Right wrist dequervaine release 11/29/2008: PAST SURGICAL HISTORY OF Comment: Left foot calcium buildup metatarsal removal 08/24/2022: REMOVAL GALLBLADDER; N/A No date: REMV CATARACT EXTRACAP,INSERT LENS; Bilateral No date: TONSILLECTOMY & ADENOIDECTOMY AGE 11/> 05/05/2022: TOTAL HIP REPLACEMENT; Right No date: UNSPECIFIED ORAL SURGERY PROCEDURE, BY REPORT Comment: 2 wisdom teeth removed. Social History Tobacco Use Smoking status: Never Smokeless tobacco: Never Vaping Use Vaping status: Never Used Substance Use Topics Alcohol use: Yes Alcohol/week: 3.3 standard drinks of alcohol Types: 1 Glasses of Wine (5oz), 1 Cans of Beer (12oz), 1 Mixed Drinks per week Comment: seldom to occasionally Drug use: No FAMILY HISTORY Adopted: Yes Problem Relation Age of Onset other (ADOPTED, NO KNOWN HISTORY) Other Allergies: ALLERGIES No Known Allergies Current Meds: hydroCHLOROthiazide 12.5 mg tablet Take 1 tablet by mouth once daily. Blood-Glucose Meter monitoring kit Glucose Meter of Choice - Kit - Dx: Type 2 DM - Uncontrolled E11.65 blood sugar diagnostic (BLOOD GLUCOSE TEST) test strip Test blood sugar(s) 2 times daily. Dx: Type 2 DM - Uncontrolled E11.65 Insulin: Yes Lancets Test blood sugar(s) 2 times daily. Dx: Type 2 DM - Uncontrolled E11.65 Insulin: No metFORMIN (GLUCOPHAGE) 500 mg tablet Take 1 tablet by mouth three times a day. With meals, For diabetes venlafaxine ER (EFFEXOR XR) 75 mg 24 hr capsule Take 1 capsule by mouth once daily. rosuvastatin (CRESTOR) 10 mg tablet Take 1 tablet by mouth daily at bedtime. lisinopril (ZESTRIL) 10 mg tablet Take 1 tablet by mouth once daily. aspirin, enteric coated (ASPIRIN, ENTERIC COATED) 81 mg EC tablet Take 1 tablet by mouth twice daily for 28 days. (Patient taking differently: Take 81 mg by mouth once daily.) multivitamins(DAILY MULTIVITAMIN TAB) Take one(1) tablet daily. CALTRATE-600 PLUS VITAMIN D3 600 MG-400 UNIT TAB Take one(1) tablet daily. Review of Systems: The remainder of the review of systems is negative. PE: 01/27/24 0907 BP: 110/70 Pulse: 80 Resp: 16 Temp: 36.8 C (98.2 F) TempSrc: Left Tympanic Weight: 68.5 kg (151 lb) Height: 156.5 cm (5' 1.61) Gen: A&O, NAD, non-toxic appearing, Pleasant, cooperative HEENT: NT/AC, PERRLA, EOMs intact b/l, nares clear and patent b/l, pharynx without erythema, exudate or lesions. Uvula midline. MMM, EACs without erythema or debris. TMs pearly heath with intact landmarks b/l. Neck: supple, No cervical LAD, no thyromegaly, no carotid bruits CV: RRR, normal S1 and S2, no murmurs, no gallops, no rubs, Pulses 2+ and symmetric in UE and LE b/l Lungs: normal respiratory effort, CTA b/l, no wheezing or rhonchi or rales Abd: soft, overweight, NT, ND, +BS, no hepatosplenomegaly MS: FROM all 4 extremities Neuro: CN II-XII intact b/l, strength 5/5 b/l UE and LE, DTRs 2/4 UE and LE, sensation intact. Skin: warm, dry, intact, No rashes or lesions on exposed skin. Foot exam: Monofilament wnl on right and left feet. ASSESSMENT/PLAN: 1. Uncontrolled type 2 diabetes mellitus with hyperglycemia (HCC) - ICD9: 250.02, ICD10: E11.65 (primary diagnosis) - Improving control - Continue current medications - Blood glucose monitoring on a once daily schedule - Counseled on healthy diet and regular exercise - Discussed need for and benefit of weight loss. BMI 27.97 kg/(m^2) - METFORMIN 500 MG TABLET - HEMOGLOBIN A1C - HEMOGLOBIN A1C - COMPREHENSIVE METABOLIC PANEL - COMPREHENSIVE METABOLIC PANEL - VITAMIN B12 - ALBUMIN/CREATININE RATIO, URINE 2. Essential hypertension - ICD9: 401.9, ICD10: I10 - Controlled - Continue current medications - Recommend home blood pressure monitoring, to bring results to next visit - Encouraged sodium restriction, DASH or Mediterranean diet - Recommend regular aerobic exercise - HYDROCHLOROTHIAZIDE 12.5 MG TABLET 3. Dyslipidemia - ICD9: 272.4, ICD10: E78.5 - Improving control - Continue current medications - Counseled on healthy diet and regular exercise - LIPID PANEL BASIC - THYROID STIMULATING HORMONE 4. Sweating disease - ICD9: 078.2, ICD10: B33.8 - likely related to post menopause, she isn't interested in trying HRT 5. Osteopenia of multiple sites - ICD9: 733.90, ICD10: M85.89 - Reviewed the need for Calcium and Vitamin D supplements and weight bearing exercise as tolerated - VITAMIN D 25 HYDROXY 6. Medicare annual wellness visit, subsequent - ICD9: V70.0, ICD10: Z00.00 - Counseled on healthy diet and regular exercise Wojciech Alvarado DO To ER if develops chest pain, shortness of breath, or severe worsening of symptoms. Discussed risks, benefits, alternatives, and potential side effects of medications. Patient expressed understanding and agreed with the plan. Wojciech Alvarado DO [address] [place] [address] documented in this encounter [facility] 01-27-2024 Telephone encounter Note Left message to return call Sheri Welch MA [facility] 01-27-2024 Telephone encounter Note Please let her know we received her lab results. Her A1C has improved significantly to 7.0, no need for any changes at this time. Kidney function is stable. Triglycerides have increased a bit. Please confirm she is taking her Crestor as ordered. Halle Messina APRN.MALINDA [facility] Work Phone: 01-27-2024 Note HNO ID: [id number] Author: WOJCIECH ALVARADO DO Service: ? Author Type: Physician Type: Progress Notes Filed: 01/27/2024 21:07 Note Text: Patient presents with: Medicare Wellness Exam HPI: Radha Brown is a 68 year old female who presents to the office today for review of health conditions. Concerns today: Jittery feeling in the morning comes and goes, not daily. Unsure if this is related to glucose. Is willing now to start monitoring her blood glucose to determine where her levels are. Is taking metformin 500 mg in AM and 1000 mg with supper. Not wanting to start injectable medication if able to avoid this Sweating increase, is post menopausal age, has been present x years. No benefit from OTC medication in the past. Not wanting to start hormone therapy if able to avoid this Mood, was doing well on Effexor in the past, thinks she wants to restart this. Ms. Brown has past history of diabetes. Since our last visit she denies excessive thirst or increased frequency of urination, chest pain or dyspnea , new or unusual visual symptoms, and low sugar/hypoglycemic reactions. Depression- yes, see above, stable. Follows a diabetic diet some of the time. She is compliant with medication(s) and is tolerating med(s) without any side effects. Patient's last HgA1C was Hemoglobin A1C (%) Date Value 01/25/2024 7.0 10/14/2023 9.2 11/30/2020 6.2 03/19/2020 6.5 Hemoglobin A1C (POCT) (%) Date Value 03/27/2023 8.2 ) Last Ophthalmology exam was within the past 12 months Ms. Brown reports history of hyperlipidemia. Current therapy includes rosuvastatin (Crestor) 10 mg. Denies side effects of muscle weakness or achiness. Her most recent lipid panels are reviewed. Cholesterol, Total (mg/dL) Date Value 01/25/2024 112 11/30/2020 204 HDL Cholesterol (mg/dL) Date Value 01/25/2024 37 11/30/2020 43 LDL Cholesterol (mg/dL) Date Value 01/25/2024 29 11/30/2020 133 Triglyceride (mg/dL) Date Value 01/25/2024 230 11/30/2020 140 Ms. Brown indicates a history of hypertension and states that she is feeling well and denies any symptoms referable to elevated blood pressure. Specifically denies headache, chest pain, palpitations, dyspnea, and peripheral edema. Patient denies any side effects of her medication(s) and is compliant with their regimen. Last 3 Encounter BP Readings: Date: BP: 01/27/2024 110/70 10/16/2023 130/82 03/27/2023 134/84 She watches her diet for sodium, low fat and low cholesterol some of the time. She does not check BP's generally. Radha gets minimal exercise. PAST MEDICAL HISTORY No date: Allergic rhinitis 03/2011: Broken ankle No date: Carpal tunnel syndrome on both sides No date: Diverticulosis of colon (without mention of hemorrhage) No date: Essential hypertension, benign No date: Hair loss disorder Comment: familial/genetic per Body Stylist No date: Impaired fasting blood sugar 01/2016: Mild pulmonary valve insufficiency 11/2020: Osteopenia of multiple sites Comment: repeat BMD 11/2022 No date: Post menopausal syndrome 11/12/2016: Screening for colon cancer 11/12/2016: Screening for colon cancer 05/2011: Sleep apnea Comment: uses CPAP machine at night No date: Variants of migraine, not elsewhere classified, without mention of intractable migraine without mention of status migrainosus Comment: in the past, believes were hormonal, haven't had for about 2 yrs. now. PAST SURGICAL HISTORY 09/15/2006: COLONOSCOPY FLX DX W/COLLJ SPEC WHEN PFRMD Comment: Colonoscopy 11/10/2014: NEUROPLASTY AND/TRANSPOS MEDIAN NRV CARPAL TUNNE; Bilateral Comment: Bilateral CTR 09/29/2010: PAST SURGICAL HISTORY OF Comment: Right wrist dequervaine release 11/29/2008: PAST SURGICAL HISTORY OF Comment: Left foot calcium buildup metatarsal removal 08/24/2022: REMOVAL GALLBLADDER; N/A No date: REMV CATARACT EXTRACAP,INSERT LENS; Bilateral No date: TONSILLECTOMY AND ADENOIDECTOMY AGE 11/> 05/05/2022: TOTAL HIP REPLACEMENT; Right No date: UNSPECIFIED ORAL SURGERY PROCEDURE, BY REPORT Comment: 2 wisdom teeth removed. Social History Tobacco Use Smoking status: Never Smokeless tobacco: Never Vaping Use Vaping status: Never Used Substance Use Topics Alcohol use: Yes Alcohol/week: 3.3 standard drinks of alcohol Types: 1 Glasses of Wine (5oz), 1 Cans of Beer (12oz), 1 Mixed Drinks per week Comment: seldom to occasionally Drug use: No FAMILY HISTORY Adopted: Yes Problem Relation Age of Onset other (ADOPTED, NO KNOWN HISTORY) Other Allergies: ALLERGIES No Known Allergies Current Meds: hydroCHLOROthiazide 12.5 mg tablet Take 1 tablet by mouth once daily. Blood-Glucose Meter monitoring kit Glucose Meter of Choice - Kit - Dx: Type 2 DM - Uncontrolled E11.65 blood sugar diagnostic (BLOOD GLUCOSE TEST) test strip Test blood sugar(s) 2 times daily. Dx: Type 2 DM - Uncontrolled E11.65 Insulin: Yes Lancets Test bl (more content not included)... [facility] 01-19-2024 Note HNO ID: [id number] Author: ?, ?, ? Service: ? Author Type: ? Type: Progress Notes Filed: 01/19/2024 14:28 Note Text: Radha Brown is identified through a medication adherence outreach initiative based on pharmacy claims data from [employer] (insurer) for JUANI medication(s). Patient is reviewed 01/19/24 due to medication adherence concerns with the following medications (name, strength, sig): lisinopril 10mg, take 1 tablet daily. Per data/report, last fill date and days supply: due 01/04/24 Per reconcile dispense, last fill date and days supply: filled 10/06/23 for 90 days Per call to pharmacy, last picked up date and days supply: n/a Contacted patient: No answer; left generic VM Outcome of review/outreach: (choose outcome source and status) -left message and sent [employer] message Lin Nieves [facility] 01-19-2024 History of Present illness Narrative Radha Brown is identified through a medication adherence outreach initiative based on pharmacy claims data from [employer] (insurer) for JUANI medication(s). Patient is reviewed 01/19/24 due to medication adherence concerns with the following medications (name, strength, sig): lisinopril 10mg, take 1 tablet daily. Per data/report, last fill date and days supply: due 01/04/24 Per reconcile dispense, last fill date and days supply: filled 10/06/23 for 90 days Per call to pharmacy, last picked up date and days supply: n/a Contacted patient: No answer; left generic VM Outcome of review/outreach: (choose outcome source and status) -left message and sent [employer] message Lin Nieves documented in this encounter [facility] 01-19-2024 Note Patient Outreach ([facility]) STEPHANIERADHA KIMBALL June ([id number]) 1955 F NFR Date Time Provider Department 01/19/24 [facility] During your visit today, we recorded the following information about you: Lin Nieves 01/19/2024 2:28 PM Signed Radha June Brown is identified through a medication adherence outreach initiative based on pharmacy claims data from [employer] (insurer) for JUANI medication(s). Patient is reviewed 01/19/24 due to medication adherence concerns with the following medications (name, strength, sig): lisinopril 10mg, take 1 tablet daily. Per data/report, last fill date and days supply: due 01/04/24 Per reconcile dispense, last fill date and days supply: filled 10/06/23 for 90 days Per call to pharmacy, last picked up date and days supply: n/a Contacted patient: No answer; left generic VM Outcome of review/outreach: (choose outcome source and status) -left message and sent [employer] message Lin Nieves Allergies As of Date: 01/19/2024 (No Known Allergies) Date Reviewed: 10/16/2023 Reviewed by: Casi Aponte APRN.CREATIVE COORDINATOR - Fully Assessed Reason for Visit: Allied Health Visit [5] Cmt: Medication Adherence Outreach Prescriptions as of 01/19/2024 - rosuvastatin (CRESTOR) 10 mg tablet Take 1 tablet by mouth daily at bedtime. - rosuvastatin (CRESTOR) 10 mg tablet Take 1 tablet by mouth daily at bedtime. - metFORMIN (GLUCOPHAGE) 500 mg tablet Take 1 tablet by mouth two times a day with meals. For diabetes If tolerating well in 2 weeks then increase to 2 tablets BID - lisinopril (ZESTRIL) 10 mg tablet Take 1 tablet by mouth once daily. - metFORMIN (GLUCOPHAGE) 500 mg tablet Take 1 tablet by mouth daily with dinner. - hydroCHLOROthiazide 12.5 mg tablet Take 1 tablet by mouth once daily. - aspirin, enteric coated (ASPIRIN, ENTERIC COATED) 81 mg EC tablet Take 1 tablet by mouth twice daily for 28 days. - multivitamins(DAILY MULTIVITAMIN TAB) Take one(1) tablet daily. - CALTRATE-600 PLUS VITAMIN D3 600 MG-400 UNIT TAB Take one(1) tablet daily. Problem List As Of Date 01/19/2024 Noted Resolved ANXIETY STATE NOS [F41.1] 09/17/2005 ATROPHIC VAGINITIS [N95.2] 09/23/2006 Essential Hypertension, Benign [I10] 10/26/2008 12/11/2009 Post Menopausal Syndrome [N95.1] 12/11/2009 Cough [R05.9] 12/11/2009 11/03/2014 HBP (high blood pressure) [I10] 12/11/2009 11/03/2014 Metabolic Syndrome [E88.810] 12/11/2009 Ankle fracture, left [S82.892A] 04/25/2011 11/03/2014 Obstructive sleep apnea of adult [G47.33] 09/08/2011 Essential hypertension [I10] 09/02/2012 Hypokalemia [E87.6] 12/09/2012 11/03/2014 Allergic rhinitis [J30.9] 11/08/2013 Carpal tunnel syndrome on both sides [G56.03] 11/08/2013 Mixed hyperlipidemia [E78.2] 04/22/2016 Screening for colon cancer [Z12.11] 11/12/2016 12/05/2021 Impaired fasting glucose [R73.01] 12/01/2016 Contact dermatitis [L25.9] 12/01/2016 Right hip pain [M25.551] 12/01/2016 Cough [R05.9] 12/01/2016 Well adult exam [Z00.00] 12/01/2016 12/05/2021 Type 2 diabetes mellitus with hyperglycemia (HC*09/24/2022 Anxiety and depression [F41.9, F32.A] 12/10/2020 Left wrist pain [M25.532] 12/10/2020 Essential tremor [G25.0] 12/10/2020 Osteopenia of multiple sites [M85.89] 11/2020 Primary osteoarthritis of right hip [M16.11] 12/10/2021 Lightheadedness [R42] 12/10/2021 RAMIREZ (dyspnea on exertion) [R06.09] 12/10/2021 Dyslipidemia [E78.5] 12/10/2021 Sweating disease [B33.8] 12/24/2022 Uncontrolled type 2 diabetes mellitus with hype*12/24/2022 Encounter Status:Closed by LIN NIEVES on 01/19/24 [facility] 12-28-2023 Telephone encounter Note The patient has been identified by name and date of : Yes Caregiver verified no other encounters exist for this prescription request: Yes Caregiver confirmed with patient/requestor that no other refills are due, in the near future, with this provider at this time: Yes The last office visit in the department: 10/16/2023 Does the patient have a future office visit with this provider/department: Yes 01/27/2024 Requested Prescriptions Pending Prescriptions Disp Refills rosuvastatin (CRESTOR) 10 mg tablet 90 tablet 3 Sig: Take 1 tablet by mouth daily at bedtime. rosuvastatin (CRESTOR) 10 mg tablet 14 tablet 0 Sig: Take 1 tablet by mouth daily at bedtime. Patient asking for 14 day rx locally since out of medication. Mecca Nelson LPN December 28, 2023 8:25 AM [facility] 12-28-2023 Miscellaneous Notes The patient has been identified by name and date of : Yes Caregiver verified no other encounters exist for this prescription request: Yes Caregiver confirmed with patient/requestor that no other refills are due, in the near future, with this provider at this time: Yes The last office visit in the department: 10/16/2023 Does the patient have a future office visit with this provider/department: Yes 01/27/2024 Requested Prescriptions Pending Prescriptions Disp Refills rosuvastatin (CRESTOR) 10 mg tablet 90 tablet 3 Sig: Take 1 tablet by mouth daily at bedtime. rosuvastatin (CRESTOR) 10 mg tablet 14 tablet 0 Sig: Take 1 tablet by mouth daily at bedtime. Patient asking for 14 day rx locally since out of medication. Mecca Nelson LPN December 28, 2023 8:25 AM documented in this encounter [facility] 10-16-2023 History of Present illness Narrative Chief Complaint Patient presents with: Follow Up: On medications wants to discuss dm meds HPI Radha Brown is a 68 year old female who presents here today for Above Complaints. Radha is an established patient of Dr. Christiano DO. She is a new patient to me today. Concerns today.. DM -- Patient reports she is feeling well overall in regards to diabetes A1C 9.2% from Thursday (2 days ago) Patient's last HgA1C was 7.8 in July. Current regimen: metformin 500 mg daily. Pt was instructed yesterday to add jardiance 10 mg to regimen by Dr. Alvarado's nurse d/t recent HgA1c. Pt wondering why she cannot start by increasing metformin first. Especially d/t cost burden of $100 with jardiance. Pt asking about other options for DM regimen. Tolerating well: Yes Med compliance: Yes Checking sugars: No, does not have glucometer. Signs of hypoglycemia?: denies Diet: admits to poor diet and exercise recently. Was able to manage DM in the past with diet and exercise control so she knows she can do it. Planning to start back on prior diet. Denies polyuria, polydipsia, numbness, tingling or pain in extremities, new or unusual visual symptoms, unintended weight changes, lightheadedness/dizziness, bowel changes/loose stools, chest pain or dyspnea HTN -- She states compliant with current blood pressure medication(s): lisinopril 10 mg daily and HCTZ 12.5 mg daily . She does not check BP at home. She denies chest pain, shortness of breath, palpitations, dizziness, leg edema, headaches, or vision changes. Last 14 Encounter BP Readings: Date: BP: 10/16/2023 130/82 03/27/2023 134/84 12/23/2022 132/80 11/21/2022 126/78 09/24/2022 120/80 05/05/2022 129/70 04/16/2022 122/68 04/01/2022 136/80 03/17/2022 123/65 12/09/2021 128/86 12/07/2020 120/80 12/05/2019 116/62 05/17/2018 126/80 04/21/2018 116/80 HLD -- On Crestor 10 mg daily. Last lipid panel: Latest Ref Rng 07/02/2023 Cholesterol, Total <200 mg/dL 140 Triglyceride <150 mg/dL 177 (H) HDL Cholesterol >39 mg/dL 46 Non HDL Cholesterol <130 mg/dL 94 Fasting Time hrs 12 VLDL Cholesterol <30 mg/dL 35 (H) TC:HDL Ratio <5.10 3.04 LDL Cholesterol <100 mg/dL 59 LDL:HDL Ratio <2.54 1.28 Past medical history, appointments, medications, allergies reviewed. 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 now. Previous Surgical History PAST SURGICAL HISTORY Procedure Laterality Date COLONOSCOPY FLX DX W/COLLJ SPEC WHEN PFRMD 09/15/2006 Colonoscopy NEUROPLASTY &/TRANSPOS MEDIAN NRV CARPAL TUNNE Bilateral 11/10/2014 Bilateral CTR PAST SURGICAL HISTORY OF 09/29/2010 Right wrist dequervaine release PAST SURGICAL HISTORY OF 11/29/2008 Left foot calcium buildup metatarsal removal REMOVAL GALLBLADDER N/A 08/24/2022 REMV CATARACT EXTRACAP,INSERT LENS Bilateral TONSILLECTOMY & ADENOIDECTOMY AGE 11/> TOTAL HIP REPLACEMENT Right 05/05/2022 UNSPECIFIED ORAL SURGERY PROCEDURE, BY REPORT 2 wisdom teeth removed. Family History FAMILY HISTORY Adopted: Yes Problem Relation Age of Onset other (ADOPTED, NO KNOWN HISTORY) Other Patient Allergies ALLERGIES No Known Allergies Current Medications Current Outpatient Medications on File Prior to Visit Medication Sig empagliflozin (JARDIANCE) 10 mg tablet Take 1 tablet by mouth daily with breakfast. Take 1 tablet once daily in the morning lisinopril (ZESTRIL) 10 mg tablet Take 1 tablet by mouth once daily. metFORMIN (GLUCOPHAGE) 500 mg tablet Take 1 tablet by mouth daily with dinner. For diabetes metFORMIN (GLUCOPHAGE) 500 mg tablet Take 1 tablet by mouth daily with dinner. hydroCHLOROthiazide 12.5 mg tablet Take 1 tablet by mouth once daily. rosuvastatin (CRESTOR) 10 mg tablet Take 1 tablet by mouth daily at bedtime. glycopyrrolate (ROBINUL) 1 mg tablet Take 1 tablet by mouth three times daily. For sweating disorder aspirin, enteric coated (ASPIRIN, ENTERIC COATED) 81 mg EC tablet Take 1 tablet by mouth twice daily for 28 days. (Patient taking differently: Take 81 mg by mouth once daily.) multivitamins(DAILY MULTIVITAMIN TAB) Take one(1) tablet daily. CALTRATE-600 PLUS VITAMIN D3 600 MG-400 UNIT TAB Take one(1) tablet daily. NIACIN 500 MG TAB Take one(1) tablet daily at bedtime. No current facility-administered medications on file prior to visit. Social History Social History Tobacco Use Smoking status: Never Smokeless tobacco: Never Vaping Use Vaping Use: Never used Substance Use Topics Alcohol use: Yes Alcohol/week: 3.3 standard drinks of alcohol Types: 1 Glasses of Wine (5oz), 1 Cans of Beer (12oz), 1 Mixed Drinks per week Comment: seldom to occasionally Drug use: No REVIEW OF SYSTEMS: as above Reviewed relevant PMHx, PSHx, Social Hx, current medications and allergies. Review of Symptoms REVIEW OF SYSTEMS See HPI. EXAM: BP 130/82 (BP Site: Left Arm, BP Position: Sitting, BP Cuff Size: Large Adult) Pulse 60 Resp 16 Wt 72.5 kg (159 lb 12.8 oz) BMI 29.23 kg/m General Appearance: Well appearing, alert, in no acute distress, well-hydrated, well nourished.. Skin: Skin color, texture, turgor normal, no suspicious rashes or lesions. Head: Normocephalic, no masses, lesions, tenderness or abnormalities. Lungs: Lungs clear to auscultation. No wheezing, rhonchi, rales.. Heart: RRR without murmur, gallop, or rubs. No ectopy. Health Maintenance List Mammogram Screening due on 01/15/2023 Urine Albumin:Creatinine Ratio due on 09/23/2023 Covid-19 Vaccine( season) due on 03/27/2024 DTaP,Tdap,Td Vaccine(2 - Td or Tdap) due on 10/15/2024 Diabetic Foot Exam due on 12/24/2023 HbA1C due on 01/14/2024 BP Controlled (<130/80) due on 03/27/2024 Dilated Retinal Exam due on 05/13/2024 LDL Cholesterol due on 07/02/2024 Annual PCP Team Chronic Disease Visit due on 10/15/2024 Colorectal Cancer Screening due on 11/28/2026 Bone Density Screening Completed Influenza Vaccine Completed RSV Vaccine Completed Hepatitis C Screening Completed Shingrix Vaccine Completed Pneumococcal Vaccine: 65+ Completed Advance Directive Discussion Discontinued ASSESSMENT/PLAN: 1. Uncontrolled type 2 diabetes mellitus with hyperglycemia (HCC) - ICD9: 250.02, ICD10: E11.65 (primary diagnosis) - Uncontrolled - Worsening control - discontinue jardiance regimen d/t cost burden. - Increase metformin regimen to 1 tablet BID. If tolerating well in 2 weeks, increase to 2 tablets BID. - Check BG a few x per week, if BG > 200 after metformin regimen increased, may consider adding GLP-1 agonist injection to regimen prior to follow-up appointment in 3 months. RTO in 3 months regardless for reassessment. Lab work as ordered prior to this appointment. - discussed in depth different diabetes medication regimens and how these work within in the body. - Statin prescribed - rosuvastatin - Counseled on healthy diet and regular exercise - Discussed need for and benefit of weight loss. BMI 29.23 kg/(m^2) - Follow up in 3 months, sooner should any other issues arise. - METFORMIN 500 MG TABLET - COMPREHENSIVE METABOLIC PANEL - COMPLETE BLOOD COUNT AND DIFFERENTIAL - HEMOGLOBIN A1C - LIPID PANEL BASIC 2. Dyslipidemia - ICD9: 272.4, ICD10: E78.5 - Controlled - Continue current medications - Counseled on healthy diet and regular exercise 3. Essential hypertension - ICD9: 401.9, ICD10: I10 - Controlled - Continue current medications - Recommend home blood pressure monitoring, to bring results to next visit - Encouraged sodium restriction, DASH or Mediterranean diet - Recommend regular aerobic exercise RTO in 3 months, sooner if needed. Prescription instructions reviewed with patient as applicable. Potential red flag symptoms discussed with the patient. Reviewed appropriate action plan to take if red flag symptoms occur. Patient agreeable to treatment plan. Casi Patel APRN.CREATIVE COORDINATOR [address] [place] [address] documented in this encounter [facility] 10-15-2023 Telephone encounter Note Patient calling and states that if prescription is sent to [facility] then it will not cost her as much. Please send prescription there. Rashida Nickerson RN [facility] 10-15-2023 Miscellaneous Notes Patient calling and states that if prescription is sent to [facility] then it will not cost her as much. Please send prescription there. Rashida Nickerson RN Left message informing rx sent to pharmacy. Sheri Welch MA The following approved medication requests have been transmitted electronically. Requested Prescriptions Signed Prescriptions Disp Refills empagliflozin (JARREDDIANCE) 10 mg tablet 90 tablet 1 Sig: Take 1 tablet by mouth daily with breakfast. Take 1 tablet once daily in the morning Authorizing Provider: WOJCIECH ALVARADO DO Pt informed, verbalized understanding. Pt reports she is taking metformin 500mg once with dinner. Please send Jardiance to [facility] in [place]. Sheri Welch MA Please inform patient that her A1c is out of control high at 9.2%. is she taking her metformin? Is she wiling to add on Jardiance or once a day Lantus insulin? Needs to be following strict diabetic diet as well. Wojciech Alvarado DO documented in this encounter [facility] 10-15-2023 Telephone encounter Note Left message informing rx sent to pharmacy. Sheri Welch MA [facility] 10-14-2023 Telephone encounter Note The following approved medication requests have been transmitted electronically. Requested Prescriptions Signed Prescriptions Disp Refills empagliflozin (JARREDDIANCE) 10 mg tablet 90 tablet 1 Sig: Take 1 tablet by mouth daily with breakfast. Take 1 tablet once daily in the morning Authorizing Provider: WOJCIECH ALVARADO DO [facility] 10-14-2023 Telephone encounter Note Pt informed, verbalized understanding. Pt reports she is taking metformin 500mg once with dinner. Please send Uzmaance to [facility] in [place]. Sheri Welch MA [facility] 10-14-2023 Telephone encounter Note Please inform patient that her A1c is out of control high at 9.2%. is she taking her metformin? Is she wiling to add on Jardiance or once a day Lantus insulin? Needs to be following strict diabetic diet as well. Wojciech Alvarado DO [facility] 10-09-2023 Telephone encounter Note Attempted to call [facility] multiple times over the last few days. Phone calls were always sent to [employer]. Left 2 messages to call office back. Sent pt Eayun message with update. She can print the letter and take it to the office if she'd like. If she obtains a fax number, I'll send it over. [facility] 10-09-2023 Miscellaneous Notes Attempted to call [facility] multiple times over the last few days. Phone calls were always sent to [employer]. Left 2 messages to call office back. Sent pt Eayun message with update. She can print the letter and take it to the office if she'd like. If she obtains a fax number, I'll send it over. Spoke with Radha. Told her that antibiotics are a lifetime recommendation prior to all dental appointments. Explained we can write the prescription for the antibiotic or the dentist can, but we're happy to fill it every time. She verbalized understanding. Confirmed no allergies. Manoj Norton CNP wrote letter. Dentist is [facility] in [place]. Ph. [phone] Unable to get a hold of the dentist for a fax number. Left VM to call back. Letter sent via [employer] Magdaleno Norton APRN.CNP October 07, 2023 10:08 AM Patient is S/P KELBY back in May, by Dr. Roberts. Her dentist asked her to give us a call. She needs something in writing that she needs or does not need to take an antibiotic prior to dental work. She has taken antibiotics in the past for some and she has not taken some antibiotics for some procedures. She can be reached at [phone]. Shalini Monroy documented in this encounter [facility] 10-07-2023 Telephone encounter Note Spoke with Radha. Told her that antibiotics are a lifetime recommendation prior to all dental appointments. Explained we can write the prescription for the antibiotic or the dentist can, but we're happy to fill it every time. She verbalized understanding. Confirmed no allergies. Manoj Norton CNP wrote letter. Dentist is [facility] in [place]. . [phone] Unable to get a hold of the dentist for a fax number. Left VM to call back. [facility] 10-07-2023 Telephone encounter Note Letter sent via [employer] Magdaleno Norton APRN.CNP October 07, 2023 10:08 AM [facility] Work Phone: 10-07-2023 Telephone encounter Note Patient is S/P KELBY back in May, by Dr. Roberts. Her dentist asked her to give us a call. She needs something in writing that she needs or does not need to take an antibiotic prior to dental work. She has taken antibiotics in the past for some and she has not taken some antibiotics for some procedures. She can be reached at [phone]. Shalini Monroy [facility] 10-05-2023 Telephone encounter Note Patient reviewed for Population Health Medication Adherence Pended the following prescription(s) for review. Requested Prescriptions Pending Prescriptions Disp Refills lisinopril (ZESTRIL) 10 mg tablet 90 tablet 3 Sig: Take 1 tablet by mouth once daily. Future Appointments Date Time Provider Department Center 10/14/2023 7:00 AM [facility] 01/27/2024 9:00 AM Wojciech Alvarado DO [facility] Please review and refill if appropriate. Thank you. Jerri Daigle October 05, 2023 5:42 PM [facility] 10-05-2023 Miscellaneous Notes Patient reviewed for Population Health Medication Adherence Pended the following prescription(s) for review. Requested Prescriptions Pending Prescriptions Disp Refills lisinopril (ZESTRIL) 10 mg tablet 90 tablet 3 Sig: Take 1 tablet by mouth once daily. Future Appointments Date Time Provider Department Center 10/14/2023 7:00 AM [facility] 01/27/2024 9:00 AM Wojciech Alvarado DO [facility] Please review and refill if appropriate. Thank you. Jerri Daigle October 05, 2023 5:42 PM documented in this encounter [facility] 09-03-2023 History of Present illness Narrative Images from the original note were not included. POPULATION HEALTH NAVIGATION OUTREACH Action/September 03, 2023 2:28 PM Patient is on [facility] Medication Adherence list for the following medications: lisinopril (ZESTRIL) 10 mg tablet 90 tablet 3 09/05/2022 -- Sig: TAKE 1 TABLET ONCE DAILY rosuvastatin (CRESTOR) 10 mg tablet 90 tablet 3 12/23/2022 -- Sig: Take 1 tablet by mouth daily at bedtime. Unable to access [employer] Portal at this time to review Medication dispense report JANE with Wojciech Alvarado DO was March 27, 2023 Outcome: Left message for patient on voicemail My chart message also sent Lisinopril showing on Medication Dispense History as being dispensed 06.05.2023 [facility] attempted to refill on 08.31.2023 lisinoprilUpdated 08/31/2023 Request refused: Patient should contact Prescriber first lisinopril (ZESTRIL) 10 mg tablet [Pharmacy Med Name: LISINOPRIL 10MG TABS] ROSUVASTATIN 10MG TAB Dispensed: 08/28/2023 12:00 AM Unit strength: 10 Unit form: tablet Days supply: 90 Quantity: 90 tablet [facility] [place] [address] - [address] [facility] - [phone] [address] [facility] [address] Authorizing provider: Wojciech Alvarado DO [address] [facility] [id number] Received from: [employer] (Claim History, Ambulatory) Brand or Generic: Generic Reason for Outreach Med Adherence Patient Contacted: Unable or unnecessary to reach patient: Left message Eayun message sent Navigation Signature: Jaclyn Chen MA September 03, 2023 2:28 PM documented in this encounter [facility] 08-11-2023 History of Present illness Narrative POPULATION HEALTH NAVIGATION OUTREACH Action/FYI Contacted patient to schedule [place] Annual Wellness Visit due. 1st attempt: Left message with my direct number 2nd attempt: My Chart message sent Reason for Outreach Care Gap/HCC or Scheduling Wellness Visits Care Gaps due: Medicare Annual Wellness Visit Breast Cancer Screening Patient Contacted: Unable or unnecessary to reach patient: Left message Eayun message sent Navigation Signature: Carolynn Nieto August 11, 2023 4:14 PM documented in this encounter [facility] 07-21-2023 Miscellaneous Notes Notified patient. Ordered Celia Downey PA-C Phoned pt and given provider's message below with verbalized understanding. Pt asking if pcp would place order Hgba1c order for her to have done in 3 mths? Pended. Please let patient know that her labs are improving! Her A1c is back into the 7s and her other labs are all stable. Continue diabetic, low fat diet. Wojciech Alvarado DO documented in this encounter [facility] 07-02-2023 Note HNO ID: [id number] Author: JEFRY LOREDO Tech Service: ? Author Type: International Guest Coordinator Type: Progress Notes Filed: 07/02/2023 13:06 Note Text: Radiology Service Progress Note PATIENT NAME: Radha Brown DATE OF SERVICE: July 02, 2023 TIME: 1:05 PM PATIENT IDENTITY VERIFICATION COMPLETED USING TWO (2) IDENTIFIERS: Name and Date of confirmed by patient verbally. FALL SCREENING: Has the patient had 2 falls in the last year or 1 fall with injury or currently using an Ambulatory Assistive Device (Walker, Cane, Wheelchair, Crutches, etc.)? No PATIENT GENDER DATA: Female. status: : No status: NO. PATIENT RELEVANT IMPLANT DATA REVIEWED: Not Applicable PATIENT PRESENTS WITH AN IMPLANTABLE OR ATTACHED GRADER MEAT: No RADIOLOGY DEPARTMENT: General X-ray: Exam(s) Completed: Pelvis X-Ray: Pelvis with Hip Right and Wt. Bearing PERIPHERAL IV DATA: Not applicable SIGNED BY: Soren Nur July 02, 2023 1:05 PM [facility] 07-02-2023 History of Present illness Narrative Orthopaedic Office Note: History/Subjective: Radha is a 67-year-old woman 1 year status post robotic right hip replacement. Lives in [place] for the cold months. Overall doing well, but does have some lateral trochanteric bursitis. Imaging: Well-appearing hip replacement appropriate position alignment with no evidence of loosening Physical Examination: Well-healed incision Palpable indentation at the fascia Tender palpation over the trochanteric bursa Fluid arcs of motion of the hip which are pain-free Excellent strength and sensation Assessment and Plan: Radha is a very nice 67-year-old woman largely healed nicely from a hip replacement 1 year ago She does have an indentation at the point where the fascia healed unevenly and scar tissue formed. We discussed local massage to this area to break up some of the scar tissue which may improve the cosmesis and the general feeling. She also has trochanteric bursitis. I have prescribed her meloxicam for this and I will provide her the following home exercise program hyperlink. When she comes back to [facility] in August if she still has issues, we will engage in formal physical therapy and she can send us a message. [email or web address] I spent a total of approximately 25 minutes on the date of the service which included preparing to see the patient, [id number] patient care, completing clinical documentation, obtaining and/or reviewing separately obtained history, performing a medically appropriate examination, counseling and educating the patient/family/caregiver, ordering medications, tests, or procedures, independently interpreting results (not separately reported), communicating results to the patient/family/caregiver, and care coordination (not separately reported). Ayo Roberts MD Orthopaedic Surgery documented in this encounter [facility] 07-02-2023 History of Present illness Narrative Radiology Service Progress Note PATIENT NAME: Radha Brown DATE OF SERVICE: July 02, 2023 TIME: 1:05 PM PATIENT IDENTITY VERIFICATION COMPLETED USING TWO (2) IDENTIFIERS: Name and Date of confirmed by patient verbally. FALL SCREENING: Has the patient had 2 falls in the last year or 1 fall with injury or currently using an Ambulatory Assistive Device (Walker, Cane, Wheelchair, Crutches, etc.)? No PATIENT GENDER DATA: Female. status: : No status: NO. PATIENT RELEVANT IMPLANT DATA REVIEWED: Not Applicable PATIENT PRESENTS WITH AN IMPLANTABLE OR ATTACHED GRADER MEAT: No RADIOLOGY DEPARTMENT: General X-ray: Exam(s) Completed: Pelvis X-Ray: Pelvis with Hip Right and Wt. Bearing PERIPHERAL IV DATA: Not applicable SIGNED BY: Soren Nur July 02, 2023 1:05 PM documented in this encounter [facility] 03-31-2023 History of Present illness Narrative Patient presents with: F/U 3 Month HPI: Radha Brown is a 67 year old female who presents to the office today for review of health conditions. Concerns today: Knows that she has been eating too many carbohydrates and sugars and has been too sedentary recently. She has had a lot of stress with situations with her grown children and grand kids. No SI or HI. Knows needs to be more active Right hip total replacement by orthopedic surgeon in May 2022, feels this is much improved, she is overall walking well and feels well. + excess sweating, no other associated symptoms, I can just step outside and start sweating profusely. Has been taking glycopyrrolate medication with some benefit. Mood, was taking prozac medication, no SI or HI. Does have some irritability and agitation and more anger related symptoms as she gets older. This is frustrating to her. She would like to try supplements 1st before being started on a new medication. Ms. Brown has past history of diabetes. Since our last visit she denies excessive thirst or increased frequency of urination, chest pain or dyspnea , new or unusual visual symptoms, and low sugar/hypoglycemic reactions. Depression- yes, see above, no SI or HI. Follows a diabetic diet some of the time. She is compliant with medication(s) and is tolerating med(s) without any side effects. She reports checking her glucose on a once a day schedule with sugars in the <200 range. Patient's last HgA1C was Hemoglobin A1C (%) Date Value 12/16/2022 9.7 09/22/2022 9.0 11/30/2020 6.2 03/19/2020 6.5 Hemoglobin A1C (POCT) (%) Date Value 03/27/2023 8.2 ) Last Ophthalmology exam was within the past 12 months Ms. Brown reports history of hyperlipidemia. Current therapy includes rosuvastatin (Crestor) 10 mg. Denies side effects of muscle weakness or achiness. Her most recent lipid panels are reviewed. Cholesterol, Total (mg/dL) Date Value 12/16/2022 149 11/30/2020 204 HDL Cholesterol (mg/dL) Date Value 12/16/2022 40 11/30/2020 43 LDL Cholesterol (mg/dL) Date Value 12/16/2022 59 11/30/2020 133 Triglyceride (mg/dL) Date Value 12/16/2022 250 11/30/2020 140 Ms. Borwn indicates a history of hypertension and states that she is feeling well and denies any symptoms referable to elevated blood pressure. Specifically denies headache, chest pain, palpitations, dyspnea, and peripheral edema. Patient denies any side effects of her medication(s) and is compliant with their regimen. Last 3 Encounter BP Readings: Date: BP: 03/27/2023 134/84 12/23/2022 132/80 11/21/2022 126/78 She watches her diet for sodium, low fat and low cholesterol some of the time. She does not check BP's generally. Radha gets sporadic irregular exercise. PAST MEDICAL HISTORY Diagnosis Date Allergic rhinitis Broken ankle 03/2011 Carpal tunnel syndrome on both sides Diverticulosis of colon (without mention of hemorrhage) Essential hypertension, benign Hair loss disorder familial/genetic per Body Stylist Impaired fasting blood sugar Mild pulmonary valve insufficiency 01/2016 Osteopenia of multiple sites 11/2020 repeat BMD 11/2022 Post menopausal syndrome Screening for colon cancer 11/12/2016 Screening for colon cancer 11/12/2016 Sleep apnea 05/2011 uses CPAP machine at night Variants of migraine, not elsewhere classified, without mention of intractable migraine without mention of status migrainosus in the past, believes were hormonal, haven't had for about 2 yrs. now. PAST SURGICAL HISTORY Procedure Laterality Date COLONOSCOPY FLX DX W/COLLJ SPEC WHEN PFRMD 09/15/2006 Colonoscopy NEUROPLASTY &/TRANSPOS MEDIAN NRV CARPAL TUNNE Bilateral 11/10/2014 Bilateral CTR PAST SURGICAL HISTORY OF 09/29/2010 Right wrist dequervaine release PAST SURGICAL HISTORY OF 11/29/2008 Left foot calcium buildup metatarsal removal REMOVAL GALLBLADDER N/A 08/24/2022 REMV CATARACT EXTRACAP,INSERT LENS Bilateral REVISE TOTAL HIP REPLACEMENT Right 05/05/2022 TONSILLECTOMY & ADENOIDECTOMY AGE 11/> TOTAL HIP REPLACEMENT Right 05/05/2022 UNSPECIFIED ORAL SURGERY PROCEDURE, BY REPORT 2 wisdom teeth removed. Social History Tobacco Use Smoking status: Never Smokeless tobacco: Never Vaping Use Vaping Use: Never used Substance Use Topics Alcohol use: Yes Alcohol/week: 7.5 standard drinks of alcohol Types: 1 Glasses of Wine (5oz), 1 Cans of Beer (12oz), 1 Mixed Drinks per week Comment: seldom to occasionally Drug use: No FAMILY HISTORY Adopted: Yes Problem Relation Age of Onset other (ADOPTED, NO KNOWN HISTORY) Other Allergies: ALLERGIES No Known Allergies Current Meds: rosuvastatin (CRESTOR) 10 mg tablet Take 1 tablet by mouth daily at bedtime. glycopyrrolate (ROBINUL) 1 mg tablet Take 1 tablet by mouth three times daily. For sweating disorder metFORMIN (GLUCOPHAGE) 500 mg tablet Take 1 tablet by mouth daily with dinner. For diabetes lisinopril (ZESTRIL) 10 mg tablet TAKE 1 TABLET ONCE DAILY aspirin, enteric coated (ASPIRIN, ENTERIC COATED) 81 mg EC tablet Take 1 tablet by mouth twice daily for 28 days. multivitamins(DAILY MULTIVITAMIN TAB) Take one(1) tablet daily. CALTRATE-600 PLUS VITAMIN D3 600 MG-400 UNIT TAB Take one(1) tablet daily. NIACIN 500 MG TAB Take one(1) tablet daily at bedtime. hydroCHLOROthiazide 12.5 mg tablet Take 1 tablet by mouth once daily. Review of Systems: The remainder of the review of systems is negative. PE: 03/27/23 1331 03/27/23 1354 BP: 146/84 134/84 Pulse: 68 Resp: 16 Temp: 36.8 C (98.2 F) TempSrc: Left Tympanic Weight: 71.7 kg (158 lb) Gen: A&O, NAD, non-toxic appearing, Pleasant, cooperative HEENT: NT/AC,wearing glasses, PERRLA, EOMs intact b/l, nares clear and patent b/l, pharynx without erythema, exudate or lesions. Uvula midline, MMM,. EACs without erythema or debris. TMs pearly heath with intact landmarks b/l. Neck: supple, No cervical LAD, no thyromegaly, no carotid bruits CV: RRR, normal S1 and S2, no murmurs, no gallops, no rubs, Pulses 2+ and symmetric in UE and LE b/l Lungs: normal respiratory effort, CTA b/l, no wheezing or rhonchi or rales Abd: soft, overweight, NT, ND, +BS, no hepatosplenomegaly MS: arthritis changes of spine Neuro: CN II-XII intact b/l, strength 5/5 b/l UE and LE, DTRs 2/4 UE and LE, sensation intact. Skin: warm, dry, intact, No rashes or lesions on exposed skin. Foot exam: Monofilament wnl on right and left feet. No edema ASSESSMENT/PLAN: 1. Uncontrolled type 2 diabetes mellitus with hyperglycemia (HCC) - ICD9: 250.02, ICD10: E11.65 (primary diagnosis) - Uncontrolled - Worsening control - Continue current medications - Blood glucose monitoring on a once daily schedule - Counseled on healthy diet and regular exercise - Discussed need for and benefit of weight loss. BMI 28.90 kg/(m^2) - HEMOGLOBIN A1C (POC) - HGB A1C - COMP METABOLIC PANEL - CBC - TSH BLD 2. Essential hypertension - ICD9: 401.9, ICD10: I10 - Controlled - Continue current medications - Recommend home blood pressure monitoring, to bring results to next visit - Encouraged sodium restriction, DASH or Mediterranean diet - Recommend regular aerobic exercise - HYDROCHLOROTHIAZIDE 12.5 MG TABLET 3. Dyslipidemia - ICD9: 272.4, ICD10: E78.5 - Control undetermined, due for labs - Continue current medications - Counseled on healthy diet and regular exercise - LIPID PANEL BASIC 4. Sweating disease - ICD9: 078.2, ICD10: B33.8 - using glycopyrrolate as prescribed, can increase dose if needed. 5. Osteopenia of multiple sites - ICD9: 733.90, ICD10: M85.89 - Reviewed the need for Calcium and Vitamin D supplements and weight bearing exercise as tolerated 6. Anxiety and depression - ICD9: 300.00, 311, ICD10: F41.9, F32.A Consider restarting on SSRI in future if needed as d/w her today, she is going to 1st try a B complex OTC Wojciech Alvarado DO To ER if develops chest pain, shortness of breath, or severe worsening of symptoms. Discussed risks, benefits, alternatives, and potential side effects of medications. Patient expressed understanding and agreed with the plan. Wojciech Alvarado DO [address] [place] [address] documented in this encounter [facility] 03-27-2023 Instructions Wojciech Alvarado DO - 03/27/2023 2:11 PM EDT B complex daily in the AM- with vitamin B6 100 mg a day + vitamin B12 1,000 mcg a day documented in this encounter [facility] 11-21-2022 Instructions Mar Celeste APRN.CREATIVE COORDINATOR - 11/21/2022 9:47 AM EDT Start prednisone May use zanfel as well to help with itch documented in this encounter [facility] 11-21-2022 History of Present illness Narrative Chief Complaint Patient presents with: poison kaylie HPI Radha Brown is a 67 year old female who presents here today for Above Complaints.. Patient presents for rash to neck, torso, and abdomen. Patient started about 3 days ago. Patient was moving grass outside while painting and later noticed the rash. Since then it has spread to multiple areas of her body and is getting worse. Past medical history, appointments, medications, allergies reviewed. 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 now. Previous Surgical History PAST SURGICAL HISTORY Procedure Laterality Date COLONOSCOPY FLX DX W/COLLJ SPEC WHEN PFRMD 09/15/2006 Colonoscopy NEUROPLASTY &/TRANSPOS MEDIAN NRV CARPAL TUNNE Bilateral 11/10/2014 Bilateral CTR PAST SURGICAL HISTORY OF 09/29/2010 Right wrist dequervaine release PAST SURGICAL HISTORY OF 11/29/2008 Left foot calcium buildup metatarsal removal REMV CATARACT EXTRACAP,INSERT LENS Bilateral TONSILLECTOMY & ADENOIDECTOMY AGE 11/ TOTAL HIP REPLACEMENT Right 05/05/2022 UNSPECIFIED ORAL SURGERY PROCEDURE, BY REPORT 2 wisdom teeth removed. Family History FAMILY HISTORY Adopted: Yes Problem Relation Age of Onset other (ADOPTED, NO KNOWN HISTORY) Other Patient Allergies ALLERGIES No Known Allergies Current Medications Current Outpatient Medications on File Prior to Visit Medication Sig lisinopril (ZESTRIL) 10 mg tablet TAKE 1 TABLET ONCE DAILY hydroCHLOROthiazide 12.5 mg tablet TAKE 1 TABLET ONCE DAILY FLUoxetine (PROZAC) 20 mg capsule TAKE 1 CAPSULE ONCE DAILY aspirin, enteric coated (ASPIRIN, ENTERIC COATED) 81 mg EC tablet Take 1 tablet by mouth twice daily for 28 days. acetaminophen (TYLENOL) 500 mg tablet Take 2 tablets by mouth every 8 hours as needed for pain. ascorbic acid, vitamin C, (VITAMIN C) 500 mg tablet Take 1 tablet by mouth twice daily with meals for 27 doses. oxyCODONE IR (ROXICODONE) 5 mg immediate release tablet Take 1-2 tablets by mouth every 6 hours as needed for pain. pantoprazole DR (PROTONIX) 20 mg tablet Take 1 tablet by mouth every morning. rosuvastatin (CRESTOR) 10 mg tablet Take 1 tablet by mouth daily at bedtime. biotin 300 mcg tab Take 1 tablet by mouth once daily. multivitamins(DAILY MULTIVITAMIN TAB) Take one(1) tablet daily. CALTRATE-600 PLUS VITAMIN D3 600 MG-400 UNIT TAB Take one(1) tablet daily. NIACIN 500 MG TAB Take one(1) tablet daily at bedtime. Current Facility-Administered Medications on File Prior to Visit Medication perflutren lipid microspheres 1.3 mL in NaCl (PF) 0.9% 10 mL injection (DEFINITY) sodium chloride 0.9 % (flush) 10 mL (BD POSIFLUSH) Social History Social History Tobacco Use Smoking status: Never Smokeless tobacco: Never Vaping Use Vaping Use: Never used Substance Use Topics Alcohol use: Yes Alcohol/week: 7.5 standard drinks Types: 1 Glasses of Wine (5oz), 1 Cans of Beer (12oz), 1 Mixed Drinks per week Comment: seldom to occasionally Drug use: No Review of Symptoms REVIEW OF SYSTEMS SEE HPI EXAM: BP 126/78 Pulse 74 Resp 12 Wt 73 kg (161 lb) BMI 29.45 kg/m General Appearance: Well appearing, alert, in no acute distress, well-hydrated, well nourished.. Skin: Positives: Rash: red raised blistery rash to neck, chest, back. Health Maintenance List SHINGRIX VACCINE(1 of 2) Never done DTAP,TDAP,TD(2 - Td or Tdap) due on 06/19/2016 LDL CHOLESTEROL due on 12/03/2022 DIABETIC FOOT EXAM due on 12/09/2022 MAMMOGRAM due on 01/15/2023 BP CONTROLLED (<130/80) due on 12/09/2022 HBA1C due on 12/22/2022 DILATED RETINAL EXAM due on 05/13/2023 URINE ALBUMIN:CREATININE RATIO due on 09/23/2023 ANNUAL PCP TEAM CHRONIC DISEASE VISIT due on 09/25/2023 COLORECTAL CANCER SCREENING due on 11/28/2026 BONE DENSITY Completed INFLUENZA Completed HEPATITIS C SCREENING Completed COVID-19 VACCINE Completed PNEUMOCOCCAL: 65+ Completed ADVANCE DIRECTIVE DISCUSSION Discontinued ASSESSMENT/PLAN: 1. Irritant contact dermatitis due to plants, except food - ICD9: 692.6, ICD10: L24.7 - Oral Steriod tx -Prednisone taper - discussed skin care of rash - follow up if symptoms persist or worsen. - PREDNISONE 10 MG TABLET Mar Celeste APRN.CNP documented in this encounter [facility] 10-09-2022 History of Present illness Narrative VIRTUAL VISIT PROGRESS NOTE This is a virtual visit using Eayun video visit. It required patient-provider interaction for the medical decision making as documented below. I have communicated my name and active licensure. The patient's identity and physical location were verified at the time of this visit. Either the patient or their legal packaging sales representative has been informed of the risks and benefits of -- and alternatives to -- treatment through a remote evaluation and consents to proceed with the evaluation remotely. Radha Brown is a pleasant 67 year old female seen for granuloma present on liver biopsy. In the biopsy report there is some mention of possible sarcoidosis, or primary biliary cholangitis. The patient's labs: 04/11/2022: LFTs WNL and synthetic liver function is preserved. She has no symptoms of liver disease and has been feeling well. When asked if she has any history of sarcoid, she stated she was adopted and does not know her family history, but she has no personal history of sarcoid or any liver issues. Granulomas in the liver are not worrisome, even if they are associated with sarcoid, the liver largely not affected in a negative way. As for the suggestion of PBC being ruled out, Ms. Brown has no cholestatic liver enzyme elevation to support that diagnosis. I discussed this case this morning with one of our Hepatologists, Dr. Jean-Baptiste and we are confident that there is no concern for her liver. I am not well versed in sarcoid in general, but I did suggest that perhaps if she wanted to follow up further to see if she has sarcoidosis, she should discuss with her PCP about perhaps seeing pulmonary. I invited the patient to contact me with any further questions/concerns. HISTORY REVIEWED (electronic chart updated): PAST MEDICAL HISTORY Diagnosis Date Allergic rhinitis Broken ankle 03/2011 Carpal tunnel syndrome on both sides Diverticulosis of colon (without mention of hemorrhage) Essential hypertension, benign Hair loss disorder familial/genetic per Body Stylist Impaired fasting blood sugar Mild pulmonary valve insufficiency 01/2016 Osteopenia of multiple sites 11/2020 repeat BMD 11/2022 Post menopausal syndrome Screening for colon cancer 11/12/2016 Screening for colon cancer 11/12/2016 Sleep apnea 05/2011 uses CPAP machine at night Variants of migraine, not elsewhere classified, without mention of intractable migraine without mention of status migrainosus in the past, believes were hormonal, haven't had for about 2 yrs. now. PAST SURGICAL HISTORY Procedure Laterality Date COLONOSCOPY FLX DX W/COLLJ SPEC WHEN PFRMD 09/15/2006 Colonoscopy NEUROPLASTY &/TRANSPOS MEDIAN NRV CARPAL TUNNE Bilateral 11/10/2014 Bilateral CTR PAST SURGICAL HISTORY OF 09/29/2010 Right wrist dequervaine release PAST SURGICAL HISTORY OF 11/29/2008 Left foot calcium buildup metatarsal removal REMV CATARACT EXTRACAP,INSERT LENS Bilateral TONSILLECTOMY & ADENOIDECTOMY AGE 11/> TOTAL HIP REPLACEMENT Right 05/05/2022 UNSPECIFIED ORAL SURGERY PROCEDURE, BY REPORT 2 wisdom teeth removed. FAMILY HISTORY Adopted: Yes Problem Relation Age of Onset other (ADOPTED, NO KNOWN HISTORY) Other Social History Tobacco Use Smoking status: Never Smokeless tobacco: Never Vaping Use Vaping Use: Never used Substance Use Topics Alcohol use: Yes Alcohol/week: 7.5 standard drinks Types: 1 Glasses of Wine (5oz), 1 Cans of Beer (12oz), 1 Mixed Drinks per week Comment: seldom to occasionally Drug use: No Current Outpatient Medications Medication Sig lisinopril (ZESTRIL) 10 mg tablet TAKE 1 TABLET ONCE DAILY hydroCHLOROthiazide 12.5 mg tablet TAKE 1 TABLET ONCE DAILY FLUoxetine (PROZAC) 20 mg capsule TAKE 1 CAPSULE ONCE DAILY aspirin, enteric coated (ASPIRIN, ENTERIC COATED) 81 mg EC tablet Take 1 tablet by mouth twice daily for 28 days. acetaminophen (TYLENOL) 500 mg tablet Take 2 tablets by mouth every 8 hours as needed for pain. ascorbic acid, vitamin C, (VITAMIN C) 500 mg tablet Take 1 tablet by mouth twice daily with meals for 27 doses. oxyCODONE IR (ROXICODONE) 5 mg immediate release tablet Take 1-2 tablets by mouth every 6 hours as needed for pain. pantoprazole DR (PROTONIX) 20 mg tablet Take 1 tablet by mouth every morning. rosuvastatin (CRESTOR) 10 mg tablet Take 1 tablet by mouth daily at bedtime. biotin 300 mcg tab Take 1 tablet by mouth once daily. multivitamins(DAILY MULTIVITAMIN TAB) Take one(1) tablet daily. CALTRATE-600 PLUS VITAMIN D3 600 MG-400 UNIT TAB Take one(1) tablet daily. NIACIN 500 MG TAB Take one(1) tablet daily at bedtime. Current Facility-Administered Medications Medication Dose Route Frequency perflutren lipid microspheres 1.3 mL in NaCl (PF) 0.9% 10 mL injection (DEFINITY) INTRAVENOUS DIRECTED PRN sodium chloride 0.9 % (flush) 10 mL (BD POSIFLUSH) 10 mL INTRAVENOUS DIRECTED PRN ALLERGIES No Known Allergies REVIEW OF SYSTEMS: GENERAL: feeling well without fatigue, no recent change in weight RESPIRATORY: no cough, no wheezing or shortness of breath CARDIOVASCULAR: no chest pain, no palpitations GI: normal appetite, tolerating PO well, BMs normal, and no abdominal pain MUSCULOSKELETAL: denies any painful or swollen joints, no muscle aches NEURO: no numbness or paresthesias and no weakness of the extremities PHYSICAL EXAMINATION: VIDEO EXAM: (if completed, performed via video enabled technology) GENERAL: alert and appropriate, in no distress, well-hydrated, well nourished, and happy, smiling, interactive ASSESSMENT: -Reviewed biopsy report with the patient -Discussed the natural history of liver disease, up to and including cirrhosis -Discussed hepatic radiologic findings, benign vs malignant -Discussed the effect of sarcoidosis on the liver (little to none) -Reviewed fatty liver -Discussed metabolic syndrome risk factors that can lead to fatty liver PLAN: (K75.3) 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 -Benign finding -Maintain a healthy diet -Regular exercise as tolerated -Continue current medications as prescribed I spent a total of 40 minutes on the date of the service which included preparing to see the patient, [id number] patient care, completing clinical documentation, counseling and educating the patient/family/caregiver, and communicating results to the patient/family/caregiver Christel Mauro APRN.CNP documented in this encounter [facility] 10-01-2022 Miscellaneous Notes Nivia order sent to [facility] per pt request. Sheri Welch Mammogram order placed. Halle Messina APRN.CNP Nivia screening with ty pended. Please see pt message. Sheri Welch documented in this encounter [facility] 09-24-2022 History of Present illness Narrative Patient presents with: Hospital F/U HPI: Radha Brown is a 66 year old female who presents to the office today for review of health conditions. Concerns today: She recently underwent a cholecystectomy about 1 month ago when she was staying in [place] with her daughter's family and had episode of severe abdominal pain, right upper abdomen. Improved with pain medication slightly but worsened. Had a stone in CBD and had acute on chronic cholecystitis. She had lap cholecystectomy and liver biopsy due to concerns for a nodule in gallbladder fossa. Pathology report showed concerns for granulomas and mild fatty liver changes. No signs of malignancy. She hasn't seen specialist yet. RUQ pain is improving, still some diarrhea/dumping stool especially in AM. S/p hip replacement, admits due to this surgery and her gallbladder removal surgery that she hasn't been exercising like she should be. Ms. Brown has past history of diabetes. Since our last visit she denies excessive thirst or increased frequency of urination, chest pain or dyspnea , new or unusual visual symptoms, and low sugar/hypoglycemic reactions. Depression- no. Follows a diabetic diet some of the time. She reports checking her glucose on a infrequent to not at all basis schedule with sugars in the <200 range. Patient's last HgA1C was Hemoglobin A1C (%) Date Value 09/22/2022 9.0 04/11/2022 7.3 11/30/2020 6.2 03/19/2020 6.5 ) Last Ophthalmology exam was within the past 12 months Ms. Brown reports history of hyperlipidemia. Current therapy includes rosuvastatin (Crestor) 10 mg. Denies side effects of muscle weakness or achiness. Her most recent lipid panels are reviewed. Cholesterol, Total (mg/dL) Date Value 12/03/2021 231 11/30/2020 204 HDL Cholesterol (mg/dL) Date Value 12/03/2021 43 11/30/2020 43 LDL Cholesterol (mg/dL) Date Value 12/03/2021 145 11/30/2020 133 Triglyceride (mg/dL) Date Value 12/03/2021 213 11/30/2020 140 Ms. Brown indicates a history of hypertension and states that she is feeling well and denies any symptoms referable to elevated blood pressure. Specifically denies headache, chest pain, palpitations, dyspnea, and peripheral edema. Patient denies any side effects of her medication(s) and is compliant with their regimen. Last 3 Encounter BP Readings: Date: BP: 09/24/2022 120/80 05/05/2022 129/70 04/16/2022 122/68 She watches her diet for sodium, low fat and low cholesterol some of the time. She does not check BP's generally. Radha gets minimal exercise. PAST MEDICAL HISTORY Diagnosis Date Allergic rhinitis Broken ankle 03/2011 Carpal tunnel syndrome on both sides Diverticulosis of colon (without mention of hemorrhage) Essential hypertension, benign Hair loss disorder familial/genetic per Body Stylist Impaired fasting blood sugar Mild pulmonary valve insufficiency 01/2016 Osteopenia of multiple sites 11/2020 repeat BMD 11/2022 Post menopausal syndrome Screening for colon cancer 11/12/2016 Screening for colon cancer 11/12/2016 Sleep apnea 05/2011 uses CPAP machine at night Variants of migraine, not elsewhere classified, without mention of intractable migraine without mention of status migrainosus in the past, believes were hormonal, haven't had for about 2 yrs. now. PAST SURGICAL HISTORY Procedure Laterality Date COLONOSCOPY FLX DX W/COLLJ SPEC WHEN PFRMD 09/15/2006 Colonoscopy NEUROPLASTY &/TRANSPOS MEDIAN NRV CARPAL TUNNE Bilateral 11/10/2014 Bilateral CTR PAST SURGICAL HISTORY OF 09/29/2010 Right wrist dequervaine release PAST SURGICAL HISTORY OF 11/29/2008 Left foot calcium buildup metatarsal removal REMV CATARACT EXTRACAP,INSERT LENS Bilateral TONSILLECTOMY & ADENOIDECTOMY AGE 11/ TOTAL HIP REPLACEMENT Right 05/05/2022 UNSPECIFIED ORAL SURGERY PROCEDURE, BY REPORT 2 wisdom teeth removed. Social History Tobacco Use Smoking status: Never Smokeless tobacco: Never Vaping Use Vaping Use: Never used Substance Use Topics Alcohol use: Yes Alcohol/week: 7.5 standard drinks Types: 1 Glasses of Wine (5oz), 1 Cans of Beer (12oz), 1 Mixed Drinks per week Comment: seldom to occasionally Drug use: No FAMILY HISTORY Adopted: Yes Problem Relation Age of Onset other (ADOPTED, NO KNOWN HISTORY) Other Allergies: ALLERGIES No Known Allergies Current Meds: lisinopril (ZESTRIL) 10 mg tablet^TAKE 1 TABLET ONCE DAILY^Disp: 90 tablet^Rfl: 3 hydroCHLOROthiazide 12.5 mg tablet^TAKE 1 TABLET ONCE DAILY^Disp: 90 tablet^Rfl: 3 aspirin, enteric coated (ASPIRIN, ENTERIC COATED) 81 mg EC tablet^Take 1 tablet by mouth twice daily for 28 days.^Disp: 56 tablet^Rfl: 0 rosuvastatin (CRESTOR) 10 mg tablet^Take 1 tablet by mouth daily at bedtime.^Disp: 90 tablet^Rfl: 3 multivitamins(DAILY MULTIVITAMIN TAB)^Take one(1) tablet daily.^Disp: ^Rfl: 0 CALTRATE-600 PLUS VITAMIN D3 600 MG-400 UNIT TAB^Take one(1) tablet daily.^Disp: ^Rfl: 0 NIACIN 500 MG TAB^Take one(1) tablet daily at bedtime.^Disp: ^Rfl: 0 FLUoxetine (PROZAC) 20 mg capsule^TAKE 1 CAPSULE ONCE DAILY^Disp: 90 capsule^Rfl: 0 acetaminophen (TYLENOL) 500 mg tablet^Take 2 tablets by mouth every 8 hours as needed for pain.^Disp: 90 tablet^Rfl: 0 ascorbic acid, vitamin C, (VITAMIN C) 500 mg tablet^Take 1 tablet by mouth twice daily with meals for 27 doses.^Disp: 27 tablet^Rfl: 0 oxyCODONE IR (ROXICODONE) 5 mg immediate release tablet^Take 1-2 tablets by mouth every 6 hours as needed for pain.^Disp: 30 tablet^Rfl: [address] (PROTONIX) 20 mg tablet^Take 1 tablet by mouth every morning.^Disp: 30 tablet^Rfl: 0 biotin 300 mcg tab^Take 1 tablet by mouth once daily.^Disp: ^Rfl: Review of Systems: The remainder of the review of systems is negative. PE: 09/24/22 0738 BP: 120/80 Pulse: 76 Resp: 16 Temp: 36.1 C (97 F) TempSrc: Right Tympanic Weight: 72.1 kg (159 lb) Gen: A&O, NAD, non-toxic appearing, Pleasant, cooperative HEENT: NT/AC, PERRLA, wearing glasses, EOMs intact b/l, nares clear and patent b/l, pharynx without erythema, exudate or lesions. Uvula midline. MMM, EACs without erythema or debris. TMs pearly heath with intact landmarks b/l. Neck: supple, No cervical LAD, no thyromegaly, no carotid bruits CV: RRR, normal S1 and S2, no murmurs, no gallops, no rubs, Pulses 2+ and symmetric in UE and LE b/l Lungs: normal respiratory effort, CTA b/l, no wheezing or rhonchi or rales Abd: soft, mild distension and healing incisions lap ports. NT, ND, +BS, no hepatosplenomegaly MS: FROM all 4 extremities Neuro: CN II-XII intact b/l, strength 5/5 b/l UE and LE, DTRs 2/4 UE and LE, sensation intact. Skin: warm, dry, intact, No rashes or lesions on exposed skin. Foot exam: Monofilament wnl on right and left feet. No edema, normal pulses ASSESSMENT/PLAN: 1. Uncontrolled type 2 diabetes mellitus with hyperglycemia (HCC) - ICD9: 250.02, ICD10: E11.65 (primary diagnosis) - Uncontrolled - Worsening control - Barriers to control: diet adherence and lack of exercise - Blood glucose monitoring on a once daily schedule - Counseled on healthy diet and regular exercise - Discussed need for and benefit of weight loss. BMI 29.08 kg/(m^2) - Discussed diabetic education issues of diabetes complications and monitoring required and hypoglycemic/hyperglycemic symptoms - HGB A1C - COMP METABOLIC PANEL - VITAMIN B12 BLOOD - VITAMIN D 25 HYDROXY - TSH BLD 2. 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 - ICD9: 572.8, ICD10: K75.3 Referral for opinion, found during her cholecystectomy surgery, need hepatology opinion - CONSULT TO HEPATOLOGY 3. Essential hypertension - ICD9: 401.9, ICD10: I10 - good control - Continue current medication(s) - Encouraged dietary sodium restriction/DASH diet - Recommended regular aerobic exercise. - Recommend home blood pressure monitoring, to bring results in on next visit - Discussed need and benefit for weight loss. - Goal of BP <130/80 4. Dyslipidemia - ICD9: 272.4, ICD10: E78.5 - suboptimal control - Encouraged following a low fat, low cholesterol diet. - Discussed the benefits of regular aerobic exercise and weight loss. - LIPID PANEL BASIC - VITAMIN B12 BLOOD - VITAMIN D 25 HYDROXY - TSH BLD 5. Hair loss - ICD9: 704.00, ICD10: L65.9 - VITAMIN B12 BLOOD - VITAMIN D 25 HYDROXY - TSH BLD 6. Type 2 diabetes mellitus without complication, without long-term current use of insulin (HCC) - ICD9: 250.00, ICD10: E11.9 See above Wojciech Alvarado DO To ER if develops chest pain, shortness of breath, or severe worsening of symptoms. Discussed risks, benefits, alternatives, and potential side effects of medications. Patient expressed understanding and agreed with the plan. Wojciech Alvarado DO [address] [place] [address] documented in this encounter [facility] 09-24-2022 Instructions Wojciech Alvarado DO - 09/24/2022 8:15 AM EDT Cholestyramine ? If needed for Dumping syndrome PB8 or Primadolphilus probiotic (I get one of these at [facility])- refrigerated probiotic, take at night. Increase fiber in diet- start metamucil in the AM with water documented in this encounter [facility] 09-11-2022 Miscellaneous Notes Spoke with patient. Given message from provider's office. Patient verbalizes understanding. Christel Morley RN Called and left a voicemail for the Patient to call back and ask for a nurse to receive message. Salena reports she received reports on Pt from [place]. Lorena Martin RN Pt called in and reports she called other providers office and they are going to re-fax medical records today. Pt would like called when the provider receives the records. Patient returned call and went over notes. Patient said she will try to get records faxed to office. Please obtain records Wojciech Alvarado DO Nothing received at this time. Attempted to inform patient with no answer. Left message. Sheri Welch Patient scheduled Hospital f/u with pcp in 2 weeks. Reports she had cholecystectomy on 08-24-22 at [place], [place] (under the umbrella of [facility]). Reports there was a gallstone stuck in the duct for several days with excruciating pain. Dr. Gordo Harris was the surgeon. Dr. Harris's office phone # [phone], and fax # [phone]. Patient wants pcp to know this b/c he did a pathology test on a spot on her liver while he was doing surgery, and the results show sarcoidosis. Patient gave them pcp's fax number, and they agreed to send medical records to pcp on this past Thursday. Asking if you received these? If not , let her know and she will call them again. Reports she is home in [place] now, and feeling good. documented in this encounter [facility] 09-05-2022 Miscellaneous Notes Requested Prescriptions Pending Prescriptions Disp Refills lisinopril (ZESTRIL) 10 mg tablet [Pharmacy Med Name: LISINOPRIL TAB 10MG] 90 tablet 3 Sig: TAKE 1 TABLET ONCE DAILY hydroCHLOROthiazide 12.5 mg tablet [Pharmacy Med Name: HYDROCHLOROT TAB 12.5MG] 90 tablet 3 Sig: TAKE 1 TABLET ONCE DAILY JANE 04/01/2022 NOV not scheduled at this time Sheri Welch documented in this encounter [facility] 07-08-2022 Miscellaneous Notes Last office visit: 04/01/22 F/u scheduled: none Estelita Olmos Ma documented in this encounter [facility] 07-01-2022 History of Present illness Narrative Post-op Office Visit Radha Brown 66 year old July 01, 2022 7:59 AM Surgery Date: 05/05/22 History: Radha Brown Is now 8 weeks out from right Posterior KELBY. Post-operative course has been without complication. No readmission/complications Subjective: Patient reports minimal pain. Overall is doing well. off ambulatory aid off opioid pain medication Overall very happy with her result Objective: Ambulates with no limp Incision well-approximated, no drainage, normal nela-incisional erythema Arcs of motion at hip are comfortable and fluid Distally DP/PT palpable Distally S/S/SP/DP/T intact at baseline Distally DF/EHL/PF intact at baseline Negative jeffery/calf tenderness Xrays: No new today Assessment and Plan: Radha Brown Is here for a second post-op appointment, overall doing well -continued ice, rest, and use of non-narcotic analgesia as needed -wean off ambulatory aids -discussed home exercises and therapy -WBAT on operative extremity -reinforced posterior precautions through 8 weeks: avoid extremes of flexion, internal rotation, and adduction -continue ankle pumps and dvt ppx through 4 weeks -discussed driving requirement: 4 weeks post-op, off narcotic pain medication, adequate brake time -will see back at 1 year appointment for clinical exam and post-op xrays--can see earlier if needed -discussed red flag symptoms of acutely increasing pain, new erythema, new swelling, drainage, shortness of breath Ayo Roberts MD Orthopaedic Surgery documented in this encounter [facility] 05-20-2022 History of Present illness Narrative Post-op Office Visit Radha Brown 66 year old May 20, 2022 3:48 PM Surgery Date: 05/05/22 History: Radha Brown Is now 2 weeks out from S/P Right KELBY. Post-operative course has been without complication. No readmission/complications Subjective: Patient reports decreasing pain. Overall is doing well. Walker ambulatory aid No opioid pain medication Wants to go to [place] in beginning of June Objective: Ambulates with walker Incision well-approximated, no drainage, normal nela-incisional erythema Full ROM not tested do to early post-operative period, but smaller arcs of motion fluid and comfortable Distally DP/PT palpable Distally S/S/SP/DP/T intact at baseline Distally DF/EHL/PF intact at baseline Negative jeffery/calf tenderness Xrays: Well aligned total hip replacement in appropriate position with no evidence of loosening Assessment and Plan: Radha Brown Is here for a first post-op appointment, overall doing well -continued ice, rest, and use of non-narcotic analgesia as needed -wean off ambulatory aids -discussed home exercises and therapy -WBAT on operative extremity -reinforced posterior precautions through 8 weeks: avoid extremes of flexion, internal rotation, and adduction -continue ankle pumps and dvt ppx through 4 weeks and through [place] trip -discussed driving requirement: 4 weeks post-op, off narcotic pain medication, adequate brake time -will see back after she returns from [place] in end of June beginning of July -discussed red flag symptoms of acutely increasing pain, new erythema, new swelling, drainage, shortness of breath Ayo Roberts MD Orthopaedic Surgery documented in this encounter [facility] 05-20-2022 Miscellaneous Notes Radiology Service Progress Note PATIENT NAME: Radha Brown DATE OF SERVICE: May 20, 2022 TIME: 2:39 PM PATIENT IDENTITY VERIFICATION COMPLETED USING TWO (2) IDENTIFIERS: Name and Date of confirmed by patient verbally. FALL SCREENING: Has the patient had 2 falls in the last year or 1 fall with injury or currently using an Ambulatory Assistive Device (Walker, Cane, Wheelchair, Crutches, etc.)? No PATIENT GENDER DATA: Female. status: : No status: NO. PATIENT RELEVANT IMPLANT DATA REVIEWED: Not Applicable RADIOLOGY DEPARTMENT: General X-ray: Exam(s) Completed: Pelvis X-Ray: Pelvis with Hip Right PERIPHERAL IV DATA: Not applicable SIGNED BY: RT Dre(R) May 20, 2022 2:39 PM documented in this encounter [facility] 05-20-2022 Progress note Formatting of t his note might be different from the original. Radiology Service Progress Note PATIENT NAME: Radha Brown DATE OF SERVICE: May 20, 2022 TIME: 2:39 PM PATIENT IDENTITY VERIFICATION COMPLETED USING TWO (2) IDENTIFIERS: Name and Date of confirmed by patient verbally. FALL SCREENING: Has the patient had 2 falls in the last year or 1 fall with injury or currently using an Ambulatory Assistive Device (Walker, Cane, Wheelchair, Crutches, etc.)? No PATIENT GENDER DATA: Female. status: : No status: NO. PATIENT RELEVANT IMPLANT DATA REVIEWED: Not Applicable RADIOLOGY DEPARTMENT: General X-ray: Exam(s) Completed: Pelvis X-Ray: Pelvis with Hip Right PERIPHERAL IV DATA: Not applicable SIGNED BY: RT Dre(R) May 20, 2022 2:39 PM [facility] 05-12-2022 Miscellaneous Notes Unfortunately Manoj does not have anything else that available for a few weeks out. Called and informed patient, ok to keep appointment. Doing ok at home. Abiding by weight bearing and precautions. Little swelling. Patient would like to know if she can move her appt with Manoj up to earlier in the day or another day. Please call her to help reschedule. Thanks! documented in this encounter [facility] 05-06-2022 Miscellaneous Notes I spoke with the pharmacist at the patient's pharmacy. All questions answered. Oxycodone Rx will be filled. Jonathan Zapata PA-C [facility] calling about oxycodone Wont fill it unless you change it to max 6 a day to keep MME under 50 Please advise [phone] documented in this encounter [facility] 04-22-2022 Miscellaneous Notes TOTAL JOINT COMPLETE CARE PROGRAM PRE-OPERATIVE TEACHING Service Date: 04/29/2022 Service Time: 8:02 AM Date of : 1955 Gender: female Date of Surgery: 05/05/22 Procedure: Right Total Hip Replacement Complete Care Program was discussed with the patient: Workplace Relations Adviser Identification: Patient identified a ostomy care nurse to help when discharged to home: maritime guard Home Environment: Home Layout: 2 story, Entry Steps: 1 plus 1 in, Bedroom Location: 1st floor, Bathroom Location: 1st floor, and walk in shower. Pt owns walker, cane, shower chair, getting toilet riser. Discussed with patient importance of attending joint education class and provided date and times of class: YES paper copy Patient received Joint Education Binder: Yes Patient plans discharge home with [facility]. SIGNATURE: LAURENCE Broderick PATIENT NAME: Radha Brown DATE: April 22, 2022 TIME: 11:46 AM documented in this encounter [facility] 04-16-2022 Instructions Any Donnelly APRN.CREATIVE COORDINATOR - 04/16/2022 8:28 AM EST PATIENT PREOPERATIVE INSTRUCTIONS Ayo Roberts MD has scheduled you for your procedure at this surgery center: [facility]: [phone] -- [address] [address]. Please read below carefully for your personalized instructions. Dietary Restrictions: - No solid food after midnight. - You may have 12 ounces of clear liquids (water, clear juices such as apple juice or gatorade, carbonated beverages, clear tea, black coffee, jello) until 2 hours before scheduled arrival at facility. No red/purple coloring and no creamer/sugar Medications: Unless instructed differently below, stay on all of your medications until your surgery. Approved medications to take the morning of surgery with a sip of water: Fluoxetine, Rosuvastatin Do not take Lisinopril or Hydrochlorothiazide the morning and/or day prior surgery If you start any new medications after today's visit, please contact the surgeon's office. Blood Thinning Medications: - Stop NSAIDS (Ibuprofen, Advil, Aleve, Motrin, Celebrex, Mobic, etc.) 7 days before surgery, as directed by your surgeon. - Stop Aspirin 7 days before surgery, as directed by your surgeon. - Stop Vitamin E, ALL multi-vitamins, herbals and dietary supplements 7 days before surgery. - You may take Tylenol (Acetaminophen) or any of your pain medications that do not contain aspirin or NSAIDS as needed. Important Reminders: - If you use CPAP/BIPAP, bring the machine with you to the surgery center. - If you are prescribed inhalers for breathing, continue using them. - Candy, mints, and tobacco products are NOT permitted the morning of surgery. - Hearing aids, dentures and glasses may be worn the morning of surgery. - NO jewelry, body piercings, makeup, hairpins or contacts are to be worn the day of surgery. If you develop symptoms such as a fever, cold, or flu, or have other changes to your health within TWO DAYS of scheduled surgery or the morning of surgery, please contact the surgery center above. Personal Belongings: -Please have photo ID and insurance cards. -If you do not have a copy of advance directives on file with us, please bring a copy with you on the day of surgery. - Leave ALL valuables and money at home or with family members. For Outpatient Procedures: - YOU MUST HAVE A RESPONSIBLE RETANNED LEATHER ROLLER TAKE YOU HOME. A FAMILY NURSE OR STRAIGHT SLICING MACHINE OPERATOR CANNOT BE MADE A RESPONSIBLE RETANNED LEATHER ROLLER. - We recommend that a responsible person stays with you overnight to take care of you. - You cannot stay in a hotel alone after outpatient surgery. You will not be permitted to have your surgery, if you do not have someone to take care of you. Arrival Time for Surgery: - The Surgery Center or hospital where you are having surgery will call the afternoon before surgery (or Thursday for Thursday surgery) with a scheduled arrival time. - If you have not heard by 4 pm, please contact the surgery center above. Please be aware that emergency situations arise, which may delay or change your surgical time. If this happens, we will notify you as soon as possible and regret any inconvenience. If you already have an Advance Directive, please fax a copy to [phone] or email to for it to be added to your chart. If you do not have an Advance Directive, you can find the appropriate form and more information at [email or web address]. We recommend that you complete the Advance Directive form found on the website and bring it with you the day of your surgery. It can be witnessed and scanned into your chart that day. Any Donnelly APRN.MALINDA documented in this encounter [facility] 04-16-2022 History and physical note Images from the original note were not included. HISTORY AND PHYSICAL EXAMINATION SERVICE DATE: 04/15/2022 SERVICE TIME: 8:42 AM PRIMARY CARE PHYSICIAN: Wojciech Alvarado DO REASON FOR VISIT: Radha Brown is a 66 year old female who is scheduled for Procedure(s): ROBOTIC ASSISTED TOTAL HIP ARTHROPLASTY (Right) at the request of Dr. Ayo Roberts for consultation. My final recommendation will be communicated back to the requesting physician by way of shared medical record or letter. Subjective The patient has the following: ACTIVE PROBLEM LIST Anxiety State, Unspecified Postmenopausal Atrophic Vaginitis Post Menopausal Syndrome Metabolic Syndrome Obstructive Sleep Apnea of Adult Essential Hypertension Allergic Rhinitis Carpal Tunnel Syndrome On Both Sides Mixed Hyperlipidemia Impaired Fasting Glucose Contact Dermatitis Right Hip Pain Cough Type 2 Diabetes Mellitus Without Complication, Without Long-Term Current Use of Insulin (Hcc) Anxiety and Depression Left Wrist Pain Essential Tremor Osteopenia of Multiple Sites Primary Osteoarthritis of Right Hip Lightheadedness Ramirez (Dyspnea On Exertion) Dyslipidemia COVID-19 Immunization Status COVID-19 VACCINE (Series Information) Completed 03/28/2022 Imm Admin: COVID-19 booster vaccine, age 12+ yr, bivalent ([employer]) 03/29/2021 Imm Admin: COVID-19 original vaccine, full dose, monovalent (MODERNA) 08/06/2020 Imm Admin: COVID-19 original vaccine, full dose, monovalent (MODERNA) Only the first 3 history entries have been loaded, but more history exists. CHIEF COMPLAINT: Pre-op exam HPI: SYLVESTER is a 66 yo seen for PAC due to scheduled above surgery because of OA right hip. 03/04/2022 Dr. 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 The problem began limiting activities 1-3 years ago. Currently the pain in the joint is rated at 5 out of 10 with minimal activity. The pain is intermittent and is located in the right groin and outer aspect of the hip. The pain is described as sharp. Relieving factors include over the counter medication and repositioning. There is no specific incident that brought about this pain. Radha Brown also complains of weakness. FUNCTIONAL STATUS: Climb a flight of stairs or walk up a hill (5.50 METs) Total Joint Arthroplasty: Risk Calculator Radha Brown has a 17.52% chance of NOT returning home at discharge for a Primary total Hip replacement. Radha's estimated Length of Stay is 2 days. Radha's 30 day chance of readmission is 1.08%. Readmission Probability 1.08 % (within 30 days following surgery) Estimated LOS 2 days Discharge Disposition Probability D/C to Home 82.48 % D/C to SNF 17.52 % These calculations are based on the following factors: - 66 years of age - sex is not male - BMI of 29.74 kg/m2 - [facility] score of 0 - 0 hospitalizations in the last 12 months - no history of heart disease - history of diabetes - no history of COPD - no history of anemia - preoperative ambulation: impaired community distances - 1 step(s) to enter home - bed location is on the first floor - bath location is on the first floor - caregiver is consistent - home is not more than 150 miles away - PROMIS-10 Mental Health T score not available - Marital status: PREVIOUS TREATMENTS: Medical: OTC NSAIDS for 3 Months or Greater (Aleve) Physical Therapy: Activities Modified REVIEW OF SYSTEMS: PAIN ASSESSMENT: See HPI. MUSCULOSKELETAL: See HPI. Risk Factors for Total Joint Arthroplasty (TJA) Obesity Unknown Risk High: BMI > 40 Moderate: BMI 30-40 Normal: BMI < 30 Diabetes Moderate Risk High: A1C > 8 Moderate: A1C 7-8 Normal: A1C < 7 Smoking normal High: Current smoker Normal: Non smoker Anemia normal High: Hgb < 11.5 (women) N/A: Hgb >= 11.5 (women) Nutritional Status normal High: Alb<3.4, or prealb<15, or serum transferrin<200, or total lymphocyte count<1500 Normal: normal labs COPD normal High: dx of COPD Normal: no dx of COPD MRSA normal High: dx of MRSA or positive lab test Normal: no MRSA CKD normal High: eGFR<60 Moderate: eGFR 60-89 Normal: eGFR>90 Hx of DVT / PE normal High: dx of DVT / PE Normal: no dx of DVT / PE Narcotics Use normal High:NarxCare >=300 Moderate: 100-299 Normal: 0-99 ANURADHA High Risk High: dx of ANURADHA N/A: no dx of ANURADHA Coagulation normal High:PT Sec>13, or PT INR>1.3, or APTT>32.4, or Plt ct<150k Moderate: on anticoag but none of the above Normal: none Obesity: height and/or weight are out of date (There is no height and/or weight reading in the past 365 days, so the below BMI readings may be inaccurate) BMI Readings from Last 3 Encounters: 03/04/22 : 29.74 kg/m 12/09/21 : 28.63 kg/m 12/07/20 : 27.70 kg/m Diabetes: Well controlled Hemoglobin A1C (%) Date Value 12/03/2021 6.5 11/30/2020 6.2 03/19/2020 6.5 Obstructive Sleep Apnea (ANURADHA) Other Risk Factors None REVIEW OF SYSTEMS: General: No weight loss, malaise or fevers. Neurological: +essential tremor, no tx. No history of TIA's, stroke, REPA[employer]ER S[employer] DOOR tumor, impaired sensorium, hemiplegia, paraplegia or quadraplegia. No neurological symptoms or problems. Respiratory: Positive for: obstructive sleep apnea and CPAP/BiPAP compliant. Cardiovascular: Positive for: anticoagulation therapy (ASA), hyperlipidemia (on rx) and hypertension (on rx) Negative for: arrhythmia, atrial fibrillation, CAD, chest pain, CHF, congenital heart defect, DVT/PE, recent LA, murmur/valvular heart disease, open heart surgery and valve surgery. GI: No history of GI symptoms or problems. No history of esophageal varices, recent ascites, or ETOH greater than 2 drinks per day. : No history of dysuria, frequency or incontinence, stones or chronic kidney disease. No difficulty urinating, nocturia > 1 time per night or hematuria. 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 Endocrine: Positive for: diabetes mellitus (+prediabetes). Patient's diabetes mellitus is controlled by diet. Negative for: hypothyroidism. Hematology: Positive for: chronic anti-coagulation/platelet meds. Patient is on anti-coagulation/platelet medication(s): Aspirin. Negative for: anemia, bruises/bleeds easily and transfusion of at least 4 units within 72 hours prior to surgery. Oncology: No history of CA metastasis, chemo within 30 days, or radiotherapy within 90 days. No history of oncological symptoms or problems. Psych: Positive for: anxiety (on rx) and depression (on rx). Musculoskeletal: See HPI. +osteopenia, supplements Skin: Negative for lesions, rash and itching. PAST MEDICAL HISTORY Diagnosis Date Allergic rhinitis Broken ankle 03/2011 Carpal tunnel syndrome on both sides Diverticulosis of colon (without mention of hemorrhage) Essential hypertension, benign Hair loss disorder familial/genetic per Body Stylist Impaired fasting blood sugar Mild pulmonary valve insufficiency 01/2016 Osteopenia of multiple sites 11/2020 repeat BMD 11/2022 Post menopausal syndrome Screening for colon cancer 11/12/2016 Screening for colon cancer 11/12/2016 Sleep apnea 05/2011 uses CPAP machine at night Variants of migraine, not elsewhere classified, without mention of intractable migraine without mention of status migrainosus in the past, believes were hormonal, haven't had for about 2 yrs. now. PAST SURGICAL HISTORY Procedure Laterality Date COLONOSCOPY FLX DX W/COLLJ SPEC WHEN PFRMD 09/15/2006 Colonoscopy NEUROPLASTY &/TRANSPOS MEDIAN NRV CARPAL TUNNE Bilateral 11/10/2014 Bilateral CTR PAST SURGICAL HISTORY OF 09/29/2010 Right wrist dequervaine release PAST SURGICAL HISTORY OF 11/29/2008 Left foot calcium buildup metatarsal removal REMV CATARACT EXTRACAP,INSERT LENS Bilateral TONSILLECTOMY & ADENOIDECTOMY AGE 11/> UNSPECIFIED ORAL SURGERY PROCEDURE, BY REPORT 2 wisdom teeth removed. FAMILY HISTORY Adopted: Yes Problem Relation Age of Onset other (ADOPTED, NO KNOWN HISTORY) Other Social History Tobacco Use Smoking status: Never Smokeless tobacco: Never Vaping Use Vaping Use: Never used Substance Use Topics Alcohol use: Yes Alcohol/week: 7.5 standard drinks Types: 1 Glasses of Wine (5oz), 1 Cans of Beer (12oz), 1 Mixed Drinks per week Comment: seldom to occasionally Drug use: No Prior to Admission medications as of 04/16/22 0806 Medication Sig Last Dose Taking FLUoxetine (PROZAC) 20 mg capsule Take 1 capsule by mouth once daily. Taking Yes rosuvastatin (CRESTOR) 10 mg tablet Take 1 tablet by mouth daily at bedtime. Taking Yes lisinopril (ZESTRIL, PRINIVIL) 10 mg tablet TAKE 1 TABLET ONCE DAILY Taking Yes hydroCHLOROthiazide (HYDRODIURIL, ESIDRIX) 12.5 mg tablet TAKE 1 TABLET ONCE DAILY Taking Yes aspirin, enteric coated (ASPIRIN, ENTERIC COATED) 81 mg EC tablet Take 1 tablet by mouth once daily. Taking Yes multivitamins(DAILY MULTIVITAMIN TAB) Take one(1) tablet daily. Taking Yes CALTRATE-600 PLUS VITAMIN D3 600 MG-400 UNIT TAB Take one(1) tablet daily. Taking Yes NIACIN 500 MG TAB Take one(1) tablet daily at bedtime. Taking Yes mupirocin (BACTROBAN) 2 % ointment Apply 0.5 inch with cotton swab (Q-tip) to each nostril in the morning and evening for 5 days prior to and including day of surgery. biotin 300 mcg tab Take 1 tablet by mouth once daily. No medication comments found. ALLERGIES No Known Allergies Objective PHYSICAL EXAM: General: alert and oriented (x3) and healthy appearance. Pertinent negatives noted - not distressed. Skin: normal color, no rash or lesions. HEENT: EOM intact and pupils equal round. Pertinent negatives noted - no carotid bruit. Cardiovascular: regular rate and rhythm, normal S1 and S2, no rub, murmurs, or gallop. Respiratory: normal breath sounds, no wheezes or crackles. No chest wall deformity or tenderness. Abdomen: soft. Pertinent negatives noted - not tender. Extremities: no deformity, no edema or tenderness, no joint swelling or clubbing. Neurological: normal cognition and motor skills. Gait normal. No weakness or sensory deficit. PAIN ASSESSMENT: Pain Pain Level: 5 Pain Location: Hip-Right Description: Sore Duration Amount of Time: 4 Duration Units: Years Frequency: Continuous Intervention/Comfort measure: Medication VITALS: BP 122/68 Pulse 69 Temp (Src) 96.6 (Temporal) Resp 16 Ht 5' 2 (1.58m) Wt 157 lb (71.2kg) SpO2 95% BMI 28.71 kg/(m^2). Diagnostic tests reviewed for today's visit: Lab Value Units Date High Low HB 13.8 g/dL 04/11/2022 15.5 11.5 HCT 40.5 % 04/11/2022 46.0 36.0 WBC 6.27 k/uL 04/11/2022 11.00 3.70 PLT 190 k/uL 04/11/2022 400 150 NA 137 mmol/L 04/11/2022 144 136 K 4.3 mmol/L 04/11/2022 5.1 3.7 GLUC 186 mg/dL 04/11/2022 99 74 BUN 18 mg/dL 04/11/2022 21 7 CREAT 1.16 mg/dL 04/11/2022 0.96 0.58 PTSEC No results within date range. INR No results within date range. APTT No results within date range. ALT 21 U/L 04/11/2022 38 7 AST 20 U/L 04/11/2022 35 13 TBILI 0.3 mg/dL 04/11/2022 1.3 0.2 TSH 2.240 mIU/L 12/03/2021 4.200 0.270 Lab Value Units Date High Low HCGQT No results within date range. UHCG No results within date range. HCG, BODY* No results within date range. Lab Value Units Date High Low ABORHD No results within date range. ABSCREEN No results within date range. Hemoglobin A1C (%) Date Value 04/11/2022 7.3 12/03/2021 6.5 11/30/2020 6.2 03/19/2020 6.5 12/07/2019 7.5 12/01/2016 6.4 09/12/2015 5.9 Recent Results (from the past 8760 hour(s)) ECG COMPLETE Collection Time: 12/09/21 12:53 PM Result Value Ventricular Rate 61 Atrial Rate 61 P-R Interval 146 QRS Duration 86 QT Interval 414 QTC Calculation (Bazett) 416 Calculated P [place] 48 Calculated R [place] 25 Calculated T [place] 41 Impression NORMAL SINUS RHYTHM NORMAL ECG Confirmed by JA EDMONDS M.D. ([id number]) on 12/09/2021 4:55:15 PM Recent Results (from the past 31733 hour(s)) ECHO Collection Time: 12/12/21 10:27 AM Impression CONCLUSIONS: - Technically difficult exam due to body habitus. - Exam indication: Shortness of Breath - The left ventricle is small. Left ventricular systolic function is normal. EF = 66 5% (2D biplane) Grade I left ventricular diastolic dysfunction. - The right ventricle is normal in size. Right ventricular systolic function is normal. - There are no significant valvular abnormalities. - There are no significant valvular abnormalities. - Exam was compared with the prior echocardiographic exam performed on 02/25/2016, no significant change. * * * Final * * * Assessment Type 2 diabetes mellitus without complication, without long-term current use of insulin (HCC) Assessment: diet controlled Hemoglobin A1C (%) Date Value 04/11/2022 7.3 11/30/2020 6.2 Osteopenia of multiple sites Assessment: taking supplement Obstructive sleep apnea of adult Assessment: c/w CPAP Mixed hyperlipidemia Assessment: c/w statin Essential tremor Assessment: hx, no tx Essential hypertension Assessment: controlled on rx Last 14 BP Last 14 Encounter BP Readings: Date: BP: 04/16/2022 122/68 04/01/2022 136/80 12/09/2021 128/86 12/07/2020 120/80 12/05/2019 116/62 05/17/2018 126/80 04/21/2018 116/80 09/15/2017 170/100[RODRIGUEZ BP[ 12/01/2016 138/86 11/12/2016 124/76 09/15/2016 156/100 04/22/2016 167/103 02/19/2016 130/70 11/27/2015 120/80 Dyslipidemia Assessment: c/w statin Anxiety and depression Assessment: stable on rx per pt Jones Activity Status Index: METS: Climb a flight of stairs or walk up a hill (5.50 METs) DASI Score: 5.5 Patient denies any chest pain or undue shortness of breath with the above physical activity. Clinical Frailty Scale: 3. Well, with treated comorbid disease STOP-Bang Score: Snores loudly Has been observed to stop breathing or choking/gasping during sleep Patient over 50 years old Denies feeling tired, fatigued, or sleepy during the daytime Denies having high blood pressure BMI less than or equal to 35 kg/m^2 Does not have a large neck Non-male patient STOP-Bang Score: 3 [id number] Score: Age: 65-74 Sex: female CHF history: No Hypertension history: Yes Stroke/TIA/thromboembolism history: No Vascular disease history: No Diabetes history: Yes [id number] Score: 4 ARISCAT Score: Age: 51-80 ARISCAT Score: ASA Class: 3 ANESTHESIA FINDINGS: Intubation History: No history of difficult intubation Significant Anesthesia Considerations: none Airway History: No history of difficult airway I - PHYSICAL EVALUATION AIRWAY Patient intubated: No. Tracheostomy tube not present Mallampati: III. TM distance: >3 FB. Neck ROM: full ROM without neurological symptoms. Mouth opening: adequate. Short neck: no. Thick neck: no Brown present: no DENTAL Dental findings: teeth intact. Additional comments: +crown/back. II - ANESTHESIA PLAN ASA Score: 3 Anesthetic Plan: other Anesthetic plan additional comments: *PACC/TCI - anesthesia choice. Beta Kiarra Monitoring Plan Post Procedure Analgesic Plan Informed Consent Anesthetic risks, benefits, alternatives, personnel and consent discussed: yes. Patient / Responsible Alliance Party agrees to proceed: yes Patient / Surrogate agrees to blood products: Yes Prepared for Surgery: optimally prepared for surgery, pending [see comment]. Labs, COVID CONSULTS: Patient does not require consults for optimization at this time Planned Anesthetic: other anesthesia choice The Following Tests/Procedures Have Been Initiated: Orders Placed This Encounter Type and Screen, 30 day Standing Status: Future Number of Occurrences: 1 Standing Expiration Date: 06/16/2022 Order Specific Question: [facility] of Planned Surgery or Procedure: Answer: Tristan Confirm Blood Type Standing Status: Future Number of Occurrences: 1 Standing Expiration Date: 06/16/2022 Order Specific Question: Did Blood Bank direct you to place this order: Answer: No - Presurgical Workflow mupirocin (BACTROBAN) 2 % ointment Sig: Apply 0.5 inch with cotton swab (Q-tip) to each nostril in the morning and evening for 5 days prior to and including day of surgery. Dispense: 22 g Refill: 0 Instructions Given to Patient: Instructions located in the after visit summary. Patient given verbal and written preop instructions and voices comprehension and compliance. SIGNATURE: Any Donnelly APRN.CNP PATIENT NAME: Radha Brown DATE: April 15, 2022 TIME: 5:39 PM PAGER/CONTACT #: documented in this encounter [facility] 04-14-2022 Miscellaneous Notes Spoke with pt gave information provided. Pt voices understanding. Please inform patient that her a1c is up to 7.3%. would like her to really decrease her sugar and simple carbohydrate intake of breads, pasta, rice, potatoes and corn. Increase green vegetables and lean proteins. Recheck labs in 3 months Also her serum creatinine is a little high. Would like to make sure she is drinking enough water of at least 60-80 oz a day Wojciech Alvarado DO documented in this encounter [facility] 04-14-2022 History of Present illness Narrative Radiology Service Progress Note PATIENT NAME: Radha Brown DATE OF SERVICE: April 14, 2022 TIME: 7:26 AM PATIENT IDENTITY VERIFICATION COMPLETED USING TWO (2) IDENTIFIERS: Name and Date of confirmed by patient verbally and Name and Date of confirmed by identification band. FALL SCREENING: Has the patient had 2 falls in the last year or 1 fall with injury or currently using an Ambulatory Assistive Device (Walker, Cane, Wheelchair, Crutches, etc.)? No PATIENT GENDER DATA: Female. status: : No status: NO. PATIENT RELEVANT IMPLANT DATA REVIEWED: Not Applicable RADIOLOGY DEPARTMENT: CT; Exam(s) Completed: Lower extremity PERIPHERAL IV DATA: Not applicable SIGNED BY: JAZMIN Marshall April 14, 2022 7:26 AM documented in this encounter [facility] 04-01-2022 History of Present illness Narrative Patient presents with: Follow Up: 6 weeks HPI: Radha Brown is a 66 year old female who presents to the office today for review of health conditions. Concerns today: Overall doing well, looking forward to completing her surgery on 05/[address] Roberts for a right total hip replacement surgery in Orthopedics. Knows needs to have labs before this. Has had a recent stress test and echo which were stable/normal. No concerns. Ms. Brown has past history of diabetes. Since our last visit she denies excessive thirst or increased frequency of urination, chest pain or dyspnea , new or unusual visual symptoms, and low sugar/hypoglycemic reactions. Follows a diabetic diet most of the time. She is compliant with medication(s) and is tolerating med(s) without any side effects. She reports checking her glucose on a once a day schedule with sugars in the <150 range. Patient's last HgA1C was Hemoglobin A1C (%) Date Value 12/03/2021 6.5 11/30/2020 6.2 03/19/2020 6.5 ) Last Ophthalmology exam was within the past 12 months Ms. Brown reports history of hyperlipidemia. Current therapy includes rosuvastatin (Crestor) 10 mg. Denies side effects of muscle weakness or achiness. Her most recent lipid panels are reviewed. Cholesterol, Total (mg/dL) Date Value 12/03/2021 231 11/30/2020 204 HDL Cholesterol (mg/dL) Date Value 12/03/2021 43 11/30/2020 43 LDL Cholesterol (mg/dL) Date Value 12/03/2021 145 11/30/2020 133 Triglyceride (mg/dL) Date Value 12/03/2021 213 11/30/2020 140 Ms. Brown indicates a history of hypertension and states that she is feeling well and denies any symptoms referable to elevated blood pressure. Specifically denies headache, chest pain, palpitations, dyspnea, and peripheral edema. Patient denies any side effects of her medication(s) and is compliant with their regimen. Last 3 Encounter BP Readings: Date: BP: 04/01/2022 136/80 12/09/2021 128/86 12/07/2020 120/80 She watches her diet for sodium, low fat and low cholesterol most of the time. She does not check BP's generally. Radha likes to exercise by walking. PAST MEDICAL HISTORY Diagnosis Date Allergic rhinitis Broken ankle 03/2011 Carpal tunnel syndrome on both sides Diverticulosis of colon (without mention of hemorrhage) Essential hypertension, benign Hair loss disorder familial/genetic per Body Stylist Impaired fasting blood sugar Mild pulmonary valve insufficiency 01/2016 Osteopenia of multiple sites 11/2020 repeat BMD 11/2022 Post menopausal syndrome Screening for colon cancer 11/12/2016 Screening for colon cancer 11/12/2016 Sleep apnea 05/2011 uses CPAP machine at night Variants of migraine, not elsewhere classified, without mention of intractable migraine without mention of status migrainosus in the past, believes were hormonal, haven't had for about 2 yrs. now. PAST SURGICAL HISTORY Procedure Laterality Date COLONOSCOPY FLX DX W/COLLJ SPEC WHEN PFRMD 09/15/2006 Colonoscopy NEUROPLASTY &/TRANSPOS MEDIAN NRV CARPAL TUNNE Bilateral 11/10/2014 Bilateral CTR PAST SURGICAL HISTORY OF 09/29/2010 Right wrist dequervaine release PAST SURGICAL HISTORY OF 11/29/2008 Left foot calcium buildup metatarsal removal REMV CATARACT EXTRACAP,INSERT LENS Bilateral TONSILLECTOMY & ADENOIDECTOMY AGE 11/> UNSPECIFIED ORAL SURGERY PROCEDURE, BY REPORT 2 wisdom teeth removed. Social History Tobacco Use Smoking status: Never Smokeless tobacco: Never Substance Use Topics Alcohol use: Yes Alcohol/week: 7.5 standard drinks Types: 1 Glasses of Wine (5oz), 1 Cans of Beer (12oz), 1 Mixed Drinks per week Comment: seldom to occasionally Drug use: No FAMILY HISTORY Adopted: Yes Problem Relation Age of Onset other (ADOPTED, NO KNOWN HISTORY) Other Allergies: ALLERGIES No Known Allergies Current Meds: FLUoxetine (PROZAC) 20 mg capsule^Take 1 capsule by mouth once daily.^Disp: 90 capsule^Rfl: 0 rosuvastatin (CRESTOR) 10 mg tablet^Take 1 tablet by mouth daily at bedtime.^Disp: 90 tablet^Rfl: 3 lisinopril (ZESTRIL, PRINIVIL) 10 mg tablet^TAKE 1 TABLET ONCE DAILY^Disp: 90 tablet^Rfl: 3 hydroCHLOROthiazide (HYDRODIURIL, ESIDRIX) 12.5 mg tablet^TAKE 1 TABLET ONCE DAILY^Disp: 90 tablet^Rfl: 3 biotin 300 mcg tab^Take 1 tablet by mouth once daily.^Disp: ^Rfl: aspirin, enteric coated (ASPIRIN, ENTERIC COATED) 81 mg EC tablet^Take 1 tablet by mouth once daily.^Disp: ^Rfl: 0 multivitamins(DAILY MULTIVITAMIN TAB)^Take one(1) tablet daily.^Disp: ^Rfl: 0 CALTRATE-600 PLUS VITAMIN D3 600 MG-400 UNIT TAB^Take one(1) tablet daily.^Disp: ^Rfl: 0 NIACIN 500 MG TAB^Take one(1) tablet daily at bedtime.^Disp: ^Rfl: 0 Review of Systems: The remainder of the review of systems is negative. PE: 04/01/22 0942 BP: 136/80 Pulse: 68 Resp: 16 Temp: 36.7 C (98 F) TempSrc: Left Tympanic Weight: 72.1 kg (159 lb) Gen: A&O, NAD, non-toxic appearing, Pleasant, cooperative HEENT: NT/AC, PERRLA, EOMs intact b/l, wearing glasses, nares clear and patent b/l, pharynx without erythema, exudate or lesions. MMM, Uvula midline. EACs without erythema or debris. TMs pearly heath with intact landmarks b/l. Neck: supple, No cervical LAD, no thyromegaly, no carotid bruits CV: RRR, normal S1 and S2, no murmurs, no gallops, no rubs, Pulses 2+ and symmetric in UE and LE b/l Lungs: normal respiratory effort, CTA b/l, no wheezing or rhonchi or rales Abd: soft, NT, ND, +BS, no hepatosplenomegaly MS: reduced ROM right hip, gait antalgic Neuro: CN II-XII intact b/l Skin: warm, dry, intact, No rashes or lesions on exposed skin. Foot exam: Monofilament wnl on right and left feet. ASSESSMENT/PLAN: 1. Type 2 diabetes mellitus without complication, without long-term current use of insulin (HCC) - ICD9: 250.00, ICD10: E11.9 (primary diagnosis) Controlled. - Continue current medications - Check HgA1C and fasting lipid panel - Blood glucose monitoring on a once a day schedule - Encouraged regular aerobic exercise and weight loss - HGB A1C 2. Primary osteoarthritis of right hip - ICD9: 715.15, ICD10: M16.11 - recheck labs, if all are stable, patient is surgically cleared/optimized for right total hip replacement surgery - CBC + DIFF - COMP METABOLIC PANEL 3. Need for pneumococcal vaccination - ICD9: V03.82, ICD10: Z23 - PNEUMOCOCCAL VACCINE (PREVNAR 20) 4. Dyslipidemia - ICD9: 272.4, ICD10: E78.5 - to be determined upon return of lab results - Encouraged following a low fat, low cholesterol diet. - Discussed the benefits of regular aerobic exercise and weight loss. - Check fasting lipid panel 5. Essential hypertension - ICD9: 401.9, ICD10: I10 - good control - Recommended regular aerobic exercise. - Recommend home blood pressure monitoring, to bring results in on next visit - Goal of BP <130/80 6. Right hip pain - ICD9: 719.45, ICD10: M25.551 - recheck labs, if all are stable, patient is surgically cleared/optimized for right total hip replacement surgery Wojciech Alvarado DO To ER if develops chest pain, shortness of breath, or severe worsening of symptoms. Discussed risks, benefits, alternatives, and potential side effects of medications. Patient expressed understanding and agreed with the plan. Wojciech Alvarado DO [address] [place] [address] documented in this encounter [facility] 03-17-2022 Miscellaneous Notes Addended by: MAGDALENO NORTON on: 03/17/2022 10:48 AM Modules accepted: Orders documented in this encounter [facility] 03-04-2022 History of Present illness Narrative CONSULT ORTHOPAEDIC: HIP PRIMARY CARE PHYSICIAN: Wojciech Alvarado DO REFERRING PROVIDER: Wojciech Alvarado [address] [facility] [id number] ASSESSMENT & PLAN: Impression: Right Hip Severe Degenerative Osteoarthritis, Primary Radha Brown has radiograph and physical exam evidence of degenerative joint disease and wishes to pursue surgery. This patient appears to have sufficient symptoms to warrant surgical intervention and is an appropriate candidate for right Primary Total Hip Arthroplasty as evidenced by six months of unsuccessful non-operative treatment as outlined in the HPI below and progressive symptoms. Her hemoglobin A1c is well controlled. She would like to go to [place] in June. We will try to get her on the schedule for this year so she can get down there for weeks after surgery. Total Hip Pre-Op: Implant:minal Approach:posterior Previous Surgery:no Dual Mobility:no Multi-Hole:no DVT PPX:std Extended Oral Abx:none CHOCO I spent a total of approximately 35 minutes on the date of the service which included preparing to see the patient, [id number] patient care, completing clinical documentation, obtaining and/or reviewing separately obtained history, performing a medically appropriate examination, counseling and educating the patient/family/caregiver, ordering medications, tests, or procedures, communicating with other HCPs (not separately reported), independently interpreting results (not separately reported), communicating results to the patient/family/caregiver, and care coordination (not separately reported). Progressive symptoms include: Pain worsened by weight bearing Pain effecting living situation Pain limiting ability to stay fit and healthy. We had a lengthy discussion regarding the risk and benefit of surgery, the alternatives, limitations and personnel involved. These included but were not limited to infection, persistent pain, instability, nerve injury, blood clots, and medical complications. We also discussed the pre-operative course, surgery itself and rehabilitation. Nela-operative blood management and transfusion issues were discussed, and options clearly outlined. The patient has consented to the use of the banked allogenic blood if medically necessary. The patient has elected to schedule surgery at this time or intends to call the office with a surgical date. Shared decision making occurred while obtaining informed consent. The patient will be scheduled for a pre-operative education class at which time they will have their nasal swab completed and will be given CHG cloths along with the verbal and written instructions for their use. Patient has been instructed and has been scheduled or will call to schedule attendence in one of the total joint perioperative classes offered prior to proceeding with KELBY.. The patient has been ordered: CT Radha Brown meets the following criteria for CT: choco CONSULTS: IMPACT/PACE Consult for preoperative clearance. ACTIVE PROBLEM LIST Anxiety State, Unspecified Postmenopausal Atrophic Vaginitis Post Menopausal Syndrome Metabolic Syndrome Obstructive Sleep Apnea of Adult Essential Hypertension Allergic Rhinitis Carpal Tunnel Syndrome On Both Sides Mixed Hyperlipidemia Impaired Fasting Glucose Contact Dermatitis Right Hip Pain Cough Type 2 Diabetes Mellitus Without Complication, Without Long-Term Current Use of Insulin (Hcc) Anxiety and Depression Left Wrist Pain Essential Tremor Osteopenia of Multiple Sites Primary Osteoarthritis of Right Hip Lightheadedness Ramirez (Dyspnea On Exertion) Dyslipidemia SUBJECTIVE CHIEF COMPLAINT: Hip Pain HPI: Radha Brown is a 66 year old patient here for evaluation and management of Right hip pain.Radha Brown has had progressive problems with the hip(s) multiple times a day over the past 3 year(s) interfering with activities which include walking 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 The problem began limiting activities 1-3 years ago. Currently the pain in the joint is rated at 5 out of 10 with minimal activity. The pain is intermittent and is located in the right groin and outer aspect of the hip. The pain is described as sharp. Relieving factors include over the counter medication and repositioning. There is no specific incident that brought about this pain. Radha Brown also complains of weakness. FUNCTIONAL STATUS: Climb a flight of stairs or walk up a hill (5.50 METs) Total Joint Arthroplasty: Risk Calculator Radha Brown has a 17.52% chance of NOT returning home at discharge for a Primary total Hip replacement. Radha's estimated Length of Stay is 2 days. Radha's 30 day chance of readmission is 1.08%. Readmission Probability 1.08 % (within 30 days following surgery) Estimated LOS 2 days Discharge Disposition Probability D/C to Home 82.48 % D/C to SNF 17.52 % These calculations are based on the following factors: - 66 years of age - sex is not male - BMI of 29.74 kg/m2 - NarxCare score of 0 - 0 hospitalizations in the last 12 months - no history of heart disease - history of diabetes - no history of COPD - no history of anemia - preoperative ambulation: impaired community distances - 1 step(s) to enter home - bed location is on the first floor - bath location is on the first floor - caregiver is consistent - home is not more than 150 miles away - PROMIS-10 Mental Health T score not available - Marital status: PREVIOUS TREATMENTS: Medical: OTC NSAIDS for 3 Months or Greater (Aleve) Physical Therapy: Activities Modified REVIEW OF SYSTEMS: PAIN ASSESSMENT: See HPI. MUSCULOSKELETAL: See HPI. Risk Factors for Total Joint Arthroplasty (TJA) Obesity Unknown Risk High: BMI > 40 Moderate: BMI 30-40 Normal: BMI < 30 Diabetes Moderate Risk High: A1C > 8 Moderate: A1C 7-8 Normal: A1C < 7 Smoking normal High: Current smoker Normal: Non smoker Anemia normal High: Hgb < 11.5 (women) N/A: Hgb >= 11.5 (women) Nutritional Status normal High: Alb<3.4, or prealb<15, or serum transferrin<200, or total lymphocyte count<1500 Normal: normal labs COPD normal High: dx of COPD Normal: no dx of COPD MRSA normal High: dx of MRSA or positive lab test Normal: no MRSA CKD normal High: eGFR<60 Moderate: eGFR 60-89 Normal: eGFR>90 Hx of DVT / PE normal High: dx of DVT / PE Normal: no dx of DVT / PE Narcotics Use normal High:NarxCare >=300 Moderate: 100-299 Normal: 0-99 ANURADHA High Risk High: dx of ANURADHA N/A: no dx of ANURADHA Coagulation normal High:PT Sec>13, or PT INR>1.3, or APTT>32.4, or Plt ct<150k Moderate: on anticoag but none of the above Normal: none Obesity: height and/or weight are out of date (There is no height and/or weight reading in the past 365 days, so the below BMI readings may be inaccurate) BMI Readings from Last 3 Encounters: 03/04/22 : 29.74 kg/m 12/09/21 : 28.63 kg/m 12/07/20 : 27.70 kg/m Diabetes: Well controlled Hemoglobin A1C (%) Date Value 12/03/2021 6.5 11/30/2020 6.2 03/19/2020 6.5 Obstructive Sleep Apnea (ANURADHA) Other Risk Factors None PAST MEDICAL HISTORY Diagnosis Date Allergic rhinitis Broken ankle 03/2011 Carpal tunnel syndrome on both sides Diverticulosis of colon (without mention of hemorrhage) Essential hypertension, benign Hair loss disorder familial/genetic per Body Stylist Impaired fasting blood sugar Mild pulmonary valve insufficiency 01/2016 Osteopenia of multiple sites 11/2020 repeat BMD 11/2022 Post menopausal syndrome Screening for colon cancer 11/12/2016 Screening for colon cancer 11/12/2016 Sleep apnea 05/2011 uses CPAP machine at night Variants of migraine, not elsewhere classified, without mention of intractable migraine without mention of status migrainosus in the past, believes were hormonal, haven't had for about 2 yrs. now. PAST SURGICAL HISTORY Procedure Laterality Date COLONOSCOPY FLX DX W/COLLJ SPEC WHEN PFRMD 09/15/2006 Colonoscopy NEUROPLASTY &/TRANSPOS MEDIAN NRV CARPAL TUNNE Bilateral 11/10/2014 Bilateral CTR PAST SURGICAL HISTORY OF 09/29/2010 Right wrist dequervaine release PAST SURGICAL HISTORY OF 11/29/2008 Left foot calcium buildup metatarsal removal REMV CATARACT EXTRACAP,INSERT LENS Bilateral TONSILLECTOMY & ADENOIDECTOMY AGE 11/> UNSPECIFIED ORAL SURGERY PROCEDURE, BY REPORT 2 wisdom teeth removed. FAMILY HISTORY Adopted: Yes Problem Relation Age of Onset other (ADOPTED, NO KNOWN HISTORY) Other Social History Tobacco Use Smoking status: Never Smokeless tobacco: Never Substance Use Topics Alcohol use: Yes Alcohol/week: 7.5 standard drinks Types: 1 Glasses of Wine (5oz), 1 Cans of Beer (12oz), 1 Mixed Drinks per week Comment: seldom to occasionally Drug use: No ALLERGIES: Patient has no known allergies. MEDICATIONS: FLUoxetine (PROZAC) 20 mg capsule^Take 1 capsule by mouth once daily.^Disp: 90 capsule^Rfl: 0 rosuvastatin (CRESTOR) 10 mg tablet^Take 1 tablet by mouth daily at bedtime.^Disp: 90 tablet^Rfl: 3 lisinopril (ZESTRIL, PRINIVIL) 10 mg tablet^TAKE 1 TABLET ONCE DAILY^Disp: 90 tablet^Rfl: 3 hydroCHLOROthiazide (HYDRODIURIL, ESIDRIX) 12.5 mg tablet^TAKE 1 TABLET ONCE DAILY^Disp: 90 tablet^Rfl: 3 aspirin, enteric coated (ASPIRIN, ENTERIC COATED) 81 mg EC tablet^Take 1 tablet by mouth once daily.^Disp: ^Rfl: 0 multivitamins(DAILY MULTIVITAMIN TAB)^Take one(1) tablet daily.^Disp: ^Rfl: 0 CALTRATE-600 PLUS VITAMIN D3 600 MG-400 UNIT TAB^Take one(1) tablet daily.^Disp: ^Rfl: 0 NIACIN 500 MG TAB^Take one(1) tablet daily at bedtime.^Disp: ^Rfl: 0 biotin 300 mcg tab^Take 1 tablet by mouth once daily.^Disp: ^Rfl: PHYSICAL EXAM Wt 72.6 kg (160 lb) BMI 29.74 kg/m All other systems deferred. GENERAL: Appears healthy, well-nourished, no deformities. HABITUS: Normal GAIT: Antalgic to the right HIP EXAM: Right: ROM: Extension: 5 degree flexion contracture Flexion: 90 degrees Internal Rotation: 0 degrees External Rotation: 15 degrees Abduction: 20 degrees Adduction: 10 degrees Strength: Pain with resisted hip flexion Palpation: No tenderness Log roll: painful. Straight leg raise: Negative Neurovascular Status: Sensation Intact, Moves foot and ankle up & down, and 2+ dorsalis pedis DATA: Diagnostic tests reviewed for today's visit: Right hip X-Ray: Severe degenerative changes The following conditions were addressed during the office visit today: none SIGNATURE: Ayo Roberts MD PATIENT NAME: Radha Brown DATE: March 04, 2022 TIME: 8:39 AM documented in this encounter [facility] 01-22-2022 Miscellaneous Notes Pt interested in Dr. Lau. Our office tried to schedule with her previously but she declined at that time. Gave her contact info to start scheduling process. Claudia Lester Ma Spoke with patient about scheduling with ortho. She stated that she wanted to discuss other options at this time. Please contact patient to advise. Please assist her to schedule with orthopedics. Halle Messina APRN.CNP documented in this encounter [facility] 01-22-2022 Miscellaneous Notes Pt notified of results via [employer]. Estelita Olmos Ma Please call patient and let her know that we got her recent mammogram results from [facility]. There are no concerns or evidence of malignancy from recent mammogram. Have her continue with the recommended 1 year screening mammograms. Thank you, Casi Patel APRN.CNP documented in this encounter [facility] 01-16-2022 History of Present illness Narrative POPULATION HEALTH NAVIGATION OUTREACH Action/FYI Patient due for mammogram and uacr, carl due 04/08/22 Pt identified by name and : NO Outreach Outcome/Action Unable to reach patient: Left message VideoJaxt message sent Did you use a PCP flex slot to schedule this appointment? N/A Reason for Outreach Care Gap or Scheduling/Wellness visits Payer: Payor: [employer] CROSS AND BLUE SHIELD / Plan: [employer] HMO / Product Type: HMO / Care Gap Reviewed:: Breast Cancer screening Diabetic Eye Exam Nephropathy (Albumin/Creatinine) Urine Reminder: Reminder note to check Health Maintenance for items below Health Maintenance items due: PNEUMOCOCCAL: 65+(1 - PCV) Never done SHINGRIX VACCINE(1 of 2) Never done DTAP,TDAP,TD(2 - Td or Tdap) due on 06/19/2016 COVID-19 VACCINE(4 - Booster for Moderna series) due on 07/29/2021 URINE ALBUMIN:CREATININE RATIO due on 11/30/2021 MAMMOGRAM due on 12/19/2021 Message Sent to Practice: No Navigation Signature: Cecilia Cardoso MA January 16, 2022 10:01 AM documented in this encounter [facility] 12-13-2021 History of Present illness Narrative RADIOLOGY SERVICE PROGRESS NOTE SERVICE DATE: 12/13/2021 SERVICE TIME: 11:41 AM PATIENT IDENTITY VERIFICATION COMPLETED USING TWO (2) STANDARD IDENTIFIERS: Name and Date of confirmed by patient verbally and Name and Date of confirmed by identification band FALL SCREENING: Has the patient had 2 falls in the last year or 1 fall with injury or currently using an Ambulatory Assistive Device (Walker, Cane, Wheelchair, Crutches, etc.)? No PATIENT GENDER DATA: .female : No ALLERGIES: Reviewed and unchanged MEDICATIONS REVIEWED: Not applicable PATIENT RELEVANT IMPLANT DATA REVIEWED: Not Applicable CREATININE: Creatinine Date Value Ref Range Status 12/03/2021 1.06 (H) 0.58 - 0.96 mg/dL Final 11/30/2020 0.87 0.58 - 0.96 mg/dL Final 12/07/2019 0.87 0.58 - 0.96 mg/dL Final Estimated Glomerular Filtration Rate Date Value Ref Range Status 12/03/2021 58 (L) >=60 mL/min/1.73m Final Comment: Estimated Glomerular Filtration Rate (eGFR) is calculated using the 2020 CKD-EPI creatinine equation. This equation utilizes serum creatinine, sex, and age as parameters. The creatinine assay has traceable calibration to isotope dilution-mass spectrometry. Refer to KDIGO guidelines for clinical interpretation. In patients with unstable renal function, e.g. those with acute kidney injury, the eGFR may not accurately reflect actual GFR. eGFR- Date Value Ref Range Status 11/30/2020 >60 Final P.O.C.T. RESULTS: N/A December 13, [address] PERFORMED: No IV SITE: Ambulatory: A peripheral IV was started in the Right antecubital site with a Angio cath: 22 gauge. POST EXAM PIV STATUS: Discontinued PROCEDURE TYPE: NM Stress: 12.9mCi Eb62w-Frlfdlz was administered IV for Rest Imaging at 9:22 by JASMYN Franco. 31.3 mCi [id number]-[id number] was administered IV for Stress Imaging at 10:52 by JASMYN Franco. PATIENT DISCHARGED TO: Ambulatory patient, left NM department area. A Diagnostic radioactive procedure has taken place, with no further precautions necessary other than routine body substance precautions. More information regarding radiation safety can be found using this link: [email or web address] SIGNATURE: JASMYN Franco PATIENT NAME: Radha Brown DATE: December 13, 2021 TIME: 11:41 AM PAGER/CONTACT #: documented in this encounter [facility] 12-12-2021 Miscellaneous Notes Left message regarding reminder for stress test tomorrow and given instructions. documented in this encounter [facility] 11-22-2021 Miscellaneous Notes Pt called and is notified of providers message and instructions. Pt voices understanding. Lorena Martin RN Detailed message left with patient Sheri Harris Ma Orders are placed. Please let patient know. Thank you, Casi Patel APRN.CNP Notified patient that Dr. Alvarado is out until Thursday, if TRANSFER MACHINE OPERATOR is unable to get to it. Patient understood and was okay to wait. Patient just wanting to complete prior to appointment on 12/09 Patient states she has a Wellness Exam with Dr. Alvarado on 12/09 and requesting lab orders for a full lab work up if agreeable. She would like to get these drawn prior to appt. Please call patient at [phone]. Thank you. documented in this encounter [facility] 11-21-2021 Miscellaneous Notes See TE 11/21/21. Thank you. Ashley Dobson RN Please see pt's message. Kali Sanchez LPN documented in this encounter [facility] 10-23-2021 Miscellaneous Notes Order faxed to [facility]. Radha Zamora LPN Please fax mammogram order to [facility]. Thank you, Casi Patel APRN.MALINDA Please see pt message and advise Sheri Harris Ma documented in this encounter [facility] 09-23-2021 Miscellaneous Notes Pending Prescriptions Disp Refills LISINOPRIL 10 MG TABLET 90 tablet 3 Sig: TAKE 1 TABLET ONCE DAILY JESUS: Yes HYDROCHLOROTHIAZIDE 12.5 MG TABLET 90 tablet 3 Sig: TAKE 1 TABLET ONCE DAILY JESUS: Yes JANE 12/07/20 NOV 12/09/21 Sheri Harris Ma documented in this encounter [facility] 12-20-2020 Note IMPRESSION: MODERATE DEGENERATIVE CHANGES OF THE RIGHT HIP PROGRESSED SINCE THE PREVIOUS EXAM. Pomologist: PSCB Transcribe Date/Time: Dec 20 2020 2:35P Dictated by : DOT WHELAN MD This examination was interpreted and the report reviewed and electronically signed by: DOT WHELAN MD on Dec 20 2020 2:36PM [facility] DIVISION OF RADIOLOGY 12-20-2020 History of Present illness Narrative Radiology Service Progress Note PATIENT NAME: Radha Brown DATE OF SERVICE: December 20, 2020 TIME: 8:15 AM PATIENT IDENTITY VERIFICATION COMPLETED USING TWO (2) IDENTIFIERS: Name and Date of confirmed by patient verbally. FALL SCREENING: Has the patient had 2 falls in the last year or 1 fall with injury or currently using an Ambulatory Assistive Device (Walker, Cane, Wheelchair, Crutches, etc.)? No PATIENT GENDER DATA: Female. status: : No status: NO. PATIENT RELEVANT IMPLANT DATA REVIEWED: Not Applicable RADIOLOGY DEPARTMENT: General X-ray: Exam(s) Completed: Pelvis X-Ray: Pelvis with Hip Right Upper Extremity X-Ray(s): Wrist, left PERIPHERAL IV DATA: Not applicable SIGNED BY: RT Milan(R) December 20, 2020 8:15 AM documented in this encounter [facility] 12-01-2016 History of Past i llness Narrative Problem Noted Date Resolved Date Well adult exam 12/01/2016 12/05/2021 Screening for colon cancer 11/12/201612/05 Hypokalemia 12/09/2012 11/03/2014 Ankle fracture, left 04/25/2011 11/03/2014 Cough 12/11/2009 11/03/2014 HBP (high blood pressure) 12/11/20092014 Essential hypertension, benign 10/26/2008 0 12/11/2009 documented as of this encounter (statuses as of 12/12/2021) [facility] History of Past illness Narrative* Problem Noted Date Resolved Date Well adult exam 12/01/2016 12/05/2021 Screening for colon cancer 11/12/201612/05 Hypokalemia 12/09/2012 11/03/2014 Ankle fracture, left 04/25/2011 11/03/2014 Cough 12/11/2009 11/03/2014 HBP (high blood pressure) 12/11/20092014 Essential hypertension, benign 10/26/2008 0 12/11/2009 documented as of this encounter (statuses as of 12/14/2021) [facility] History of Past illness Narrative* Problem Noted Date Resolved Date Well adult exam 12/01/2016 12/05/2021 Screening for colon cancer 11/12/201612/05 Hypokalemia 12/09/2012 11/03/2014 Ankle fracture, left 04/25/2011 11/03/2014 Cough 12/11/2009 11/03/2014 HBP (high blood pressure) 12/11/20092014 Essential hypertension, benign 10/26/2008 0 12/11/2009 documented as of this encounter (statuses as of 01/16/2022) [facility] History of Past illness Narrative* Problem Noted Date Resolved Date Well adult exam 12/01/2016 12/05/2021 Screening for colon cancer 11/12/201612/05 Hypokalemia 12/09/2012 11/03/2014 Ankle fracture, left 04/25/2011 11/03/2014 Cough 12/11/2009 11/03/2014 HBP (high blood pressure) 12/11/20092014 Essential hypertension, benign 10/26/2008 0 12/11/2009 documented as of this encounter (statuses as of 01/22/2022) [facility] History of Past illness Narrative* Problem Noted Date Resolved Date Well adult exam 12/01/2016 12/05/2021 Screening for colon cancer 11/12/201612/05 Hypokalemia 12/09/2012 11/03/2014 Ankle fracture, left 04/25/2011 11/03/2014 Cough 12/11/2009 11/03/2014 HBP (high blood pressure) 12/11/20092014 Essential hypertension, benign 10/26/2008 0 12/11/2009 documented as of this encounter (statuses as of 03/04/2022) [facility] History of Past illness Narrative* Problem Noted Date Resolved Date Well adult exam 12/01/2016 12/05/2021 Screening for colon cancer 11/12/201612/05 Hypokalemia 12/09/2012 11/03/2014 Ankle fracture, left 04/25/2011 11/03/2014 Cough 12/11/2009 11/03/2014 HBP (high blood pressure) 12/11/20092014 Essential hypertension, benign 10/26/2008 0 12/11/2009 documented as of this encounter (statuses as of 03/17/2022) [facility] History of Past illness Narrative* Problem Noted Date Resolved Date Well adult exam 12/01/2016 12/05/2021 Screening for colon cancer 11/12/201612/05 Hypokalemia 12/09/2012 11/03/2014 Ankle fracture, left 04/25/2011 11/03/2014 Cough 12/11/2009 11/03/2014 HBP (high blood pressure) 12/11/20092014 Essential hypertension, benign 10/26/2008 0 12/11/2009 documented as of this encounter (statuses as of 04/02/2022) [facility] History of Past illness Narrative* Problem Noted Date Resolved Date Well adult exam 12/01/2016 12/05/2021 Screening for colon cancer 11/12/201612/05 Hypokalemia 12/09/2012 11/03/2014 Ankle fracture, left 04/25/2011 11/03/2014 Cough 12/11/2009 11/03/2014 HBP (high blood pressure) 12/11/20092014 Essential hypertension, benign 10/26/2008 0 12/11/2009 documented as of this encounter (statuses as of 04/14/2022) [facility] History of Past illness Narrative* Problem Noted Date Resolved Date Well adult exam 12/01/2016 12/05/2021 Screening for colon cancer 11/12/201612/05 Hypokalemia 12/09/2012 11/03/2014 Ankle fracture, left 04/25/2011 11/03/2014 Cough 12/11/2009 11/03/2014 HBP (high blood pressure) 12/11/20092014 Essential hypertension, benign 10/26/2008 0 12/11/2009 documented as of this encounter (statuses as of 04/15/2022) [facility] History of Past illness Narrative* Problem Noted Date Resolved Date Well adult exam 12/01/2016 12/05/2021 Screening for colon cancer 11/12/201612/05 Hypokalemia 12/09/2012 11/03/2014 Ankle fracture, left 04/25/2011 11/03/2014 Cough 12/11/2009 11/03/2014 HBP (high blood pressure) 12/11/20092014 Essential hypertension, benign 10/26/2008 0 12/11/2009 documented as of this encounter (statuses as of 04/16/2022) [facility] History of Past illness Narrative* Problem Noted Date Resolved Date Well adult exam 12/01/2016 12/05/2021 Screening for colon cancer 11/12/201612/05 Hypokalemia 12/09/2012 11/03/2014 Ankle fracture, left 04/25/2011 11/03/2014 Cough 12/11/2009 11/03/2014 HBP (high blood pressure) 12/11/20092014 Essential hypertension, benign 10/26/2008 0 12/11/2009 documented as of this encounter (statuses as of 04/30/2022) [facility] History of Past illness Narrative* Problem Noted Date Resolved Date Well adult exam 12/01/2016 12/05/2021 Screening for colon cancer 11/12/201612/05 Hypokalemia 12/09/2012 11/03/2014 Ankle fracture, left 04/25/2011 11/03/2014 Cough 12/11/2009 11/03/2014 HBP (high blood pressure) 12/11/20092014 Essential hypertension, benign 10/26/2008 0 12/11/2009 documented as of this encounter (statuses as of 05/06/2022) [facility] History of Past illness Narrative* Problem Noted Date Resolved Date Well adult exam 12/01/2016 12/05/2021 Screening for colon cancer 11/12/201612/05 Hypokalemia 12/09/2012 11/03/2014 Ankle fracture, left 04/25/2011 11/03/2014 Cough 12/11/2009 11/03/2014 HBP (high blood pressure) 12/11/20092014 Essential hypertension, benign 10/26/2008 0 12/11/2009 documented as of this encounter (statuses as of 05/12/2022) [facility] History of Past illness Narrative* Problem Noted Date Resolved Date Well adult exam 12/01/2016 12/05/2021 Screening for colon cancer 11/12/201612/05 Hypokalemia 12/09/2012 11/03/2014 Ankle fracture, left 04/25/2011 11/03/2014 Cough 12/11/2009 11/03/2014 HBP (high blood pressure) 12/11/20092014 Essential hypertension, benign 10/26/2008 0 12/11/2009 documented as of this encounter (statuses as of 05/15/2022) [facility] History of Past illness Narrative* Problem Noted Date Resolved Date Well adult exam 12/01/2016 12/05/2021 Screening for colon cancer 11/12/201612/05 Hypokalemia 12/09/2012 11/03/2014 Ankle fracture, left 04/25/2011 11/03/2014 Cough 12/11/2009 11/03/2014 HBP (high blood pressure) 12/11/20092014 Essential hypertension, benign 10/26/2008 0 12/11/2009 documented as of this encounter (statuses as of 05/20/2022) [place] [id number] History of Past illness Narrative* Problem Noted Date Resolved Date Well adult exam 12/01/2016 12/05/2021 Screening for colon cancer 11/12/201612/05 Hypokalemia 12/09/2012 11/03/2014 Ankle fracture, left 04/25/2011 11/03/2014 Cough 12/11/2009 11/03/2014 HBP (high blood pressure) 12/11/20092014 Essential hypertension, benign 10/26/2008 0 12/11/2009 documented as of this encounter (statuses as of 07/01/2022) [facility] History of Past illness Narrative* Problem Noted Date Resolved Date Well adult exam 12/01/2016 12/05/2021 Screening for colon cancer 11/12/201612/05 Hypokalemia 12/09/2012 11/03/2014 Ankle fracture, left 04/25/2011 11/03/2014 Cough 12/11/2009 11/03/2014 HBP (high blood pressure) 12/11/20092014 Essential hypertension, benign 10/26/2008 0 12/11/2009 documented as of this encounter (statuses as of 07/08/2022) [facility] History of Past illness Narrative* Problem Noted Date Resolved Date Well adult exam 12/01/2016 12/05/2021 Screening for colon cancer 11/12/201612/05 Hypokalemia 12/09/2012 11/03/2014 Ankle fracture, left 04/25/2011 11/03/2014 Cough 12/11/2009 11/03/2014 HBP (high blood pressure) 12/11/20092014 Essential hypertension, benign 10/26/2008 0 12/11/2009 documented as of this encounter (statuses as of 09/05/2022) [facility]2017 History of Past illness Narrative* Problem Noted Date Resolved Date Well adult exam 12/01/2016 12/05/2021 Screening for colon cancer 11/12/201612/05 Hypokalemia 12/09/2012 11/03/2014 Ankle fracture, left 04/25/2011 11/03/2014 Cough 12/11/2009 11/03/2014 HBP (high blood pressure) 12/11/20092014 Essential hypertension, benign 10/26/2008 0 12/11/2009 documented as of this encounter (statuses as of 09/12/2022) [facility]2017 History of Past illness Narrative* Problem Noted Date Resolved Date Well adult exam 12/01/2016 12/05/2021 Screening for colon cancer 11/12/201612/05 Hypokalemia 12/09/2012 11/03/2014 Ankle fracture, left 04/25/2011 11/03/2014 Cough 12/11/2009 11/03/2014 HBP (high blood pressure) 12/11/20092014 Essential hypertension, benign 10/26/2008 0 12/11/2009 documented as of this encounter (statuses as of 09/12/2022) [facility]2017 History of Past illness Narrative* Problem Noted Date Resolved Date Well adult exam 12/01/2016 12/05/2021 Screening for colon cancer 11/12/201612/05 Hypokalemia 12/09/2012 11/03/2014 Ankle fracture, left 04/25/2011 11/03/2014 Cough 12/11/2009 11/03/2014 HBP (high blood pressure) 12/11/20092014 Essential hypertension, benign 10/26/2008 0 12/11/2009 documented as of this encounter (statuses as of 09/24/2022) [facility]2017 History of Past illness Narrative* Problem Noted Date Resolved Date Well adult exam 12/01/2016 12/05/2021 Screening for colon cancer 11/12/201612/05 Hypokalemia 12/09/2012 11/03/2014 Ankle fracture, left 04/25/2011 11/03/2014 Cough 12/11/2009 11/03/2014 HBP (high blood pressure) 12/11/20092014 Essential hypertension, benign 10/26/2008 0 12/11/2009 documented as of this encounter (statuses as of 10/02/2022) [facility]2017 History of Past illness Narrative* Problem Noted Date Resolved Date Well adult exam 12/01/2016 12/05/2021 Screening for colon cancer 11/12/201612/05 Hypokalemia 12/09/2012 11/03/2014 Ankle fracture, left 04/25/2011 11/03/2014 Cough 12/11/2009 11/03/2014 HBP (high blood pressure) 12/11/20092014 Essential hypertension, benign 10/26/2008 0 12/11/2009 documented as of this encounter (statuses as of 10/10/2022) [facility]2017 History of Past illness Narrative* Problem Noted Date Resolved Date Well adult exam 12/01/2016 12/05/2021 Screening for colon cancer 11/12/201612/05 Hypokalemia 12/09/2012 11/03/2014 Ankle fracture, left 04/25/2011 11/03/2014 Cough 12/11/2009 11/03/2014 HBP (high blood pressure) 12/11/20092014 Essential hypertension, benign 10/26/2008 0 12/11/2009 documented as of this encounter (statuses as of 11/21/2022) [facility]2017 History of Past illness Narrative* Problem Noted Date Diagnosed Date Resolved Date Well adult exam 12/01/2016 12/05/2021 Screening for colon cancer 11/12/2016 0 12/05/2021 Hypokalemia 12/09/2012 11/03/2014 Ankle fracture, left 04/25/2011 015 Cough 12/11/2009 11/03/2014 HBP (high blood pressure) 12/11/2009 Essential hypertension, benign 10/26/2008 12/11/2009 documented as of this encounter (statuses as of 03/20/2023) [facility]2017 History of Past illness Narrative* Problem Noted Date Diagnosed Date Resolved Date Well adult exam 12/01/2016 12/05/2021 Screening for colon cancer 11/12/2016 0 12/05/2021 Hypokalemia 12/09/2012 11/03/2014 Ankle fracture, left 04/25/2011 015 Cough 12/11/2009 11/03/2014 HBP (high blood pressure) 12/11/2009 Essential hypertension, benign 10/26/2008 12/11/2009 documented as of this encounter (statuses as of 04/01/2023) [address]03-2017 History of Past illness Narrative* Problem Noted Date Diagnosed Date Resolved Date Well adult exam 12/01/2016 12/05/2021 Screening for colon cancer 11/12/2016 0 12/05/2021 Hypokalemia 12/09/2012 11/03/2014 Ankle fracture, left 04/25/2011 015 Cough 12/11/2009 11/03/2014 HBP (high blood pressure) 12/11/2009 Essential hypertension, benign 10/26/2008 12/11/2009 documented as of this encounter (statuses as of 04/16/2023) [facility]2017 History of Past illness Narrative* Problem Noted Date Diagnosed Date Resolved Date Well adult exam 12/01/2016 12/05/2021 Screening for colon cancer 11/12/2016 0 12/05/2021 Hypokalemia 12/09/2012 11/03/2014 Ankle fracture, left 04/25/2011 015 Cough 12/11/2009 11/03/2014 HBP (high blood pressure) 12/11/2009 Essential hypertension, benign 10/26/2008 12/11/2009 documented as of this encounter (statuses as of 07/03/2023) [facility]2017 History of Past illness Narrative* Problem Noted Date Diagnosed Date Resolved Date Well adult exam 12/01/2016 12/05/2021 Screening for colon cancer 11/12/2016 0 12/05/2021 Hypokalemia 12/09/2012 11/03/2014 Ankle fracture, left 04/25/2011 015 Cough 12/11/2009 11/03/2014 HBP (high blood pressure) 12/11/2009 Essential hypertension, benign 10/26/2008 12/11/2009 documented as of this encounter (statuses as of 07/21/2023) [facility]2017 History of Past illness Narrative* Problem Noted Date Diagnosed Date Resolved Date Well adult exam 12/01/2016 12/05/2021 Screening for colon cancer 11/12/2016 0 12/05/2021 Hypokalemia 12/09/2012 11/03/2014 Ankle fracture, left 04/25/2011 015 Cough 12/11/2009 11/03/2014 HBP (high blood pressure) 12/11/2009 Essential hypertension, benign 10/26/2008 12/11/2009 documented as of this encounter (statuses as of 08/12/2023) [facility]2017 History of Past illness Narrative* Problem Noted Date Diagnosed Date Resolved Date Well adult exam 12/01/2016 12/05/2021 Screening for colon cancer 11/12/2016 0 12/05/2021 Hypokalemia 12/09/2012 11/03/2014 Ankle fracture, left 04/25/2011 015 Cough 12/11/2009 11/03/2014 HBP (high blood pressure) 12/11/2009 Essential hypertension, benign 10/26/2008 12/11/2009 documented as of this encounter (statuses as of 08/31/2023) [facility]2017 History of Past illness Narrative* Problem Noted Date Diagnosed Date Resolved Date Well adult exam 12/01/2016 12/05/2021 Screening for colon cancer 11/12/2016 0 12/05/2021 Hypokalemia 12/09/2012 11/03/2014 Ankle fracture, left 04/25/2011 015 Cough 12/11/2009 11/03/2014 HBP (high blood pressure) 12/11/2009 Essential hypertension, benign 10/26/2008 12/11/2009 documented as of this encounter (statuses as of 09/04/2023) [facility]2017 History of Past illness Narrative* Problem Noted Date Diagnosed Date Resolved Date Well adult exam 12/01/2016 12/05/2021 Screening for colon cancer 11/12/2016 0 12/05/2021 Hypokalemia 12/09/2012 11/03/2014 Ankle fracture, left 04/25/2011 015 Cough 12/11/2009 11/03/2014 HBP (high blood pressure) 12/11/2009 Essential hypertension, benign 10/26/2008 12/11/2009 documented as of this encounter (statuses as of 09/14/2023) [facility]2013 History of Past illness Narrative* Problem Noted Date Resolved Date Hypokalemia 12/09/2012 11/03/2014 Ankle fracture, left 04/25/2011 11/03/2014 Cough 12/11/2009 11/03/2014 HBP (high blood pressure) 12/11/20092014 Essential hypertension, benign 10/26/2008 0 12/11/2009 documented as of this encounter (statuses as of 09/23/2021) [facility]2013 History of Past illness Narrative* Problem Noted Date Resolved Date Hypokalemia 12/09/2012 11/03/2014 Ankle fracture, left 04/25/2011 11/03/2014 Cough 12/11/2009 11/03/2014 HBP (high blood pressure) 12/11/20092014 Essential hypertension, benign 10/26/2008 0 12/11/2009 documented as of this encounter (statuses as of 10/23/2021) [facility]2013 History of Past illness Narrative* Problem Noted Date Resolved Date Hypokalemia 12/09/2012 11/03/2014 Ankle fracture, left 04/25/2011 11/03/2014 Cough 12/11/2009 11/03/2014 HBP (high blood pressure) 12/11/20092014 Essential hypertension, benign 10/26/2008 0 12/11/2009 documented as of this encounter (statuses as of 11/21/2021) [facility]2013 History of Past illness Narrative* Problem Noted Date Resolved Date Hypokalemia 12/09/2012 11/03/2014 Ankle fracture, left 04/25/2011 11/03/2014 Cough 12/11/2009 11/03/2014 HBP (high blood pressure) 12/11/20092014 Essential hypertension, benign 10/26/2008 0 12/11/2009 documented as of this encounter (statuses as of 11/22/2021) [facility] Diagnosis Essential hypertension Unspecified essential hypertension [facility] this encounter [facility] Diagnosis Encounter for screening mammogram for malignant neoplasm of breast- Primary Other screening mammogram [facility] this encounter [facility] Diagnosis Essential hypertension- Primary Unspecified essential hypertension Type 2 diabetes mellitus without complication, without long-term current use of insulin (HCC) Mixed hyperlipidemia Screening for thyroid disorder [facility] this encounter [facility] Diagnosis Encounter for screening for cardiovascular disorders Screening for other and unspecified cardiovascular conditions RAMIREZ (dyspnea on exertion) Other dyspnea and respiratory abnormality Lightheadedness Dizziness and giddiness Dyslipidemia Other and unspecified hyperlipidemia Nausea Nausea alone documented in this encounter [facility] noteNo assessment information availableWWood [facility] Work Phone: Evaluation note* Diagnosis Primary osteoarthritis of right hip- Primary Primary localized osteoarthrosis, pelvic region and thigh documented in this encounter [facility] note* Diagnosis Presence of right artificial hip joint- Primary Hip joint replacement by other means Primary osteoarthritis of right hip Primary localized osteoarthrosis, pelvic region and thigh Encounter for screening for COVID-19 documented in this encounter [facility] note* Diagnosis Primary osteoarthritis of right hip- Primary Primary localized osteoarthrosis, pelvic region and thigh Encounter for preoperative screening laboratory testing for COVID-19 virus Encounter for screening for COVID-19 Primary osteoarthritis of right hip Primary localized osteoarthrosis, pelvic region and thigh documented in this encounter [facility] note* Diagnosis Type 2 diabetes mellitus without complication, without long-term current use of insulin (HCC)- Primary Primary osteoarthritis of right hip Primary localized osteoarthrosis, pelvic region and thigh Need for pneumococcal vaccination Need for prophylactic vaccination against streptococcus pneumoniae (pneumococcus) Dyslipidemia Other and unspecified hyperlipidemia Essential hypertension Unspecified essential hypertension Right hip pain Pain in joint, pelvic region and thigh Encounter for screening for COVID-19 Primary osteoarthritis of right hip Primary localized osteoarthrosis, pelvic region and thigh documented in this encounter [facility] note* Diagnosis Presence of right artificial hip joint Hip joint replacement by other means Encounter for screening for COVID-19 Primary osteoarthritis of right hip Primary localized osteoarthrosis, pelvic region and thigh documented in this encounter [facility] note* Diagnosis Pre-operative examination- Primary Preoperative examination, unspecified Type 2 diabetes mellitus without complication, without long-term current use of insulin (HCC) Osteopenia of multiple sites Obstructive sleep apnea of adult Obstructive sleep apnea (adult) (pediatric) Mixed hyperlipidemia Essential tremor Essential and other specified forms of tremor Essential hypertension Unspecified essential hypertension Dyslipidemia Other and unspecified hyperlipidemia Anxiety and depression Dysthymic disorder Encounter for screening for COVID-19 Primary osteoarthritis of right hip Primary localized osteoarthrosis, pelvic region and thigh documented in this encounter [facility] note* Diagnosis Pain in right hip- Primary Pain in joint, pelvic region and thigh [facility] this encounter [facility] Diagnosis Status post right hip replacement- Primary Hip joint replacement by other means [facility] Diagnosis Status post right hip replacement- Primary Hip joint replacement by other means [facility] Diagnosis Essential hypertension Unspecified essential hypertension [facility] Diagnosis Type 2 diabetes mellitus without complication, without long-term current use of insulin (HCC) [facility] Diagnosis Uncontrolled type 2 diabetes mellitus with hyperglycemia (HCC)- Primary 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 Essential hypertension Unspecified essential hypertension Dyslipidemia Other and unspecified hyperlipidemia Hair loss Alopecia, unspecified Type 2 diabetes mellitus without complication, without long-term current use of insulin (HCC) documented [facility] this encounter [facility] Diagnosis Encounter for screening mammogram for malignant neoplasm of breast- Primary Other screening mammogram [facility] this encounter [facility] Diagnosis 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 documented in this encounter [facility] Diagnosis Irritant contact dermatitis due to plants, except food- Primary Contact dermatitis and other eczema due to plants (except food) documented [facility] this encounter [facility] Diagnosis Uncontrolled type 2 diabetes mellitus with hyperglycemia (HCC)- Primary Essential hypertension Unspecified essential hypertension Dyslipidemia Other and unspecified hyperlipidemia Sweating disease Sweating fever Osteopenia of multiple sites Anxiety and depression Dysthymic disorder [facility] Diagnosis Pain in right hip- Primary Pain in joint, pelvic region and thigh [facility] this encounter [facility] Diagnosis Status post right hip replacement- Primary Hip joint replacement by other means Trochanteric bursitis of right hip Enthesopathy of hip region documented [facility] this encounter [facility] Diagnosis Type 2 diabetes mellitus with hyperglycemia, without long-term current use of insulin (HCC)- Primary documented [facility] this encounter [facility] Diagnosis Essential hypertension Unspecified essential hypertension [facility] this encounter [facility] Diagnosis Encounter for screening mammogram for breast cancer [facility] this [facility] Diagnosis Essential hypertension Unspecified essential hypertension [facility] this encounter [facility] Diagnosis Uncontrolled type 2 diabetes mellitus with hyperglycemia (HCC)- Primary Dyslipidemia Other and unspecified hyperlipidemia Essential hypertension Unspecified essential hypertension [facility] Diagnosis RAMIREZ (dyspnea on exertion) Other dyspnea and respiratory abnormality Lightheadedness Dizziness and giddiness Dyslipidemia Other and unspecified hyperlipidemia [facility] this encounter [facility] Diagnosis Pre-operative examination- Primary Preoperative examination, unspecified Type 2 diabetes mellitus without complication, without long-term current use of insulin (HCC) Osteopenia of multiple sites Obstructive sleep apnea of adult Obstructive sleep apnea (adult) (pediatric) Mixed hyperlipidemia Essential tremor Essential and other specified forms of tremor Essential hypertension Unspecified essential hypertension Dyslipidemia Other and unspecified hyperlipidemia Anxiety and depression Dysthymic disorder Uncontrolled type 2 diabetes mellitus with hyperglycemia (HCC)- Primary Essential hypertension Unspecified essential hypertension Dyslipidemia Other and unspecified hyperlipidemia Sweating disease Sweating fever Osteopenia of multiple sites Medicare annual wellness visit, subsequent Routine general medical examination at a health care facility [facility] this encounter [facility] Diagnosis Pre-operative examination- Primary Preoperative examination, unspecified Type 2 diabetes mellitus without complication, without long-term current use of insulin (HCC) Osteopenia of multiple sites Obstructive sleep apnea of adult Obstructive sleep apnea (adult) (pediatric) Mixed hyperlipidemia Essential tremor Essential and other specified forms of tremor Essential hypertension Unspecified essential hypertension Dyslipidemia Other and unspecified hyperlipidemia Anxiety and depression Dysthymic disorder Pain in right hip Pain in joint, pelvic region and thigh [facility] this encounter [facility] Diagnosis Pre-operative examination- Primary Preoperative examination, unspecified Type 2 diabetes mellitus without complication, without long-term current use of insulin (HCC) Osteopenia of multiple sites Obstructive sleep apnea of adult Obstructive sleep apnea (adult) (pediatric) Mixed hyperlipidemia Essential tremor Essential and other specified forms of tremor Essential hypertension Unspecified essential hypertension Dyslipidemia Other and unspecified hyperlipidemia Anxiety and depression Dysthymic disorder Pain in right hip Pain in joint, pelvic region and thigh [facility] this encounter [facility] Diagnosis Right hip pain Pain in joint, pelvic region and thigh Left wrist pain Pain in joint, forearm Pre-operative examination- Primary Preoperative examination, unspecified Type 2 diabetes mellitus without complication, without long-term current use of insulin (HCC) Osteopenia of multiple sites Obstructive sleep apnea of adult Obstructive sleep apnea (adult) (pediatric) Mixed hyperlipidemia Essential tremor Essential and other specified forms of tremor Essential hypertension Unspecified essential hypertension Dyslipidemia Other and unspecified hyperlipidemia Anxiety and depression Dysthymic disorder [facility] Pre-operative examination- Primary Preoperative examination, unspecified Type 2 diabetes mellitus without complication, without long-term current use of insulin (HCC) Osteopenia of multiple sites Obstructive sleep apnea of adult Obstructive sleep apnea (adult) (pediatric) Mixed hyperlipidemia Essential tremor Essential and other specified forms of tremor Essential hypertension Unspecified essential hypertension Dyslipidemia Other and unspecified hyperlipidemia Anxiety and depression Dysthymic disorder Essential hypertension Unspecified essential hypertension [facility] Pre-operative examination- Primary Preoperative examination, unspecified Type 2 diabetes mellitus without complication, without long-term current use of insulin (HCC) Osteopenia of multiple sites Obstructive sleep apnea of adult Obstructive sleep apnea (adult) (pediatric) Mixed hyperlipidemia Essential tremor Essential and other specified forms of tremor Essential hypertension Unspecified essential hypertension Dyslipidemia Other and unspecified hyperlipidemia Anxiety and depression Dysthymic disorder Sinobronchitis- Primary Unspecified sinusitis (chronic) Acute cough [facility] Pre-operative examination- Primary Preoperative examination, unspecified Type 2 diabetes mellitus without complication, without long-term current use of insulin (HCC) Osteopenia of multiple sites Obstructive sleep apnea of adult Obstructive sleep apnea (adult) (pediatric) Mixed hyperlipidemia Essential tremor Essential and other specified forms of tremor Essential hypertension Unspecified essential hypertension Dyslipidemia Other and unspecified hyperlipidemia Anxiety and depression Dysthymic disorder ANURADHA (obstructive sleep apnea)- Primary Obstructive sleep apnea (adult) (pediatric) [facility] Pre-operative examination- Primary Preoperative examination, unspecified Type 2 diabetes mellitus without complication, without long-term current use of insulin (HCC) Osteopenia of multiple sites Obstructive sleep apnea of adult Obstructive sleep apnea (adult) (pediatric) Mixed hyperlipidemia Essential tremor Essential and other specified forms of tremor Essential hypertension Unspecified essential hypertension Dyslipidemia Other and unspecified hyperlipidemia Anxiety and depression Dysthymic disorder Uncontrolled type 2 diabetes mellitus with hyperglycemia (HCC) [facility] Pre-operative examination- Primary Preoperative examination, unspecified Type 2 diabetes mellitus without complication, without long-term current use of insulin (HCC) Osteopenia of multiple sites Obstructive sleep apnea of adult Obstructive sleep apnea (adult) (pediatric) Mixed hyperlipidemia Essential tremor Essential and other specified forms of tremor Essential hypertension Unspecified essential hypertension Dyslipidemia Other and unspecified hyperlipidemia Anxiety and depression Dysthymic disorder Uncontrolled type 2 diabetes mellitus with hyperglycemia (HCC) [facility] Diagnosis Pre-operative examination- Primary Preoperative examination, unspecified Type 2 diabetes mellitus without complication, without long-term current use of insulin (HCC) Osteopenia of multiple sites Obstructive sleep apnea of adult Obstructive sleep apnea (adult) (pediatric) Mixed hyperlipidemia Essential tremor Essential and other specified forms of tremor Essential hypertension Unspecified essential hypertension Dyslipidemia Other and unspecified hyperlipidemia Anxiety and depression Dysthymic disorder Lightheadedness- Primary Dizziness and giddiness Elevated serum creatinine Other nonspecific findings on examination of blood Essential hypertension Unspecified essential hypertension Dyslipidemia Other and unspecified hyperlipidemia Type 2 diabetes mellitus with hyperglycemia, without long-term current use of insulin (HCC) [facility] Pre-operative examination- Primary Preoperative examination, unspecified Type 2 diabetes mellitus without complication, without long-term current use of insulin (HCC) Osteopenia of multiple sites Obstructive sleep apnea of adult Obstructive sleep apnea (adult) (pediatric) Mixed hyperlipidemia Essential tremor Essential and other specified forms of tremor Essential hypertension Unspecified essential hypertension Dyslipidemia Other and unspecified hyperlipidemia Anxiety and depression Dysthymic disorder Uncontrolled type 2 diabetes mellitus with hyperglycemia (HCC) [facility] Diagnosis Pre-operative examination- Primary Preoperative examination, unspecified Type 2 diabetes mellitus without complication, without long-term current use of insulin (HCC) Osteopenia of multiple sites Obstructive sleep apnea of adult Obstructive sleep apnea (adult) (pediatric) Mixed hyperlipidemia Essential tremor Essential and other specified forms of tremor Essential hypertension Unspecified essential hypertension Dyslipidemia Other and unspecified hyperlipidemia Anxiety and depression Dysthymic disorder Essential hypertension- Primary Unspecified essential hypertension Lightheadedness Dizziness and giddiness [facility] Diagnosis Pre-operative examination- Primary Preoperative examination, unspecified Type 2 diabetes mellitus without complication, without long-term current use of insulin (HCC) Osteopenia of multiple sites Obstructive sleep apnea of adult Obstructive sleep apnea (adult) (pediatric) Mixed hyperlipidemia Essential tremor Essential and other specified forms of tremor Essential hypertension Unspecified essential hypertension Dyslipidemia Other and unspecified hyperlipidemia Anxiety and depression Dysthymic disorder Lightheadedness Dizziness and giddiness Essential hypertension Unspecified essential hypertension [facility] Diagnosis Pre-operative examination- Primary Preoperative examination, unspecified Type 2 diabetes mellitus without complication, without long-term current use of insulin (HCC) Osteopenia of multiple sites Obstructive sleep apnea of adult Obstructive sleep apnea (adult) (pediatric) Mixed hyperlipidemia Essential tremor Essential and other specified forms of tremor Essential hypertension Unspecified essential hypertension Dyslipidemia Other and unspecified hyperlipidemia Anxiety and depression Dysthymic disorder Essential hypertension- Primary Unspecified essential hypertension Uncontrolled type 2 diabetes mellitus with hyperglycemia (HCC) Dyslipidemia Other and unspecified hyperlipidemia [facility] Diagnosis Pre-operative examination- Primary Preoperative examination, unspecified Type 2 diabetes mellitus without complication, without long-term current use of insulin (HCC) Osteopenia of multiple sites Obstructive sleep apnea of adult Obstructive sleep apnea (adult) (pediatric) Mixed hyperlipidemia Essential tremor Essential and other specified forms of tremor Essential hypertension Unspecified essential hypertension Dyslipidemia Other and unspecified hyperlipidemia Anxiety and depression Dysthymic disorder Encounter for screening mammogram for breast cancer documented in this encounter [facility] note* Diagnosis Pre-operative examination- Primary Preoperative examination, unspecified Type 2 diabetes mellitus without complication, without long-term current use of insulin (HCC) Osteopenia of multiple sites Obstructive sleep apnea of adult Obstructive sleep apnea (adult) (pediatric) Mixed hyperlipidemia Essential tremor Essential and other specified forms of tremor Essential hypertension Unspecified essential hypertension Dyslipidemia Other and unspecified hyperlipidemia Anxiety and depression Dysthymic disorder Pain of upper abdomen Abdominal pain, other specified site Decreased appetite Anorexia Early satiety Bloating Flatulence, eructation, and gas pain documented in this encounter [facility] note* Diagnosis Pre-operative examination- Primary Preoperative examination, unspecified Type 2 diabetes mellitus without complication, without long-term current use of insulin (HCC) Osteopenia of multiple sites Obstructive sleep apnea of adult Obstructive sleep apnea (adult) (pediatric) Mixed hyperlipidemia Essential tremor Essential and other specified forms of tremor Essential hypertension Unspecified essential hypertension Dyslipidemia Other and unspecified hyperlipidemia Anxiety and depression Dysthymic disorder Essential (primary) hypertension- Primary Unspecified essential hypertension Pain of upper abdomen Abdominal pain, other specified site Decreased appetite Anorexia Early satiety Bloating Flatulence, eructation, and gas pain Pain of upper abdomen Abdominal pain, other specified site Decreased appetite Anorexia Early satiety Bloating Flatulence, eructation, and gas pain documented in this encounter [facility] note* Diagnosis Pre-operative examination- Primary Preoperative examination, unspecified Type 2 diabetes mellitus without complication, without long-term current use of insulin (HCC) Osteopenia of multiple sites Obstructive sleep apnea of adult Obstructive sleep apnea (adult) (pediatric) Mixed hyperlipidemia Essential tremor Essential and other specified forms of tremor Essential hypertension Unspecified essential hypertension Dyslipidemia Other and unspecified hyperlipidemia Anxiety and depression Dysthymic disorder Essential hypertension Unspecified essential hypertension [facility] Diagnosis Pre-operative examination- Primary Preoperative examination, unspecified Type 2 diabetes mellitus without complication, without long-term current use of insulin (HCC) Osteopenia of multiple sites Obstructive sleep apnea of adult Obstructive sleep apnea (adult) (pediatric) Mixed hyperlipidemia Essential tremor Essential and other specified forms of tremor Essential hypertension Unspecified essential hypertension Dyslipidemia Other and unspecified hyperlipidemia Anxiety and depression Dysthymic disorder Essential hypertension Unspecified essential hypertension [facility] Diagnosis Pre-operative examination- Primary Preoperative examination, unspecified Type 2 diabetes mellitus without complication, without long-term current use of insulin (HCC) Osteopenia of multiple sites Obstructive sleep apnea of adult Obstructive sleep apnea (adult) (pediatric) Mixed hyperlipidemia Essential tremor Essential and other specified forms of tremor Essential hypertension Unspecified essential hypertension Dyslipidemia Other and unspecified hyperlipidemia Anxiety and depression Dysthymic disorder RAMIREZ (dyspnea on exertion) Other dyspnea and respiratory abnormality Lightheadedness Dizziness and giddiness Dyslipidemia Other and unspecified hyperlipidemia documented in this encounter [facility] for referral (narrative)* Diagnostic Procedure Only (Routine) - Pending Review Specialty Diagnoses / Procedures Referred By Chema t Referred To Contact [facility] Diagnoses Encounter for screening mammogram for malignant neoplasm of breast Procedures NIVIA SCREENING W TY SCREENING DIGITAL BREAST TOMOSYNTHESIS BI SCREENING MAMMOGRAPHY BI 2-VIEW BREAST INC Casi Oconnell APRN.CNP [address] [place] [address] [facility] [address] [place] [id number] Referral ID Status Reason Start Date Expiration Date Visits Requested Visits Authorized [id number] Pending Review Auto-Generat ed Referral 10/23/2021 11/22/2022 1 1 [facility] for referral (narrative)* Diagnostic Procedure Only (Routine) - Closed Specialty Diagnoses / Procedures Referred By Contac t Referred To Contact MOLECULAR & FUNCTIONAL IMAGING Diagnoses Encounter for screening for cardiovascular disorders RAMIREZ (dyspnea on exertion) Lightheadedness Dyslipidemia Nausea Procedures NM CARDIAC PERF STRESS/PHARM MYOCARDIAL SPECT MULTIPLE STUDIES Wojciech Alvarado DO [address] [place] [address] Molecular [facility] Functional [facility] [address] [place] [address] Referral ID Status Reason Start Date Expiration Date V isits Requested Visits Authorized [id number] Closed Auto-Generate d Referral 12/09/2021 01/08/2023 1 1 [facility] for referral (narrative)* Diagnostic Procedure Only (Routine) - Pending Review Specialty Diagnoses / Procedures Referred By Barbieac t Referred To Contact XR IMAGING Diagnoses Pain in right hip Procedures XR HIP 2V AP/LAT RIGHT (AK,FL,ME) RADEX HIP UNILATERAL WITH PELVIS 2-3 VIEWS Magdaleno Norton APRN.CREATIVE COORDINATOR [address] [place] [address] [facility] Referral ID Status Reason Start Date Expiration Date Visits Requested Visits Authorized [id number] Pending Review Auto-Generat ed Referral 2 06/13/2023 1 1 [facility] for referral (narrative)* Diagnostic Procedure Only (Routine) - Pending Review Specialty Diagnoses / Procedures [facility] Diagnoses Encounter for screening mammogram for malignant neoplasm of breast Procedures NIVIA SCREENING W TY SCREENING DIGITAL BREAST TOMOSYNTHESIS BI SCREENING MAMMOGRAPHY BI 2-VIEW BREAST INC CAD Wojciech Alvarado DO [address] [place] [address] [facility] [address] [place] [address] Referral ID Status Reason Start Date Expiration Date Visits Requested Visits Authorized [id number] Pending Review Auto-Generat ed Referral 10/01/2022 10/24/2023 1 1 [facility] for referral (narrative)* Diagnostic Procedure Only (Routine) - Pending Review Specialty Diagnoses / Procedures Referred By Contac t Referred To Contact XR IMAGING Diagnoses Pain in right hip Procedures XR HIP 2V AP/LAT RIGHT (AK,FL,ME,UN) RADEX HIP UNILATERAL WITH PELVIS 2-3 VIEWS Magdaleno Norton APRN.CREATIVE COORDINATOR [address] [place] [address] [place] [address] Referral ID Status Reason Start Date Expiration Date Visits Requested Visits Authorized [id number] Pending Review Auto-Generat ed Referral 3 05/13/2024 1 1 [facility] for referral (narrative)* Diagnostic Procedure Only (Routine) - Pending Review Specialty Diagnoses / Procedures Referred By Contac t Referred To Contact [facility] Diagnoses Encounter for screening mammogram for breast cancer Procedures NIVIA SCREENING SCREENING MAMMOGRAPHY BI 2-VIEW BREAST INC Wojciech Armando DO [address] [place] [address] [facility] [address] [place] [address] Referral ID Status Reason Start Date Expiration Date Visits Requested Visits Authorized [id number] Pending Review Auto-Generat ed Referral 09/09/2023 10/08/2024 1 1 [facility] for referral (narrative)* Diagnostic Procedure Only (Routine) - Closed Specialty Diagnoses / Procedures Referred By Contac t Referred To Contact XR IMAGING Diagnoses Pain in right hip Procedures XR HIP 2V AP/LAT RIGHT (AK,FL,ME,UN) RADEX HIP UNILATERAL WITH PELVIS 2-3 VIEWS Magdaleno Norton APRN.CREATIVE COORDINATOR [address] [place] [id number] [place] [address] Referral ID Status Reason Start Date Expiration Date V isits Requested Visits Authorized [id number] Closed Auto-Generate d Referral 04/30/2023 05/29/2024 1 1 [facility] for referral (narrative)* Diagnostic Procedure Only (Routine) - Closed Specialty Diagnoses / Procedures Referred By Contac t Referred To Contact XR IMAGING Diagnoses Pain in right hip Procedures XR HIP 2V AP/LAT RIGHT (AK,FL,ME) RADEX HIP UNILATERAL WITH PELVIS 2-3 VIEWS Magdaleno Norton APRN.CNP [address] [address] [place] [address] Referral ID Status Reason Start Date Expiration Date V isits Requested Visits Authorized [id number] Closed Auto-Generate d Referral 05/15/2022 06/13/2023 1 1 [facility] for visit Narrative* Diagnostic Procedure Only (Routine) - Closed Specialty Diagnoses / Procedures Referred By Contac t Referred To Contact MOLECULAR & FUNCTIONAL IMAGING Diagnoses Encounter for screening for cardiovascular disorders RAMIREZ (dyspnea on exertion) Lightheadedness Dyslipidemia Nausea Procedures NM CARDIAC PERF STRESS/PHARM MYOCARDIAL SPECT MULTIPLE STUDIES Wojciech Alvarado L, DO [address] [place] [address] Molecular [facility] Functional Imaging [address] [place] [address] Referral ID Status Reason Start Date Expiration Date V isits Requested Visits Authorized [id number] Closed Auto-Generate d Referral 12/09/2021 01/08/2023 1 1 [facility] for visit Narrative* Diagnostic Procedure Only (Routine) - Closed Specialty Diagnoses / Procedures Referred By Contac t Referred To Contact XR IMAGING Diagnoses Pain in right hip Procedures XR HIP 2V AP/LAT RIGHT (AK,FL,ME,UN) RADEX HIP UNILATERAL WITH PELVIS 2-3 VIEWS Magdaleno Norton APRN.CREATIVE COORDINATOR [address] [address] [place] [address] Referral ID Status Reason Start Date Expiration Date V isits Requested Visits Authorized [id number] Closed Auto-Generate d Referral 04/30/2023 05/29/2024 1 1 [facility] for visit Narrative* Diagnostic Procedure Only (Routine) - Closed Specialty Diagnoses / Procedures Referred By Contac t Referred To Contact XR IMAGING Diagnoses Pain in right hip Procedures XR HIP 2V AP/LAT RIGHT (AK,FL,ME) RADEX HIP UNILATERAL WITH PELVIS 2-3 VIEWS Magdaleno Norton, [employer] VEHICLE DRIVER.CREATIVE COORDINATOR [address] [address] [place] [address] Referral ID Status Reason Start Date Expiration Date V isits Requested Visits Authorized [id number] Closed Auto-Generate d Referral 05/15/2022 06/13/2023 1 1 [facility] for visit Narrative* MRI/CT (Urgent) - Closed Specialty Diagnoses / Procedures Referred By Contac t Referred To Contact CT IMAGING Diagnoses Pain of upper abdomen Decreased appetite Early satiety Bloating Procedures CT ABD/PEL W IVCON CT ABD & PELVIS W/CONTRAST Halle Messina, [employer] VEHICLE DRIVER.CREATIVE COORDINATOR [address] [place] [address] Phone: tel: fax: [place] [address] Referral ID Status Reason Start Date Expiration Date V isits Requested Visits Authorized [id number] Closed Auto-Generate d Referral 10/06/2024 11/05/2025 1 1 [facility] for visit Narrative* MRI/CT (Urgent) - Closed Specialty Diagnoses / Procedures Referred By Contac t Referred To Contact CT IMAGING Diagnoses Pain of upper abdomen Decreased appetite Early satiety Bloating Procedures CT ABD/PEL W IVCON CT ABD & PELVIS W/CONTRAST Halle Messina, [employer] VEHICLE DRIVER.CREATIVE COORDINATOR [address] [place] [address] Phone: tel: fax: [place] [address] Referral ID Status Reason Start Date Expiration Date V isits Requested Visits Authorized [id number] Closed Auto-Generate d Referral 10/06/2024 11/05/2025 1 1 [facility] Advance Directives No Advanced Directives Records FoundDocuments on File Type Date Recorded 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 Advance Directive(s) 11/28/2016 8:26 AM Documents on File Type Date Recorded 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 Advance Directive(s) 11/28/2016 8:26 AM Chief Complaint and Reason for Visit Chief Complaint SCREENING Reason for Referral Specialty Diagnoses / Procedures Referred By Contac t Referred To Contact Orthopedics Diagnoses Primary osteoarthritis of right hip Procedures CONSULT TO ORTHOPAEDICS OFFICE/OUTPATIENT [facility] 60-74 MINUTES Wojciech Alvarado, DO [address] [place] [address] Referral ID Status Reason Start Date Expiration Date Visits Requested Visits Authorized [id number] Pending Review PCP Requested Referral 01/10/2022 01/10/2023 1 1 Specialty Diagnoses / Procedures Referred By Contac t Referred To Contact CT IMAGING Diagnoses Presence of right artificial hip joint Procedures CT HIP WO IVCON RT CT LOWER EXTREMITY W/O CONTRAST MATERIAL Ayo Roberts MD [address] [address] [address] Referral ID Status Reason Start Date Expiration Date Visits Requested Visits Authorized [id number] Authorized Auto-Generat ed Referral 03/04/2022 04/03/2023 1 1 Referral ID Status Reason Start Date Expiration Date V isits Requested Visits Authorized [id number] Closed Auto-Generate d Referral 03/04/2022 04/03/2023 1 1 Specialty Diagnoses / Procedures Referred By Contac t Referred To Contact Diagnoses 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 Procedures CONSULT TO HEPATOLOGY OFFICE/OUTPATIENT [facility] 60-74 MINUTES Wojciech Alvarado, DO [address] [place] [address] Referral ID Status Reason Start Date Expiration Date Visits Requested Visits Authorized [id number] Pending Review PCP Requested Referral 09/24/2022 09/24/2023 1 1 Summary Purpose Family History No Family History Records FoundNo Family History Records FoundNo Family History Records FoundNo Family History Records Found Additional Source Comments Source Comments (unrecognize d section and content) In the event this informatio n is protected by the Federal Confidentiality of Alcohol and Drug Abuse Patient Records regulations: The Federal rules restrict any use of the information to criminally investigate or prosecute any alcohol or drug abuse patient.[facility] the event this information is protected by the Federal Confidentiality of Alcohol and Drug Abuse Patient Records regulations: The Federal rules restrict any use of the information to criminally investigate or prosecute any alcohol or drug abuse patient.[facility] the event this information is protected by the Federal Confidentiality of Alcohol and Drug Abuse Patient Records regulations: The Federal rules restrict any use of the information to criminally investigate or prosecute any alcohol or drug abuse patient.[facility] the event this information is protected by the Federal Confidentiality of Alcohol and Drug Abuse Patient Records regulations: The Federal rules restrict any use of the information to criminally investigate or prosecute any alcohol or drug abuse patient.[facility] the event this information is protected by the Federal Confidentiality of Alcohol and Drug Abuse Patient Records regulations: The Federal rules restrict any use of the information to criminally investigate or prosecute any alcohol or drug abuse patient.[facility] the event this information is protected by the Federal Confidentiality of Alcohol and Drug Abuse Patient Records regulations: The Federal rules restrict any use of the information to criminally investigate or prosecute any alcohol or drug abuse patient.[facility] Center[facility] the event this information is protected by the Federal Confidentiality of Alcohol and Drug Abuse Patient Records regulations: The Federal rules restrict any use of the information to criminally investigate or prosecute any alcohol or drug abuse patient.[facility] Center[facility] the event this information is protected by the Federal Confidentiality of Alcohol and Drug Abuse Patient Records regulations: The Federal rules restrict any use of the information to criminally investigate or prosecute any alcohol or drug abuse patient.[facility] Center[facility] the event this information is protected by the Federal Confidentiality of Alcohol and Drug Abuse Patient Records regulations: The Federal rules restrict any use of the information to criminally investigate or prosecute any alcohol or drug abuse patient.[facility] Center[facility] the event this information is protected by the Federal Confidentiality of Alcohol and Drug Abuse Patient Records regulations: The Federal rules restrict any use of the information to criminally investigate or prosecute any alcohol or drug abuse patient.[facility] Center[facility] the event this information is protected by the Federal Confidentiality of Alcohol and Drug Abuse Patient Records regulations: The Federal rules restrict any use of the information to criminally investigate or prosecute any alcohol or drug abuse patient.[facility] Center[facility] the event this information is protected by the Federal Confidentiality of Alcohol and Drug Abuse Patient Records regulations: The Federal rules restrict any use of the information to criminally investigate or prosecute any alcohol or drug abuse patient.[facility] Center[facility] the event this information is protected by the Federal Confidentiality of Alcohol and Drug Abuse Patient Records regulations: The Federal rules restrict any use of the information to criminally investigate or prosecute any alcohol or drug abuse patient.[facility] Center[facility] the event this information is protected by the Federal Confidentiality of Alcohol and Drug Abuse Patient Records regulations: The Federal rules restrict any use of the information to criminally investigate or prosecute any alcohol or drug abuse patient.[facility] Center[facility] the event this information is protected by the Federal Confidentiality of Alcohol and Drug Abuse Patient Records regulations: The Federal rules restrict any use of the information to criminally investigate or prosecute any alcohol or drug abuse patient.[facility] Center[facility] the event this information is protected by the Federal Confidentiality of Alcohol and Drug Abuse Patient Records regulations: The Federal rules restrict any use of the information to criminally investigate or prosecute any alcohol or drug abuse patient.[facility] CenterIn the event this information is protected by the Federal Confidentiality of Alcohol and Drug Abuse Patient Records regulations: The Federal rules restrict any use of the information to criminally investigate or prosecute any alcohol or drug abuse patient.[facility] CenterIn the event this information is protected by the Federal Confidentiality of Alcohol and Drug Abuse Patient Records regulations: The Federal rules restrict any use of the information to criminally investigate or prosecute any alcohol or drug abuse patient.[facility] CenterIn the event this information is protected by the Federal Confidentiality of Alcohol and Drug Abuse Patient Records regulations: The Federal rules restrict any use of the information to criminally investigate or prosecute any alcohol or drug abuse patient.[facility] CenterIn the event this information is protected by the Federal Confidentiality of Alcohol and Drug Abuse Patient Records regulations: The Federal rules restrict any use of the information to criminally investigate or prosecute any alcohol or drug abuse patient.[facility] CenterIn the event this information is protected by the Federal Confidentiality of Alcohol and Drug Abuse Patient Records regulations: The Federal rules restrict any use of the information to criminally investigate or prosecute any alcohol or drug abuse patient.[facility] CenterIn the event this information is protected by the Federal Confidentiality of Alcohol and Drug Abuse Patient Records regulations: The Federal rules restrict any use of the information to criminally investigate or prosecute any alcohol or drug abuse patient.[facility] CenterIn the event this information is protected by the Federal Confidentiality of Alcohol and Drug Abuse Patient Records regulations: The Federal rules restrict any use of the information to criminally investigate or prosecute any alcohol or drug abuse patient.[facility] CenterIn the event this information is protected by the Federal Confidentiality of Alcohol and Drug Abuse Patient Records regulations: The Federal rules restrict any use of the information to criminally investigate or prosecute any alcohol or drug abuse patient.[facility] CenterIn the event this information is protected by the Federal Confidentiality of Alcohol and Drug Abuse Patient Records regulations: The Federal rules restrict any use of the information to criminally investigate or prosecute any alcohol or drug abuse patient.[facility] CenterIn the event this information is protected by the Federal Confidentiality of Alcohol and Drug Abuse Patient Records regulations: The Federal rules restrict any use of the information to criminally investigate or prosecute any alcohol or drug abuse patient.[facility] CenterIn the event this information is protected by the Federal Confidentiality of Alcohol and Drug Abuse Patient Records regulations: The Federal rules restrict any use of the information to criminally investigate or prosecute any alcohol or drug abuse patient.[facility] CenterIn the event this information is protected by the Federal Confidentiality of Alcohol and Drug Abuse Patient Records regulations: The Federal rules restrict any use of the information to criminally investigate or prosecute any alcohol or drug abuse patient.[facility] CenterIn the event this information is protected by the Federal Confidentiality of Alcohol and Drug Abuse Patient Records regulations: The Federal rules restrict any use of the information to criminally investigate or prosecute any alcohol or drug abuse patient.[facility] CenterIn the event this information is protected by the Federal Confidentiality of Alcohol and Drug Abuse Patient Records regulations: The Federal rules restrict any use of the information to criminally investigate or prosecute any alcohol or drug abuse patient.[facility] CenterIn the event this information is protected by the Federal Confidentiality of Alcohol and Drug Abuse Patient Records regulations: The Federal rules restrict any use of the information to criminally investigate or prosecute any alcohol or drug abuse patient.[facility] CenterIn the event this information is protected by the Federal Confidentiality of Alcohol and Drug Abuse Patient Records regulations: The Federal rules restrict any use of the information to criminally investigate or prosecute any alcohol or drug abuse patient.[facility] CenterIn the event this information is protected by the Federal Confidentiality of Alcohol and Drug Abuse Patient Records regulations: The Federal rules restrict any use of the information to criminally investigate or prosecute any alcohol or drug abuse patient.[facility] CenterIn the event this information is protected by the Federal Confidentiality of Alcohol and Drug Abuse Patient Records regulations: The Federal rules restrict any use of the information to criminally investigate or prosecute any alcohol or drug abuse patient.[facility] CenterIn the event this information is protected by the Federal Confidentiality of Alcohol and Drug Abuse Patient Records regulations: The Federal rules restrict any use of the information to criminally investigate or prosecute any alcohol or drug abuse patient.[facility] CenterIn the event this information is protected by the Federal Confidentiality of Alcohol and Drug Abuse Patient Records regulations: The Federal rules restrict any use of the information to criminally investigate or prosecute any alcohol or drug abuse patient.[facility] CenterIn the event this information is protected by the Federal Confidentiality of Alcohol and Drug Abuse Patient Records regulations: The Federal rules restrict any use of the information to criminally investigate or prosecute any alcohol or drug abuse patient.[facility] CenterIn the event this information is protected by the Federal Confidentiality of Alcohol and Drug Abuse Patient Records regulations: The Federal rules restrict any use of the information to criminally investigate or prosecute any alcohol or drug abuse patient.[facility] CenterIn the event this information is protected by the Federal Confidentiality of Alcohol and Drug Abuse Patient Records regulations: The Federal rules restrict any use of the information to criminally investigate or prosecute any alcohol or drug abuse patient.[facility] CenterIn the event this information is protected by the Federal Confidentiality of Alcohol and Drug Abuse Patient Records regulations: The Federal rules restrict any use of the information to criminally investigate or prosecute any alcohol or drug abuse patient.[facility] CenterIn the event this information is protected by the Federal Confidentiality of Alcohol and Drug Abuse Patient Records regulations: The Federal rules restrict any use of the information to criminally investigate or prosecute any alcohol or drug abuse patient.[facility] CenterIn the event this information is protected by the Federal Confidentiality of Alcohol and Drug Abuse Patient Records regulations: The Federal rules restrict any use of the information to criminally investigate or prosecute any alcohol or drug abuse patient.[facility] CenterIn the event this information is protected by the Federal Confidentiality of Alcohol and Drug Abuse Patient Records regulations: The Federal rules restrict any use of the information to criminally investigate or prosecute any alcohol or drug abuse patient.[facility] CenterIn the event this information is protected by the Federal Confidentiality of Alcohol and Drug Abuse Patient Records regulations: The Federal rules restrict any use of the information to criminally investigate or prosecute any alcohol or drug abuse patient.[facility] CenterIn the event this information is protected by the Federal Confidentiality of Alcohol and Drug Abuse Patient Records regulations: The Federal rules restrict any use of the information to criminally investigate or prosecute any alcohol or drug abuse patient.[facility] CenterIn the event this information is protected by the Federal Confidentiality of Alcohol and Drug Abuse Patient Records regulations: The Federal rules restrict any use of the information to criminally investigate or prosecute any alcohol or drug abuse patient.[facility] CenterIn the event this information is protected by the Federal Confidentiality of Alcohol and Drug Abuse Patient Records regulations: The Federal rules restrict any use of the information to criminally investigate or prosecute any alcohol or drug abuse patient.[facility] CenterIn the event this information is protected by the Federal Confidentiality of Alcohol and Drug Abuse Patient Records regulations: The Federal rules restrict any use of the information to criminally investigate or prosecute any alcohol or drug abuse patient.[facility] CenterIn the event this information is protected by the Federal Confidentiality of Alcohol and Drug Abuse Patient Records regulations: The Federal rules restrict any use of the information to criminally investigate or prosecute any alcohol or drug abuse patient.[facility] CenterIn the event this information is protected by the Federal Confidentiality of Alcohol and Drug Abuse Patient Records regulations: The Federal rules restrict any use of the information to criminally investigate or prosecute any alcohol or drug abuse patient.[facility] CenterIn the event this information is protected by the Federal Confidentiality of Alcohol and Drug Abuse Patient Records regulations: The Federal rules restrict any use of the information to criminally investigate or prosecute any alcohol or drug abuse patient.[facility] CenterIn the event this information is protected by the Federal Confidentiality of Alcohol and Drug Abuse Patient Records regulations: The Federal rules restrict any use of the information to criminally investigate or prosecute any alcohol or drug abuse patient.[facility] CenterIn the event this information is protected by the Federal Confidentiality of Alcohol and Drug Abuse Patient Records regulations: The Federal rules restrict any use of the information to criminally investigate or prosecute any alcohol or drug abuse patient.[facility] CenterIn the event this information is protected by the Federal Confidentiality of Alcohol and Drug Abuse Patient Records regulations: The Federal rules restrict any use of the information to criminally investigate or prosecute any alcohol or drug abuse patient.[facility] CenterIn the event this information is protected by the Federal Confidentiality of Alcohol and Drug Abuse Patient Records regulations: The Federal rules restrict any use of the information to criminally investigate or prosecute any alcohol or drug abuse patient.[facility] CenterIn the event this information is protected by the Federal Confidentiality of Alcohol and Drug Abuse Patient Records regulations: The Federal rules restrict any use of the information to criminally investigate or prosecute any alcohol or drug abuse patient.[facility] CenterIn the event this information is protected by the Federal Confidentiality of Alcohol and Drug Abuse Patient Records regulations: The Federal rules restrict any use of the information to criminally investigate or prosecute any alcohol or drug abuse patient.[facility] CenterIn the event this information is protected by the Federal Confidentiality of Alcohol and Drug Abuse Patient Records regulations: The Federal rules restrict any use of the information to criminally investigate or prosecute any alcohol or drug abuse patient.[facility] CenterIn the event this information is protected by the Federal Confidentiality of Alcohol and Drug Abuse Patient Records regulations: The Federal rules restrict any use of the information to criminally investigate or prosecute any alcohol or drug abuse patient.[facility] CenterIn the event this information is protected by the Federal Confidentiality of Alcohol and Drug Abuse Patient Records regulations: The Federal rules restrict any use of the information to criminally investigate or prosecute any alcohol or drug abuse patient.[facility] CenterIn the event this information is protected by the Federal Confidentiality of Alcohol and Drug Abuse Patient Records regulations: The Federal rules restrict any use of the information to criminally investigate or prosecute any alcohol or drug abuse patient.[facility] CenterIn the event this information is protected by the Federal Confidentiality of Alcohol and Drug Abuse Patient Records regulations: The Federal rules restrict any use of the information to criminally investigate or prosecute any alcohol or drug abuse patient.[facility] CenterIn the event this information is protected by the Federal Confidentiality of Alcohol and Drug Abuse Patient Records regulations: The Federal rules restrict any use of the information to criminally investigate or prosecute any alcohol or drug abuse patient.[facility] CenterIn the event this information is protected by the Federal Confidentiality of Alcohol and Drug Abuse Patient Records regulations: The Federal rules restrict any use of the information to criminally investigate or prosecute any alcohol or drug abuse patient.[facility] CenterIn the event this information is protected by the Federal Confidentiality of Alcohol and Drug Abuse Patient Records regulations: The Federal rules restrict any use of the information to criminally investigate or prosecute any alcohol or drug abuse patient.[facility] CenterIn the event this information is protected by the Federal Confidentiality of Alcohol and Drug Abuse Patient Records regulations: The Federal rules restrict any use of the information to criminally investigate or prosecute any alcohol or drug abuse patient.[facility] CenterIn the event this information is protected by the Federal Confidentiality of Alcohol and Drug Abuse Patient Records regulations: The Federal rules restrict any use of the information to criminally investigate or prosecute any alcohol or drug abuse patient.[facility] CenterIn the event this information is protected by the Federal Confidentiality of Alcohol and Drug Abuse Patient Records regulations: The Federal rules restrict any use of the information to criminally investigate or prosecute any alcohol or drug abuse patient.[facility] CenterIn the event this information is protected by the Federal Confidentiality of Alcohol and Drug Abuse Patient Records regulations: The Federal rules restrict any use of the information to criminally investigate or prosecute any alcohol or drug abuse patient.[facility] CenterIn the event this information is protected by the Federal Confidentiality of Alcohol and Drug Abuse Patient Records regulations: The Federal rules restrict any use of the information to criminally investigate or prosecute any alcohol or drug abuse patient.[facility] CenterIn the event this information is protected by the Federal Confidentiality of Alcohol and Drug Abuse Patient Records regulations: The Federal rules restrict any use of the information to criminally investigate or prosecute any alcohol or drug abuse patient.[facility] CenterIn the event this information is protected by the Federal Confidentiality of Alcohol and Drug Abuse Patient Records regulations: The Federal rules restrict any use of the information to criminally investigate or prosecute any alcohol or drug abuse patient.[facility] CenterIn the event this information is protected by the Federal Confidentiality of Alcohol and Drug Abuse Patient Records regulations: The Federal rules restrict any use of the information to criminally investigate or prosecute any alcohol or drug abuse patient.[facility] CenterIn the event this information is protected by the Federal Confidentiality of Alcohol and Drug Abuse Patient Records regulations: The Federal rules restrict any use of the information to criminally investigate or prosecute any alcohol or drug abuse patient.[facility] CenterIn the event this information is protected by the Federal Confidentiality of Alcohol and Drug Abuse Patient Records regulations: The Federal rules restrict any use of the information to criminally investigate or prosecute any alcohol or drug abuse patient.[facility] CenterIn the event this information is protected by the Federal Confidentiality of Alcohol and Drug Abuse Patient Records regulations: The Federal rules restrict any use of the information to criminally investigate or prosecute any alcohol or drug abuse patient.[facility] Reason for Visit (unrecogniz ed section and content) Reason Comments Refill Request Reason Comments Lab Order Request Reason Comments Reminder Call Reason Onset Date Comments Population Health Navigation Outreach 01/16/2022 [place] Attribution Reason Comments Results Reason Comments New Pain Specialty Diagnoses / Procedures Referred By Chema t Referred To Contact Orthopedics Diagnoses Primary osteoarthritis of right hip Procedures CONSULT TO ORTHOPAEDICS OFFICE/OUTPATIENT NEW HIGH MDM 60-74 MINUTES Wojciech Alvarado DO [address] [place] [address] Referral ID Status Reason Start Date Expiration Date Visits Requested Visits Authorized [id number] Pending Review PCP Requested Referral 01/10/2022 01/10/2023 1 1 Reason Comments Follow Up 6 weeks Specialty Diagnoses / Procedures Referred By Contac t Referred To Contact CT IMAGING Diagnoses Presence of right artificial hip joint Procedures CT HIP WO IVCON RT CT LOWER EXTREMITY W/O CONTRAST MATERIAL Ayo Roberts MD [address] [address] [address] Imaging Referral ID Status Reason Start Date Expiration Date V isits Requested Visits Authorized [id number] Closed Auto-Generate d Referral 03/04/2022 04/03/2023 1 1 Reason Comments Consult Reason Comments Pre-Op Teaching Reason Comments Medication Problem Reason Comments Vaccine Key Customer Leader - Hospital Follow Up Reason Comments Established Patient Follow Up Post Op Hip Replacement Reason Comments Post Op Hip Replacement Reason Comments Cholecystectomy Report Reason Comments Hospital F/U Reason Comments granuloma in liver Specialty Diagnoses / Procedures Referred By Contac t Referred To Contact Diagnoses 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 Procedures CONSULT TO HEPATOLOGY OFFICE/OUTPATIENT [facility] MDM 60-74 MINUTES Wojciech Alvarado, DO [address] [place] [address] Referral ID Status Reason Start Date Expiration Date Visits Requested Visits Authorized [id number] Pending Review PCP Requested Referral 09/24/2022 09/24/2023 1 1 Reason Comments poison kaylie Reason Comments F/U 3 Month Reason Comments Follow Up Hip Replacement Reason Onset Date Comments Population Health Navigation Outreach 08/11/2023 [place] Annual Wellness Visit Reason Onset Date Comments Population Health Navigation Outreach 09/03/2023 [place] Medication Adherence Reason Onset Date Comments Refill Request 10/05/2023 Reason Comments Patient Question Reason Comments Follow Up On medications wants to discuss dm meds Reason Onset Date Comments Refill Request 12/28/2023 Reason Onset Date Comments Allied Health Visit 01/19/2024 Medication A dherence Outreach Reason Comments Medicare Wellness Exam Reason Onset Date Comments Refill Request 04/04/2024 Reason Comments Chest Congestion cough x 5 days, incr eased last 2 days Reason Comments cpap replacement Reason Comments patient information Reason Comments Follow Up Diabetes Reason Onset Date Comments Refill Request 07/11/2024 Reason Comments Blood Pressure Reason Comments Hypertension Reason Comments Medication Problem Appointment Reason Comments Hypertension Results, Lab Completed / Reason Comments Follow Up BP check Reason Onset Date Comments Refill Request 10/31/2024 Reason Comments Patient Question Appointment cancella tion Reason Comments Orders Care Teams (unrecognized sec tion and content) Tierce Filler Relationship Specialty Start Date End Date Wojciech Alvarado, DO [address] [place] [address] PCP - General Family Practice 11/08/13 Tierce Filler Relationship Specialty Start Date End Date Wojciech Alvarado, DO [address] [place] [address] PCP - General Family Practice 11/08/13 Tierce Filler Relationship Specialty Start Date End Date Wojciech Alvarado, DO [address] [place] [address] PCP - General Family Practice 11/08/13 Tierce Filler Relationship Specialty Start Date End Date Wojciech Alvarado, DO [address] [place] [address] PCP - General Family Practice 11/08/13 Tierce Filler Relationship Specialty Start Date End Date Wojciech Alvarado, DO [address] [place] [address] PCP - General Family Practice 11/08/13 Tierce Filler Relationship Specialty Start Date End Date Wojciech Alvarado, DO [address] [place] [address] PCP - General Family Practice 11/08/13 Tierce Filler Relationship Specialty Start Date End Date Wojciech Alvarado, DO [address] [place] [address] PCP - General Family Practice 11/08/13 Tierce Filler Relationship Specialty Start Date End Date Wojciech Alvarado, DO [address] [place] [address] PCP - General Family Practice 11/08/13 Tierce Filler Relationship Specialty Start Date End Date Wojciech Alvarado, DO [address] [place] [address] PCP - General Family Practice 11/08/13 Tierce Filler Relationship Specialty Start Date End Date Wojciech Alvarado, DO [address] [place] [address] PCP - General Family Medicine 11/08/13 Tierce Filler Relationship Specialty Start Date End Date Wojciech Alvarado, DO [address] [place] [address] PCP - General Family Medicine 11/08/13 Tierce Filler Relationship Specialty Start Date End Date Wojciech Alvarado, DO [address] [place] [address] PCP - General Family Medicine 11/08/13 Tha Quach, [facility] [address] [place] [address] Specialty Vaccine Key Customer Leader Orthopedics 03/17/22 06/15/22 Tierce Filler Relationship Specialty Start Date End Date Wojciech Alvarado, DO [address] [place] [address] PCP - General Family Medicine 11/08/13 Tha Quach, [facility] [address] [place] [address] Specialty Vaccine Key Customer Leader Orthopedics 03/17/22 06/15/22 Tierce Filler Relationship Specialty Start Date End Date Wojciech Alvarado, DO [address] [place] [address] PCP - General Family Medicine 11/08/13 Tha Quach, [facility] [address] [place] [address] Specialty Vaccine Key Customer Leader Orthopedics 03/17/22 06/15/22 Tierce Filler Relationship Specialty Start Date End Date Wojciech Alvarado, DO [address] [place] [address] PCP - General Family Medicine 11/08/13 Tha Quach, [facility] [address] [place] [address] Specialty Vaccine Key Customer Leader Orthopedics 03/17/22 06/15/22 Tierce Filler Relationship Specialty Start Date End Date Wojciech Alvarado, DO [address] [place] [address] PCP - General Family Medicine 11/08/13 Tha Quach, [facility] [address] [place] [address] Specialty Vaccine Key Customer Leader Orthopedics 03/17/22 06/15/22 Tierce Filler Relationship Specialty Start Date End Date Wojciech Alvarado, DO [address] [place] [address] PCP - General Family Medicine 11/08/13 Tha Quach, [facility] [address] [place] [address] Specialty Vaccine Key Customer Leader Orthopedics 03/17/22 06/15/22 Tierce Filler Relationship Specialty Start Date End Date Wojciech Alvarado, DO [address] [place] [address] PCP - General Family Medicine 11/08/13 Tha Quach, [facility] [address] [place] [address] Specialty Vaccine Key Customer Leader Orthopedics 03/17/22 06/15/22 Tierce Filler Relationship Specialty Start Date End Date Wojciech Alvarado, DO [address] [place] [address] PCP - General Family Medicine 11/08/13 Tierce Filler Relationship Specialty Start Date End Date Wojciech Alvarado, DO [address] [place] [address] PCP - General Family Medicine 11/08/13 Tierce Filler Relationship Specialty Start Date End Date Wojciech Alvarado, DO [address] [place] [address] PCP - General Family Medicine 11/08/13 Tierce Filler Relationship Specialty Start Date End Date Wojciech Alvarado, DO [address] [place] [address] PCP - General Family Medicine 11/08/13 Tierce Filler Relationship Specialty Start Date End Date Wojciech Alvarado DO [address] [place] [address] PCP - General Family Medicine 11/08/13 Tierce Filler Relationship Specialty Start Date End Date Wojciech Alvarado DO [address] [place] [address] PCP - General Family Medicine 11/08/13 Tierce Filler Relationship Specialty Start Date End Date Wojciech Alvarado DO [address] [place] [address] PCP - General Family Medicine 11/08/13 Tierce Filler Relationship Specialty Start Date End Date Wojciech Alvarado DO [address] [place] [address] PCP - General Family Medicine 11/08/13 Team Status: Active Member Role Status Dates Dr. Wojciech Alvarado DO Family Provider Active Dr. Wojciech Alvarado DO Primary Care Provider Active Team Status: Inactive Member Role Status Dates Dr. Wojciech Alvarado DO Primary Care Pr ovider, Attending Provider, Referring Provider Active Tierce Filler Relationship Specialty Start Date End Date Wojciech Alvarado DO [address] [place] [address] PCP - General Family Medicine 11/08/13 Tierce Filler Relationship Specialty Start Date End Date Wojciech Alvarado DO [address] [place] [address] PCP - General Family Medicine 11/08/13 Tierce Filler Relationship Specialty Start Date End Date Wojciech Alvarado DO [address] [place] [address] PCP - General Family Medicine 11/08/13 Tierce Filler Relationship Specialty Start Date End Date Wojciech Alvarado DO [address] [place] [address] PCP - General Family Medicine 11/08/13 Tierce Filler Relationship Specialty Start Date End Date Wojciech Alvarado DO [address] [place] [address] PCP - General Family Medicine 11/08/13 Tierce Filler Relationship Specialty Start Date End Date Wojciech Alvarado DO [address] [place] [address] PCP - General Family Medicine 11/08/13 Tierce Filler Relationship Specialty Start Date End Date Wojciech Alvarado DO [address] [place] [address] PCP - General Family Medicine 11/08/13 Tierce Filler Relationship Specialty Start Date End Date Wojciech Alvarado DO [address] [place] [address] PCP - General Family Medicine 11/08/13 Tierce Filler Relationship Specialty Start Date End Date Wojciech Alvarado DO [address] [place] [address] PCP - General Family Medicine 11/08/13 Tierce Filler Relationship Specialty Start Date End Date Wojciech Alvarado DO [address] [place] [address] PCP - General Family Medicine 11/08/13 Tierce Filler Relationship Specialty Start Date End Date Wojciech Alvarado DO [address] [place] [address] PCP - General Family Medicine 11/08/13 Tierce Filler Relationship Specialty Start Date End Date Wojciech Alvarado DO [address] [place] [address] PCP - General Family Medicine 11/08/13 Tierce Filler Relationship Specialty Start Date End Date Wojciech Alvarado DO [address] [place] [address] PCP - General Family Medicine 11/08/13 Tierce Filler Relationship Specialty Start Date End Date Wojciech Alvarado DO [address] [place] [address] PCP - General Family Medicine 11/08/13 Tierce Filler Relationship Specialty Start Date End Date Wojciech Alvarado DO [address] [place] [address] PCP - General Family Medicine 11/08/13 Tierce Filler Relationship Specialty Start Date End Date Wojciech Alvarado DO [address] [place] [address] PCP - General Family Medicine 11/08/13 Tierce Filler Relationship Specialty Start Date End Date Wojciech Alvarado DO [address] [place] [address] PCP - General Family Medicine 11/08/13 Tha Quach [facility] [address] [place] [address] Specialty Vaccine Key Customer Leader Orthopedics 03/17/22 06/15/22 Tierce Filler Relationship Specialty Start Date End Date Wojciech Alvarado DO [address] [place] [address] PCP - General Family Medicine 11/08/13 Tierce Filler Relationship Specialty Start Date End Date Wojciech Alvarado DO [address] [place] [address] PCP - General Family Medicine 11/08/13 Tierce Filler Relationship Specialty Start Date End Date Wojciech Alvarado DO [address] [place] [address] PCP - General Family Medicine 11/08/13 Tierce Filler Relationship Specialty Start Date End Date Wojciech Alvarado DO [address] [place] [address] PCP - General Family Medicine 11/08/13 Casi Aponte, [employer] VEHICLE DRIVER.CREATIVE COORDINATOR [address] [place] [address] Workplace Relations Adviser Family Medicine 05/08/24 Halle Messina, [employer] VEHICLE DRIVER.CREATIVE COORDINATOR [address] [place] [address] Workplace Relations Adviser Family Medicine 05/08/24 Tierce Filler Relationship Specialty Start Date End Date Wojciech Alvarado DO [address] [place] [address] PCP - General Family Medicine 11/08/13 Casi Aponte, [employer] VEHICLE DRIVER.CREATIVE COORDINATOR [address] [place] [address] Workplace Relations Adviser Family Medicine 05/08/24 Halle Messina, [employer] VEHICLE DRIVER.CREATIVE COORDINATOR [address] [place] [address] Workplace Relations Adviser Family Medicine 05/08/24 Tierce Filler Relationship Specialty Start Date End Date Wojciech Alvarado DO [address] [place] [address] PCP - General Family Medicine 11/08/13 Casi Aponte, [employer] VEHICLE DRIVER.CREATIVE COORDINATOR [address] [facility] [place] [address] [facility] 05/08/24 [facility] [employer] VEHICLE DRIVER.CREATIVE COORDINATOR [address] [facility] [place] [address] [facility] 05/08/24 Tierce Filler Relationship Specialty Start Date End Date Wojciech Alvarado DO [address] [facility] [place] [address] PCP - General Family Medicine 11/08/13 Casi Aponte, [employer] VEHICLE DRIVER.CREATIVE COORDINATOR [address] [place] [address] [facility]place [facility] 05/08/24 SiddharthHalle, [employer] VEHICLE DRIVER.CREATIVE COORDINATOR [address] [place] [address] [facility] 05/08/24 Tierce Filler Relationship Specialty Start Date End Date Wojciech Alvarado DO [address] [facility] [place] [address] PCP - General Family Medicine 11/08/13 Csai Aponte, [employer] VEHICLE DRIVER.CREATIVE COORDINATOR [address] [facility] [place] [address] [facility] 05/08/24 SiddharthHalle, [employer] VEHICLE DRIVER.CREATIVE COORDINATOR [address] [facility] [place] [address] [facility] 05/08/24 Tierce Filler Relationship Specialty Start Date End Date Wojciech Alvarado DO [address] [facility] [place] [address] PCP - General Family Medicine 11/08/13 Casi Aponte, [employer] VEHICLE DRIVER.CREATIVE COORDINATOR [address] [place] [address] [facility] 05/08/24 SiddharthHalle, [employer] VEHICLE DRIVER.CREATIVE COORDINATOR [address] [place] [address] [facility] 05/08/24 Tierce Filler Relationship Specialty Start Date End Date Wojciech Alvarado DO [address] [place] [address] PCP - General Family Medicine 11/08/13 Casi Aponte, [employer] VEHICLE DRIVER.CREATIVE COORDINATOR [address] [place] [address] [facility] 05/08/24 [facility], [employer] VEHICLE DRIVER.CREATIVE COORDINATOR [address] [place] [address] [facility] 05/08/24 Tierce Filler Relationship Specialty Start Date End Date Wojciech Alvarado DO [address] [place] [address] PCP - General Family Medicine 11/08/13 Casi Aponte, [employer] VEHICLE DRIVER.CREATIVE COORDINATOR [address] [place] [address] Workplace Relations Adviser Family Medicine 05/08/24 Halle Messina, [employer] VEHICLE DRIVER.CREATIVE COORDINATOR [address] [place] [address] Workplace Relations Adviser Family Medicine 05/08/24 Tierce Filler Relationship Specialty Start Date End Date Wojciech Alvarado DO [address] [place] [address] PCP - General Family Medicine 11/08/13 Casi Aponte, [employer] VEHICLE DRIVER.CREATIVE COORDINATOR [address] [place] [address] Workplace Relations Adviser Family Medicine 05/08/24 Halle Messina, [employer] VEHICLE DRIVER.CREATIVE COORDINATOR [address] [place] [address] Workplace Relations Adviser Family [facility] 05/08/24 Tierce Filler Relationship Specialty Start Date End Date Wojciech Alvarado DO [address] [place] [address] PCP - General Family Medicine 11/08/13 Casi Aponte, [employer] VEHICLE DRIVER.CREATIVE COORDINATOR [address] [place] [address] Workplace Relations Adviser Family Medicine 05/08/24 08/19/24 Halle Messina, [employer] VEHICLE DRIVER.CREATIVE COORDINATOR [address] [place] [address] Workplace Relations Adviser Family Medicine 05/08/24 Tierce Filler Relationship Specialty Start Date End Date Wojciech Alvarado DO [address] [place] [address] PCP - General Family Medicine 11/08/13 Halle Messina, [employer] VEHICLE DRIVER.CREATIVE COORDINATOR [address] [facility] [place] [address] Workplace Relations Adviser Family Medicine 05/08/24 Tierce Filler Relationship Specialty Start Date End Date Wojciech Alvarado DO [address] [place] [address] PCP - General Family Medicine 11/08/13 Casi Aponte, [employer] VEHICLE DRIVER.CREATIVE COORDINATOR [address] [place] [address] Workplace Relations Adviser Family Medicine 05/08/24 08/19/24 Halle Messina, [employer] VEHICLE DRIVER.CREATIVE COORDINATOR [address] [place] [address] Workplace Relations Adviser [facility] 05/08/24 Tierce Filler Relationship Specialty Start Date End Date Wojciech Alvarado DO [address] [place] [address] PCP - General Family Medicine 11/08/13 Halle Messina, [employer] VEHICLE DRIVER.CREATIVE COORDINATOR [address] [place] [address] Workplace Relations Adviser [facility] 05/08/24 Tierce Filler Relationship Specialty Start Date End Date Wojciech Alvarado DO [address] [facility] [place] [address] PCP - General Family Medicine 11/08/13 Halle eMssina, [employer] VEHICLE DRIVER.CREATIVE COORDINATOR [address] [place] [address] Workplace Relations Adviser Family [facility] 05/08/24 Tierce Filler Relationship Specialty Start Date End Date Wojciech Alvarado DO [address] [place] [address] PCP - General Family Medicine 11/08/13 Halle Messina, [employer] VEHICLE DRIVER.CREATIVE COORDINATOR [address] [place] [address] Workplace Relations Adviser [facility] 05/08/24 Tierce Filler Relationship Specialty Start Date End Date Wojciech Alvarado DO [address] [place] [address] PCP - General Family Medicine 11/08/13 SiddharthHalle, [employer] VEHICLE DRIVER.CREATIVE COORDINATOR [address] [place] [address] Workplace Relations Adviser [facility] 05/08/24 Tierce Filler Relationship Specialty Start Date End Date Wojciech Alvarado DO [address] [place] [address] PCP - General Family Medicine 11/08/13 SiddharthHalle, [employer] VEHICLE DRIVER.CREATIVE COORDINATOR [address] [place] [address] [facility]place [facility] 05/08/24 Tierce Filler Relationship Specialty Start Date End Date Wojciech Alvarado DO [address] [place] [address] PCP - General Family Medicine 11/08/13 Halle Messina, [employer] VEHICLE DRIVER.CREATIVE COORDINATOR [address] [place] [address] Workplace Relations Adviser Family [facility] 05/08/24 Kate Paris, [employer] VEHICLE DRIVER.CREATIVE COORDINATOR [address] [place] [address] [facility] 11/14/24 Tierce Filler Relationship Specialty Start Date End Date Wojciech Alvarado DO [address] [place] [address] PCP - General Family Medicine 11/08/13 [facility], [employer] VEHICLE DRIVER.CREATIVE COORDINATOR [address] [place] [address] [facility] 05/08/24 Kate Paris, [employer] VEHICLE DRIVER.CREATIVE COORDINATOR [address] [place] [address] [facility] 11/14/24 Tierce Filler Relationship Specialty Start Date End Date Wojciech Alvarado DO [address] [place] [address] PCP - General Family Medicine 11/08/13 [facility], [employer] VEHICLE DRIVER.CREATIVE COORDINATOR [address] [place] [address] [facility] Family [facility] 05/08/24 Kate Paris, [employer] VEHICLE DRIVER.CREATIVE COORDINATOR [address] [place] [address] [facility] 11/14/24 Tierce Filler Relationship Specialty Start Date End Date Wojciech Alvarado DO [address] [place] [address] PCP - General Family Medicine 11/08/13 Halle Messina, YOSEF.CREATIVE COORDINATOR [address] [place], [place] [address] [facility] 05/08/24 Kate Paris APRN.CREATIVE COORDINATOR [address] [place], [place] [id number] [facility] 11/14/24 Tierce Filler Relationship Specialty Start Date End Date Wojciech Alvarado DO [address] [place], [place] [id number] PCP - [facility] 11/08/13 Halle Messina, YOSEF.CREATIVE COORDINATOR [address] [place], [place] [id number] [facility] 05/08/24 Kate Paris, YOSEF.CREATIVE COORDINATOR [address] [place] [id number] [facility] 11/14/24 Goals (unrecognized section and content) Goals may be documented in a n alternate sectionGoals may be documented in an alternate section INFORMATION SOURCE (unrecogn ized section and content) DATE CREATED AUTHOR 07/03/2023 [facility] DATE CREATED AUTHOR AUTHOR'S ORGANIZ ATION 10/08/2024 [facility] DATE CREATED AUTHOR AUTHOR'S ORGANIZ ATION 01/06/2025 [facility] DATE CREATED AUTHOR AUTHOR'S ORGANIZ ATION 01/17/2025 [facility] FOR RECORDS PERTAINING TO PATIENTS WHO ARE OR HAVE BEEN ENROLLED IN A CHEMICAL DEPENDENCY/SUBSTANCEABUSE PROGRAM, SOME INFORMATION MAY BE OMITTED. This clinical summary was aggregated from multiple sources. Caution should be exercised in using it in the provision of clinical care. This summary normalizes information from multiple sources, and as a consequence, information in this document may materially change the coding, format and clinical context of patient data. In addition, data may be omitted in some cases. CLINICAL DECISIONS SHOULD BE BASED ON THE PRIMARY CLINICAL RECORDS. [facility] [employer] [facility]. provides no warranty or guarantee of the accuracy or completeness of information in this document.
== END | disposition home or self-care (01) ==
LOC: OPBI 07:21
PROVIDERS: PCP Student in an Organized Health Care Education/Training Program; Referring Provider Student in an Organized Health Care Education/Training Program; Visit Provider Student in an Organized Health Care Education/Training Program
DX: Z12.31 Encounter for screening mammogram for malignant neoplasm of breast (principal)
CPT/HCPCS: 77063; 77067